=== PATIENT | female | born 1955 | race Caucasian/White ===

== ENCOUNTER 2021-12-14 15:34 | Inpatient (IN) | payer MEDICARE, MEDICAID, SELFPAY ==
[2021-12-14] VITALS (17 sets, daily range): BP systolic 90–126; BP diastolic 61–100; PULSE 115–146; RESP 16–29; TEMP 35.6–37.3; O2SAT 89–98; BMI 25.4; BMI 24.2
--- NOTE | 2021-12-14 16:05 | EDS_ITS ---
HPI History of Present Illness Chief Complaint: Chest Pain Informant: patient Onset/Context/Timing Onset: Today Activity at onset: gradual Timing: Continuous Quality: Positive for Heaviness and Pressure Location: Left Parasternal Current Severity: Severe Maximum Severity: Severe Narrative Narrative: Patient present secondary to chest pain and shortness of breath. She states symptoms started today. [facility] Patient states he was not get anything for pain prior to arrival. 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 She completed her radiation and had 1 chemo treatment. She denies any leg pain or swelling. She is not on blood thinners. [facility] Medical History Anxiety Chest pain Congestive heart failure (CHF) Diabetes Former smoker Hypertension Metastasis Primary cancer of left upper lobe of lung Allergy/AdvReac Type Severity Reaction Status Date / Time No Known Allergies Allergy Verified 12/14/21 15:36 Social History Smoking Status: Former smoker ROS ROS ED Constitutional Constitutional ED: Denies chills or fever(s) Eyes Eyes: Denies change in vision or discharge from eye(s) ENT ENT ED: Denies discharge from eye(s), rhinorrhea or sore throat Cardiovascular Cardiovascular: Reports chest pain; Denies palpitations Respiratory/Chest Respiratory/Chest: Reports dyspnea; Denies cough Gastrointestinal Gastrointestinal: Denies abdominal pain, nausea or vomiting Musculoskeletal Musculoskeletal: Denies back pain or extremity pain Neurologic Neurologic: Denies headache(s) or weakness Allergic/Immunologic Allergic/Immunologic ED: Denies lip swelling or urticaria EXAM Physical Exam Const Vital Signs: 12/14/21 15:36 12/14/21 15:59 12/14/21 16:09 Temperature 97 F L 96.0 F L Temperature Source Temporal Temporal Pulse Rate 140 H 146 H Respiratory Rate 16 21 H Blood Pressure 126/77 H 122/100 H Blood Pressure Mean 93 107 Pulse Ox 91 89 92 Oxygen Delivery Method Room Air Room Air Nasal Cannula Oxygen Flow Rate (L/min) 2 12/14/21 17:44 Temperature Temperature Source Pulse Rate 137 H Respiratory Rate 19 H Blood Pressure 119/90 H Blood Pressure Mean 99 Pulse Ox 93 Oxygen Delivery Method Room Air Oxygen Flow Rate (L/min) Positive well nourished and well developed General Appearance ED: well developed HEENT Reports normocephalic and head/scalp atraumatic Eyes PERRL and EOMs intact bilaterally Neck supple Chest Wall inspection of chest normal and palpation of chest normal Resp normal respiratory effort and clear to auscultation bilaterally Cardio regular rhythm Rate: tachycardic GI normal to inspection, nondistended, normoactive bowel sounds Palpation: soft Extremity normal to inspection Neuro oriented x3 and no sensory deficits noted Sensorium / Orientation: alert Psych Mood & Affect: anxious Skin no rashes or lesions noted Heart Score History: Moderately Suspicious ECG: Normal Age: >45 - <65 years Risk Factors: 1 or 2 Risk Factors Troponin: </= Normal Limit Score: 3 MDM MDM MDM Narrative Medical decision making narrative: Patient placed on ekg monitor tech. EKG, lab work, chest x-ray obtained. Patient given fentanyl for pain control. Due to high suspicion of PE CTA of the chest is ordered as soon as renal function returns. Lab Data Attestation: I reviewed the patient's lab results. Labs: Laboratory Results - last 24 hr 12/14/21 12/14/21 15:18 15:18 WBC 6.5 RBC 3.52 L Hgb 12.6 Hct 38.4 MCV 109.1 H MCH 35.8 H MCHC 32.8 RDW Std Deviation 77.3 H RDW Coeff of Bettina 19.2 H Plt Count 261 MPV 9.4 Immature Gran % (Auto) 0.600 Neut % (Auto) 86.2 H Lymph % (Auto) 9.8 L [place] % (Auto) 2.9 Eos % (Auto) 0.0 Baso % (Auto) 0.5 Absolute Neuts (auto) 5.6 Absolute Lymphs (auto) 0.64 L Nucleated RBC % 0.8 Sodium 138 Potassium 3.9 Chloride 103 Carbon Dioxide 25.0 Anion Gap 10 BUN 16 Creatinine 0.64 Estim Creat Clear Calc 67.01 Est GFR (MDRD) Af Amer 119 Est GFR (MDRD) Non-Af 98 BUN/Creatinine Ratio 24.8 H Glucose 248 H Calcium 9.0 Troponin I High Sens 11 Radiography Chest X-Ray - ED: 1 View, Read by ED Physician and Left Infiltrate Diagnostic Testing: Clinical Impression(s) from Imaging Studies Chest X-Ray 12/14/21 16:36 IMPRESSION: Left lower lobe consolidation. Pneumonia versus mass in this patient with history of lung cancer. Electronically Signed: Derek BiggsDO at 17:04 EDT Reading Location ID and State: [facility] / [place] Tel [phone], Service support , Chest CTA 12/14/21 16:54 IMPRESSION: 1. No evidence of pulmonary embolus. 2. No aortic dissection or aneurysm. 3. Spiculated mass in the left upper lobe. 4. More consolidation at the left lung base. 5. Faint groundglass density in the right periphery of the right upper lobe. 6. Degenerative changes of the thoracic spine. Electronically Signed: Derek BiggsDO at 17:37 EDT Reading Location ID and State: [facility] / [place] Tel [phone], Service support , Brain CT 12/14/21 17:02 IMPRESSION: Chronic involutional changes without evidence of acute intracranial or calvarial abnormality.. There is no visualized mass, bleed or infarction. If there is continued concern for brain metastases or infarction, MRI is recommended. Electronically Signed: Derek BiggsDO at 17:25 EDT Reading Location ID and State: [facility] / [place] Tel [phone], Service support , EKG Initial EKG: Attestation: I personally reviewed and interpreted this EKG as follows: Interpretation: Sinus Tachycardia (Sinus tach at 145.) Treatment and Re-Evaluation Narrative: Patient's heart rate is currently in the 120s. Lab work reveals normal white count at 6.5 but left shift is noted. Chemistry studies unremarkable. Troponin is normal at 11. EKG reveals sinus tachycardia. Chest x-ray per my interpretation reveals a large left lower lobe infiltrate. CTA of the chest reveals no evidence of pulmonary embolism. There is a spiculated mass in the left upper lobe. There is a consolidation with air bronchograms noted in the left lower lung. At this time patient be given Zosyn and vancomycin. Blood cultures will be obtained along with lactic acid. I will speak with hospitalist regarding admission. Discharge Plan Triage Chief Complaint: Chest Pain ED Provider: Jennifer Kong Dx/Rx/DC Orders Clinical Impression: Pneumonia, Chest pain, Tachycardia Primary Care Provider: Nixon Atkins Referrals: Nixon Atkins MD [Primary Care Provider] - Disposition Disposition: Acute Care Hospital [facility]
[2021-12-14] MEDS: fentaNYL 100 MCG/2 ML Ampul 50 MCG IV (16:16)
[2021-12-14] MEDS: Aspirin 81 MG TAB.CHEW 324 MG PO (16:16)
[2021-12-14] MEDS: 0.9% Normal Saline 1,000 ML 150 ML IV (16:17)
[2021-12-14 16:18] LABS: Absolute Lymphocyte Count 0.64 X10^3/uL (0.83-4.51); Absolute Neutrophil Count 5.6 X10^3/uL (2.0-7.7); Basophil# 0.03 X10^3/uL; Hematocrit 38.4 % (37-47); Hemoglobin 12.6 g/dL (12.0-15.0); Lymphocyte # 0.64 X10^3/ul (0.83-4.51); Mean Corp Hgb Conc 32.8 g/dL (32-36); Mean Corpuscular Hgb 35.8 pg (27.0-32.0); Mean Corpuscular Volume 109.1 fL (81-99); Mean Platelet Vol. 9.4 fl (6.2-12.0); Monocyte# 0.19 X10^3/uL; NRBC Flagged by Analyzer 0.8 % (0-5); Neutrophil # 5.63 X10^3/uL (2.7-7.7); POSITIVE MORPHOLOGY YES; Platelet Count 261 K/mm3 (150-450); RBC Distribution Width CV 19.2 % (11.6-14.6); RBC Distribution Width SD 77.3 fl (35.1-43.9); Red Blood Count 3.52 M/mm3 (4.2-5.4); White Blood Count 6.5 K/mm3 (4.4-11.0)
[2021-12-14 16:25] LABS: Differential Indicated SCAN CRITERIA MET
[2021-12-14 16:34] LABS: Anion Gap 10 (5-15); BUN 16 mg/dL (7-18); BUN/Creat Ratio 24.8 RATIO (10-20); Chloride 103 mmol/L (98-107); Creatinine, Serum 0.64 mg/dL (0.55-1.02); EST Glomerular Filtration Rate 98 mL/min (>60); Est Glom Filt Rate - Afr Amer 119 mL/min (>60); Estimated Creatinine Clearance 67.01 ml/min; Glucose 248 mg/dL (74-106); Potassium 3.9 mmol/L (3.5-5.1); Sodium Level 138 mmol/L (136-145); Troponin-I HS (w/2H Reflex) 11 pg/mL (3.0-54.0)
--- NOTE | 2021-12-14 16:36 | RAD_ITS ---
STUDY: X-RAY CHEST REASON FOR EXAM: Female, 66 years old. Chest pain. History of lung cancer. TECHNIQUE: Single AP portable view of the chest. COMPARISON: None. FINDINGS: There is a consolidation in the left lung base. Interval infiltrate is seen in the right lung base. The lungs are otherwise clear. There is no demonstrated pleural abnormality. Normal size heart. Normal mediastinum and kaiden. Normal visualized pulmonary arteries. Normal visualized aortic arch and descending thoracic aorta. There are diffuse degenerative changes of the visualized thoracic spine. Normal visualized ribs, clavicles, and shoulders. There is no demonstrated abnormality of the visualized soft tissue structures of the upper abdomen. RAD/Chest 1 View (Portable) IMPRESSION: Left lower lobe consolidation. Pneumonia versus mass in this patient with history of lung cancer. Electronically Signed: Derek Biggs DO at 17:04 EDT ,
--- NOTE | 2021-12-14 16:54 | CT_ITS ---
STUDY: CTA CHEST REASON FOR EXAM: Female, 66 years old. Rest pain. History of lung cancer with brain metastases. Former smoker. Hypertension, COPD, CHF and diabetes. RADIATION DOSAGE (If Supplied By Facility): CTDIvol = ( 10.69 ) mGy, DLP = ( 425.95 ) mGycm TECHNIQUE: The examination was performed with the intravenous administration of IV 75mL Isovue-370. Post-processing of the angiographic images was performed, with multiplanar reformation and 3D reconstruction. Individualized dose optimization techniques were used for this CT. COMPARISON: Chest, 12/14/2021 FINDINGS: Normal enhancement of the main pulmonary artery and right and left pulmonary arteries. Normal enhancement of the bilateral peripheral pulmonary arteries. There is no demonstrated pulmonary embolism. The atherosclerotic changes of the thoracic aorta without aneurysm. There is no demonstrated aortic dissection. Normal heart and pericardium. No coronary artery calcifications. Subcentimeter subcarinal lymph node. No other mediastinal adenopathy is seen. Normal hilar regions. Normal visualized trachea and bronchi. The lungs are well expanded. There is a spiculated density in the left upper lobe measuring 2.9 x 2.0 x 1.9 cm in size. Minimal thickening of the oblique fissure. There is marked consolidation of the left lower lobe with air bronchograms. This is a vague ground glass pleural-based density in the right upper lobe best seen on image 164 of series 2. Right lung is otherwise clear. Small right pleural effusion. Normal chest wall structures. There are degenerative changes of thoracic spine. Normal visualized upper abdomen. CT/CTA Chest W/WO Contrast IMPRESSION: 1. No evidence of pulmonary embolus. 2. No aortic dissection or aneurysm. 3. Spiculated mass in the left upper lobe. 4. More consolidation at the left lung base. 5. Faint groundglass density in the right periphery of the right upper lobe. 6. Degenerative changes of the thoracic spine. Electronically Signed: Derek Biggs DO at 17:37 EDT ,
--- NOTE | 2021-12-14 17:02 | CT_ITS ---
STUDY: CT BRAIN WITHOUT CONTRAST REASON FOR EXAM: Female, 66 years old. Headache. History of lung cancer with brain metastases. Former smoker. Hypertension, COPD, CHF and diabetes. RADIATION DOSAGE (If Supplied By Facility): CTDIvol = ( 44.99 ) mGy, DLP = ( 748.30 ) mGycm TECHNIQUE: Transaxial CT imaging of the brain was performed without administration of intravenous contrast material. Individualized dose optimization techniques were used for this CT. COMPARISON: No relevant priors. FINDINGS: Normal soft tissue structures. Normal calvarium. There is mild cerebral atrophy with widening of the extra-axial spaces and ventricular dilatation. There are areas of decreased attenuation within the white matter tracts of the supratentorial brain, consistent with microvascular disease changes. Normal basal ganglia and thalami. Normal brainstem. Normal cerebellum. There is no intracranial hemorrhage. There are no findings of an acute ischemic infarction. Normal visualized paranasal sinuses. CT/Brain/Head without Contrast IMPRESSION: Chronic involutional changes without evidence of acute intracranial or calvarial abnormality.. There is no visualized mass, bleed or infarction. If there is continued concern for brain metastases or infarction, MRI is recommended. Electronically Signed: Derek Biggs DO at 17:25 EDT ,
--- NOTE | 2021-12-14 17:53 | HP.PCM.HOS_ITS ---
HPI - General General Date of Admission: 12/14/21 Date of Service: 12/14/21 HPI Narrative KATIE KATZ, is a 66 F with a PMH as outlined who presents via the ED from her SNF on 12[facility]/2021 with a complaint of chest pain and associated shortness of breath. Symptoms started on the day of admission. She denied any cough, palpitations, dizziness, nausea, vomiting or diarrhea. SHe has a history of lung cancer with mets to the brain. She was on 2L of oxygen when she came in. She denied any fever, chills, nausea, vomiting or diarrhea. Review of systems is otherwise negative. SHe was recently admitted at [facility] for UTI and discharged on [facility], from where she arrives today. Vitals in the ED were BP of 119/90, WI of 137, RR of 19 and she was saturating at 93% on room air. CBC showed wbc of 6.5, Hb of 12.6 and platelets of 261. Mary carmelo was essentially unremarkable. CXR showed a left lower lobe consolidation. CTA of the chest was negative for PE, aortic dissection or aneurysm, and showed a spiculated mass in the left upper lobe with more consolidation in the left lung base. She was started on IV vancomycin and zosyn and is being admitted to be managed for health associated pneumonia in a patient with known lung cancer. [facility] Medical History (Updated 12/14/21 @ 18:34 by Carolann Martinez) Anxiety Chest pain Congestive heart failure (CHF) COPD (chronic obstructive pulmonary disease) Diabetes Former smoker Hypertension Metastasis Primary cancer of left upper lobe of lung Home Medications albuterol sulfate 90 mcg/actuation aerosol inhaler (Ventolin HFA) 2 inh inhalation Q4H SOB 12/14/21 [History Last Taken Unknown] bupropion HCl 150 mg 24 hr tablet, extended release 150 mg PO DAILY DEPRESSION 12/14/21 [History Last Taken 12/14/21] clonazepam 1 mg tablet 1 mg PO BID ANXIETY 12/14/21 [History Last Taken 12/14/21] dexamethasone 4 mg tablet 4 mg PO BID STEROID 12/14/21 [History Last Taken 12/14/21] fluoxetine 20 mg tablet 60 mg PO DAILY DEPRESSION 12/14/21 [History Last Taken 12/14/21] folic acid 400 mcg tablet 0.4 mg PO DAILY SUPPLEMENT 12/14/21 [History Last Taken 12/14/21] glimepiride 2 mg tablet 4 mg PO DAILY DM 12/14/21 [History Last Taken Unknown] insulin glargine-yfgn 100 unit/mL (3 mL) subcutaneous pen 20 unit subcut BID DM 12/14/21 [History Last Taken Unknown] ipratropium 20 mcg-albuterol 100 mcg/actuation mist for inhalation (Combivent Respimat) 1 puff inhalation BID COPD 12/14/21 [History Last Taken 12/14/21] levetiracetam 500 mg tablet 500 mg PO BID SEIZURES 12/14/21 [History Last Taken 12/14/21] oxybutynin chloride 5 mg tablet 5 mg PO DAILY OAB 12/14/21 [History Last Taken 12/14/21] pantoprazole 40 mg tablet,delayed release 40 mg PO DAILY GERD 12/14/21 [History Last Taken 12/14/21] trazodone 150 mg tablet 150 mg PO QHS SLEEP 12/14/21 [History Last Taken 12/13/21] Allergy/AdvReac Type Severity Reaction Status Date / Time No Known Allergies Allergy Verified 12/14/21 15:36 Social History Smoking Status: Former smoker ROS Constitutional Constitutional: Reports fatigue, malaise and weakness; Denies anorexia, chills or fever(s) Eyes Eyes: Denies change in vision ENT HEENT: Denies dysphagia, headache(s) or sore throat Cardiovascular Cardiovascular: Reports rapid heart rate; Denies chest pain, dyspnea on exertion, edema, lightheadedness, orthopnea, palpitations, paroxysmal nocturnal dyspnea or syncope Respiratory/Chest Respiratory/Chest: Reports dyspnea and shortness of breath at rest; Denies cough, excessive phlegm production, hemoptysis, productive cough, shortness of breath with exertion or wheezing Gastrointestinal Gastrointestinal: Denies abdominal pain, constipation, diarrhea, dyspepsia, hematemesis, hematochezia, loose stools, melena, nausea or vomiting Genitourinary Genitourinary: Denies burning urination, dysuria or urinary frequency Musculoskeletal Musculoskeletal: Denies arthralgias or back pain Neurologic Neurologic: Denies confusion, dizziness, focal weakness, headache(s), numbness, seizures or syncope Psychiatric Psychiatric: Denies anxiety or depression Hematologic/Lymphatic Hematologic/Lymphatic: Denies anemia Vital Signs Vital Signs Vital Signs: 12/14/21 15:36 12/14/21 15:59 12/14/21 16:09 Temperature 97 F L 96.0 F L Temperature Source Temporal Temporal Pulse Rate 140 H 146 H Respiratory Rate 16 21 H Blood Pressure 126/77 H 122/100 H Blood Pressure Mean 93 107 Pulse Ox 91 89 92 Oxygen Delivery Method Room Air Room Air Nasal Cannula Oxygen Flow Rate (L/min) 2 12/14/21 17:44 Temperature Temperature Source Pulse Rate 137 H Respiratory Rate 19 H Blood Pressure 119/90 H Blood Pressure Mean 99 Pulse Ox 93 Oxygen Delivery Method Room Air Oxygen Flow Rate (L/min) Weight Weight: 135 lb Body Mass Index (BMI) 25.4 Physical Exam Const alert, oriented x3 and no apparent distress General Appearance: cooperative HEENT normocephalic, head/scalp atraumatic and hearing grossly normal bilaterally HEENT Narrative: dry oral mucous membranes, has prado facies due to steroid use. Eyes PERRL, EOMs intact bilaterally and conjunctivae normal Neck no lymphadenopathy, supple and no JVD Resp Resp Narrative: diminished breath sounds bibasally, no wheezes or crackles. on room air Cardio regular rhythm, S1 normal heart sound and S2 normal heart sound Cardio Narrative: sinus tachycardia GI normal to inspection, nondistended, normoactive bowel sounds, soft to palpation, non-tender and non-distended Extremity normal to inspection, full ROM and no clubbing, cyanosis or edema Neuro oriented x3, CN's II-XII intact bilaterally, moves all extremities and no focal motor deficits Sensorium / Orientation: awake and alert Motor Exam: strength 5/5 throughout Psych affect normal Results Lab / Micro Data Result Diagrams: 12/14/21 15:18 12/14/21 15:18 Labs: Laboratory Results - last 24 hr 12/14/21 15:18: WBC 6.5, RBC 3.52 L, Hgb 12.6, Hct 38.4, MCV 109.1 H, MCH 35.8 H , MCHC 32.8, RDW Std Deviation 77.3 H, RDW Coeff of Bettina 19.2 H, Plt Count 261, MPV 9.4, Immature Gran % (Auto) 0.600, Neut % (Auto) 86.2 H, Lymph % (Auto) 9.8 L, [place] % (Auto) 2.9, Eos % (Auto) 0.0, Baso % (Auto) 0.5, Absolute Neuts (auto) 5.6, Absolute Lymphs (auto) 0.64 L, Nucleated RBC % 0.8 12/14/21 15:18: Sodium 138, Potassium 3.9, Chloride 103, Carbon Dioxide 25.0, Anion Gap 10, BUN 16, Creatinine 0.64, Estim Creat Clear Calc 67.01, Est GFR (MDRD) Af Amer 119, Est GFR (MDRD) Non-Af 98, BUN/Creatinine Ratio 24.8 H, Glucose 248 H, Calcium 9.0, Troponin I High Sens 11 Radiology Impression Chest X-Ray 12/14/21 16:36 IMPRESSION: Left lower lobe consolidation. Pneumonia versus mass in this patient with history of lung cancer. Electronically Signed: Derek Biggs DO at 17:04 EDT Reading Location ID and State: [facility] / [place] Tel [phone], Service support , Chest CTA 12/14/21 16:54 IMPRESSION: 1. No evidence of pulmonary embolus. 2. No aortic dissection or aneurysm. 3. Spiculated mass in the left upper lobe. 4. More consolidation at the left lung base. 5. Faint groundglass density in the right periphery of the right upper lobe. 6. Degenerative changes of the thoracic spine. Electronically Signed: Derek Biggs DO at 17:37 EDT Reading Location ID and State: [place] / [place] Tel [phone], Service support , Brain CT 12/14/21 17:02 IMPRESSION: Chronic involutional changes without evidence of acute intracranial or calvarial abnormality.. There is no visualized mass, bleed or infarction. If there is continued concern for brain metastases or infarction, MRI is recommended. Electronically Signed: Derek Biggs DO at 17:25 EDT Reading Location ID and State: [facility] Tel [phone], Service support , Assessment & Plan Assessment/Plan (1) Healthcare-associated pneumonia: (2) Tachycardia: PLAN: Plan #HEalth associated pneumonia * admit to PCU o/a of tachycardia * hydate with IVF NS @ 150cc/hr * CTA showed no evidence of PE, but showed consolidation in hte left lung base and a spiculated mass in the left upper lobe * was started on IV vancomycin and zosyn; will continue * get sputum and blood cultures, and check urine for strep and legionella * breathing treatment with bronchodilators * titrate oxygen as needed to maintain sats >90% * check lactic acid * #SInus tachycardia: likely due to health associated pneumonia. CTA negative for PE. Should improve with hydration #History of lung cancer with brain mets * CTA chest showed spiculated mass in the left upper lobe * s/p chemotherapy and radiation; has completed her sessions of radiation and has had one session of chemotherapy * follow up with oncology on outpatient basis * on keppra and dexamethasone * #? Type 2 diabetes mellitus * per patient and her sister, she is not a known diabetic, but was placed on lantus and glimepiride as a result of steroid induced hyperglycemia * on lantus 20 units bid. * ISS. Accuchecks ACHS * also on glimepiride * will check A1C * #Depression; on fluoxetine and bupropion DVT prophylaxis: lovenox * * COde status: full code * Patient counseled extensively about different types of CODE STATUS including full code, DNR CCA and DNR CCA. Patient elects to be full code. * Total [id number] time 16 minutes. Sepsis Attestation Sepsis Alert: Yes Sepsis Attestation: Agree w/Sepsis Date exam was performed: 12/14/21 Time exam was performed: 19:16 Possible Source of Sepsis: Pulmonary Sepsis Organ Dysfunction Criteria Present: Lactic Acid > 2 mmol/L Supportive Findings: Patient is tachycardic, tachypneic and also has elevated lactic acid. She is also on 2L of oxygen. Fluid bolus ordered per sepsis protocol as lactic acid is 5.5. On Iv vancomycin and zosyn as focus is the left lower lobe pneumonia. Fluid Resuscitation Fluid resuscitation indicated?: Yes Fluid Resuscitation ordered: 30 ml/kg fluid bolus ordered Charges/Coding Visit Charges Inpatient E&M: 60072 Init Hosp L3 Procedures Hospitalists Procedures: 07502 Advncd Care Plan 30 Min
--- NOTE | 2021-12-14 17:56 | NURSING ---
DR WU FOR DR GUPTA
[2021-12-14 18:01] LABS: Scan Smear per Review Criteria MANUAL DIFF
--- NOTE | 2021-12-14 18:03 | NURSING ---
PCU KORAM PNEUMONIA, TACHYCARDIA, CP
[2021-12-14 18:05] LABS: Lymphocyte 11 % (19-41); Metamyelocyte 13 % (0-1); Monocyte 1 % (0-10); Neutrophil-Band 27 % (0-5); Neutrophil-Segmented 48 % (47-70); Nucleated Red Bld Cells,Manual 2 % (0-5); Total Cells Counted 100 (MANUAL DIFF)
[2021-12-14 18:06] LABS: Platelet Estimate ADEQUATE (ADEQ)
[2021-12-14 18:07] LABS: Anisocytosis 2+; Polychromasia 1+
[2021-12-14 18:08] LABS: Macrocytosis 1+; Microcytosis 1+
[2021-12-14 18:13] LABS: Reflex Troponin-HS? (from REC) Y
[2021-12-14] MEDS: Vancomycin IV 1,000 MG/200 ML BAG 200 MG IV (18:53)
--- NOTE | 2021-12-14 19:06 | EKG12_ITS ---
Test Reason : tachycardia Blood Pressure : / mmHG Vent. Rate : 145 BPM Atrial Rate : 145 BPM P-R Int : 128 ms QRS Dur : 072 ms QT Int : 302 ms P-R-T Axes : 049 057 067 degrees QTc Int : 469 ms Sinus tachycardia Otherwise normal ECG Confirmed by LETI MCCRARY, ALDO ([id number]), subeditor ZOË MCGRATH ([id number]) on 12/16/2021 10:22:19 AM Referred By: Confirmed By:ALDO LANDEROS MD
[2021-12-14 19:22] LABS: Lactic Acid 5.5 mmol/L (0.4-1.9)
--- NOTE | 2021-12-14 19:24 | ED.RN ---
lab called with lactic acid 5.5, this nurse notified ALBERTO Blanca of same.
[2021-12-14] MEDS: oxyCODONE 5 MG Tablet PO (19:38)
[2021-12-14 19:41] LABS: Troponin-I HS 16 pg/mL (3.0-54.0)
[2021-12-14] MEDS: 0.9% Normal Saline 1,000 ML 999 ML IV ×2 (19:45→20:46)
--- NOTE | 2021-12-14 19:48 | NURSING ---
Report called to Maria Eugenia SWIM COACH. Nightshift charge Torri and Primary RN Vianey made aware that ICU is ready for pt.
--- NOTE | 2021-12-14 20:06 | PCM.RX.CS ---
Consult Pharmacy has been consulted to manage selected antiobiotic: Vancomycin Type of Consult: New start Suspected Infection: Sepsis, Pneumonia Labs: Sodium 138 mmol/L (136-145) 12/14/21 15:18 Potassium 3.9 mmol/L (3.5-5.1) 12/14/21 15:18 Chloride 103 mmol/L (98-107) 12/14/21 15:18 Carbon Dioxide 25.0 mmol/L (21.0-32.0) 12/14/21 15:18 Anion Gap 10 (5-15) 12/14/21 15:18 BUN 16 mg/dL (7-18) 12/14/21 15:18 Creatinine 0.64 mg/dL (0.55-1.02) 12/14/21 15:18 Est GFR (MDRD) Af Amer 119 mL/min (>60) 12/14/21 15:18 Est GFR (MDRD) Non-Af 98 mL/min (>60) 12/14/21 15:18 BUN/Creatinine Ratio 24.8 RATIO (10-20) H 12/14/21 15:18 Glucose 248 mg/dL (74-106) H 12/14/21 15:18 Goal Trough: 15-20 mcg/mL Pharmacy Plan for Drug Dosing: NEW START IV VANCOMYCIN Consulting Physician: Dr. Ron Zavala Indication: Pneumonia/Sepsis Goal Trough: 15-20 SrCr: 0.64 CrCl: 67 mls/min Comments: pt received a 1000mg x1 dose in the ER on 12/14/21 at 1853 Vancomycin Dose: based on pts weight and renal function, recommend an initial dose of 750mg q12h starting 12/15/21 at 0700. Trough before the 4th total dose Pending Level: 12/16/21 at 0630 Pharmacy Service will continue to monitor and adjust dosing as required. Follow-Up Labs: Trough Vancomycin - 12/16/21 at 0630
[2021-12-14] MEDS: Metoprolol Tartrate 5 MG/5 ML Vial IV (20:28)
[2021-12-14] MEDS: Morphine 4 MG/ML Syringe IV (21:07)
[2021-12-14] MEDS: traZODone 50 MG Tablet 150 MG PO (21:15)
[2021-12-14] MEDS: levETIRAcetam 500 MG Tablet PO (21:16)
[2021-12-14] MEDS: 0.9% Saline Lock 10 ML Syringe IV (21:16)
[2021-12-14 21:35] LABS: Bedside Glucose 180 mg/dL (74-106)
[2021-12-14] MEDS: dexAMETHasone 4 MG Tablet PO (21:44)
[2021-12-14] MEDS: clonazePAM 1 MG Tablet PO (21:44)
[2021-12-14 22:00] LABS: Reflex Lactate? Y
[2021-12-14] MEDS: Insulin Glargine-YFGN 100 UNIT/ML Pen 20 UNIT SC (22:46)
[2021-12-14] MEDS: Insulin Lispro 100 UNIT/ML INSULN.PEN SC (22:48)
[2021-12-14 23:35] LABS: Lactic Acid 3.4 mmol/L (0.4-1.9)
[2021-12-14 23:36] LABS: Procalcitonin 8.05 ng/mL (0.00-0.09)
[2021-12-15] VITALS (24 sets, daily range): BP systolic 86–129; BP diastolic 57–94; PULSE 113–135; RESP 15–25; TEMP 36.1–37.4; O2SAT 87–98
[2021-12-15] MEDS: oxyCODONE 5 MG Tablet PO ×3 (00:04→22:15)
[2021-12-15] MEDS: 0.9% Normal Saline 1,000 ML 150 ML IV ×3 (00:42→17:06)
[2021-12-15] MEDS: 0.9% Saline Lock 10 ML Syringe IV ×2 (00:53→17:06)
[2021-12-15 04:24] LABS: Absolute Lymphocyte Count 0.31 X10^3/uL (0.83-4.51); Absolute Neutrophil Count 1.8 X10^3/uL (2.0-7.7); Basophil# 0.01 X10^3/uL; Basophil% 0.4 % (0-1); Eosinophil# 0.01 X10^3/uL; Eosinophils% 0.4 % (0-5); Hematocrit 30.6 % (37-47); Hemoglobin 9.7 g/dL (12.0-15.0); Lymphocyte # 0.31 X10^3/ul (0.83-4.51); Lymphocyte % 13.8 % (19-41); Mean Corp Hgb Conc 31.7 g/dL (32-36); Mean Corpuscular Hgb 35.7 pg (27.0-32.0); Mean Corpuscular Volume 112.5 fL (81-99); Mean Platelet Vol. 8.9 fl (6.2-12.0); Monocyte# 0.07 X10^3/uL; Monocyte% 3.1 % (0-10); NRBC Flagged by Analyzer 0 % (0-5); Neutrophil % 80.5 % (47-70); POSITIVE DIFFERENTIAL YES; POSITIVE MORPHOLOGY YES; Platelet Count 151 K/mm3 (150-450); RBC Distribution Width CV 18.5 % (11.6-14.6); RBC Distribution Width SD 77.1 fl (35.1-43.9); Red Blood Count 2.72 M/mm3 (4.2-5.4); White Blood Count 2.2 K/mm3 (4.4-11.0)
[2021-12-15 04:54] LABS: Anion Gap 9 (5-15); BUN 14 mg/dL (7-18); BUN/Creat Ratio 37.7 RATIO (10-20); Calcium,Total 7.6 mg/dL (8.5-10.1); Chloride 110 mmol/L (98-107); Creatinine, Serum 0.37 mg/dL (0.55-1.02); EST Glomerular Filtration Rate 186 mL/min (>60); Est Glom Filt Rate - Afr Amer 225 mL/min (>60); Estimated Creatinine Clearance 115.91 ml/min; Glucose 38 mg/dL (74-106); Potassium 3.1 mmol/L (3.5-5.1); Sodium Level 141 mmol/L (136-145)
[2021-12-15] MEDS: Dextrose 50%-Water 25 GM/50 ML DISP.SYRIN IV (05:05)
[2021-12-15 05:21] LABS: Bedside Glucose 34 mg/dL (74-106)
[2021-12-15 05:24] LABS: Differential Indicated SCAN CRITERIA MET
[2021-12-15 05:28] LABS: Anisocytosis 2+; Macrocytosis 2+
[2021-12-15 05:29] LABS: Basophilic Stippling 1+; Polychromasia 1+
[2021-12-15 05:45] LABS: Bedside Glucose 199 mg/dL (74-106)
[2021-12-15] MEDS: Potassium Chloride Oral Soln 20 MEQ/15 ML UDC 40 MEQ PO (06:03)
--- NOTE | 2021-12-15 06:19 | CON.PCM.CC_ITS ---
Assessment & Plan Assessment/Plan (1) Sepsis: PLAN: Plan RECOMMENDATIONS: 1. Continue empiric antimicrobials. Obtain infectious diseases consultation. 2. Avoid sedating medications. 3. Dose adjust Lantus given hypoglycemia. 4. Continue Keppra and Decadron per home regimen. 5. Attempt to obtain outside oncology records. 6. Check liver function profile. IMPRESSIONS: 1. Sepsis The patient presented with sepsis due to gram-negative bacteremia with acute sepsis related organ dysfunction as evidenced by lactic acidemia and altered mentation. She was previously hospitalized earlier this month at an outside hospital with VRE sepsis but was apparently treated appropriately by infectious diseases. She now presents with radiographic evidence of pneumonia and gram- negative bacteremia. The patient did receive supplemental IV fluid hydration and has remained hemodynamically stable, without the need for vasopressor support. Plan to continue empiric antimicrobials and obtain infectious diseases consultation. 2. History of metastatic non-small cell lung cancer The patient apparently received radiation treatment and is currently receiving systemic chemotherapy. However, the records pertinent to her oncology history are not available and the patient does not recall where she receives her care. Plan to continue Decadron and Keppra per home regimen. 3. Recently diagnosed diabetes mellitus/depression/anxiety/GERD Complicates care, management, recovery and prognosis. Recommend holding sedating home medications and dose adjusting Lantus, given hypoglycemia noted this morning. Physical therapy to evaluate the patient. This note was generated with [employer] dictation software. It may contain incorrect words, spelling, and punctuation that were not noted in checking the note before signing. HPI Consult Data Date of Consult: 12/15/21 HPI Narrative Reason for Consultation: Sepsis HPI Narrative: The patient is a 66-year-old female, with a history as outlined below, who presented to the emergency department via EMS on December 14 with shortness of breath and chest pain. The patient has a medical history significant for stage IV non-small cell lung cancer with mets to the brain, along with COPD, anxiety/depression and hypertension. She has finished radiation treatment and is currently on chemotherapy. She recently was admitted to [facility] with altered mental status in the setting of sepsis secondary to VRE urinary tract source of infection. [facility] Unfortunately, due to the patient's confusion, no additional history pertinent to her medical history was able to be obtained. She does not recall the name of her oncologist or where she receives her oncological care. On presentation to the emergency department, the patient was noted to have a temperature of 96 ?F. She was notably tachycardic and tachypneic. Initial laboratory evaluation revealed 27% bandemia. Chemistry profile was notable for a lactate of 5.5. Procalcitonin was elevated at 8.05. Troponin was negative. CTA chest showed no evidence for pulmonary embolism. There was a left upper lobe spiculated nodule measuring 2.9 x 1.9 cm in size. Consolidation of the left lower lobe was noted as well. The patient received supplemental IV fluid hydration and was started on antimicrobials. She was subsequently admitted to the medical intensive care unit for further management. [facility] Medical History (Updated 12/15/21 @ 09:[address] Maicol Cho, ) Anxiety Chest pain Congestive heart failure (CHF) COPD (chronic obstructive pulmonary disease) Diabetes Former smoker Hypertension Metastasis Primary cancer of left upper lobe of lung Home Medications albuterol sulfate 90 mcg/actuation aerosol inhaler (Ventolin HFA) 2 inh inh alation Q4H SOB 12/14/21 [History Last Taken Unknown] bupropion HCl 150 mg 24 hr tablet, extended release 150 mg PO DAILY DEPRESSION 12/14/21 [History Last Taken 12/14/21] clonazepam 1 mg tablet 1 mg PO BID ANXIETY 12/14/21 [History Last Taken 12/14/21] dexamethasone 4 mg tablet 4 mg PO BID STEROID 12/14/21 [History Last Taken 12/14/21] fluoxetine 20 mg tablet 60 mg PO DAILY DEPRESSION 12/14/21 [History Last Taken 12/14/21] folic acid 400 mcg tablet 0.4 mg PO DAILY SUPPLEMENT 12/14/21 [History Last Taken 12/14/21] glimepiride 2 mg tablet 4 mg PO DAILY DM 12/14/21 [History Last Taken Unknown] insulin glargine-yfgn 100 unit/mL (3 mL) subcutaneous pen 20 unit subcut BID DM 12/14/21 [History Last Taken Unknown] ipratropium 20 mcg-albuterol 100 mcg/actuation mist for inhalation (Combivent Respimat) 1 puff inhalation BID COPD 12/14/21 [History Last Taken 12/14/21] levetiracetam 500 mg tablet 500 mg PO BID SEIZURES 12/14/21 [History Last Taken 12/14/21] oxybutynin chloride 5 mg tablet 5 mg PO DAILY OAB 12/14/21 [History Last Taken 12/14/21] pantoprazole 40 mg tablet,delayed release 40 mg PO DAILY GERD 12/14/21 [History Last Taken 12/14/21] trazodone 150 mg tablet 150 mg PO QHS SLEEP 12/14/21 [History Last Taken 12/13/21] Allergy/AdvReac Type Severity Reaction Status Date / Time No Known Allergies Allergy Verified 12/14/21 15:36 Social History Smoking Status: Former smoker ROS ROS Narrative 10 systems were reviewed with pertinent positives as noted in the HPI above. Physical Exam Const alert and no apparent distress General Appearance: cooperative Orientation / Consciousness: confused and disoriented HEENT normocephalic and head/scalp atraumatic Eyes PERRL, EOMs intact bilaterally and conjunctivae normal Neck supple General: trachea midline Chest inspection of chest normal Resp normal respiratory effort Auscultation: rales and diminished lung sounds Cardio S1 normal heart sound and S2 normal heart sound Rate: tachycardic GI soft to palpation and non-tender Inspection: abdominal distention Extremity no clubbing, cyanosis or edema Skin no rashes or lesions noted Neuro CN's II-XII intact bilaterally and moves all extremities Psych cooperative Lab / Micro Data Result Diagrams: 12/15/21 04:15 12/15/21 04:15 Labs: Laboratory Results - last 24 hr 12/14/21 15:18: WBC 6.5, RBC 3.52 L, Hgb 12.6, Hct 38.4, MCV 109.1 H, MCH 35.8 H , MCHC 32.8, RDW Std Deviation 77.3 H, RDW Coeff of Bettina 19.2 H, Plt Count 261, MPV 9.4, Immature Gran % (Auto) TECHNICAL SERVICES REPRESENTATIVE, Neut % (Auto) TECHNICAL SERVICES REPRESENTATIVE, Lymph % (Auto) TECHNICAL SERVICES REPRESENTATIVE, [place] % (Auto) TECHNICAL SERVICES REPRESENTATIVE, Eos % (Auto) TECHNICAL SERVICES REPRESENTATIVE, Baso % (Auto) TECHNICAL SERVICES REPRESENTATIVE, Absolute Neuts (auto) 5.6, Absolute Lymphs (auto) 0.64 L, Total Counted 100, Neutrophils % (Manual) 48, Band Neutrophils % 27 H, Lymphocytes % (Manual) 11 L, Monocytes % (Manual) 1, Metamyelocytes % 13 H, Nucleated RBC % 0.8, Nucleated RBCs/100 WBC 2, Diff Path Review May foll, Platelet Estimate ADEQUATE, Polychromasia 1+, Anisocytosis 2+, Microcytosis 1+, Macrocytosis 1+ 12/14/21 15:18: Sodium 138, Potassium 3.9, Chloride 103, Carbon Dioxide 25.0, Anion Gap 10, BUN 16, Creatinine 0.64, Estim Creat Clear Calc 67.01, Est GFR (MDRD) Af Amer 119, Est GFR (MDRD) Non-Af 98, BUN/Creatinine Ratio 24.8 H, Glucose 248 H, Calcium 9.0, Troponin I High Sens 11 12/14/21 17:54: Lactic Acid 5.5 H* 12/14/21 18:57: Troponin I High Sens 16 12/14/21 21:15: POC Glucose 180 H 12/14/21 22:55: Procalcitonin 8.05 H 12/14/21 22:55: Lactic Acid 3.4 H* 12/15/21 04:15: WBC 2.2 L, RBC 2.72 L, Hgb 9.7 L, Hct 30.6 L, MCV 112.5 H, MCH 35.7 H, MCHC 31.7 L, RDW Std Deviation 77.1 H, RDW Coeff of Bettina 18.5 H, Plt Count 151, MPV 8.9, Immature Gran % (Auto) 1.800 H, Neut % (Auto) 80.5 H, Lymph % (Auto) 13.8 L, [place] % (Auto) 3.1, Eos % (Auto) 0.4, Baso % (Auto) 0.4, Absolute Neuts (auto) 1.8 L, Absolute Lymphs (auto) 0.31 L, Nucleated RBC % 0, Diff Path Review May foll, Polychromasia 1+, Basophilic Stippling 1+, Anisocytosis 2+, Macrocytosis 2+ 12/15/21 04:15: Sodium 141, Potassium 3.1 L, Chloride 110 H, Carbon Dioxide 22.0, Anion Gap 9, BUN 14, Creatinine 0.37 L, Estim Creat Clear Calc 115.91, Est GFR (MDRD) Af Amer 225, Est GFR (MDRD) Non-Af 186, BUN/Creatinine Ratio 37.7 H, Glucose 38 L*, Calcium 7.6 L 12/15/21 04:57: POC Glucose 34 L* 12/15/21 05:23: POC Glucose 199 H Micro: Microbiology 12/14/21 18:05 Blood Culture (Wb) - Left Wrist Blood Culture - Preliminary 12/14/21 17:54 Blood Culture (Wb) - Anticubital Left Blood Culture - Preliminary 12/14/21 21:50 Urine, Clean Catch Legionella Antigen - Final 12/14/21 21:50 Urine, Clean Catch Streptococcus pneumoniae Antigen (M - Final Radiology Impression Chest X-Ray 12/14/21 16:36 IMPRESSION: Left lower lobe consolidation. Pneumonia versus mass in this patient with history of lung cancer. Electronically Signed: Derek Biggs DO at 17:04 EDT Reading Location ID and State: [employer] / [place] Tel [phone], Service support , Chest CTA 12/14/21 16:54 IMPRESSION: 1. No evidence of pulmonary embolus. 2. No aortic dissection or aneurysm. 3. Spiculated mass in the left upper lobe. 4. More consolidation at the left lung base. 5. Faint groundglass density in the right periphery of the right upper lobe. 6. Degenerative changes of the thoracic spine. Electronically Signed: Derek Biggs DO at 17:37 EDT Reading Location ID and State: [employer] / [place] Tel [phone], Service support , Brain CT 12/14/21 17:02 IMPRESSION: Chronic involutional changes without evidence of acute intracranial or calvarial abnormality.. There is no visualized mass, bleed or infarction. If there is continued concern for brain metastases or infarction, MRI is recommended. Electronically Signed: Derek Biggs DO at 17:25 EDT Reading Location ID and State: [employer] / [place] Tel [phone], Service support , Charges/Coding Visit Charges Inpatient E&M: 60603 Init Hosp L3
[2021-12-15] MEDS: Albuterol 2.5 MG/3 ML VIAL.NEB. INHALATION ×4 (06:38→19:01)
--- NOTE | 2021-12-15 07:17 | PCM.PN.HOSP ---
Subjective Subjective Patient is a 66-year-old lady with history of lung CA with mets to the brain resident at a [facility] brought to the emergency department with chest pain and shortness of breath. An assessment of sepsis secondary to pneumonia with MDR's made admitted to the intensive care unit where patient is being managed Objective Data Objective Data Vital Signs: Vital Signs Temp Pulse Resp BP Pulse Ox O2 Del Method O2 Flow Rate 96.9 F L 120 H 15 90/65 93 Nasal Cannula 2 12/15/21 04:00 12/15/21 07:00 12/15/21 07:00 12/15/21 07:00 12/15/21 07:00 12/15/21 07:00 12/15/21 07:00 Oxygen Flow Rate (L/min) 2 Oxygen Delivery Method Nasal Cannula Weight: 61.6 kg Body Mass Index (BMI) 24.2 Intake & Output: Intake and Output for Last 24 Hours 12/13/21 12/14/21 12/15/21 23:59 23:59 23:59 Intake Total 2645 / 3178.25 1630.50 / 1630.50 Output Total 70 / 70 25 / 25 Balance 2575 / 3108.25 1605.50 / 1605.50 Lab / Micro Data Result Diagrams: 12/15/21 04:15 12/15/21 04:15 Labs: Laboratory Results - last 24 hr 12/14/21 15:18: WBC 6.5, RBC 3.52 L, Hgb 12.6, Hct 38.4, MCV 109.1 H, MCH 35.8 H, MCHC 32.8, RDW Std Deviation 77.3 H, RDW Coeff of Bettina 19.2 H, Plt Count 261, MPV 9.4, Immature Gran % (Auto) INVENTORY MANAGER, Neut % (Auto) INVENTORY MANAGER, Lymph % (Auto) INVENTORY MANAGER, [place] % (Auto) INVENTORY MANAGER, Eos % (Auto) INVENTORY MANAGER, Baso % (Auto) INVENTORY MANAGER, Absolute Neuts (auto) 5.6, Absolute Lymphs (auto) 0.64 L, Total Counted 100, Neutrophils % (Manual) 48, Band Neutrophils % 27 H, Lymphocytes % (Manual) 11 L, Monocytes % (Manual) 1, Metamyelocytes % 13 H, Nucleated RBC % 0.8, Nucleated RBCs/100 WBC 2, Diff Path Review May foll, Platelet Estimate ADEQUATE, Polychromasia 1+, Anisocytosis 2+, Microcytosis 1+, Macrocytosis 1+ 12/14/21 15:18: Sodium 138, Potassium 3.9, Chloride 103, Carbon Dioxide 25.0, Anion Gap 10, BUN 16, Creatinine 0.64, Estim Creat Clear Calc 67.01, Est GFR (MDRD) Af Amer 119, Est GFR (MDRD) Non-Af 98, BUN/Creatinine Ratio 24.8 H, Glucose 248 H, Calcium 9.0, Troponin I High Sens 11 12/14/21 17:54: Lactic Acid 5.5 H* 12/14/21 18:57: Troponin I High Sens 16 12/14/21 21:15: POC Glucose 180 H 12/14/21 22:55: Procalcitonin 8.05 H 12/14/21 22:55: Lactic Acid 3.4 H* 12/15/21 04:15: WBC 2.2 L, RBC 2.72 L, Hgb 9.7 L, Hct 30.6 L, MCV 112.5 H, MCH 35.7 H, MCHC 31.7 L, RDW Std Deviation 77.1 H, RDW Coeff of Bettina 18.5 H, Plt Count 151, MPV 8.9, Immature Gran % (Auto) 1.800 H, Neut % (Auto) 80.5 H, Lymph % (Auto) 13.8 L, [place] % (Auto) 3.1, Eos % (Auto) 0.4, Baso % (Auto) 0.4, Absolute Neuts (auto) 1.8 L, Absolute Lymphs (auto) 0.31 L, Nucleated RBC % 0, Diff Path Review May foll, Polychromasia 1+, Basophilic Stippling 1+, Anisocytosis 2+, Macrocytosis 2+ 12/15/21 04:15: Sodium 141, Potassium 3.1 L, Chloride 110 H, Carbon Dioxide 22.0, Anion Gap 9, BUN 14, Creatinine 0.37 L, Estim Creat Clear Calc 115.91, Est GFR (MDRD) Af Amer 225, Est GFR (MDRD) Non-Af 186, BUN/Creatinine Ratio 37.7 H, Glucose 38 L*, Calcium 7.6 L 12/15/21 04:57: POC Glucose 34 L* 09/21/22 05:23: POC Glucose 199 H Micro: Microbiology 12/14/21 18:05 Blood Culture (Wb) - Left Wrist Blood Culture - Preliminary 12/14/21 17:54 Blood Culture (Wb) - Anticubital Left Blood Culture - Preliminary 12/14/21 21:50 Urine, Clean Catch Legionella Antigen - Final 12/14/21 21:50 Urine, Clean Catch Streptococcus pneumoniae Antigen (M - Final Radiography Diagnostic Testing: Radiology Impression Chest X-Ray 12/14/21 16:36 IMPRESSION: Left lower lobe consolidation. Pneumonia versus mass in this patient with history of lung cancer. Electronically Signed: Derek Biggs DO at 17:04 EDT Reading Location ID and State: [employer] Tel [phone], Service support , Chest CTA 12/14/21 16:54 IMPRESSION: 1. No evidence of pulmonary embolus. 2. No aortic dissection or aneurysm. 3. Spiculated mass in the left upper lobe. 4. More consolidation at the left lung base. 5. Faint groundglass density in the right periphery of the right upper lobe. 6. Degenerative changes of the thoracic spine. Electronically Signed: Derek Biggs DO at 17:37 EDT Reading Location ID and State: [employer] Tel [phone], Service support , Brain CT 12/14/21 17:02 IMPRESSION: Chronic involutional changes without evidence of acute intracranial or calvarial abnormality.. There is no visualized mass, bleed or infarction. If there is continued concern for brain metastases or infarction, MRI is recommended. Electronically Signed: Derek Biggs DO at 17:25 EDT Reading Location ID and State: [employer] / [employer] Tel [phone], Service support , Physical Exam Narrative GENERAL: cooperative HEENT: Atraumatic; normocephalic EYES; Anicteric, Normal Conjunctiva NECK; supple, normal thyroid, RESPIRATORY: Diminished to auscultation CARDIOVASCULAR: Regular S1 S2, GI: soft, normoactive bowel sounds, : No Renal angle tenderness; EXTREMITIES: No edema, no clubbing, MUSCULOSKELETAL: no muscle wasting NEURO: Awake; no lateralizing signs. SKIN: No Rash PSYCH; Flat affect Assessment & Plan Assessment/Plan (1) Healthcare-associated pneumonia: (2) Tachycardia: PLAN: Plan Patient is a 66-year-old lady with history of lung CA with mets to the brain resident at a [facility] brought to the emergency department with chest pain and shortness of breath. An assessment of sepsis secondary to pneumonia with MDR's made admitted to the intensive care unit where patient is being managed 1. Sepsis ? Secondary to pneumonia with multidrug-resistant organisms patient has been admitted to the intensive care unit managed per protocol with aggressive IV fluid resuscitation broad-spectrum antibiotic therapy cultures sent and patient progress monitored with serial lactic acid level 2. History of lung CA ? With mets to the brain. CT obtained demonstrated a spiculated mass in the left upper lobe. Has received chemo and radiation. Patient follows up with oncology plan is for patient to continue with care. Currently on Keppra and dexamethasone did continue 3. Diabetes mellitus type II -patient's oral hypoglycemics held. Placed on long acting insulin, Accu-Cheks a.c. and at bedtime and covered with sliding scale insulin 4. GERD ? On PPI 5. Depression with anxiety ? on fluoxetine and bupropion 6. Hypokalemia -Corrected per protocol, repeat labs ordered for a.m. for monitoring 7. Anemia - Secondary to chronic disorder monitoring H&H and transfuse if patient becomes symptomatic or hemoglobin falls below 7 8. DVT prophylaxis ? SC Lovenox Charges/Coding Visit Charges Inpatient E&M: 37403 Subs Hosp L3
[2021-12-15 07:43] LABS: Hemoglobin A1c 6.5 % (3.8-5.6)
[2021-12-15] MEDS: Potassium Chloride 10mEq/100mL 10 MEQ/100 ML IV.SOLN. 100 MEQ IV BOLUS ×4 (08:01→11:17)
[2021-12-15] MEDS: Glimepiride 4 MG Tablet PO (08:21)
[2021-12-15] MEDS: clonazePAM 1 MG Tablet PO ×2 (08:21→21:30)
[2021-12-15] MEDS: Folic Acid 1 MG Tablet 0.5 MG PO (08:22)
[2021-12-15] MEDS: dexAMETHasone 4 MG Tablet PO ×2 (08:22→17:06)
[2021-12-15] MEDS: buPROPion (XL) 150 MG TABLET.XL PO (08:23)
[2021-12-15] MEDS: Oxybutynin 5 MG Tablet PO (08:23)
[2021-12-15] MEDS: levETIRAcetam 500 MG Tablet PO ×2 (08:23→21:27)
[2021-12-15] MEDS: Enoxaparin 40 MG/0.4 ML Syringe SC (08:23)
[2021-12-15] MEDS: Pantoprazole Sodium 40 MG Tablet PO (08:23)
[2021-12-15] MEDS: FLUoxetine 20 MG Capsule 60 MG PO (08:23)
--- NOTE | 2021-12-15 09:39 | CASEMGMT ---
Social Work SW attended ICU rounds. Pt is confused, admitted from the [facility]. Phone call placed to pt sister Abigail Langley and introduced self and role of SW. Abigail states that prior to August pt lived alone and was independent in all care needs. Pt was diagnosed with Lung cancer with mets to brain in August and pt moved in with Abigail for assistance. Pts oncologist is Dr. Kraft at [place]. Per Abigail, pt has completed radiation to brain and had one chemo treatment for cancer of upper left lung. Pt became confused in October and pt sister was no longer able to care for her. Pt admitted to [facility] with a UTI and second chemo was put on hold until pt became stronger. Pt was admitted under skilled level of care to the [facility]. Abigail states she is pt's HCPOA and that pt does have a living will. CHANDANA requested documents be brought to [facility] and Abigail is agreeable. Abigail states the discharge plan is for pt to return to the [facility]. Abigail requests that staff not inform pt of this as family would like to be the ones to explain it in a way that pt will understand. Nursing updated on conversation with pt sister. Phone call to Janene at the [facility] and left. Clinicals sent via [facility]. Plan: [facility], precert will need obtained prior to return. CORY Hunt
[2021-12-15] MEDS: Insulin Glargine-YFGN 100 UNIT/ML Pen 10 UNIT SC (10:24)
[2021-12-15 10:37] LABS: AST(SGOT) 13 U/L (15-37); Alanine Aminotransfer ALT/SGPT 69 U/L (13-56); Albumin, Serum 1.8 g/dL (3.2-5.0); Alkaline Phosphatase 48 U/L (45-117); Bilirubin, Direct 0.21 mg/dL (0.00-0.30); Globulin 2.8 g/dL (2.2-4.2); Protein, Total 4.6 g/dL (6.4-8.2)
[2021-12-15 10:45] LABS: Bedside Glucose 146 mg/dL (74-106)
[2021-12-15 12:33] LABS: Pathologist Review Reviewed
[2021-12-15 12:37] LABS: Pathologist Review Reviewed
[2021-12-15] MEDS: Ensure Plus High Protein 120 ML LIQUID PO ×3 (13:20→21:26)
--- NOTE | 2021-12-15 15:07 | CON.PCM.ID_ITS ---
Assessment & Plan Assessment/Plan (1) Sepsis: PLAN: Suspect pneumonia as source. Reviewed [facility] records, recent stay with VRE uti. Cont vanc/zosyn here while cxs pending. UAg neg. Will check MRSA pcr swab. Will follow, thank you (2) Pneumonia: HPI Consult Data Date of Consult: 12/15/21 HPI Narrative Reason for Consultation: pneumonia HPI Narrative: KATIE KATZ, is a 66 F with metastatic lung cancer with brain mets, recent radiation therapy in 10/2021 and on oral steroids who presented from [facility] 12/14 with acute onset cough, SOB, severe L sided chest pain. No sputum. Some chills, no fever. Recent admit to [facility] 11/22-12/09, treated for VRE uti with macrobid at that time. No recent abx at [facility]. In ED, hypoxic, elevated lactate, admitted to icu on vanc/zosyn. Full ROS performed and neg except as noted above. Additional history obtained from sister at bedside. [facility] Medical History (Updated 12/15/21 @ 15:[address] Da Mills MD) Anxiety Chest pain Congestive heart failure (CHF) COPD (chronic obstructive pulmonary disease) Diabetes Former smoker Hypertension Metastasis Primary cancer of left upper lobe of lung Home Medications albuterol sulfate 90 mcg/actuation aerosol inhaler (Ventolin HFA) 2 inh inhalation Q4H SOB 12/14/21 [History Last Taken Unknown] bupropion HCl 150 mg 24 hr tablet, extended release 150 mg PO DAILY DEPRESSION 12/14/21 [History Last Taken 12/14/21] clonazepam 1 mg tablet 1 mg PO BID ANXIETY 12/14/21 [History Last Taken 12/14/21] dexamethasone 4 mg tablet 4 mg PO BID STEROID 12/14/21 [History Last Taken 12/14/21] fluoxetine 20 mg tablet 60 mg PO DAILY DEPRESSION 12/14/21 [History Last Taken 12/14/21] folic acid 400 mcg tablet 0.4 mg PO DAILY SUPPLEMENT 12/14/21 [History Last Taken 12/14/21] glimepiride 2 mg tablet 4 mg PO DAILY DM 12/14/21 [History Last Taken Unknown] insulin glargine-yfgn 100 unit/mL (3 mL) subcutaneous pen 20 unit subcut BID DM 12/14/21 [History Last Taken Unknown] ipratropium 20 mcg-albuterol 100 mcg/actuation mist for inhalation (Combivent Respimat) 1 puff inhalation BID COPD 12/14/21 [History Last Taken 12/14/21] levetiracetam 500 mg tablet 500 mg PO BID SEIZURES 12/14/21 [History Last Taken 12/14/21] oxybutynin chloride 5 mg tablet 5 mg PO DAILY OAB 12/14/21 [History Last Taken 12/14/21] pantoprazole 40 mg tablet,delayed release 40 mg PO DAILY GERD 12/14/21 [History Last Taken 12/14/21] trazodone 150 mg tablet 150 mg PO QHS SLEEP 12/14/21 [History Last Taken 12/13/21] Allergy/AdvReac Type Severity Reaction Status Date / Time No Known Allergies Allergy Verified 12/14/21 15:36 Social History Smoking Status: Former smoker Physical Exam Const alert and no apparent distress General Appearance: cooperative HEENT normocephalic and head/scalp atraumatic Eyes PERRL and EOMs intact bilaterally Neck supple and No nodes Resp Resp Narrative: L sided rhonchi Auscultation: diminished lung sounds Cardio regular rate and regular rhythm GI soft to palpation, non-tender and non-distended Extremity General Extremity: edema Skin no rashes or lesions noted Neuro CN's II-XII intact bilaterally Lab / Micro Data Attestation: I reviewed the patient's lab results. Result Diagrams: 12/15/21 04:15 12/15/21 04:15 Labs: Laboratory Results - last 24 hr 12/14/21 15:18: WBC 6.5, RBC 3.52 L, Hgb 12.6, Hct 38.4, MCV 109.1 H, MCH 35.8 H , MCHC 32.8, RDW Std Deviation 77.3 H, RDW Coeff of Bettina 19.2 H, Plt Count 261, MPV 9.4, Immature Gran % (Auto) LAST PULLER, Neut % (Auto) LAST PULLER, Lymph % (Auto) LAST PULLER, [place] % (Auto) LAST PULLER, Eos % (Auto) LAST PULLER, Baso % (Auto) LAST PULLER, Absolute Neuts (auto) 5.6, Absolute Lymphs (auto) 0.64 L, Total Counted 100, Neutrophils % (Manual) 48, Band Neutrophils % 27 H, Lymphocytes % (Manual) 11 L, Monocytes % (Manual) 1, Metamyelocytes % 13 H, Nucleated RBC % 0.8, Nucleated RBCs/100 WBC 2, Diff Path Review Reviewed, Platelet Estimate ADEQUATE, Polychromasia 1+, Anisocytosis 2+, Microcytosis 1+, Macrocytosis 1+ 12/14/21 15:18: Sodium 138, Potassium 3.9, Chloride 103, Carbon Dioxide 25.0, Anion Gap 10, BUN 16, Creatinine 0.64, Estim Creat Clear Calc 67.01, Est GFR (MDRD) Af Amer 119, Est GFR (MDRD) Non-Af 98, BUN/Creatinine Ratio 24.8 H, Glucose 248 H, Calcium 9.0, Troponin I High Sens 11 12/14/21 17:54: Lactic Acid 5.5 H* 12/14/21 18:57: Troponin I High Sens 16 12/14/21 21:15: POC Glucose 180 H 12/14/21 22:55: Procalcitonin 8.05 H 12/14/21 22:55: Lactic Acid 3.4 H* 12/15/21 04:15: WBC 2.2 L, RBC 2.72 L, Hgb 9.7 L, Hct 30.6 L, MCV 112.5 H, MCH 35.7 H, MCHC 31.7 L, RDW Std Deviation 77.1 H, RDW Coeff of Bettina 18.5 H, Plt Count 151, MPV 8.9, Immature Gran % (Auto) 1.800 H, Neut % (Auto) 80.5 H, Lymph % (Auto) 13.8 L, [place] % (Auto) 3.1, Eos % (Auto) 0.4, Baso % (Auto) 0.4, Absolute Neuts (auto) 1.8 L, Absolute Lymphs (auto) 0.31 L, Nucleated RBC % 0, Diff Path Review Reviewed, Polychromasia 1+, Basophilic Stippling 1+, Anisocytosis 2+, Macrocytosis 2+ 12/15/21 04:15: Sodium 141, Potassium 3.1 L, Chloride 110 H, Carbon Dioxide 22.0, Anion Gap 9, BUN 14, Creatinine 0.37 L, Estim Creat Clear Calc 115.91, Est GFR (MDRD) Af Amer 225, Est GFR (MDRD) Non-Af 186, BUN/Creatinine Ratio 37.7 H, Glucose 38 L*, Calcium 7.6 L 12/15/21 04:15: Hemoglobin A1c 6.5 H 12/15/21 04:15: Total Bilirubin 0.50, Direct Bilirubin 0.21, AST 13 L, ALT 69 H, Alkaline Phosphatase 48, Total Protein 4.6 L, Albumin 1.8 L, Globulin 2.8 12/15/21 04:57: POC Glucose 34 L* 12/15/21 05:23: POC Glucose 199 H 12/15/21 10:23: POC Glucose 146 H Micro: Microbiology 12/14/21 18:05 Blood Culture (Wb) - Left Wrist Blood Culture - Preliminary GNR lactose hot stamp operator 12/14/21 17:54 Blood Culture (Wb) - Anticubital Left Blood Culture - Preliminary GNR lactose hot stamp operator 12/14/21 21:50 Urine, Clean Catch Legionella Antigen - Final 12/14/21 21:50 Urine, Clean Catch Streptococcus pneumoniae Antigen (M - Final Radiology Impression Chest X-Ray 12/14/21 16:36 IMPRESSION: Left lower lobe consolidation. Pneumonia versus mass in this patient with history of lung cancer. Electronically Signed: Derek Biggs DO at 17:04 EDT Reading Location ID and State: [address] [place] [address] Tel [phone], Service support , Chest CTA 12/14/21 16:54 IMPRESSION: 1. No evidence of pulmonary embolus. 2. No aortic dissection or aneurysm. 3. Spiculated mass in the left upper lobe. 4. More consolidation at the left lung base. 5. Faint groundglass density in the right periphery of the right upper lobe. 6. Degenerative changes of the thoracic spine. Electronically Signed: Derek Biggs DO at 17:37 EDT Reading Location ID and State: [facility] / [place] Tel [phone], Service support , Brain CT 12/14/21 17:02 IMPRESSION: Chronic involutional changes without evidence of acute intracranial or calvarial abnormality.. There is no visualized mass, bleed or infarction. If there is continued concern for brain metastases or infarction, MRI is recommended. Electronically Signed: Derek Biggs DO at 17:25 EDT Reading Location ID and State: [address] [place] [address] Tel [phone], Service support ,
--- NOTE | 2021-12-15 15:24 | CHAPLAIN ---
Type of Pastoral Visit _x__ Initial Visit ___ Follow-up Visit ___ On-call Visit ___ General Patient Visit ___ Spiritual Assessment ___ Family Conference ___ Bereavement ___ Rapid Response ___ Code Blue ___ Other (describe below) Pastoral Care Referral From _x__ Patient _x__ Family ___ Nurse ___ Physician ___ Senior Recruitment Consultant ___ Information Management Officer ___ Other (describe below) Sacrament/Intervention _x__ Active listening ___ Anointing ___ Sabianism ___ Bereavement ___ Communion ___ Radha exploration ___ ___ Life review _x__ Prayer ___ Reconciliation ___ Sacrament of Sick _x__ Supportive presence ___ Wedding ___ Other (describe below) Pastoral Comments patient is sitting up in chair and sister is sitting directly in front of her; sister is giving reassurance on her care and every detail about what she is worried about; offer of support given; pt says I'm not doing good; pt speaks of pain, being wet, and being cold; staff is aware that she thinks that her depends is wet when it is not; offered patient a blanket to help her get warmer; followed the conversation that her sister was having with her about her care; assured pt that all of staff want to take good care of her and that this denture packer is for her support and spiritual care/prayers; pt said she would like a prayer; pt is of the Jewish radha; offered to see patient when she gets moved to [facility] [place]
[2021-12-15] MEDS: Insulin Lispro 100 UNIT/ML INSULN.PEN SC (15:31)
[2021-12-15 15:50] LABS: Bedside Glucose 152 mg/dL (74-106)
[2021-12-15] MEDS: Morphine 4 MG/ML Syringe IV (17:06)
[2021-12-15 17:35] LABS: Bedside Glucose 113 mg/dL (74-106)
[2021-12-15 18:10] LABS: M R Staph aureus DNA By PCR Negative (Negative); Probe Check PASS; Specimen Processing Control PASS
[2021-12-15] MEDS: traZODone 50 MG Tablet 150 MG PO (21:27)
[2021-12-15 22:01] LABS: Bedside Glucose 59 mg/dL (74-106)
[2021-12-15 22:30] LABS: Bedside Glucose 103 mg/dL (74-106)
[2021-12-16] VITALS (12 sets, daily range): BP systolic 110–150; BP diastolic 68–88; PULSE 98–126; RESP 18–22; TEMP 36.3–37.2; O2SAT 94–99
[2021-12-16] MEDS: 0.9% Normal Saline 1,000 ML 150 ML IV ×2 (00:44→07:33)
[2021-12-16 06:43] LABS: Basophil# 0.06 X10^3/uL; Basophil% 0.9 % (0-1); Eosinophil# 0.01 X10^3/uL; Eosinophils% 0.2 % (0-5); Hematocrit 24.2 % (37-47); Hemoglobin 7.8 g/dL (12.0-15.0); Lymphocyte % 4.5 % (19-41); Mean Corp Hgb Conc 32.2 g/dL (32-36); Mean Corpuscular Hgb 35.8 pg (27.0-32.0); Mean Platelet Vol. 9.3 fl (6.2-12.0); Monocyte# 0.19 X10^3/uL; Monocyte% 2.9 % (0-10); NRBC Flagged by Analyzer 0.3 % (0-5); Neutrophil # 6.04 X10^3/uL (2.7-7.7); Neutrophil % 90.9 % (47-70); POSITIVE DIFFERENTIAL YES; POSITIVE MORPHOLOGY YES; Platelet Count 122 K/mm3 (150-450); RBC Distribution Width CV 17.9 % (11.6-14.6); RBC Distribution Width SD 73.7 fl (35.1-43.9); Red Blood Count 2.18 M/mm3 (4.2-5.4); White Blood Count 6.6 K/mm3 (4.4-11.0)
[2021-12-16] MEDS: Albuterol 2.5 MG/3 ML VIAL.NEB. INHALATION ×3 (06:44→19:10)
[2021-12-16 06:45] LABS: Differential Indicated SCAN CRITERIA MET
[2021-12-16 06:54] LABS: Anisocytosis 2+; Macrocytosis 2+
[2021-12-16 06:56] LABS: Basophilic Stippling RARE; Polychromasia RARE
[2021-12-16] MEDS: Dextrose 50%-Water 25 GM/50 ML DISP.SYRIN IV (07:33)
[2021-12-16 07:43] LABS: Vancomycin, Trough Level 7.2 ug/mL (5.0-15.0)
[2021-12-16 07:50] LABS: Anion Gap 6 (5-15); BUN 13 mg/dL (7-18); BUN/Creat Ratio 35.2 RATIO (10-20); Calcium,Total 8.7 mg/dL (8.5-10.1); Chloride 114 mmol/L (98-107); Creatinine, Serum 0.37 mg/dL (0.55-1.02); EST Glomerular Filtration Rate 187 mL/min (>60); Est Glom Filt Rate - Afr Amer 227 mL/min (>60); Estimated Creatinine Clearance 115.91 ml/min; Glucose 40 mg/dL (74-106); Magnesium 1.7 mg/dL (1.6-2.6); Phosphorus 2.7 mg/dL (2.5-4.9); Potassium 3.6 mmol/L (3.5-5.1); Sodium Level 144 mmol/L (136-145)
[2021-12-16 08:00] LABS: Bedside Glucose 60 mg/dL (74-106)
[2021-12-16 08:00] LABS: Bedside Glucose 53 mg/dL (74-106)
[2021-12-16] MEDS: oxyCODONE 5 MG Tablet PO ×4 (08:30→22:53)
[2021-12-16] MEDS: clonazePAM 1 MG Tablet PO ×2 (08:32→21:31)
[2021-12-16] MEDS: Enoxaparin 40 MG/0.4 ML Syringe SC (08:32)
[2021-12-16] MEDS: levETIRAcetam 500 MG Tablet PO ×2 (08:33→21:31)
[2021-12-16] MEDS: FLUoxetine 20 MG Capsule 60 MG PO (08:33)
[2021-12-16] MEDS: Folic Acid 1 MG Tablet 0.5 MG PO (08:33)
[2021-12-16] MEDS: Pantoprazole Sodium 40 MG Tablet PO (08:33)
[2021-12-16] MEDS: dexAMETHasone 4 MG Tablet PO ×2 (08:33→17:19)
[2021-12-16] MEDS: Glimepiride 4 MG Tablet PO (08:34)
[2021-12-16] MEDS: buPROPion (XL) 150 MG TABLET.XL PO (08:34)
[2021-12-16] MEDS: Oxybutynin 5 MG Tablet PO (08:34)
[2021-12-16 08:35] LABS: Bedside Glucose 171 mg/dL (74-106)
[2021-12-16] MEDS: Ensure Plus High Protein 120 ML LIQUID PO ×4 (08:45→21:31)
[2021-12-16] MEDS: 0.9% Saline Lock 10 ML Syringe IV (08:46)
--- NOTE | 2021-12-16 08:48 | PN.CC_ITS ---
Assessment & Plan Assessment/Plan (1) Sepsis: PLAN: Plan RECOMMENDATIONS: 1. Continue antimicrobials per ID recommendations. 2. Avoid sedating medications. 3. Send type and screen. Continue to monitor blood counts daily. Transfuse for hemoglobin less than 7 g/dL. 4. Continue Keppra and Decadron per home regimen. 5. Encourage incentive spirometer use and mobilize patient as tolerated. IMPRESSIONS: 1. Sepsis secondary to gram-negative pneumonia/bacteremia The patient presented with sepsis due to gram-negative bacteremia with acute sepsis related organ dysfunction as evidenced by lactic acidemia and altered mentation. She was previously hospitalized earlier this month at an outside hospital with VRE sepsis but was apparently treated appropriately by infectious diseases. She now presents with radiographic evidence of pneumonia and gram- negative bacteremia. The patient did receive supplemental IV fluid hydration and has remained hemodynamically stable, without the need for vasopressor support. Plan to continue antimicrobials per ID recommendations. 2. History of metastatic non-small cell lung cancer The patient apparently received radiation treatment and is currently receiving s ystemic chemotherapy. However, the records pertinent to her oncology history are not available and the patient does not recall where she receives her care. Plan to continue Decadron and Keppra per home regimen. 3. Anemia The patient presented with a hemoglobin of 12 g/dL, which has dropped to 7.8 g/dL this morning. Accordingly, we will send type and screen. Continue to monitor H&H daily. Transfuse if hemoglobin drops below 7 g/dL. The patient is already on PPI therapy. 4. Recently diagnosed diabetes mellitus/depression/anxiety/GERD Complicates care, management, recovery and prognosis. Recommend holding sedating home medications. This note was generated with Airwoot dictation software. It may contain incorrect words, spelling, and punctuation that were not noted in checking the note before signing. Subjective Subjective The patient was seen and examined at the bedside this morning. Events from the last 24 hours have been reviewed. The patient is currently afebrile, hemodynamically stable and maintaining appropriate oxygen saturations on 3 L/min via nasal cannula. She is currently documented to be overall net +6.3 L for the hospitalization. Hemoglobin this morning is down to 7.8 g/dL. Platelet count is down to 122,000. Objective Data Objective Data The patient's most recent lab work, culture data and imaging studies have all been personally reviewed. Blood cultures are positive for E. coli. Urine culture is pending. Strep and urine Legionella antigens were negative. Vital Signs: Vital Signs Temp Pulse Resp BP Pulse Ox O2 Del Method O2 Flow Rate 98 F 115 H 22 H 110/68 96 Nasal Cannula 3 12/16/21 04:35 12/16/21 06:45 12/16/21 06:45 12/16/21 04:35 12/16/21 04:35 12/16/21 06:45 12/16/21 06:45 FiO2 94 12/16/21 06:45 Oxygen Flow Rate (L/min) 3 Oxygen Delivery Method Nasal Cannula Weight: 132 lb 15.02 oz Body Mass Index (BMI) 24.2 Intake & Output: Intake and Output for Last 24 Hours 12/14/21 12/15/21 12/16/21 23:59 23:59 23:59 Intake Total 2645 / 3178.25 5312.00 / 5312.00 1067.5 / 1067.5 Output Total 70 / 70 375 / 975 2200 / 2200 Balance 2575 / 3108.25 4937.00 / 4337.00 -1132.5 / -1132.5 Lab / Micro Data Attestation: I reviewed the patient's lab results. Result Diagrams: 12/16/21 06:30 12/16/21 06:30 Labs: Laboratory Results - last 24 hr 12/14/21 15:18: Diff Path Review Reviewed 12/15/21 04:15: Diff Path Review Reviewed 12/15/21 04:15: Total Bilirubin 0.50, Direct Bilirubin 0.21, AST 13 L, ALT 69 H, Alkaline Phosphatase 48, Total Protein 4.6 L, Albumin 1.8 L, Globulin 2.8 12/15/21 10:23: POC Glucose 146 H 12/15/21 15:30: POC Glucose 152 H 12/15/21 15:34: MRSA (PCR) Negative 12/15/21 17:11: POC Glucose 113 H 12/15/21 21:25: POC Glucose 59 L 12/15/21 22:12: POC Glucose 103 12/16/21 06:30: Vancomycin Trough 7.2 12/16/21 06:30: WBC 6.6, RBC 2.18 L, Hgb 7.8 L, Hct 24.2 L, MCV 111.0 H, MCH 35.8 H, MCHC 32.2, RDW Std Deviation 73.7 H, RDW Coeff of Bettina 17.9 H, Plt Count 122 L, MPV 9.3, Immature Gran % (Auto) 0.600, Neut % (Auto) 90.9 H, Lymph % (Auto) 4.5 L, [place] % (Auto) 2.9, Eos % (Auto) 0.2, Baso % (Auto) 0.9, Absolute Neuts (auto) 6.0, Absolute Lymphs (auto) 0.30 L, Nucleated RBC % 0.3, Polychromasia RARE, Basophilic Stippling RARE, Anisocytosis 2+, Macrocytosis 2+ 12/16/21 06:30: Sodium 144, Potassium 3.6, Chloride 114 H, Carbon Dioxide 24.0, Anion Gap 6, BUN 13, Creatinine 0.37 L, Estim Creat Clear Calc 115.91, Est GFR (MDRD) Af Amer 227, Est GFR (MDRD) Non-Af 187, BUN/Creatinine Ratio 35.2 H, Glucose 40 L*, Calcium 8.7, Phosphorus 2.7, Magnesium 1.7 12/16/21 06:35: POC Glucose 53 L 12/16/21 06:57: POC Glucose 60 L 12/16/21 08:05: POC Glucose 171 H Micro: Microbiology 12/14/21 18:05 Blood Culture (Wb) - Left Wrist Blood Culture - Final GNR lactose pulverizing and sifting operator 12/14/21 17:54 Blood Culture (Wb) - Anticubital Left Blood Culture - Final Escherichia coli 12/14/21 21:50 Urine, Clean Catch Legionella Antigen - Final 12/14/21 21:50 Urine, Clean Catch Streptococcus pneumoniae Antigen (M - Final Physical Exam Const alert and no apparent distress General Appearance: cooperative HEENT normocephalic and head/scalp atraumatic Eyes PERRL, EOMs intact bilaterally and conjunctivae normal Neck supple General: trachea midline Chest inspection of chest normal Resp normal respiratory effort Auscultation: diminished lung sounds; Negative for rales, rhonchi or wheezes Cardio S1 normal heart sound and S2 normal heart sound Rate: tachycardic GI soft to palpation and non-tender Inspection: abdominal distention Extremity no clubbing, cyanosis or edema Skin no rashes or lesions noted Neuro CN's II-XII intact bilaterally and moves all extremities Psych cooperative Charges/Coding Visit Charges Inpatient E&M: 38103 Subs Hosp L2
--- NOTE | 2021-12-16 09:03 | PCM.RX.CS ---
Consult Pharmacy has been consulted to manage selected antiobiotic: Vancomycin Type of Consult: Follow-up Suspected Infection: Sepsis, Pneumonia Prior Doses of Antibiotics Received/Current Regimen: Currently on 750mg iv q12h Labs: Sodium 144 mmol/L (136-145) 12/16/21 06:30 Potassium 3.6 mmol/L (3.5-5.1) 12/16/21 06:30 Chloride 114 mmol/L (98-107) H 12/16/21 06:30 Carbon Dioxide 24.0 mmol/L (21.0-32.0) 12/16/21 06:30 Anion Gap 6 (5-15) 12/16/21 06:30 BUN 13 mg/dL (7-18) 12/16/21 06:30 Creatinine 0.37 mg/dL (0.55-1.02) L 12/16/21 06:30 Est GFR (MDRD) Af Amer 227 mL/min (>60) 12/16/21 06:30 Est GFR (MDRD) Non-Af 187 mL/min (>60) 12/16/21 06:30 BUN/Creatinine Ratio 35.2 RATIO (10-20) H 12/16/21 06:30 Glucose 40 mg/dL (74-106) L* 12/16/21 06:30 Vancomycin Trough 7.2 ug/mL (5.0-15.0) 12/16/21 06:30 Microbiology: Microbiology 12/15/21 10:00 Urine, Catheterized Urine Culture - Preliminary GNR lactose assembly machine feeder 12/14/21 18:05 Blood Culture (Wb) - Left Wrist Blood Culture - Final GNR lactose assembly machine feeder 12/14/21 17:54 Blood Culture (Wb) - Anticubital Left Blood Culture - Final Escherichia coli 12/14/21 21:50 Urine, Clean Catch Legionella Antigen - Final 12/14/21 21:50 Urine, Clean Catch Streptococcus pneumoniae Antigen (M - Final Weight used for dosin.3 kg Estimated Creatinine Clearance: 116ml/min Goal Trough: 15-20 mcg/mL Pharmacy Plan for Drug Dosing: Trough level this AM was 7.2 and below desired therapeutic range. No change in renal function. Will change dose to 1500mg iv q12h and start ~6hrs post this AM's 750mg dose. Trough level ordered for 9.24.22 before 4th dose of new regimen. Pharmacy Service will continue to monitor and adjust dosing as required. Follow-Up Labs: Trough Vancomycin - 9.24.22 @0030 before 0100 dose
--- NOTE | 2021-12-16 09:32 | CASEMGMT ---
Social Work Received call from CHANDANA Cruz. Nancy informed precert could be started now. This CHANDANA called Sima at [place]. No answer, left message requesting Sima start precert for pt as pt has been moved from ICU to [facility] floor. CHANDANA also sent message to Sima requesting precert be started in [facility]. PLAN: [place], pending precert CORY Valle
--- NOTE | 2021-12-16 10:00 | PCM.PN.ID ---
Physical Exam Narrative Feeling better, no fever, no abd pain, no dyspnea. Const alert and no apparent distress Resp normal air movement and clear to auscultation bilaterally Cardio regular rate and regular rhythm GI soft to palpation, non-tender and non-distended Skin no rashes or lesions noted ID ID: Route of nutrition/ use of supplements: [] Nutritional Intake: [] IV Site: [] Garcia Catheter: [] Assessment & Plan Assessment/Plan (1) Sepsis: PLAN: Ecoli bacteremia. Suspect pneumonia as source. Reviewed [facility] records, recent stay with VRE uti. Will narrow abx to ceftriaxone. Overall much improved. Will follow, (2) Pneumonia: (3) Bacteremia due to Gram-negative bacteria:
[2021-12-16] MEDS: Insulin Glargine-YFGN 100 UNIT/ML Pen 10 UNIT SC ×2 (11:49→21:34)
--- NOTE | 2021-12-16 12:13 | CASEMGMT ---
Social Work SW faxed PT/OT evals to [facility] via [employer]. CORY Valle
[2021-12-16 12:19] LABS: Hematocrit 26.5 % (37-47); Hemoglobin 8.5 g/dL (12.0-15.0)
[2021-12-16 12:25] LABS: Bedside Glucose 149 mg/dL (74-106)
--- NOTE | 2021-12-16 13:06 | PCM.PN.HOSP ---
Subjective Subjective Patient reports she is still not feeling well however improved since presenting. It seems that her mentation may be improving however I am unclear what her baseline is. Had an episode of hypoglycemia this morning. Will discontinue Amaryl. Objective Data Objective Data Vital Signs: Vital Signs Temp Pulse Resp BP Pulse Ox O2 Del Method O2 Flow Rate 97.3 F L 125 H 18 116/75 99 Non-Rebreather @ 15L/min and High Flow 2 12/16/21 10:30 12/16/21 10:30 12/16/21 10:30 12/16/21 10:30 12/16/21 10:30 12/16/21 10:30 12/16/21 10:30 FiO2 94 12/16/21 06:45 Oxygen Flow Rate (L/min) 2 Oxygen Delivery Method Non-Rebreather @ 15L/min Weight: 60.3 kg Body Mass Index (BMI) 24.2 Intake & Output: Intake and Output for Last 24 Hours 12/14/21 12/15/21 12/16/21 23:59 23:59 23:59 Intake Total 2645 / 3178.25 5312.00 / 5312.00 1382.5 / 1382.5 Output Total 70 / 70 375 / 975 2200 / 2200 Balance 2575 / 3108.25 4937.00 / 4337.00 -817.5 / -817.5 Lab / Micro Data Result Diagrams: 12/16/21 12:07 12/16/21 06:30 Labs: Laboratory Results - last 24 hr 12/15/21 15:30: POC Glucose 152 H 12/15/21 15:34: MRSA (PCR) Negative 12/15/21 17:11: POC Glucose 113 H 12/15/21 21:25: POC Glucose 59 L 12/15/21 22:12: POC Glucose 103 12/16/21 06:30: Vancomycin Trough 7.2 12/16/21 06:30: WBC 6.6, RBC 2.18 L, Hgb 7.8 L, Hct 24.2 L, MCV 111.0 H, MCH 35.8 H, MCHC 32.2, RDW Std Deviation 73.7 H, RDW Coeff of Bettina 17.9 H, Plt Count 122 L, MPV 9.3, Immature Gran % (Auto) 0.600, Neut % (Auto) 90.9 H, Lymph % (Auto) 4.5 L, [place] % (Auto) 2.9, Eos % (Auto) 0.2, Baso % (Auto) 0.9, Absolute Neuts (auto) 6.0, Absolute Lymphs (auto) 0.30 L, Nucleated RBC % 0.3, Polychromasia RARE, Basophilic Stippling RARE, Anisocytosis 2+, Macrocytosis 2+ 12/16/21 06:30: Sodium 144, Potassium 3.6, Chloride 114 H, Carbon Dioxide 24.0, Anion Gap 6, BUN 13, Creatinine 0.37 L, Estim Creat Clear Calc 115.91, Est GFR (MDRD) Af Amer 227, Est GFR (MDRD) Non-Af 187, BUN/Creatinine Ratio 35.2 H, Glucose 40 L*, Calcium 8.7, Phosphorus 2.7, Magnesium 1.7 12/16/21 06:35: POC Glucose 53 L 12/16/21 06:57: POC Glucose 60 L 12/16/21 08:05: POC Glucose 171 H 12/16/21 09:13: Blood Type O POSITIVE, Antibody Screen NEGATIVE 12/16/21 11:47: POC Glucose 149 H 12/16/21 12:07: Hgb 8.5 L, Hct 26.5 L Micro: Microbiology 12/15/21 10:00 Urine, Catheterized Urine Culture - Preliminary GNR lactose ear mold laboratory technician 12/14/21 18:05 Blood Culture (Wb) - Left Wrist Blood Culture - Final GNR lactose ear mold laboratory technician 12/14/21 17:54 Blood Culture (Wb) - Anticubital Left Blood Culture - Final Escherichia coli 12/14/21 21:50 Urine, Clean Catch Legionella Antigen - Final 12/14/21 21:50 Urine, Clean Catch Streptococcus pneumoniae Antigen (M - Final Physical Exam Const alert and no apparent distress Constitutional Narrative: Upper middle-aged white female, appears much older than stated age, sitting up in bed with supplemental oxygen in place, watching television, oriented to self, birthdate, location, month and year but not POTUS HEENT head/scalp atraumatic and moist oral mucous membranes HEENT Narrative: Mallampati is 2-3, no thrush Resp normal respiratory effort, no retractions and no use of accessory muscles Resp Narrative: Diffusely diminished but no adventitious sounds Auscultation: Negative for crackles, rales, rhonchi or wheezes Cardio regular rhythm, S1 normal heart sound, S2 normal heart sound, no murmurs, no rub, no gallops and no clicks Cardio Narrative: Mild tachycardia GI normal to inspection, nondistended, normoactive bowel sounds, soft to palpation and non-tender Extremity no clubbing, cyanosis or edema Extremity Narrative: 2+ pedal pulses Neuro oriented x3, moves all extremities and no focal motor deficits Speech: speech normal Psych Psych Narrative: Patient is appropriately interactive and cooperative Assessment & Plan Assessment/Plan (1) Anemia: (2) Bacteremia due to Gram-negative bacteria: (3) Sepsis: (4) Pneumonia: (5) UTI (urinary tract infection): (6) Hypoglycemia: PLAN: Plan Sepsis secondary to E. coli bacteremia/UTI/pneumonia -Chest x-ray shows infiltrate -Urine and blood cultures are positive for gram-negative rina with preliminary identification being E. coli -Antibiotics changed to ceftriaxone per infectious disease -Will likely need a full 7 days treatment and probable discharge on oral antibiotics once stable day 2 of 7 -Await ID recommendations for discharge antibiotics -Hemodynamically stable and clinically improving Acute on chronic anemia -Upon presentation hemoglobin was 12 with a drop to 7.8 this morning -Patient did not receive aggressive hydration -Hemoglobin assessed and stable at 8.4 -We will repeat CBC in a.m. -Drop is likely reflective of hydration -Transfuse for hemoglobin less than 7 Hypoglycemia with DM-2 -We will discontinue sulfonylurea -Continue basal insulin with sliding scale -Accu-Cheks as ordered -Carb controlled diet Metastatic non-small cell lung CA -She has completed brain radiation -Currently receiving systemic chemotherapy -Patient is unable to tell us who her oncologist is -Continue Decadron and Keppra -She does have brain metastasis -Is to have a repeat scan for prognostic value soon GERD -Continue PPI Urinary incontinence -Continue oxybutynin Depression/anxiety -Continue home trazodone -Continue home routine neck sign-continue home clonazepam -Continue home Wellbutrin Tobacco abuse -History of smoking -Continue to encourage cessation DVT prophylaxis -Continue enoxaparin CODE STATUS -full code Charges/Coding Visit Charges Inpatient E&M: 57563 Subs Hosp L2
--- NOTE | 2021-12-16 15:20 | CHAPLAIN ---
Type of Pastoral Visit ___ Initial Visit _x__ Follow-up Visit ___ On-call Visit ___ General Patient Visit ___ Spiritual Assessment ___ Family Conference ___ Bereavement ___ Rapid Response ___ Code Blue ___ Other (describe below) Pastoral Care Referral From _x__ Patient ___ Family ___ Nurse ___ Physician ___ Grading Machine Operator ___ Map Plotter ___ Other (describe below) Sacrament/Intervention _x__ Active listening ___ Anointing ___ Pentecostalism ___ Bereavement ___ Communion _x__ Radha exploration ___ ___ Life review _x__ Prayer ___ Reconciliation ___ Sacrament of Sick _x__ Supportive presence ___ Wedding ___ Other (describe below) Pastoral Comments patient is welcoming and is smiling today; pt acknowledges that she is feeling better today; pt speaks of good support of family; pt welcomes presence and when a scripture was given the patient tried to quote it from memory; pt remembers portions of Psalm 23 and states I haven't thought about that for a long time; opened discussion on pt's radha and hope; pt says that she prays and would welcome a prayer from the souvenir and novelty maker
[2021-12-16] MEDS: Insulin Lispro 100 UNIT/ML INSULN.PEN SC ×2 (17:19→21:34)
[2021-12-16 19:41] LABS: Bedside Glucose 266 mg/dL (74-106)
[2021-12-16] MEDS: traZODone 50 MG Tablet 150 MG PO (21:31)
[2021-12-16 22:00] LABS: Bedside Glucose 288 mg/dL (74-106)
[2021-12-17] VITALS (9 sets, daily range): BP systolic 128–159; BP diastolic 79–102; PULSE 98–118; RESP 18–20; TEMP 36.4–36.9; O2SAT 94–99
[2021-12-17] MEDS: oxyCODONE 5 MG Tablet PO (05:04)
[2021-12-17 05:55] LABS: Absolute Neutrophil Count 7.8 X10^3/uL (2.0-7.7); Basophil# 0.05 X10^3/uL; Basophil% 0.6 % (0-1); Hematocrit 24.5 % (37-47); Lymphocyte % 4.6 % (19-41); Mean Corp Hgb Conc 32.7 g/dL (32-36); Mean Corpuscular Volume 110.4 fL (81-99); Mean Platelet Vol. 9.9 fl (6.2-12.0); Monocyte# 0.38 X10^3/uL; Monocyte% 4.4 % (0-10); NRBC Flagged by Analyzer 0.9 % (0-5); Neutrophil # 7.77 X10^3/uL (2.7-7.7); Neutrophil % 89.3 % (47-70); POSITIVE DIFFERENTIAL YES; POSITIVE MORPHOLOGY YES; Platelet Count 124 K/mm3 (150-450); RBC Distribution Width CV 17.7 % (11.6-14.6); RBC Distribution Width SD 70.8 fl (35.1-43.9); Red Blood Count 2.22 M/mm3 (4.2-5.4); White Blood Count 8.7 K/mm3 (4.4-11.0)
[2021-12-17 06:06] LABS: Differential Indicated SCAN CRITERIA MET
[2021-12-17] MEDS: Insulin Lispro 100 UNIT/ML INSULN.PEN SC ×3 (06:17→17:42)
[2021-12-17] MEDS: Menthol/Lanolin/Calamine/Znox 113 GM Tube 1 APPLIC TOPICAL ×2 (06:18→08:28)
[2021-12-17 06:31] LABS: Anisocytosis 2+; Differential Comment SCANNED; Macrocytosis 2+
[2021-12-17 06:34] LABS: Anion Gap 10 (5-15); BUN 16 mg/dL (7-18); BUN/Creat Ratio 28.4 RATIO (10-20); Calcium,Total 9.4 mg/dL (8.5-10.1); Chloride 112 mmol/L (98-107); Creatinine, Serum 0.56 mg/dL (0.55-1.02); EST Glomerular Filtration Rate 115 mL/min (>60); Est Glom Filt Rate - Afr Amer 139 mL/min (>60); Estimated Creatinine Clearance 76.58 ml/min; Glucose 262 mg/dL (74-106); Potassium 3.5 mmol/L (3.5-5.1); Sodium Level 142 mmol/L (136-145)
[2021-12-17 06:41] LABS: Bedside Glucose 249 mg/dL (74-106)
--- NOTE | 2021-12-17 06:58 | PN.CC_ITS ---
Assessment & Plan Assessment/Plan (1) Sepsis: PLAN: Plan RECOMMENDATIONS: 1. Continue antimicrobials per ID recommendations. 2. Avoid sedating medications. 3. Continue to monitor blood counts daily. Transfuse for hemoglobin less than 7 g/dL. 4. Continue Keppra and Decadron per home regimen. 5. Encourage incentive spirometer use and mobilize patient as tolerated. 6. Given the patient's lack of further ICU or pulmonary needs, will sign off. Please call with any additional questions. IMPRESSIONS: 1. Sepsis secondary to gram-negative pneumonia/bacteremia The patient presented with sepsis due to gram-negative bacteremia with acute sepsis related organ dysfunction as evidenced by lactic acidemia and altered mentation. She was previously hospitalized earlier this month at an outside hospital with [facility] sepsis but was apparently treated appropriately by infectious diseases. She now presents with radiographic evidence of pneumonia and gram- negative bacteremia. The patient did receive supplemental IV fluid hydration and has remained hemodynamically stable, without the need for vasopressor support. Plan to continue antimicrobials per ID recommendations. 2. History of metastatic non-small cell lung cancer The patient apparently received radiation treatment and is currently receiving s ystemic chemotherapy. Plan to continue Decadron and Keppra per home regimen. 3. Anemia Continue to monitor H&H daily. Transfuse if hemoglobin drops below 7 g/dL. The patient is already on PPI therapy. 4. Recently diagnosed diabetes mellitus/depression/anxiety/GERD Complicates care, management, recovery and prognosis. Recommend holding adi ting home medications. This note was generated with [employer] dictation software. It may contain incorrect words, spelling, and punctuation that were not noted in checking the note before signing. Subjective Subjective The patient was seen and examined at the bedside this morning. Events from the last 24 hours have been reviewed. The patient is currently afebrile, hemodynamically stable and maintaining appropriate oxygen saturations on 2 L/min via nasal cannula. The patient is currently documented to be overall net +5 L for the hospitalization. Hemoglobin is stable at 8.0 g/dL. Platelet count is low at 124,000. Objective Data Objective Data The patient's most recent lab work, culture data and imaging studies have all been personally reviewed. Blood cultures are positive for E. coli. Strep and urine Legionella antigens were negative. Vital Signs: Vital Signs Temp Pulse Resp BP Pulse Ox O2 Del Method O2 Flow Rate 98 F 118 H 18 128/79 H 96 Nasal Cannula 2 12/17/21 02:56 12/17/21 02:56 12/17/21 02:56 12/17/21 02:56 12/17/21 02:56 12/17/21 02:56 12/17/21 02:56 FiO2 94 12/16/21 06:45 Oxygen Flow Rate (L/min) 2 Oxygen Delivery Method Nasal Cannula Weight: 149 lb 14.629 oz Body Mass Index (BMI) 24.2 Intake & Output: Intake and Output for Last 24 Hours 12/15/21 12/16/21 12/17/21 23:59 23:59 23:59 Intake Total 5312.00 / 5312.00 1952.5 / 1952.5 Output Total 375 / 975 3600 / 4000 800 / 800 Balance 4937.00 / 4337.00 -1647.5 / -2047.5 -800 / -800 Lab / Micro Data Attestation: I reviewed the patient's lab results. Result Diagrams: 12/17/21 05:23 12/17/21 05:23 Labs: Laboratory Results - last 24 hr 12/16/21 06:30: Vancomycin Trough 7.2 12/16/21 06:30: Sodium 144, Potassium 3.6, Chloride 114 H, Carbon Dioxide 24.0, Anion Gap 6, BUN 13, Creatinine 0.37 L, Estim Creat Clear Calc 115.91, Est GFR (MDRD) Af Amer 227, Est GFR (MDRD) Non-Af 187, BUN/Creatinine Ratio 35.2 H, Glucose 40 L*, Calcium 8.7, Phosphorus 2.7, Magnesium 1.7 12/16/21 06:35: POC Glucose 53 L 12/16/21 06:57: POC Glucose 60 L 12/16/21 08:05: POC Glucose 171 H 12/16/21 09:13: Blood Type O POSITIVE, Antibody Screen NEGATIVE 12/16/21 11:47: POC Glucose 149 H 12/16/21 12:07: Hgb 8.5 L, Hct 26.5 L 12/16/21 17:12: POC Glucose 266 H 12/16/21 21:27: POC Glucose 288 H 12/17/21 05:23: WBC 8.7, RBC 2.22 L, Hgb 8.0 L, Hct 24.5 L, MCV 110.4 H, MCH 36.0 H, MCHC 32.7, RDW Std Deviation 70.8 H, RDW Coeff of Bettina 17.7 H, Plt Count 124 L, MPV 9.9, Immature Gran % (Auto) 1.100 H, Neut % (Auto) 89.3 H, Lymph % (Auto) 4.6 L, Ward % (Auto) 4.4, Eos % (Auto) 0.0, Baso % (Auto) 0.6, Absolute Neuts (auto) 7.8 H, Absolute Lymphs (auto) 0.40 L, Nucleated RBC % 0.9, Differential Comment SCANNED, Anisocytosis 2+, Macrocytosis 2+ 12/17/21 05:23: Sodium 142, Potassium 3.5, Chloride 112 H, Carbon Dioxide 20.0 L , Anion Gap 10, BUN 16, Creatinine 0.56, Estim Creat Clear Calc 76.58, Est GFR (MDRD) Af Amer 139, Est GFR (MDRD) Non-Af 115, BUN/Creatinine Ratio 28.4 H, Glucose 262 H, Calcium 9.4 12/17/21 06:16: POC Glucose 249 H Micro: Microbiology 12/15/21 10:00 Urine, Catheterized Urine Culture - Preliminary GNR lactose transit authority police officer 12/14/21 18:05 Blood Culture (Wb) - Left Wrist Blood Culture - Final GNR lactose transit authority police officer 12/14/21 17:54 Blood Culture (Wb) - Anticubital Left Blood Culture - Final Escherichia coli 12/14/21 21:50 Urine, Clean Catch Legionella Antigen - Final 12/14/21 21:50 Urine, Clean Catch Streptococcus pneumoniae Antigen (M - Final Physical Exam Const alert and no apparent distress General Appearance: cooperative HEENT normocephalic and head/scalp atraumatic Eyes PERRL, EOMs intact bilaterally and conjunctivae normal Neck supple General: trachea midline Chest inspection of chest normal Resp normal respiratory effort Auscultation: diminished lung sounds; Negative for rales, rhonchi or wheezes Cardio S1 normal heart sound and S2 normal heart sound Rate: tachycardic GI soft to palpation and non-tender Inspection: abdominal distention Extremity no clubbing, cyanosis or edema Skin no rashes or lesions noted Neuro CN's II-XII intact bilaterally and moves all extremities Psych cooperative Charges/Coding Visit Charges Inpatient E&M: 09337 Subs Hosp L2
[2021-12-17] MEDS: Albuterol 2.5 MG/3 ML VIAL.NEB. INHALATION ×2 (07:06→13:19)
[2021-12-17] MEDS: Folic Acid 1 MG Tablet 0.5 MG PO (08:27)
[2021-12-17] MEDS: dexAMETHasone 4 MG Tablet PO ×2 (08:27→17:48)
[2021-12-17] MEDS: Ensure Plus High Protein 120 ML LIQUID PO ×2 (08:28→13:58)
[2021-12-17] MEDS: Enoxaparin 40 MG/0.4 ML Syringe SC (08:28)
[2021-12-17] MEDS: Oxybutynin 5 MG Tablet PO (08:28)
[2021-12-17] MEDS: Pantoprazole Sodium 40 MG Tablet PO (08:28)
[2021-12-17] MEDS: levETIRAcetam 500 MG Tablet PO (08:29)
[2021-12-17] MEDS: FLUoxetine 20 MG Capsule 60 MG PO (08:29)
[2021-12-17] MEDS: buPROPion (XL) 150 MG TABLET.XL PO (08:29)
[2021-12-17] MEDS: Insulin Glargine-YFGN 100 UNIT/ML Pen 10 UNIT SC (08:30)
[2021-12-17] MEDS: clonazePAM 1 MG Tablet PO (08:36)
[2021-12-17] MEDS: 0.9% Saline Lock 10 ML Syringe IV (11:23)
[2021-12-17 12:00] LABS: Bedside Glucose 260 mg/dL (74-106)
--- NOTE | 2021-12-17 12:14 | PN.ID_ITS ---
Physical Exam Narrative Feeling better, no fever, no abd pain, no SOB or cough. No n/v/d. Const alert and no apparent distress Resp normal air movement and clear to auscultation bilaterally Cardio regular rate and regular rhythm GI soft to palpation, non-tender and non-distended Skin no rashes or lesions noted ID ID: Route of nutrition/ use of supplements: [] Nutritional Intake: [] IV Site: [] Garcia Catheter: [] Assessment & Plan Assessment/Plan (1) Sepsis: PLAN: Ecoli bacteremia. Suspect pneumonia as source. Reviewed [facility] records, recent stay with [facility] uti. Overall much improved. Ok for discharge on augmentin 875mg bid for 5 more days. Will follow as needed, d/w Dr. Peñaloza (2) Pneumonia: (3) Bacteremia due to Gram-negative bacteria:
--- NOTE | 2021-12-17 12:53 | CASEMGMT ---
Discharge Canvas Cutter Sima from the [facility] reached out. Pre-cert has been obtained. Patient can go to [facility] when medically ready. CHANDANA Cruz notified. Plan: [facility], When medically ready. Geovanna Conde Discharge Canvas Cutter
--- NOTE | 2021-12-17 12:54 | CASEMGMT ---
Addendum entered by Nancy Shields 12/17/21 15:13: Social Work Per physician, pt is ready for discharge. Phone call to pt sister Abigail and she agrees to discharge and states she and sister will transport. SW inquired if this is best mode of transportation as pt is weak and Abigail states she talked to therapist and feel they can transport. Abigail declines SW arranging alternate transportation. Plan: [facility] today CORY Hunt Original Note: Social Work Precert has been obtained and pt can go to [facility] today. Phone call to physician and pt is ready for discharge today. Phone call to pts sister Abigail and updated that pt can go to [facility] today. Abigail states she would like to meet with physician prior to discharge for medical update. Physician updated. Plan: Return to [facility], Skilled level of care CORY Hunt
--- NOTE | 2021-12-17 13:30 | PCM.TXEXTCAR ---
Diet Diet Order/Speech Therapy: 12/15/21 09:24 Diet: Regular - General Is pt able to select menu?: Yes Routine Orders/Code Status O2 Liters per Minute: 2 L with exertion RA at rest O2 Frequency: PRN Routine Lab Work: CBC (Weekly) and BMP (Weekly) Code Status: Full Code Therapies Physical Therapy: Eval and Treat Occupational Therapy: Eval and Treat Speech Therapy: Eval and Treat Problem/Diagnosis (1) Sepsis: Status: Acute Code(s): A41.9 - Sepsis, unspecified organism (2) Pneumonia: Status: Acute Code(s): J18.9 - Pneumonia, unspecified organism (3) Bacteremia due to Gram-negative bacteria: Status: Acute Code(s): R78.81 - Bacteremia Allergies/Procedures Done in Hospital Allergies No Known Allergies Allergy (Verified 12/14/21 15:36) Procedures: - (Chest x-ray/CTA chest/CT brain) Type of Care/Length of Stay Estimated LOS: More Than 30 Days Type of Care Needed: Intermediate Rehab Potential: Fair Prognosis: Fair Additional Orders/Day of Discharge Day of Discharge: 12/17/21 Dietary and Speech Recommendations Dietitian Recommendations/Changes: regular diet, ensure plus high protein 120mL 4x/day w/medpass given risk for malnutrition w/ metastatic disease Discharge Plan Admission Admit Date/Time: 12/14/21 18:16 Attending Provider: Brooklyn Peñaloza Primary Care Provider: Nixon Atkins Consulting Providers: Ashley Zavala ; Da Mills ; Emanuel Gould ; Maicol Cho ; Jh Emery ; Almas Barraza ; Nelia Abraham SENIOR APPLICATIONS ARCHITECT ; Eugene Guerra Discharge Orders/Prescriptions Prescriptions: No Action levetiracetam 500 mg tablet 500 mg PO BID Label Comments: TAKE 1 TABLET BY MOUTH TWICE DAILY clonazepam 1 mg Tablet 1 mg PO BID folic acid 400 mcg Tablet 0.4 mg PO DAILY glimepiride 2 mg tablet 4 mg PO DAILY pantoprazole 40 mg Tablet,Delayed Release (Dr/Ec) 40 mg PO DAILY trazodone 150 mg Tablet 150 mg PO QHS fluoxetine 20 mg Tablet 60 mg PO DAILY dexamethasone 4 mg tablet 4 mg PO BID albuterol sulfate [Ventolin HFA] 90 mcg/actuation HFA aerosol inhaler 2 inh INHALATION Q4H Label Comments: INHALE 2 PUFFS BY MOUTH EVERY 4 HOURS NEEDED oxybutynin chloride 5 mg tablet 5 mg PO DAILY bupropion HCl 150 mg Tablet Extended Release 24 Hr 150 mg PO DAILY Combivent Respimat 20-100 mcg/actuation mist 1 puff INHALATION BID Label Comments: INHALE 1 PUFF BY MOUTH TWICE DAILY DIRECTED insulin glargine-yfgn 100 unit/mL (3 mL) insulin pen 20 unit SUBCUT BID Referrals / Follow Up: Nixon Atkins MD [Primary Care Provider] -
--- NOTE | 2021-12-17 13:58 | PCM.DC.SUM ---
Providers Date of Admission: 12/14/21 Date of Discharge: 12/17/21 Primary Care Physician: Dr. Nixon Atkins MD Consultations 12/14/21 19:31 Consult: Public Area Supervisor / Pulmonary Medicine Routine Consulting Provider: Pulmonary Medicine misty Sammy Reason for Consult: septic shock due to pneumonia EMERGENT Consult: No Notified: Yes Date Notified: 12/14/21 Time Notified: 19:31 Method of Notification: Text 12/15/21 09:25 Consult: Infectious Disease Routine Consulting Provider: Da Mills Reason for Consult: Gram negative sepsis with recent VRE UTI EMERGENT Consult: No Notified: Yes Date Notified: 12/15/21 Time Notified: 09:26 Method of Notification: Text Reason For Visit: [facility] PNEUMONIA Diagnosis Discharge Diagnosis (1) Sepsis: Status: Acute Code(s): A41.9 - Sepsis, unspecified organism (2) Pneumonia: Status: Acute Code(s): J18.9 - Pneumonia, unspecified organism (3) Bacteremia due to Gram-negative bacteria: Status: Acute Code(s): R78.81 - Bacteremia Plan Sepsis secondary to E. coli bacteremia/UTI/pneumonia -Chest x-ray shows infiltrate -Urine and blood cultures are positive for gram-negative rina with preliminary identification being E. coli -Antibiotics changed to ceftriaxone per infectious disease -Will likely need a full 7 days treatment and probable discharge on oral antibiotics once stable day 2 of 7 -Await ID recommendations for discharge antibiotics -Hemodynamically stable and clinically improving Acute on chronic anemia -Upon presentation hemoglobin was 12 with a drop to 7.8 this morning -Patient did not receive aggressive hydration -Hemoglobin assessed and stable at 8.4 -We will repeat CBC in a.m. -Drop is likely reflective of hydration -Transfuse for hemoglobin less than 7 Hypoglycemia with DM-2 -We will discontinue sulfonylurea -Continue basal insulin with sliding scale -Accu-Cheks as ordered -Carb controlled diet Metastatic non-small cell lung CA -She has completed brain radiation -Currently receiving systemic chemotherapy -Patient is unable to tell us who her oncologist is -Continue Decadron and Keppra -She does have brain metastasis -Is to have a repeat scan for prognostic value soon GERD -Continue PPI Urinary incontinence -Continue oxybutynin Depression/anxiety -Continue home trazodone -Continue home routine neck sign-continue home clonazepam -Continue home Wellbutrin Tobacco abuse -History of smoking -Continue to encourage cessation DVT prophylaxis -Continue enoxaparin CODE STATUS -full code Medications at Discharge Home Medications albuterol sulfate 90 mcg/actuation aerosol inhaler (Ventolin HFA) 2 inh inhalation Q4H SOB 12/14/21 bupropion HCl 150 mg 24 hr tablet, extended release 150 mg PO DAILY DEPRESSION 12/14/21 clonazepam 1 mg tablet 1 mg PO BID ANXIETY 12/14/21 dexamethasone 4 mg tablet 4 mg PO BID STEROID 12/14/21 fluoxetine 20 mg tablet 60 mg PO DAILY DEPRESSION 12/14/21 folic acid 400 mcg tablet 0.4 mg PO DAILY SUPPLEMENT 12/14/21 glimepiride 2 mg tablet 4 mg PO DAILY DM 12/14/21 insulin glargine-yfgn 100 unit/mL (3 mL) subcutaneous pen 20 unit subcut BID DM 12/14/21 ipratropium 20 mcg-albuterol 100 mcg/actuation mist for inhalation (Combivent Respimat) 1 puff inhalation BID COPD 12/14/21 levetiracetam 500 mg tablet 500 mg PO BID SEIZURES 12/14/21 oxybutynin chloride 5 mg tablet 5 mg PO DAILY OAB 12/14/21 pantoprazole 40 mg tablet,delayed release 40 mg PO DAILY GERD 12/14/21 trazodone 150 mg tablet 150 mg PO QHS SLEEP 12/14/21 amoxicillin 875 mg-potassium clavulanate 125 mg tablet 1 tab PO BID #10 tabs 12/17/21 Hospital Course Operations None Procedures - (CT brain/CTA chest/chest x-ray) Summary of Care Provided Minutes Spent on Discharge: 37 Hospital Course: Ms. Pretty is a 66-year-old white female who presented to the emergency department [facility] on 12/14/2021 from the [facility] (SNF) with chest pain and shortness of breath. It was reported that her symptoms started on the day of admission. She denied cough, palpitations, dizziness, nausea, vomiting, or diarrhea on presentation. She has a known history of lung CA with metastatic disease to the brain and was on 2 L upon presentation. She evidently had a recent hospitalization at [place] for UTI at which time she was diagnosed with VRE and placed on antibiotics. She was discharged on December 09 to the long term facility and then represented here on the . Vitals in the ED were BP of 119/90, CT of 137, RR of 19 and she was saturating at 93% on room air. CBC showed wbc of 6.5, Hb of 12.6 and platelets of 261. Chemistry was essentially unremarkable. CXR showed a left lower lobe consolidation. CTA of the chest was negative for PE, aortic dissection or aneurysm, and showed a spiculated mass in the left upper lobe with more consolidation in the left lung base. She was started on IV vancomycin and zosyn and is being admitted to be managed for health associated pneumonia in a patient with known lung cancer. She was initially admitted to the PCU but a lactate resulted at 5.5 and a procalcitonin was noted to be 8.05 with ongoing tachycardia and shortness of breath and she was therefore transferred to the ICU. She was treated with sepsis protocol driven fluid resuscitation given her elevated lactate however had no hypotension during her hospital course. Infectious disease was consulted and upon admission pancultures were obtained. During her hospital course she maximally required 4 L nasal cannula but prior to discharge was able to be weaned to room air at rest and we recommended 2 L with exertion. Her lowest blood pressures during her hospital course were 86/61 but this resolved with fluid resuscitation and she never required pressors. Her initial blood culture showed E. coli. Unfortunately sputum culture was not able to be obtained secondary to lack of production. Urine culture was obtained however it was after antibiotics were initiated on 12/15/2021. Urine culture 2 showed E. coli with similar sensitivities however colony counts were low. This may be related to the fact that she had been on antibiotics prior to this being obtained. I do suspect that her likely source of infection is her urine +/- pneumonia that was present on her CTA causing an E. coli bacteremia. Her antibiotics were narrowed during her hospitalization to ceftriaxone and then she was converted per ID recommendations to Augmentin to complete a total 7-day course. Her hemoglobin initially trended down but stabilized and I suspect this is dilutional related to her fluids resuscitation. Hemoglobin at discharge was 8.2 and stable for 2 consecutive days. Her platelets were slightly lower than presentation as well at 124,000 with a beckie of 122,000 and. This is likely related to his sepsis and possibly antibiotic use. I would recommend a repeat CBC after her antibiotics have been completed. She was able to be discharged back to the long term facility on 12/17/2021 for ongoing physical and Occupational Therapy as well as speech therapy for cognition. She will continue her Augmentin as noted above with no other medication changes made at this time. Again I recommend a repeat CBC and BMP be obtained weekly and we have encouraged follow-up with her oncologist as soon as possible for reinitiation of chemotherapy once her functional status improves and her acute infection has resolved. I did discuss the cause of her hospitalization her treatment during her hospital course and plan for discharge with her sister who is the DPOA for healthcare prior to discharge and all questions were answered. Discharge diagnoses: Sepsis E. coli bacteremia E. coli UTI Thrombocytopenia Healthcare associated pneumonia Acute on chronic anemia Hypoglycemia-resolved DM-2 Metastatic non-small cell lung CA GERD Urinary incontinence Depression Anxiety History of tobacco abuse Physical Exam Const alert and no apparent distress Constitutional Narrative: Upper middle-aged white female, appears much older than stated age, sitting up in bed with supplemental oxygen in place, watching television, oriented to self, birthdate, location on second attempt without cueing, month on second attempt without cueing, year, and president on second attempt without cueing General Appearance: cooperative, comfortable, well kempt and well developed Orientation / Consciousness: awake Nutritional Appearance: overweight HEENT normocephalic, head/scalp atraumatic, hearing grossly normal bilaterally and moist oral mucous membranes HEENT Narrative: Dentures in place, Mallampati 2, no thrush noted Eyes PERRL and EOMs intact bilaterally Eyes Narrative: Conjunctiva are mildly pale bilaterally, no scleral icterus Neck no lymphadenopathy, supple and no JVD Neck Narrative: Trachea midline, no thyroid enlargement Resp normal respiratory effort, no retractions and no use of accessory muscles Resp Narrative: Diffusely diminished but no adventitious sounds Auscultation: Negative for crackles, rales, rhonchi or wheezes Cardio regular rhythm, S1 normal heart sound, S2 normal heart sound, no murmurs, no rub, no gallops and no clicks Cardio Narrative: Mild tachycardia GI normal to inspection, nondistended, normoactive bowel sounds, soft to palpation, non-tender and non-distended Extremity normal to inspection, full ROM and no clubbing, cyanosis or edema Extremity Narrative: 2+ pedal pulses, tenderness at the left costochondral junctions distally Skin no wounds, skin turgor normal and no jaundice Skin Narrative: Scattered ecchymosis, PICC right upper extremity, no open wounds or lesions Neuro CN's II-XII intact bilaterally, moves all extremities and no focal motor deficits Neuro Narrative: Marked generalized weakness Speech: speech normal Psych Psych Narrative: Patient is very pleasant Weight / BMI Weight Weight: 68 kg Body Mass Index (BMI) 24.2 ABG / Lab / Microbiology Data Result Diagrams: 12/17/21 05:23 12/17/21 05:23 Laboratory: Laboratory Results - last 24 hr 12/16/21 17:12: POC Glucose 266 H 12/16/21 21:27: POC Glucose 288 H 12/17/21 05:23: WBC 8.7, RBC 2.22 L, Hgb 8.0 L, Hct 24.5 L, MCV 110.4 H, MCH 36.0 H, MCHC 32.7, RDW Std Deviation 70.8 H, RDW Coeff of Bettina 17.7 H, Plt Count 124 L, MPV 9.9, Immature Gran % (Auto) 1.100 H, Neut % (Auto) 89.3 H, Lymph % (Auto) 4.6 L, [place] % (Auto) 4.4, Eos % (Auto) 0.0, Baso % (Auto) 0.6, Absolute Neuts (auto) 7.8 H, Absolute Lymphs (auto) 0.40 L, Nucleated RBC % 0.9, Differential Comment SCANNED, Anisocytosis 2+, Macrocytosis 2+ 12/17/21 05:23: Sodium 142, Potassium 3.5, Chloride 112 H, Carbon Dioxide 20.0 L, Anion Gap 10, BUN 16, Creatinine 0.56, Estim Creat Clear Calc 76.58, Est GFR (MDRD) Af Amer 139, Est GFR (MDRD) Non-Af 115, BUN/Creatinine Ratio 28.4 H, Glucose 262 H, Calcium 9.4 12/17/21 06:16: POC Glucose 249 H 12/17/21 11:14: POC Glucose 260 H Microbiology: Microbiology 12/15/21 10:00 Urine, Catheterized Urine Culture - Final Escherichia coli 12/14/21 18:05 Blood Culture (Wb) - Left Wrist Blood Culture - Final GNR lactose erp consultant 12/14/21 17:54 Blood Culture (Wb) - Anticubital Left Blood Culture - Final Escherichia coli 12/14/21 21:50 Urine, Clean Catch Legionella Antigen - Final 12/14/21 21:50 Urine, Clean Catch Streptococcus pneumoniae Antigen (M - Final Meaningful Use Info Meaningful Use Diagnoses (Choose all that apply): None applicable Discharge Plan Admission Admit Date/Time: 12/14/21 18:16 Primary Reason for Your Visit: Chest pain/Shortness of breath Attending Provider: Brooklyn Peñaloza Primary Care Provider: Nixon Atkins Consulting Providers: Ashley Zavala ; Da Mills ; Emanuel Gould ; Maicol Cho ; Jh Emery ; Almas Barraza ; Nelia Abraham NP ; Eugene Guerra Instructions Additional Instructions / Restrictions: 1. Follow-up with oncology at [facility] for reevaluation after infection has resolved Discharge Orders/Prescriptions Prescriptions: New amoxicillin-pot clavulanate 875-125 mg tablet 1 tab PO BID Qty: 10 0RF Continued levetiracetam 500 mg tablet 500 mg PO BID Label Comments: TAKE 1 TABLET BY MOUTH TWICE DAILY clonazepam 1 mg Tablet 1 mg PO BID folic acid 400 mcg Tablet 0.4 mg PO DAILY glimepiride 2 mg tablet 4 mg PO DAILY pantoprazole 40 mg Tablet,Delayed Release (Dr/Ec) 40 mg PO DAILY trazodone 150 mg Tablet 150 mg PO QHS fluoxetine 20 mg Tablet 60 mg PO DAILY dexamethasone 4 mg tablet 4 mg PO BID albuterol sulfate [Ventolin HFA] 90 mcg/actuation HFA aerosol inhaler 2 inh INHALATION Q4H Label Comments: INHALE 2 PUFFS BY MOUTH EVERY 4 HOURS NEEDED oxybutynin chloride 5 mg tablet 5 mg PO DAILY bupropion HCl 150 mg Tablet Extended Release 24 Hr 150 mg PO DAILY Combivent Respimat 20-100 mcg/actuation mist 1 puff INHALATION BID Label Comments: INHALE 1 PUFF BY MOUTH TWICE DAILY DIRECTED insulin glargine-yfgn 100 unit/mL (3 mL) insulin pen 20 unit SUBCUT BID Referrals / Follow Up: Nixon Atkins MD [Primary Care Provider] - Within 2 Weeks Disposition Disposition (needs filled in before D/C Order can be placed): Halfway Facility Charges/Coding Visit Charges Inpatient E&M: 63348 SNF Disch >30 Min
--- NOTE | 2021-12-17 14:12 | PHA.DC.MR ---
Pharmacy Service has performed discharge medication reconciliation for this patient upon transfer to [facility]. Home Medications albuterol sulfate 90 mcg/actuation aerosol inhaler (Ventolin HFA) 2 inh inhalation Q4H SOB 12/14/21 bupropion HCl 150 mg 24 hr tablet, extended release 150 mg PO DAILY DEPRESSION 12/14/21 clonazepam 1 mg tablet 1 mg PO BID ANXIETY 12/14/21 dexamethasone 4 mg tablet 4 mg PO BID STEROID 12/14/21 fluoxetine 20 mg tablet 60 mg PO DAILY DEPRESSION 12/14/21 folic acid 400 mcg tablet 0.4 mg PO DAILY SUPPLEMENT 12/14/21 glimepiride 2 mg tablet 4 mg PO DAILY DM 12/14/21 insulin glargine-yfgn 100 unit/mL (3 mL) subcutaneous pen 20 unit subcut BID DM 12/14/21 ipratropium 20 mcg-albuterol 100 mcg/actuation mist for inhalation (Combivent Respimat) 1 puff inhalation BID COPD 12/14/21 levetiracetam 500 mg tablet 500 mg PO BID SEIZURES 12/14/21 oxybutynin chloride 5 mg tablet 5 mg PO DAILY OAB 12/14/21 pantoprazole 40 mg tablet,delayed release 40 mg PO DAILY GERD 12/14/21 trazodone 150 mg tablet 150 mg PO QHS SLEEP 12/14/21 amoxicillin 875 mg-potassium clavulanate 125 mg tablet 1 tab PO BID #10 tabs 12/17/21 The patient's discharge medication list was reviewed for discrepancies and discrepancies were resolved.
[2021-12-19 02:26] LABS: Bedside Glucose 214 mg/dL (74-106)
== END 2021-12-17 18:20 | disposition skilled nursing facility (03) | DRG 871 ==
LOC: ED 17:51 → PCU 18:19 → ICU 12-15 01:22 → PCU 12-15 10:19 → ICU 12-15 14:21 → MS3 12-15 15:48
PROVIDERS: Family Medicine; Internal Medicine; Internal Medicine Critical Care Medicine; Internal Medicine Infectious Disease; Admitting Provider Student in an Organized Health Care Education/Training Program; Emergency Provider Emergency Medicine; PCP Family Medicine; Visit Provider Internal Medicine
DX: A41.51 Sepsis due to Escherichia coli [E. coli] (principal); J15.5 Pneumonia due to Escherichia coli; E87.2 Acidosis; J44.0 Chronic obstructive pulmonary disease with (acute) lower respiratory infection; C34.12 Malignant neoplasm of upper lobe, left bronchus or lung; C79.31 Secondary malignant neoplasm of brain; N39.0 Urinary tract infection, site not specified; E11.649 Type 2 diabetes mellitus with hypoglycemia without coma; D69.6 Thrombocytopenia, unspecified; Z79.4 Long term (current) use of insulin; I10 Essential (primary) hypertension; D64.9 Anemia, unspecified; E87.6 Hypokalemia; F41.9 Anxiety disorder, unspecified; K21.9 Gastro-esophageal reflux disease without esophagitis; Y95 Nosocomial condition; F32.A Depression, unspecified; R32 Unspecified urinary incontinence; Z92.3 Personal history of irradiation; Z79.01 Long term (current) use of anticoagulants; Z79.84 Long term (current) use of oral hypoglycemic drugs; Z87.891 Personal history of nicotine dependence
CPT/HCPCS: 36415; 36569; 70450; 71045; 71275; 80048; 80076; 80202; 82962; 83036; 83605; 83735; 84100; 84145; 84484; 85014; 85018; 85025; 86850; 86900; 86901; 87040; 87077; 87086; 87088; 87186; 87426; 87449; 87641; 93005; 94640; 97110; 97116; 97163; 97166; 97530; 97535; 99285; J7030; J7050; Q9967; A4216; J0696

== ENCOUNTER 2022-01-27 07:56 | Inpatient (IN) | payer MEDICARE, MEDICAID, SELFPAY ==
[2022-01-27] VITALS (24 sets, daily range): BP systolic 113–132; BP diastolic 72–90; PULSE 100–137; RESP 18–93; TEMP 36.3–37.2; O2SAT 91–97; BMI 27.0; BMI 24.9
--- NOTE | 2022-01-27 08:09 | ED.RN ---
BLOOD SUGAR 63
--- NOTE | 2022-01-27 08:17 | RAD_ITS ---
STUDY: X-RAY CHEST REASON FOR EXAM: Female, 66 years old. SOB . Covid Positive. Fever. TECHNIQUE: Single AP portable view of the chest. COMPARISON: Comparison is made with prior study dated 02/13/2022. FINDINGS: EKG electrodes are seen. There now is evidence of diffuse bilateral patchy airspace disease suggestive of bilateral pneumonias. There is no demonstrated pleural abnormality. Normal size heart. Normal mediastinum and kaiden. Normal visualized pulmonary arteries. Normal visualized aortic arch and descending thoracic aorta. Normal visualized thoracic spine. Normal visualized ribs, clavicles, and shoulders. There is no demonstrated abnormality of the visualized soft tissue structures of the upper abdomen. RAD/Chest 1 View (Portable) IMPRESSION: Bilateral pulmonary infiltrates in keeping with bilateral patchy pneumonias. Electronically Signed: Ken Peacock MD at 8:41 EDT ,
--- NOTE | 2022-01-27 08:17 | EKG12_ITS ---
Test Reason : CP Blood Pressure : / mmHG Vent. Rate : 134 BPM Atrial Rate : 134 BPM P-R Int : 122 ms QRS Dur : 074 ms QT Int : 310 ms P-R-T Axes : 036 034 059 degrees QTc Int : 462 ms Sinus tachycardia Otherwise normal ECG Confirmed by LEONID MCCRARY, WILLY ([id number]), food expeditor ZOË MCGRATH ([id number]) on 01/31/2022 1:04:32 PM Referred By: PEREZ Confirmed By:WILLY JAQUEZ MD
--- NOTE | 2022-01-27 08:19 | EX.ED.DYSGE1 ---
HPI History of Present Illness Chief Complaint: Fever Informant: patient and family Narrative Narrative: Patient's brought in for increased oxygen requirements. She does have longstanding COPD but is normally not on oxygen. About 3 or 4 days ago her sats were in the 60% so she was placed on 5 L nasal cannula. They move that up to a facemask today. They just got a positive COVID today. Patient also has metastatic lung cancer. She has mets to the brain. She had radiation therapy to the brain but no chest radiation. It is not surgical lesion. She got 1 chemotherapy but got very ill from it and they are not sure if they are going to be able to do more. She is a no intubation. She is at a alf that has multiple COVID cases. Patient had denied history of CHF but it is on her medical record. [facility] Medical History Anxiety Bacteremia due to Gram-negative bacteria Chest pain Congestive heart failure (CHF) COPD (chronic obstructive pulmonary disease) Diabetes Former smoker Hypertension Metastasis Primary cancer of left upper lobe of lung Home Medications albuterol sulfate 90 mcg/actuation aerosol inhaler (Ventolin HFA) 2 inh inhalation Q4H SOB 12/14/21 [History Last Taken Unknown] bupropion HCl 150 mg 24 hr tablet, extended release 150 mg PO DAILY DEPRESSION 12/14/21 [History Last Taken 12/14/21] clonazepam 1 mg tablet 1 mg PO DAILY ANXIETY 12/14/21 [History Last Taken 12/14/21] dexamethasone 4 mg tablet 2 mg PO BID STEROID 12/14/21 [History Last Taken 12/14/21] fluoxetine 20 mg tablet 60 mg PO DAILY DEPRESSION 12/14/21 [History Last Taken 12/14/21] folic acid 400 mcg tablet 0.4 mg PO DAILY SUPPLEMENT 12/14/21 [History Last Taken 12/14/21] glimepiride 2 mg tablet 4 mg PO DAILY DM 12/14/21 [History Last Taken Unknown] insulin glargine-yfgn 100 unit/mL (3 mL) subcutaneous pen 15 unit subcut BID DM 12/14/21 [History Last Taken Unknown] ipratropium 20 mcg-albuterol 100 mcg/actuation mist for inhalation (Combivent Respimat) 1 puff inhalation Q6H PRN PRN Wheezing 12/14/21 [History Last Taken 12/14/21] levetiracetam 500 mg tablet 500 mg PO BID SEIZURES 12/14/21 [History Last Taken 12/14/21] oxybutynin chloride 5 mg tablet 5 mg PO DAILY OAB 12/14/21 [History Last Taken 12/14/21] trazodone 150 mg tablet 150 mg PO QHS SLEEP 12/14/21 [History Last Taken 12/13/21] cholecalciferol (vitamin D3) 125 mcg (5,000 unit) tablet (Vitamin D3) 125 mcg PO DAILY SUPPLEMENT 01/27/22 [History Last Taken Unknown] clonazepam 0.5 mg tablet 0.5 mg PO DAILY ANXIETY 01/27/22 [History Last Taken Unknown] docusate sodium 100 mg tablet 100 mg PO DAILY CONSTIPATION 01/27/22 [History Last Taken Unknown] hydrocodone-acetaminophen 5-325mg 5mg-325mg 1 tab PO TID PAIN MANAGEMENT 01/27/22 [History Last Taken Unknown] insulin aspart U-100 100 unit/mL subcutaneous solution (Novolog U-100 Insulin aspart) See Protocol subcut TID DIABETES 01/27/22 [History Last Taken Unknown] omeprazole 20 mg capsule,delayed release 20 mg PO DAILY GERD 01/27/22 [History Last Taken Unknown] Allergy/AdvReac Type Severity Reaction Status Date / Time No Known Allergies Allergy Verified 12/14/21 15:36 Social History Smoking Status: Former smoker ROS ROS ED Constitutional Constitutional ED: Denies chills, fever(s) or subjective Eyes Eyes: Denies change in vision ENT ENT ED: Denies rhinorrhea or sore throat Cardiovascular Cardiovascular: Denies chest pain or palpitations Respiratory/Chest Respiratory/Chest: Reports dyspnea and other Details: Patient does complain of mild dyspnea. But she does not feel short of breath as her history and vitals and O2 sat would not imply. ; Denies cough Gastrointestinal Gastrointestinal: Denies nausea or vomiting Genitourinary Genitourinary ED: Denies hematuria Musculoskeletal Musculoskeletal: Reports other Details: Patient has been having left leg pain for a month or more. Plan was to get an outpatient ultrasound. ; Denies arthralgias Integumentary Denies rash Neurologic Neurologic: Denies headache(s) Endocrine Endocrinology: Denies polydipsia or polyuria Hematologic/Lymphatic Hematologic/Lymphatic: Denies easy bleeding or easy bruising Allergic/Immunologic Allergic/Immunologic ED: Denies urticaria EXAM Physical Exam Const Vital Signs: 01/27/22 07:59 01/27/22 08:05 01/27/22 08:52 Temperature 98.9 F 98.9 F Temperature Source Temporal Temporal Pulse Rate 135 H 135 H 137 H Respiratory Rate 93 H 24 H 22 H Respiratory Effort Respiratory Pattern Blood Pressure 120/82 H Blood Pressure Mean 94 Pulse Ox 94 Oxygen Delivery Method Simple Mask Simple Mask Oxygen Flow Rate (L/min) 12 12 01/27/22 08:52 01/27/22 09:02 01/27/22 09:21 Temperature Temperature Source Pulse Rate Respiratory Rate Respiratory Effort Short of Breath Respiratory Pattern Tachypnea Blood Pressure Blood Pressure Mean Pulse Ox 94 95 Oxygen Delivery Method Simple Mask High Flow Oxygen Flow Rate (L/min) 12 8 01/27/22 09:30 01/27/22 10:18 Temperature 97.4 F L Temperature Source Temporal Pulse Rate 124 H Respiratory Rate 22 H Respiratory Effort Respiratory Pattern Blood Pressure 132/88 H Blood Pressure Mean 102 Pulse Ox 94 92 Oxygen Delivery Method High Flow High Flow Oxygen Flow Rate (L/min) 12 8 Positive well nourished and well developed Constitutional Narrative: Patient does look chronically ill. She does look a bit bit as though she has been on steroids recently. She is not cyanotic or diaphoretic. Despite a sugar of 61 she is actually awake and alert and talking to me. General Appearance ED: well developed HEENT Reports moist mucous membranes Eyes General Eye ED: Negative for scleral icterus Neck no JVD Resp Resp Narrative: Respiratory effort is not actually increased much although her rate is. She has diffusely coarse breath sounds throughout the lungs. Cardio no murmurs Rate: tachycardic GI normal to inspection, nondistended, normoactive bowel sounds and non-tender Back/Spine no CVA tenderness Extremity normal to inspection General Extremety ED: Negative for tenderness Neuro Sensorium / Orientation: alert Psych mental status grossly normal Skin no rashes or lesions noted MDM MDM MDM Narrative Medical decision making narrative: We discussed case with hospitalist. With patient's significant need for oxygen she will be brought in the hospital. She does not want CPR or intubation. But they are not yet on hospice the best I can tell. White count was in the ' but read corrected twice and is now not being reported. Electrolytes showed no marked abnormalities. There was increased BUN to creatinine ratio. Troponin was elevated. Lactate was also elevated. BNP was normal. We discussed medication options with hospitalist. She will be given a dose of Lovenox pending discussion with further anticoagulation versus filter versus hospice. It is certainly possible the patient has pulmonary embolus. But she is also dyspneic. She may not tolerate a CTA at this time. For that reason we did not pursue this. Lab Data Attestation: I reviewed the patient's lab results. Labs: Laboratory Results - last 24 hr 01/27/22 01/27/22 01/27/22 08:07 08:45 08:45 WBC [employer] Corrected WBC 11.0 RBC 3.39 L Hgb 11.2 L Hct 34.1 L MCV 100.6 H MCH 33.0 H MCHC 32.8 RDW Std Deviation 56.7 H RDW Coeff of Bettina 15.3 H Plt Count 97 L MPV 10.9 Immature Gran % (Auto) [employer] Neut % (Auto) [employer] Lymph % (Auto) [employer] Stanly % (Auto) [employer] Eos % (Auto) [employer] Baso % (Auto) [employer] Absolute Neuts (auto) 9.1 H Absolute Lymphs (auto) 1.32 Total Counted 100 Neutrophils % (Manual) 81 H Band Neutrophils % 2 Lymphocytes % (Manual) 12 L Monocytes % (Manual) 1 Metamyelocytes % 1 Myelocytes % 3 H Nucleated RBC % 3.6 Nucleated RBCs/100 WBC 5 Diff Path Review May foll Platelet Estimate SLT DEC RBC Morphology NORM C+C Sodium 139 Potassium 3.7 Chloride 105 Carbon Dioxide 25.0 Anion Gap 9 BUN 20 H Creatinine 0.50 L Estim Creat Clear Calc 85.77 Est GFR (MDRD) Af Amer 160 Est GFR (MDRD) Non-Af 132 BUN/Creatinine Ratio 40.0 H Glucose 104 Lactic Acid Calcium 8.2 L Phosphorus Magnesium Total Bilirubin Direct Bilirubin AST ALT Alkaline Phosphatase Lactate Dehydrogenase Total Creatine Kinase Troponin I High Sens 140 H* C-React Prot Ext Range B-Natriuretic Peptide Total Protein Albumin Globulin POC Glucose 61 L 01/27/22 01/27/22 01/27/22 08:45 08:45 08:45 WBC Corrected WBC RBC Hgb Hct MCV MCH MCHC RDW Std Deviation RDW Coeff of Bettina Plt Count MPV Immature Gran % (Auto) Neut % (Auto) Lymph % (Auto) Stanly % (Auto) Eos % (Auto) Baso % (Auto) Absolute Neuts (auto) Absolute Lymphs (auto) Total Counted Neutrophils % (Manual) Band Neutrophils % Lymphocytes % (Manual) Monocytes % (Manual) Metamyelocytes % Myelocytes % Nucleated RBC % Nucleated RBCs/100 WBC Diff Path Review Platelet Estimate RBC Morphology Sodium Potassium Chloride Carbon Dioxide Anion Gap BUN Creatinine Estim Creat Clear Calc Est GFR (MDRD) Af Amer Est GFR (MDRD) Non-Af BUN/Creatinine Ratio Glucose Lactic Acid 3.2 H* Calcium Phosphorus 3.8 Magnesium 1.8 Total Bilirubin Direct Bilirubin AST ALT Alkaline Phosphatase Lactate Dehydrogenase Total Creatine Kinase Troponin I High Sens C-React Prot Ext Range B-Natriuretic Peptide 122.4 H Total Protein Albumin Globulin POC Glucose 01/27/22 01/27/22 08:45 09:36 WBC Corrected WBC RBC Hgb Hct MCV MCH MCHC RDW Std Deviation RDW Coeff of Bettina Plt Count MPV Immature Gran % (Auto) Neut % (Auto) Lymph % (Auto) Stanly % (Auto) Eos % (Auto) Baso % (Auto) Absolute Neuts (auto) Absolute Lymphs (auto) Total Counted Neutrophils % (Manual) Band Neutrophils % Lymphocytes % (Manual) Monocytes % (Manual) Metamyelocytes % Myelocytes % Nucleated RBC % Nucleated RBCs/100 WBC Diff Path Review Platelet Estimate RBC Morphology Sodium Potassium Chloride Carbon Dioxide Anion Gap BUN Creatinine Estim Creat Clear Calc Est GFR (MDRD) Af Amer Est GFR (MDRD) Non-Af BUN/Creatinine Ratio Glucose Lactic Acid Calcium Phosphorus Magnesium Total Bilirubin 0.30 Direct Bilirubin 0.13 AST 49 H ALT 48 Alkaline Phosphatase 143 H Lactate Dehydrogenase 933 H Total Creatine Kinase 30 Troponin I High Sens C-React Prot Ext Range 195.00 H B-Natriuretic Peptide Total Protein 5.9 L Albumin 1.9 L Globulin 4.0 POC Glucose 174 H Radiography Diagnostic Testing: Clinical Impression(s) from Imaging Studies Chest X-Ray 01/27/22 08:17 IMPRESSION: Bilateral pulmonary infiltrates in keeping with bilateral patchy pneumonias. Electronically Signed: Ken Peacock MD at 8:41 EDT , Venous Doppler Study 01/27/22 08:21 Interpretation Summary Acute deep venous thrombosis left common femoral, femoral, popliteal, tibioperoneal trunk, gastrocnemius, posterior tibial, and peroneal veins. Patent and compressible bilateral great saphenous veins Abbreviated COVID-19 protocol utilized Ordering Physician: Marcelino Boston Referring Physician: Nixon Atkins Performed By: Tracy Santo RVT Chest x-ray does show bilateral infiltrates. Ultrasound did show DVT. EKG Initial EKG: Comments: EKG done for dyspnea tachycardia read by me shows a sinus tachycardia with overall rate of 134. There is irregular baseline but no notable ventricular ectopy. No definitive ST elevation or depression. UT interval, QRS duration and QTc are within normal. The EKG is actually similar to 1 from 14 December of this year but the rate today is slower than that EKG. Discharge Plan Dx/Rx/DC Orders Clinical Impression: Hypoxia, Pneumonia, Lactic acidosis, Lung cancer metastatic to brain, COVID Disposition Disposition: Acute Care Hospital [facility] Discharge Date/Time: 01/27/22 11:11
--- NOTE | 2022-01-27 08:21 | VDLE_ITS ---
Reason For Study: Pain RIGHT LEFT GSV is normal. GSV is normal. CFV, FV, and PopV are compressible. Acute deep vein thrombosis is noted in the T/P Trunk is compressible. left CFV, FV, PopV, T/P Trunk, GastrocV, PTV is compressible. PTV, and PeroV. RT PerV is compressible. Procedure This is a venous duplex using B-mode, color flow and spectral Doppler. Exam performed portable in ED. The exam was abbreviated due to the COVID 19 protocol. A preliminary report was called and/or faxed to [facility]. VL/Venous Duplex US - Lee Extrem Interpretation Summary Acute deep venous thrombosis left common femoral, femoral, popliteal, tibiopero matthew trunk, gastrocnemius, posterior tibial, and peroneal veins. Patent and compressible bilateral great saphenous veins Abbreviated COVID-19 protocol utilized Ordering Physician: Marcelino Boston Referring Physician: Nixon Atkins Performed By: Tracy Santo RVT
[2022-01-27 08:25] LABS: Bedside Glucose 61 mg/dL (74-106)
[2022-01-27] MEDS: Ipratropium/Albuterol Sulfate 3 ML AMPUL.NEB INHALATION (08:49)
[2022-01-27] MEDS: dexAMETHasone 10 MG/ML Vial 6 MG IV (08:58)
[2022-01-27 09:00] LABS: Basophil# 0.06 X10^3/uL; Eosinophil# 0.01 X10^3/uL; Hematocrit 34.1 % (37-47); Hemoglobin 11.2 g/dL (12.0-15.0); Mean Corp Hgb Conc 32.8 g/dL (32-36); Mean Corpuscular Volume 100.6 fL (81-99); Mean Platelet Vol. 10.9 fl (6.2-12.0); Monocyte# 0.27 X10^3/uL; NRBC Flagged by Analyzer 3.6 % (0-5); POSITIVE COUNT YES; POSITIVE MORPHOLOGY YES; Platelet Count 97 K/mm3 (150-450); RBC Distribution Width CV 15.3 % (11.6-14.6); RBC Distribution Width SD 56.7 fl (35.1-43.9); Red Blood Count 3.39 M/mm3 (4.2-5.4)
[2022-01-27 09:01] LABS: Differential Indicated SCAN CRITERIA MET
[2022-01-27 09:25] LABS: Anion Gap 9 (5-15); BUN 20 mg/dL (7-18); Calcium,Total 8.2 mg/dL (8.5-10.1); Chloride 105 mmol/L (98-107); EST Glomerular Filtration Rate 132 mL/min (>60); Est Glom Filt Rate - Afr Amer 160 mL/min (>60); Estimated Creatinine Clearance 85.77 ml/min; Glucose 104 mg/dL (74-106); Potassium 3.7 mmol/L (3.5-5.1); Sodium Level 139 mmol/L (136-145); Troponin-I HS 140 pg/mL (3.0-54.0)
[2022-01-27 09:26] LABS: BNP,B-Type NATRIURETIC PEPTIDE 122.4 pg/mL (0-100)
[2022-01-27 09:27] LABS: Lactic Acid 3.2 mmol/L (0.4-1.9)
--- NOTE | 2022-01-27 09:29 | NURSING ---
Call from lab, Troponin 140 , lactic acid 3.2, dr. garay aware.
[2022-01-27 09:35] LABS: Lymphocyte 12 % (19-41); Metamyelocyte 1 % (0-1); Monocyte 1 % (0-10); Myelocyte 3 % (0-0); Neutrophil-Band 2 % (0-5); Neutrophil-Segmented 81 % (47-70); Nucleated Red Bld Cells,Manual 5 % (0-5); Platelet Estimate SLT DEC (ADEQ); Total Cells Counted 100 (MANUAL DIFF)
[2022-01-27 09:36] LABS: Red Cell Morphology NORM C+C NORMAL (NORM C&C)
[2022-01-27 09:37] LABS: Absolute Lymphocyte Count 1.32 X10^3/uL (0.83-4.51); Absolute Neutrophil Count 9.1 X10^3/uL (2.0-7.7); Lymphocyte # 1.32 X10^3/ul (0.83-4.51); Neutrophil # 9.13 X10^3/uL (2.7-7.7)
[2022-01-27 09:56] LABS: Bedside Glucose 174 mg/dL (74-106)
--- NOTE | 2022-01-27 10:29 | PCM.HP.STD ---
HPI - General General Date of Admission: 01/27/22 Date of Service: 01/27/22 Chief Complaint: Progressive worsening of shortness of breath for 5 days hypoxia, on 5 L of oxygen for 4 days. COVID-positive HPI Narrative KATIE KATZ, is a 66 F History of COPD, NSCLC with mets to brain was brought to ED by EMS for worsening shortness of breath for 5 days and hypoxia for about 4 days. In long-term they found fever 104.1 Fahrenheit, COVID test came positive, mild cyanosis with blue lips and signs of poor oxygenation. Pulse ox was 80%. Blood glucose 54. Oral glucose was given. In ED, patient was tachycardic, heart rate 135/min, patient was put on 12 L of oxygen pulse ox 94%. As per the sister who is main caregiver and power of privacy attorney for health, she is in [facility] for some time even before prior admission in November 2021. She has been short of breath for 5 days and had to put oxygen 4 days ago as her pulse ox was in 80s on room air. Normally she is not on oxygen. Twelve-lead EKG done in ED shows sinus tachycardia 134 bpm, QTC normal. Patient also has left lower extremity swelling, pain and induration. Venous duplex done in ED shows positive left lower extremity DVT. Chest x-ray individually reviewed shows bilateral diffuse patchy airspace disease and history of bilateral pneumonia. Patient admitted after IV dexamethasone, Lovenox 1 mg/kg body weight given in the ED. [facility] Medical History Anxiety Bacteremia due to Gram-negative bacteria Chest pain Congestive heart failure (CHF) COPD (chronic obstructive pulmonary disease) Diabetes Former smoker Hypertension Metastasis Primary cancer of left upper lobe of lung Home Medications albuterol sulfate 90 mcg/actuation aerosol inhaler (Ventolin HFA) 2 inh inhalation Q4H SOB 12/14/21 [History Last Taken Unknown] bupropion HCl 150 mg 24 hr tablet, extended release 150 mg PO DAILY DEPRESSION 12/14/21 [History Last Taken 12/14/21] clonazepam 1 mg tablet 1 mg PO DAILY ANXIETY 12/14/21 [History Last Taken 12/14/21] dexamethasone 4 mg tablet 2 mg PO BID STEROID 12/14/21 [History Last Taken 12/14/21] fluoxetine 20 mg tablet 60 mg PO DAILY DEPRESSION 12/14/21 [History Last Taken 12/14/21] folic acid 400 mcg tablet 0.4 mg PO DAILY SUPPLEMENT 12/14/21 [History Last Taken 12/14/21] glimepiride 2 mg tablet 4 mg PO DAILY DM 12/14/21 [History Last Taken Unknown] insulin glargine-yfgn 100 unit/mL (3 mL) subcutaneous pen 15 unit subcut BID DM 12/14/21 [History Last Taken Unknown] ipratropium 20 mcg-albuterol 100 mcg/actuation mist for inhalation (Combivent Respimat) 1 puff inhalation Q6H PRN PRN Wheezing 12/14/21 [History Last Taken 12/14/21] levetiracetam 500 mg tablet 500 mg PO BID SEIZURES 12/14/21 [History Last Taken 12/14/21] oxybutynin chloride 5 mg tablet 5 mg PO DAILY OAB 12/14/21 [History Last Taken 12/14/21] trazodone 150 mg tablet 150 mg PO QHS SLEEP 12/14/21 [History Last Taken 12/13/21] cholecalciferol (vitamin D3) 125 mcg (5,000 unit) tablet (Vitamin D3) 125 mcg PO DAILY SUPPLEMENT 01/27/22 [History Last Taken Unknown] clonazepam 0.5 mg tablet 0.5 mg PO DAILY ANXIETY 01/27/22 [History Last Taken Unknown] docusate sodium 100 mg tablet 100 mg PO DAILY CONSTIPATION 01/27/22 [History Last Taken Unknown] hydrocodone-acetaminophen 5-325mg 5mg-325mg 1 tab PO TID PAIN MANAGEMENT 01/27/22 [History Last Taken Unknown] insulin aspart U-100 100 unit/mL subcutaneous solution (Novolog U-100 Insulin aspart) See Protocol subcut TID DIABETES 01/27/22 [History Last Taken Unknown] omeprazole 20 mg capsule,delayed release 20 mg PO DAILY GERD 01/27/22 [History Last Taken Unknown] Allergy/AdvReac Type Severity Reaction Status Date / Time No Known Allergies Allergy Verified 12/14/21 15:36 Social History Smoking Status: Former smoker ROS ROS Narrative Constitutional: Reports fatigue and weakness. Fever with chills HEENT: No loss of taste or smell. No sore throat, sinus congestion or postnasal drip reports systems reviewed and no addt'l complaints, except as documented Respiratory/Chest: Denies chest pain tightness or pressure. Shortness of breath as described in HPI Gastrointestinal: Denies coffee ground emesis, hematemesis or vomiting Genitourinary: Denies burning urination or new urinary tract symptoms Musculoskeletal: Reports joint pain and limited range of motion. Patient not ambulatory after last discharge in November 2021 Neurologic: Denies seizure-like activity. No focal neurological symptoms skin: No ulcer. No rash Endocrinology: DM2 with hypoglycemia. Reports systems reviewed and no addt'l complaints, except as documented Hematologic/Lymphatic: Lung cancer. Reports systems reviewed and no addt'l complaints, except as documented Rest 14 ROS are negative except as mentioned in HPI Vital Signs Vital Signs Vital Signs: 01/27/22 07:59 01/27/22 08:05 01/27/22 08:52 Temperature 98.9 F 98.9 F Temperature Source Temporal Temporal Pulse Rate 135 H 135 H 137 H Respiratory Rate 93 H 24 H 22 H Respiratory Effort Respiratory Pattern Blood Pressure 120/82 H Blood Pressure Mean 94 Pulse Ox 94 Oxygen Delivery Method Simple Mask Simple Mask Oxygen Flow Rate (L/min) 12 12 01/27/22 08:52 01/27/22 09:02 01/27/22 09:21 Temperature Temperature Source Pulse Rate Respiratory Rate Respiratory Effort Short of Breath Respiratory Pattern Tachypnea Blood Pressure Blood Pressure Mean Pulse Ox 94 95 Oxygen Delivery Method Simple Mask High Flow Oxygen Flow Rate (L/min) 12 8 01/27/22 09:30 01/27/22 10:18 Temperature 97.4 F L Temperature Source Temporal Pulse Rate 124 H Respiratory Rate 22 H Respiratory Effort Respiratory Pattern Blood Pressure 132/88 H Blood Pressure Mean 102 Pulse Ox 94 92 Oxygen Delivery Method High Flow High Flow Oxygen Flow Rate (L/min) 12 8 Weight Weight: 143 lb 1.28 oz Body Mass Index (BMI) 27.0 Physical Exam Narrative Physical exam General: Alert, Oriented x3, Cooperative, fatigue. HEENT: Atraumatic, PERRLA, EOMI, Normocephalic Oral: No Gingival or Mucosal Lesions/ Ulcerations Neck: Supple, No JVD, Negative Carotid Bruits Lungs: Air entry diminished in bilateral lung bases. Bilateral coarse rhonchi. Hypoxia on 8 L of oxygen. Mild dyspnea at rest Cardiovascular: Sinus tachycardia, Normal S1, Normal S2, No murmurs Abdomen: Bowel Sounds Present, Soft, Non Tender, Non-Distended : No renal angle tenderness. No suprapubic tenderness. Extremities: LLE swollen generalized, tender, indurated. No pitting ankle edema, Capillary Refill Less than 3 Seconds Skin: Mild redness left lower extremity from DVT. Musculoskeletal: LLE tender. Generalized muscle atrophy of lower extremities. Could not stand up or walk on its own. Neurological: Cranial nerves II-XII grossly intact, DTR 2+/4, muscle strength 3/5 at multiple joints of lower extremity Psych/Mental Status: Flat affect.. Results Lab / Micro Data Result Diagrams: 01/27/22 08:45 01/27/22 08:45 Labs: Laboratory Results - last 24 hr 01/27/22 08:07: POC Glucose 61 L 01/27/22 08:45: WBC ACCOUNTS PAYABLE ACCOUNTANT, Corrected WBC 11.0, RBC 3.39 L, Hgb 11.2 L, Hct 34.1 L, MCV 100.6 H, MCH 33.0 H, MCHC 32.8, RDW Std Deviation 56.7 H, RDW Coeff of Bettina 15.3 H, Plt Count 97 L, MPV 10.9, Immature Gran % (Auto) 8.100 H, Neut % (Auto) 74.1 H, Lymph % (Auto) 14.8 L, [place] % (Auto) 2.4, Eos % (Auto) 0.1, Baso % (Auto) 0.5, Absolute Neuts (auto) 9.1 H, Absolute Lymphs (auto) 1.32, Total Counted 100, Neutrophils % (Manual) 81 H, Band Neutrophils % 2, Lymphocytes % (Manual) 12 L, Monocytes % (Manual) 1, Metamyelocytes % 1, Myelocytes % 3 H, Nucleated RBC % 3.6, Nucleated RBCs/100 WBC 5, Diff Path Review July, Platelet Estimate SLT DEC, RBC Morphology NORM C+C 01/27/22 08:45: Sodium 139, Potassium 3.7, Chloride 105, Carbon Dioxide 25.0, Anion Gap 9, BUN 20 H, Creatinine 0.50 L, Estim Creat Clear Calc 85.77, Est GFR (MDRD) Af Amer 160, Est GFR (MDRD) Non-Af 132, BUN/Creatinine Ratio 40.0 H, Glucose 104, Calcium 8.2 L, Troponin I High Sens 140 H* 01/27/22 08:45: Lactic Acid 3.2 H* 01/27/22 08:45: B-Natriuretic Peptide 122.4 H 01/27/22 09:36: POC Glucose 174 H Micro: Microbiology 01/27/22 08:30 Nasal Secretion SARS-CoV-2 & FLU Antigen (Rapid) - Final SARS-CoV-2 (COVID 19) Radiology Impression Chest X-Ray 01/27/22 08:17 IMPRESSION: Bilateral pulmonary infiltrates in keeping with bilateral patchy pneumonias. Electronically Signed: Ken Peacock MD at 8:41 EDT , Venous Doppler Study 01/27/22 08:21 Interpretation Summary Acute deep venous thrombosis left common femoral, femoral, popliteal, tibioperoneal trunk, gastrocnemius, posterior tibial, and peroneal veins. Patent and compressible bilateral great saphenous veins Abbreviated COVID-19 protocol utilized Ordering Physician: Marcelino Boston Referring Physician: Nixon Atkins Performed By: Tracy Santo RVT Assessment & Plan Assessment/Plan (1) Pneumonia due to COVID-19 virus: (2) Acute respiratory failure with hypoxia: (3) Acute DVT (deep venous thrombosis): PLAN: Plan This is 66-year-old female is being admitted for shortness of breath, dyspnea at rest, severe hypoxia clinical and radiological finding of bilateral pneumonia due to COVID 19. 1. Acute hypoxic respiratory failure due to bilateral COVID-19 pneumonia: When EMS brought him she was on 12 L of oxygen, titrated to 8 L of oxygen in ED. Patient short of breath, dyspnea at rest and labored breathing. Continue oxygen therapy, BiPAP/AVAPS as needed. Patient is DNR CC arrest with no intubation. 2. Bilateral COVID-19 pneumonia: Patient is started on dexamethasone 6 mg daily. Remdesivir if liver chemistry is in acceptable range. Patient has inflammatory markers elevated including troponin, lactic acid, BNP and D-dimer. D-dimer is high more than 20. Rapid COVID antigen positive in ED. Blood cultures x2 and respiratory panel sent in the ED. Urinary antigens ordered. 3. Left lower extremity DVT: Patient is started on Lovenox 1 mg/kg body weight. Patient has multiple thrombogenic conditions including lung cancer with mets to brain but also high risk of bleeding due to radiotherapy in the brain. This was explained to patient's sister who is power of privacy attorney for health and she is agreeable for starting anticoagulant Lovenox. At this time, CTPA will be futile as management will not change. 4. Diabetes mellitus type 2 with hyperglycemia: Hypoglycemia was noted by EMS. Hold scheduled long-acting and Premeal insulin. Continue Accu-Chek before meals and at bedtime and cover with Humalog sliding scale. Most recent glucose is 104. A1c tomorrow AM. 5. Metastatic NSCLC: Patient has history of lung cancer with mets to brain diagnosed August 2021. She had 1 chemotherapy infusion but had toxic effect therefore was discontinued further. She had recent radiotherapy to brain 6. Recent admission for sepsis secondary to E. coli bacteremia probably from UTI/pneumonia in November 2021. At that time urine and blood culture was positive of E. coli. She was treated adequately inpatient and discharged on antibiotic. 7. Anemia of chronic disease: Patient has chronic macrocytic anemia. 8. Multiple other comorbidities including no functional status, patient did not stand up or ambulate wrist since last discharge in November 2021, GERD, anxiety and depression, chronic urinary continence: This was discussed with the patient's daughter with poor prognosis. Home medication reconciliation done. Living will/advanced directive/end of life care: Patient does have living will or advanced directive. His sister is power of privacy attorney for health. After discussion of benefits/risks procedures involved with full code, DNR CC arrest and DNR CC, the patient and POA opted for DNRCC arrest with no intubation Patient and her POA do not want artificial life support including intubation, tube feed, ventilator and/chest compression, central venous catheter, vasopressor and DC shock if needed Total time spent in [id number] encounter in discussion of advanced directive 16 minutes. Microbiology Past 72 Hours 01/27/22 08:30 Nasal Secretion SARS-CoV-2 & FLU Antigen (Rapid) - Final SARS-CoV-2 (COVID 19) Laboratory Results 01/27/22 08:07: POC Glucose 61 L 01/27/22 08:45: WBC ACCOUNTS PAYABLE ACCOUNTANT, Corrected WBC 11.0, RBC 3.39 L, Hgb 11.2 L, Hct 34.1 L, MCV 100.6 H, MCH 33.0 H, MCHC 32.8, RDW Std Deviation 56.7 H, RDW Coeff of Bettina 15.3 H, Plt Count 97 L, MPV 10.9, Immature Gran % (Auto) ACCOUNTS PAYABLE ACCOUNTANT, Neut % (Auto) ACCOUNTS PAYABLE ACCOUNTANT, Lymph % (Auto) ACCOUNTS PAYABLE ACCOUNTANT, Greenbrier % (Auto) ACCOUNTS PAYABLE ACCOUNTANT, Eos % (Auto) ACCOUNTS PAYABLE ACCOUNTANT, Baso % (Auto) ACCOUNTS PAYABLE ACCOUNTANT, Absolute Neuts (auto) 9.1 H, Absolute Lymphs (auto) 1.32, Total Counted 100, Neutrophils % (Manual) 81 H, Band Neutrophils % 2, Lymphocytes % (Manual) 12 L, Monocytes % (Manual) 1, Metamyelocytes % 1, Myelocytes % 3 H, Nucleated RBC % 3.6, Nucleated RBCs/100 WBC 5, Diff Path Review July, Platelet Estimate SLT DEC, RBC Morphology NORM C+C 01/27/22 08:45: Sodium 139, Potassium 3.7, Chloride 105, Carbon Dioxide 25.0, Anion Gap 9, BUN 20 H, Creatinine 0.50 L, Estim Creat Clear Calc 85.77, Est GFR (MDRD) Af Amer 160, Est GFR (MDRD) Non-Af 132, BUN/Creatinine Ratio 40.0 H, Glucose 104, Calcium 8.2 L, Troponin I High Sens 140 H* 01/27/22 08:45: Lactic Acid 3.2 H* 01/27/22 08:45: B-Natriuretic Peptide 122.4 H 01/27/22 08:45: Phosphorus 3.8, Magnesium 1.8 01/27/22 08:45: Total Bilirubin Pending, Direct Bilirubin Pending, AST Pending, ALT Pending, Alkaline Phosphatase Pending, Lactate Dehydrogenase Pending, Total Creatine Kinase Pending, C-React Prot Ext Range Pending, Total Protein Pending, Albumin Pending 01/27/22 09:36: POC Glucose 174 H 01/27/22 12:25: PT 15.3 H, INR 1.2, Fibrinogen 436, D-Dimer Quant (PE/DVT) > 20.00 H* 01/27/22 12:25: Procalcitonin Pending Clinical Impression(s) from Imaging Studies Chest X-Ray 01/27/22 08:17 IMPRESSION: Bilateral pulmonary infiltrates in keeping with bilateral patchy pneumonias. Electronically Signed: Ken Peacock MD at 8:41 EDT , Venous Doppler Study 01/27/22 08:21 Interpretation Summary Acute deep venous thrombosis left common femoral, femoral, popliteal, tibioperoneal trunk, gastrocnemius, posterior tibial, and peroneal veins. Patent and compressible bilateral great saphenous veins Abbreviated COVID-19 protocol utilized _ Charges/Coding Visit Charges Inpatient E&M: 08845 Init Hosp L3 Procedures Hospitalists Procedures: 25674 Advncd Care Plan 30 Min
[2022-01-27] MEDS: Enoxaparin 60 MG/0.6 ML Syringe SC ×2 (11:06→21:20)
[2022-01-27 12:42] LABS: Scan Smear per Review Criteria MANUAL DIFF
[2022-01-27 12:44] LABS: International Normalized Ratio 1.2; Prothrombin Time (Protime)PT. 15.3 SECONDS (11.7-14.9)
[2022-01-27 12:45] LABS: Fibrinogen 436 mg/dl (203-444)
[2022-01-27 12:50] LABS: Reflex Lactate? Y
[2022-01-27 13:16] LABS: Magnesium 1.8 mg/dL (1.6-2.6); Phosphorus 3.8 mg/dL (2.5-4.9)
[2022-01-27 13:22] LABS: D-Dimer Quantitative (DVT/PE) > 20.00 FEU/ug/m (0.27-0.49)
[2022-01-27] MEDS: Acetaminophen 325 MG Tablet 650 MG PO (13:48)
[2022-01-27] MEDS: clonazePAM 0.5 MG Tablet PO (13:48)
[2022-01-27] MEDS: oxyCODONE 5 MG Tablet PO (13:48)
[2022-01-27] MEDS: Pantoprazole Sodium 40 MG Tablet PO (13:48)
[2022-01-27] MEDS: 0.9% Normal Saline 1,000 ML 75 ML IV (13:55)
[2022-01-27 13:58] LABS: Procalcitonin 0.22 ng/mL (0.00-0.09)
[2022-01-27 14:01] LABS: AST(SGOT) 49 U/L (15-37); Alanine Aminotransfer ALT/SGPT 48 U/L (13-56); Albumin, Serum 1.9 g/dL (3.2-5.0); Alkaline Phosphatase 143 U/L (45-117); Bilirubin, Direct 0.13 mg/dL (0.00-0.30); CPK Total, Creatine Kinase 30 U/L (26-192); LDH 933 U/L (84-246); Protein, Total 5.9 g/dL (6.4-8.2)
--- NOTE | 2022-01-27 14:07 | CASEMGMT ---
Patient does not have a Healthcare Power of Pewter Caster or a Healthcare Living Will on file at [facility]. When patient was at [facility] in November patient's sister said she is the Healthcare Power of Pewter Caster. At that time the SW asked patient's sister to bring in documents which she did not do. SW will ask patient's sister for documents. Darlene Fisher PARACHUTE CUSHION INSTALLER TED
[2022-01-27 14:50] LABS: Lactic Acid 2.6 mmol/L (0.4-1.9)
[2022-01-27] MEDS: Glucerna Shake 120 ML LIQUID PO ×2 (16:24→21:20)
[2022-01-27] MEDS: Insulin Lispro 100 UNIT/ML INSULN.PEN SC ×2 (16:25→21:19)
[2022-01-27 16:50] LABS: Bedside Glucose 269 mg/dL (74-106)
[2022-01-27] MEDS: traZODone 100 MG Tablet 150 MG PO (21:20)
[2022-01-27] MEDS: levETIRAcetam 500 MG Tablet PO (21:21)
[2022-01-27 23:20] LABS: Bedside Glucose 159 mg/dL (74-106)
[2022-01-28] VITALS (23 sets, daily range): BP systolic 108–166; BP diastolic 70–113; PULSE 110–144; RESP 12–34; TEMP 36.7–38.2; O2SAT 59–100
[2022-01-28 06:01] LABS: Absolute Lymphocyte Count 1.52 X10^3/uL (0.83-4.51); Absolute Neutrophil Count 7.4 X10^3/uL (2.0-7.7); Basophil# 0.03 X10^3/uL; Basophil% 0.3 % (0-1); Eosinophil# 0.01 X10^3/uL; Eosinophils% 0.1 % (0-5); Hematocrit 31.9 % (37-47); Hemoglobin 10.3 g/dL (12.0-15.0); Lymphocyte # 1.52 X10^3/ul (0.83-4.51); Lymphocyte % 15.8 % (19-41); Mean Corp Hgb Conc 32.3 g/dL (32-36); Mean Corpuscular Hgb 33.3 pg (27.0-32.0); Mean Corpuscular Volume 103.2 fL (81-99); Mean Platelet Vol. 10.9 fl (6.2-12.0); Monocyte# 0.22 X10^3/uL; Monocyte% 2.3 % (0-10); NRBC Flagged by Analyzer 1.9 % (0-5); Neutrophil # 7.43 X10^3/uL (2.7-7.7); Neutrophil % 77.2 % (47-70); POSITIVE COUNT YES; Platelet Count 93 K/mm3 (150-450); RBC Distribution Width CV 15.4 % (11.6-14.6); RBC Distribution Width SD 57.3 fl (35.1-43.9); Red Blood Count 3.09 M/mm3 (4.2-5.4); White Blood Count 9.6 K/mm3 (4.4-11.0)
[2022-01-28 06:32] LABS: BUN 19 mg/dL (7-18); Creatinine, Serum 0.31 mg/dL (0.55-1.02); Estimated Creatinine Clearance 138.35 ml/min; Glucose 80 mg/dL (74-106)
[2022-01-28 06:33] LABS: ALB/GLOB Ratio 0.5 RATIO (0.9-2.4); AST(SGOT) 48 U/L (15-37); Alanine Aminotransfer ALT/SGPT 41 U/L (13-56); Albumin, Serum 1.7 g/dL (3.2-5.0); Alkaline Phosphatase 142 U/L (45-117); Anion Gap 7 (5-15); BUN/Creat Ratio 61.7 RATIO (10-20); Calcium,Total 8.4 mg/dL (8.5-10.1); Chloride 108 mmol/L (98-107); EST Glomerular Filtration Rate 231 mL/min (>60); Est Glom Filt Rate - Afr Amer 279 mL/min (>60); Globulin 3.7 g/dL (2.2-4.2); Protein, Total 5.4 g/dL (6.4-8.2); Sodium Level 141 mmol/L (136-145)
[2022-01-28 07:15] LABS: Bedside Glucose 79 mg/dL (74-106)
--- NOTE | 2022-01-28 09:36 | CASEMGMT ---
Discharge Power Generation Engineer This technical publications writer sent updates to Sima at the [facility]. 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 No pre-cert needed to return when medically ready. Morris FAJARDO Building Rigger
[2022-01-28] MEDS: dexAMETHasone 4 MG Tablet 6 MG PO (10:08)
[2022-01-28] MEDS: Cholecalciferol (Vit D3) 125 MCG CAPSULE (5,000 UNITS) PO (10:08)
[2022-01-28] MEDS: oxyCODONE 5 MG Tablet PO (10:09)
[2022-01-28] MEDS: clonazePAM 0.5 MG Tablet PO (10:10)
[2022-01-28] MEDS: levETIRAcetam 500 MG Tablet PO ×2 (10:10→22:50)
[2022-01-28] MEDS: Polyethylene Glycol 3350 17 GM PACKET PO (10:10)
[2022-01-28] MEDS: Oxybutynin 5 MG Tablet PO (10:10)
[2022-01-28] MEDS: FLUoxetine 20 MG Capsule 40 MG PO (10:10)
[2022-01-28] MEDS: buPROPion (XL) 150 MG TABLET.XL PO (10:10)
[2022-01-28] MEDS: Folic Acid 1 MG Tablet 0.5 MG PO (10:10)
[2022-01-28] MEDS: Pantoprazole Sodium 40 MG Tablet PO (10:10)
[2022-01-28] MEDS: Menthol/Lanolin/Calamine/Znox 113 GM Tube 1 APPLIC TOPICAL ×2 (10:11→22:49)
--- NOTE | 2022-01-28 10:12 | CASEMGMT ---
Addendum entered by Darlene Fisher 01/28/22 11:05: After review with Business Agent Effie the documents that patient's sister presented are not valid due to family witnessing signature and notary signed document on a different day than patient. CHANDANA called patient's mother Mahad Langley as she would legally be the decision maker unless patient has adult children. CHANDANA introduced self and role at [facility]. CHANDANA asked Mahad if patient has any adult children. Mahad said patient does not have any children. CHANDANA then explained to Mahad that she would legally be patient's decision maker. CHANDANA asked Mahad if she feels she would be able to make medical decisions for patient. Mahad said, I don't think so as I am not in good health myself. Mahad said she would rather her other two children, Beltran and Abigail make those decisions. CHANDANA explained to Mahad that CHANDANA is going to hand the phone to Tracy a showcase trimmer CHANDANA works with. Mahad will need to tell Tracy what she told CHANDANA about decision making for patient. Tracy S spoke with Mahad and she told Tracy S the same thing that she would prefer Beltran and Moran make theses decisions. CHANDANA will notify Abigail that the Healthcare Power of Crime Prevention Police Officer she presented is not valid and share with her the reasons. CHANDANA will also let her know that SW spoke with Mahad as she would legally be the decision maker, but she has deferred to Moran and Beltran. CHANDANA called Sima at [facility] and let her know above information. CHANDANA called patient's brother Beltran to confirm he is okay with patient returning to [facility]. He did not answer so CHANDANA left a voice mail requesting a return call. CHANDANA did not leave any of patient's identifying information. Plan: Return to [facility] when medically ready. Darlene Fisher SAFETY DEPOSIT CLERK INHALATION THERAPY AIDES TEACHER Original Note: CHANDANA called patient's sister, Abigail. CHANDANA asked Abigail if the plan is for patient to return to [facility] at discharge. Abigail told CHANDANA, You can't send her without me knowing. CHANDANA told her that is fine, but CHANDANA would just like to know if that is the plan. Abigail said that is the plan. CHANDANA told Abigail that [facility] needs a copy of the Healthcare Power of Crime Prevention Police Officer. Abigail said she gave a copy to the medical secretary teacher this visit. CHANDANA told her SW will check and thank you for bringing in a copy. SW looked in patient's chart and there was a document in the chart that read, Durable Power of Crime Prevention Police Officer for Healthcare Decisions. However, document was not the [place] Healthcare Power of Crime Prevention Police Officer that is typically used. The document appeared to be created and typed by someone. Also of note their are 2 witnesses one of which is patient's mother. No family members are allowed to be a witness for Healthcare Power of Crime Prevention Police Officer. There was also a notary signature. However, patient allegedly signed the document 01-10-22 and the notary signed the document 01-11-22. SW will confer with Business Agent, Effie. Darlene JEAN
--- NOTE | 2022-01-28 11:36 | CASEMGMT ---
CHANDANA called Abigail and let her know that the Healthcare Power of Planetarium Technician she presented to [facility] is not valid. CHANDANA also explained why the document is not valid. CHANDANA then let Abigail know legally their mother Mahad would be the decision maker so CHANDANA contacted Mahad and she declined to make decisions and defers to Alejandra. While CHANDANA was explaining this Abigail was saying, No, no, don't ever call her. CHANDANA told Abigail ELLINGTON already called Mahad and we legally had to call her. Abigail ask that Mahad's name be taken off the contact list. Mahad's name is not on the contact list. CHANDANA placed Healthcare Power of Planetarium Technician documents in recycling bin. Darlene Fisher GAMING DEALER TED
[2022-01-28] MEDS: Enoxaparin 60 MG/0.6 ML Syringe SC ×2 (12:12→22:52)
[2022-01-28] MEDS: Acetaminophen 325 MG Tablet 650 MG PO (12:28)
--- NOTE | 2022-01-28 12:30 | PCM.CONS.GEN ---
Assessment & Plan Assessment/Plan (1) COVID: PLAN: severe covid with metastatic lung cancer - worsening O2. CRP high. On dex/remdesivir. Sister reports pt had been on dex 4mg bid for past 3-4 months, was decreased to 2mg bid a week ago; may benefit from higher dose of dex here. Given rapidly worsening O2 and high CRP, will start baricitinib. Will consult pulm. Will follow, thank you (2) Hypoxia: (3) Lung cancer metastatic to brain: HPI Consult Data Date of Consult: 01/28/22 HPI Narrative Reason for Consultation: covid HPI Narrative: KATIE KATZ, is a 66 F with lung cancer, COPD, brought by EMS for about 5 days of cough, dyspnea, hypoxia. Had fever to 104 at [facility], covid (+). Sats in low 80s. Pt denies any headache, congestion, sputum, abd pain, n/v/d. Taken here, admitted on dex and remdesivir. Sister reports pt had been on dex 4mg bid for past 3-4 months, was decreased to 2mg bid a week ago. Full ROS performed and neg except as noted above. [facility] Medical History Anxiety Bacteremia due to Gram-negative bacteria Chest pain Congestive heart failure (CHF) COPD (chronic obstructive pulmonary disease) Diabetes Former smoker Hypertension Metastasis Primary cancer of left upper lobe of lung Home Medications albuterol sulfate 90 mcg/actuation aerosol inhaler (Ventolin HFA) 2 inh inhalation Q4H SOB 12/14/21 [History Last Taken Unknown] bupropion HCl 150 mg 24 hr tablet, extended release 150 mg PO DAILY DEPRESSION 12/14/21 [History Last Taken 12/14/21] clonazepam 1 mg tablet 1 mg PO DAILY ANXIETY 12/14/21 [History Last Taken 12/14/21] dexamethasone 4 mg tablet 2 mg PO BID STEROID 12/14/21 [History Last Taken 12/14/21] fluoxetine 20 mg tablet 60 mg PO DAILY DEPRESSION 12/14/21 [History Last Taken 12/14/21] folic acid 400 mcg tablet 0.4 mg PO DAILY SUPPLEMENT 12/14/21 [History Last Taken 12/14/21] glimepiride 2 mg tablet 4 mg PO DAILY DM 12/14/21 [History Last Taken Unknown] insulin glargine-yfgn 100 unit/mL (3 mL) subcutaneous pen 15 unit subcut BID DM 12/14/21 [History Last Taken Unknown] ipratropium 20 mcg-albuterol 100 mcg/actuation mist for inhalation (Combivent Respimat) 1 puff inhalation Q6H PRN PRN Wheezing 12/14/21 [History Last Taken 12/14/21] levetiracetam 500 mg tablet 500 mg PO BID SEIZURES 12/14/21 [History Last Taken 12/14/21] oxybutynin chloride 5 mg tablet 5 mg PO DAILY OAB 12/14/21 [History Last Taken 12/14/21] trazodone 150 mg tablet 150 mg PO QHS SLEEP 12/14/21 [History Last Taken 12/13/21] cholecalciferol (vitamin D3) 125 mcg (5,000 unit) tablet (Vitamin D3) 125 mcg PO DAILY SUPPLEMENT 01/27/22 [History Last Taken Unknown] clonazepam 0.5 mg tablet 0.5 mg PO DAILY ANXIETY 01/27/22 [History Last Taken Unknown] docusate sodium 100 mg tablet 100 mg PO DAILY CONSTIPATION 01/27/22 [History Last Taken Unknown] hydrocodone-acetaminophen 5-325mg 5mg-325mg 1 tab PO TID PAIN MANAGEMENT 01/27/22 [History Last Taken Unknown] insulin aspart U-100 100 unit/mL subcutaneous solution (Novolog U-100 Insulin aspart) See Protocol subcut TID DIABETES 01/27/22 [History Last Taken Unknown] omeprazole 20 mg capsule,delayed release 20 mg PO DAILY GERD 01/27/22 [History Last Taken Unknown] Allergy/AdvReac Type Severity Reaction Status Date / Time No Known Allergies Allergy Verified 12/14/21 15:36 Social History Smoking Status: Former smoker Physical Exam Const alert and oriented x3 General Appearance: cooperative and lethargic HEENT normocephalic and head/scalp atraumatic Eyes PERRL and EOMs intact bilaterally Neck supple and No nodes Resp Auscultation: diminished lung sounds Cardio Rate: tachycardic GI soft to palpation, non-tender and non-distended Extremity General Extremity: edema Skin no rashes or lesions noted Neuro CN's II-XII intact bilaterally Lab / Micro Data Attestation: I reviewed the patient's lab results. Result Diagrams: 01/28/22 04:46 01/28/22 04:46 Labs: Laboratory Results - last 24 hr 01/27/22 08:45: Immature Gran % (Auto) ENGINE REPAIRER [employer]ODUCTION, Neut % (Auto) ENGINE REPAIRER [employer]ODUCTION, Lymph % (Auto) ENGINE REPAIRER PRODUCTION, [place] % (Auto) ENGINE REPAIRER [employer]ODUCTION, Eos % (Auto) ENGINE REPAIRER PRODUCTION, Baso % (Auto) ENGINE REPAIRER PRODUCTION 01/27/22 08:45: Phosphorus 3.8, Magnesium 1.8 01/27/22 08:45: Total Bilirubin 0.30, Direct Bilirubin 0.13, AST 49 H, ALT 48, Alkaline Phosphatase 143 H, Lactate Dehydrogenase 933 H, Total Creatine Kinase 30, C-React Prot Ext Range 195.00 H, Total Protein 5.9 L, Albumin 1.9 L, Globulin 4.0 01/27/22 12:25: PT 15.3 H, INR 1.2, Fibrinogen 436, D-Dimer Quant (PE/DVT) > 20.00 H* 01/27/22 12:25: Procalcitonin 0.22 H 01/27/22 13:50: Lactic Acid 2.6 H* 01/27/22 16:24: POC Glucose 269 H 01/27/22 21:17: POC Glucose 159 H 01/28/22 04:46: WBC 9.6, RBC 3.09 L, Hgb 10.3 L, Hct 31.9 L, MCV 103.2 H, MCH 33.3 H, MCHC 32.3, RDW Std Deviation 57.3 H, RDW Coeff of Bettina 15.4 H, Plt Count 93 L, MPV 10.9, Immature Gran % (Auto) 4.300 H, Neut % (Auto) 77.2 H, Lymph % (Auto) 15.8 L, [place] % (Auto) 2.3, Eos % (Auto) 0.1, Baso % (Auto) 0.3, Absolute Neuts (auto) 7.4, Absolute Lymphs (auto) 1.52, Nucleated RBC % 1.9 01/28/22 04:46: Sodium 141, Potassium 4.0, Chloride 108 H, Carbon Dioxide 26.0, Anion Gap 7, BUN 19 H, Creatinine 0.31 L, Estim Creat Clear Calc 138.35, Est GFR (MDRD) Af Amer 279, Est GFR (MDRD) Non-Af 231, BUN/Creatinine Ratio 61.7 H, Glucose 80, Calcium 8.4 L, Total Bilirubin 0.20, AST 48 H, ALT 41, Alkaline Phosphatase 142 H, Total Protein 5.4 L, Albumin 1.7 L, Globulin 3.7, Albumin/Globulin Ratio 0.5 L 01/28/22 06:45: POC Glucose 79 Micro: Microbiology 01/27/22 16:30 Interface Orders Legionella Antigen - Final 01/27/22 16:30 Interface Orders Streptococcus pneumoniae Antigen (M - Final 01/27/22 13:25 Mucosa - Nasopharyngeal Respiratory Panel (PCR) - Final 01/27/22 08:30 Nasal Secretion SARS-CoV-2 & FLU Antigen (Rapid) - Final SARS-CoV-2 (COVID 19)
[2022-01-28 12:35] LABS: Pathologist Review Reviewed
[2022-01-28 13:01] LABS: Bedside Glucose 87 mg/dL (74-106)
--- NOTE | 2022-01-28 13:31 | PCM.PN.HOSP ---
Subjective Subjective Follow-up for acute hypoxic respiratory failure secondary to COVID-19 pneumonia, COPD and metastatic NSCLC Objective Data Objective Data Vital Signs: Vital Signs Temp Pulse Resp BP Pulse Ox O2 Del Method O2 Flow Rate 100.8 F H 140 H 22 H 122/78 H 100 Airvo 60 01/28/22 12:09 01/28/22 12:09 01/28/22 12:09 01/28/22 12:09 01/28/22 12:09 01/28/22 12:09 01/28/22 12:09 FiO2 73 01/28/22 12:09 Oxygen Flow Rate (L/min) 60 Oxygen Delivery Method Airvo Weight: 137 lb 12.623 oz Body Mass Index (BMI) 24.9 Intake & Output: Intake and Output for Last 24 Hours 01/26/22 01/27/22 01/28/22 23:59 23:59 23:59 Intake Total 900 / 900 1590 / 1590 Output Total 300 / 300 450 / 450 Balance 600 / 600 1140 / 1140 Lab / Micro Data Result Diagrams: 01/28/22 04:46 01/28/22 04:46 Labs: Laboratory Results - last 24 hr 01/27/22 08:45: Diff Path Review Reviewed 01/27/22 08:45: Total Bilirubin 0.30, Direct Bilirubin 0.13, AST 49 H, ALT 48, Alkaline Phosphatase 143 H, Lactate Dehydrogenase 933 H, Total Creatine Kinase 30, C-React Prot Ext Range 195.00 H, Total Protein 5.9 L, Albumin 1.9 L, Globulin 4.0 01/27/22 12:25: Procalcitonin 0.22 H 01/27/22 13:50: Lactic Acid 2.6 H* 01/27/22 16:24: POC Glucose 269 H 01/27/22 21:17: POC Glucose 159 H 01/28/22 04:46: WBC 9.6, RBC 3.09 L, Hgb 10.3 L, Hct 31.9 L, MCV 103.2 H, MCH 33.3 H, MCHC 32.3, RDW Std Deviation 57.3 H, RDW Coeff of Bettina 15.4 H, Plt Count 93 L, MPV 10.9, Immature Gran % (Auto) 4.300 H, Neut % (Auto) 77.2 H, Lymph % (Auto) 15.8 L, [place] % (Auto) 2.3, Eos % (Auto) 0.1, Baso % (Auto) 0.3, Absolute Neuts (auto) 7.4, Absolute Lymphs (auto) 1.52, Nucleated RBC % 1.9 01/28/22 04:46: Sodium 141, Potassium 4.0, Chloride 108 H, Carbon Dioxide 26.0, Anion Gap 7, BUN 19 H, Creatinine 0.31 L, Estim Creat Clear Calc 138.35, Est GFR (MDRD) Af Amer 279, Est GFR (MDRD) Non-Af 231, BUN/Creatinine Ratio 61.7 H, Glucose 80, Calcium 8.4 L, Total Bilirubin 0.20, AST 48 H, ALT 41, Alkaline Phosphatase 142 H, Total Protein 5.4 L, Albumin 1.7 L, Globulin 3.7, Albumin/Globulin Ratio 0.5 L 01/28/22 06:45: POC Glucose 79 01/28/22 12:02: POC Glucose 87 Micro: Microbiology 01/27/22 16:30 Interface Orders Legionella Antigen - Final 01/27/22 16:30 Interface Orders Streptococcus pneumoniae Antigen (M - Final 01/27/22 13:25 Mucosa - Nasopharyngeal Respiratory Panel (PCR) - Final 01/27/22 08:30 Nasal Secretion SARS-CoV-2 & FLU Antigen (Rapid) - Final SARS-CoV-2 (COVID 19) Physical Exam Narrative Seen and examined. Physical exam General: Alert, Oriented x3, Cooperative, dyspnea at rest HEENT: Atraumatic, PERRLA, EOMI, Normocephalic Oral: No Gingival or Mucosal Lesions/ Ulcerations Neck: Supple, No JVD, Negative Carotid Bruits Lungs: Air entry diminished in bilateral lung bases. Bilateral coarse rhonchi. Hypoxia on 10 L of oxygen. Respiratory rate 22 Cardiovascular: Sinus tachycardia, Normal S1, Normal S2, No murmurs Abdomen: Bowel Sounds Present, Soft, Non Tender, Non-Distended : No renal angle tenderness. No suprapubic tenderness. Extremities: LLE swollen generalized, tender, indurated. No pitting ankle edema, Capillary Refill Less than 3 Seconds Skin: Mild redness left lower extremity from DVT. Musculoskeletal: LLE tender. Generalized muscle atrophy of lower extremities. Could not stand up or walk on its own. Neurological: Cranial nerves II-XII grossly intact, DTR 2+/4, muscle strength 3/5 at multiple joints of lower extremity Psych/Mental Status: Flat affect.. Assessment & Plan Assessment/Plan (1) Pneumonia due to COVID-19 virus: (2) Acute respiratory failure with hypoxia: (3) Acute DVT (deep venous thrombosis): PLAN: Plan This is 66-year-old female is being admitted for shortness of breath, dyspnea at rest, severe hypoxia clinical and radiological finding of bilateral pneumonia due to COVID 19. 1. Acute hypoxic respiratory failure due to bilateral COVID-19 pneumonia: When EMS brought him she was on 12 L of oxygen, titrated to 8 L of oxygen in ED. Patient short of breath, dyspnea at rest and labored breathing. Continue oxygen therapy, BiPAP/AVAPS as needed. Patient is DNR CC arrest with no intubation. 01/28: Patient is dyspneic, tachycardic heart rate 140 partnered, febrile temperature 100.8 ?F. BiPAP/AVAPS was ordered to alternate with AIRVO. Discussed with application engineer ON 01/27 on continuation of NIPPV. Discussed with the application engineer and requested consult. I think patient sinus tachycardia is respiratory failure treatment. 2. Bilateral COVID-19 pneumonia: Patient is started on dexamethasone 6 mg daily. Remdesivir if liver chemistry is in acceptable range. Patient has inflammatory markers elevated including troponin, lactic acid, BNP and D-dimer. D-dimer is high more than 20. Rapid COVID antigen positive in ED. Blood cultures x2 and respiratory panel sent in the ED. Urinary antigens ordered. 01/28: CRP is high. Inflammatory markers are elevated. High CRP, procalcitonin 0.22. Lactic acid 2.6. Urinary antigens are negative. Respiratory panel negative. Patient seen by ID. Baricitinib is started with high requirement of oxygen. 3. Left lower extremity DVT: Patient is started on Lovenox 1 mg/kg body weight. Patient has multiple thrombogenic conditions including lung cancer with mets to brain but also high risk of bleeding due to radiotherapy in the brain. This was explained to patient's sister who is power of banking attorney for health and she is agreeable for starting anticoagulant Lovenox. At this time, CTPA will be futile as management will not change. 01/28: Patient mentating hemoglobin 10.3, platelet count 93 on therapeutic dose of Lovenox 4. Diabetes mellitus type 2 with hyperglycemia: Hypoglycemia was noted by EMS. Hold scheduled long-acting and Premeal insulin. Continue Accu-Chek before meals and at bedtime and cover with Humalog sliding scale. Most recent glucose is 104. 01/28: Glucose is on lower side. Patient is started on D5 half NS for nutritional supplement. 5. Metastatic NSCLC: Patient has history of lung cancer with mets to brain diagnosed August 2021. She had 1 chemotherapy infusion but had toxic effect therefore was discontinued further. She had recent radiotherapy to brain 6. Recent admission for sepsis secondary to E. coli bacteremia probably from UTI/pneumonia in November 2021. At that time urine and blood culture was positive of E. coli. She was treated adequately inpatient and discharged on antibiotic. 7. Anemia of chronic disease: Patient has chronic macrocytic anemia. 8. Multiple other comorbidities including no functional status, patient did not stand up or ambulate wrist since last discharge in November 2021, GERD, anxiety and depression, chronic urinary continence: This was discussed with the patient's daughter with poor prognosis. Home medication reconciliation done. Total time of the visit including total time spent in counseling or coordination of care, (more than 50% of the total time, spent in obtaining medical information from nurses and other ancillary care providers,explaining to the patient about labs, imaging, diagnosis and management of active complex medical conditions), discussion with ID and application engineer, review of labs and imaging is 40 minutes. Living will/advanced directive/end of life care: Patient does have living will or advanced directive. His sister is power of banking attorney for health. After discussion of benefits/risks procedures involved with full code, DNR CC arrest and DNR CC, the patient and POA opted for DNRCC arrest with no intubation Patient and her POA do not want artificial life support including intubation, tube feed, ventilator and/chest compression, central venous catheter, vasopressor and DC shock if needed Microbiology Past 72 Hours 01/27/22 16:30 Interface Orders Legionella Antigen - Final 01/27/22 16:30 Interface Orders Streptococcus pneumoniae Antigen (M - Final 01/27/22 13:25 Mucosa - Nasopharyngeal Respiratory Panel (PCR) - Final 01/27/22 08:30 Nasal Secretion SARS-CoV-2 & FLU Antigen (Rapid) - Final SARS-CoV-2 (COVID 19) Laboratory Results 01/27/22 08:45: Diff Path Review Reviewed 01/27/22 08:45: Total Bilirubin 0.30, Direct Bilirubin 0.13, AST 49 H, ALT 48, Alkaline Phosphatase 143 H, Lactate Dehydrogenase 933 H, Total Creatine Kinase 30, C-React Prot Ext Range 195.00 H, Total Protein 5.9 L, Albumin 1.9 L, Globulin 4.0 01/27/22 12:25: Procalcitonin 0.22 H 01/27/22 13:50: Lactic Acid 2.6 H* 01/27/22 16:24: POC Glucose 269 H 01/27/22 21:17: POC Glucose 159 H 01/28/22 04:46: WBC 9.6, RBC 3.09 L, Hgb 10.3 L, Hct 31.9 L, MCV 103.2 H, MCH 33.3 H, MCHC 32.3, RDW Std Deviation 57.3 H, RDW Coeff of Bettina 15.4 H, Plt Count 93 L, MPV 10.9, Immature Gran % (Auto) 4.300 H, Neut % (Auto) 77.2 H, Lymph % (Auto) 15.8 L, [place] % (Auto) 2.3, Eos % (Auto) 0.1, Baso % (Auto) 0.3, Absolute Neuts (auto) 7.4, Absolute Lymphs (auto) 1.52, Nucleated RBC % 1.9 01/28/22 04:46: Sodium 141, Potassium 4.0, Chloride 108 H, Carbon Dioxide 26.0, Anion Gap 7, BUN 19 H, Creatinine 0.31 L, Estim Creat Clear Calc 138.35, Est GFR (MDRD) Af Amer 279, Est GFR (MDRD) Non-Af 231, BUN/Creatinine Ratio 61.7 H, Glucose 80, Calcium 8.4 L, Total Bilirubin 0.20, AST 48 H, ALT 41, Alkaline Phosphatase 142 H, Total Protein 5.4 L, Albumin 1.7 L, Globulin 3.7, Albumin/Globulin Ratio 0.5 L 01/28/22 06:45: POC Glucose 79 01/28/22 12:02: POC Glucose 87 Clinical Impression(s) from Imaging Studies Chest X-Ray 01/27/22 08:17 IMPRESSION: Bilateral pulmonary infiltrates in keeping with bilateral patchy pneumonias. Electronically Signed: Ken Peacock MD at 8:41 EDT , Venous Doppler Study 01/27/22 08:21 Interpretation Summary Acute deep venous thrombosis left common femoral, femoral, popliteal, tibioperoneal trunk, gastrocnemius, posterior tibial, and peroneal veins. Patent and compressible bilateral great saphenous veins Abbreviated COVID-19 protocol utilized _ Charges/Coding Visit Charges Inpatient E&M: 83148 Subs Hosp L3
--- NOTE | 2022-01-28 13:59 | CON.PCM.CC_ITS ---
Assessment & Plan Assessment/Plan (1) Acute respiratory failure with hypoxia: (2) COVID: PLAN: Plan RECOMMENDATIONS: 1. Continue heated high flow oxygen and wean FiO2 for saturations greater than 90%. 2. Continue therapeutic Lovenox as ordered. 3. Continue remdesivir, Decadron and baricitinib as ordered. 4. Initiate PAP therapy, if needed. 5. Obtain arterial blood gas to assess for CO2 retention. IMPRESSIONS: 1. Acute hypoxemic respiratory failure secondary to COVID-19 pneumonia The patient has a known history of metastatic non-small cell lung cancer and presented from a nursing facility after testing positive for COVID-19. Her hospital course has been complicated by progressive shortness of breath and hypoxemia, along with a newly diagnosed lower extremity DVT. Her CODE STATUS was confirmed to be DNR CCA without intubation. At the present time, recommend continuing current supportive care including BiPAP therapy, if needed, along with remdesivir, Decadron and baricitinib as ordered. In light of the patient's confusion, will obtain an arterial blood gas. 2.??History of metastatic non-small cell lung cancer The patient has apparently completed radiation and systemic chemotherapy treatment. Recommend continuing Keppra per home regimen. 3.??Anemia Continue to monitor H&H daily.? Transfuse if hemoglobin drops below 7 g/dL.? The patient is already on PPI therapy. 4.??Diabetes mellitus/depression/anxiety/GERD Complicates care, management, recovery and prognosis.? Recommend holding sedating home medications. This note was generated with [employer] dictation software. It may contain incorrect words, spelling, and punctuation that were not noted in checking the note before signing. HPI Consult Data Date of Consult: 01/29/22 HPI Narrative Reason for Consultation: Hypoxemic respiratory failure secondary to COVID-19 pneumonia HPI Narrative: The patient is a 66-year-old female, with a history as outlined below, who presented to the emergency department on January 27 with progressive dyspnea. The patient has a medical history significant for stage IV non-small cell lung cancer with mets to the brain, along with COPD, anxiety/depression and hype rtension.? She has finished radiation and chemotherapy. The patient was just hospitalized in November 2021 with sepsis secondary to E. coli bacteremia/UTI/pneumonia. On presentation to the emergency department, the patient was noted to be afebrile but was notably tachycardic and tachypneic. Initial laboratory evaluation revealed no evidence of a leukocytosis. Platelet count was low at 97,000. D-dimer was elevated to greater than 20. Chemistry profile was notable for a lactate of 3.2. Troponin was elevated at 140 with a CRP of 195. Rapid COVID testing was positive. Lower extremity Doppler study revealed a left sided DVT. The patient was initially admitted and placed on remdesivir and Decadron. Following evaluation by infectious diseases, the patient was started on baricitinib. She remains on therapeutic Lovenox twice daily. She has become progressively more confused with increasing oxygen requirement. I spoke to the patient and family at the bedside this afternoon and again confirmed a DNR CCA CODE STATUS without intubation. COUNT INCLUDES THE [facility] Medical History Anxiety Bacteremia due to Gram-negative bacteria Chest pain Congestive heart failure (CHF) COPD (chronic obstructive pulmonary disease) Diabetes Former smoker Hypertension Metastasis Primary cancer of left upper lobe of lung Home Medications albuterol sulfate 90 mcg/actuation aerosol inhaler (Ventolin HFA) 2 inh inhalation Q4H SOB 12/14/21 [History Last Taken Unknown] bupropion HCl 150 mg 24 hr tablet, extended release 150 mg PO DAILY DEPRESSION 12/14/21 [History Last Taken 12/14/21] clonazepam 1 mg tablet 1 mg PO QHS ANXIETY 12/14/21 [History Last Taken 12/14/21] dexamethasone 4 mg tablet 2 mg PO BID STEROID 12/14/21 [History Last Taken 12/14/21] fluoxetine 20 mg tablet 60 mg PO DAILY DEPRESSION 12/14/21 [History Last Taken 12/14/21] folic acid 400 mcg tablet 0.4 mg PO DAILY SUPPLEMENT 12/14/21 [History Last Taken 12/14/21] glimepiride 2 mg tablet 4 mg PO DAILY DM 12/14/21 [History Last Taken Unknown] insulin glargine-yfgn 100 unit/mL (3 mL) subcutaneous pen 15 unit subcut BID DM 12/14/21 [History Last Taken Unknown] ipratropium 20 mcg-albuterol 100 mcg/actuation mist for inhalation (Combivent Respimat) 1 puff inhalation Q6H PRN PRN Wheezing 12/14/21 [History Last Taken 12/14/21] levetiracetam 500 mg tablet 500 mg PO BID SEIZURES 12/14/21 [History Last Taken 12/14/21] oxybutynin chloride 5 mg tablet 5 mg PO DAILY OAB 12/14/21 [History Last Taken 12/14/21] trazodone 150 mg tablet 150 mg PO QHS SLEEP 12/14/21 [History Last Taken 12/13/21] cholecalciferol (vitamin D3) 125 mcg (5,000 unit) tablet (Vitamin D3) 125 mcg PO DAILY SUPPLEMENT 01/27/22 [History Last Taken Unknown] clonazepam 0.5 mg tablet 0.5 mg PO DAILY ANXIETY 01/27/22 [History Last Taken Unknown] docusate sodium 100 mg tablet 100 mg PO DAILY CONSTIPATION 01/27/22 [History Last Taken Unknown] hydrocodone-acetaminophen 5-325mg 5mg-325mg 1 tab PO TID PAIN MANAGEMENT [History Last Taken Unknown] insulin aspart U-100 100 unit/mL subcutaneous solution (Novolog U-100 Insulin aspart) See Protocol subcut TID DIABETES 01/27/22 [History Last Taken Unknown] omeprazole 20 mg capsule,delayed release 20 mg PO DAILY GERD 01/27/22 [History Last Taken Unknown] Allergy/AdvReac Type Severity Reaction Status Date / Time No Known Allergies Allergy Verified 12/14/21 15:36 Social History Smoking Status: Former smoker ROS ROS Narrative 10 systems were reviewed with pertinent positives as noted in the HPI above. Physical Exam Const alert Constitutional Narrative: Somewhat confused and disoriented. General Appearance: ill appearing HEENT normocephalic and head/scalp atraumatic Eyes PERRL and EOMs intact bilaterally Neck supple General: trachea midline Chest inspection of chest normal Resp Effort and Inspection: tachypneic and labored Auscultation: diminished lung sounds Cardio S1 normal heart sound and S2 normal heart sound Rate: tachycardic GI normal to inspection, nondistended, normoactive bowel sounds Extremity no clubbing, cyanosis or edema Skin no rashes or lesions noted Neuro moves all extremities and no focal motor deficits Psych cooperative Lab / Micro Data Result Diagrams: 01/28/22 04:46 01/28/22 04:46 Labs: Laboratory Results - last 24 hr 01/27/22 08:45: Diff Path Review Reviewed 01/27/22 08:45: Total Bilirubin 0.30, Direct Bilirubin 0.13, AST 49 H, ALT 48, Alkaline Phosphatase 143 H, Lactate Dehydrogenase 933 H, Total Creatine Kinase 30, C-React Prot Ext Range 195.00 H, Total Protein 5.9 L, Albumin 1.9 L, Globulin 4.0 01/27/22 13:50: Lactic Acid 2.6 H* 01/27/22 16:24: POC Glucose 269 H 01/27/22 21:17: POC Glucose 159 H 01/28/22 04:46: WBC 9.6, RBC 3.09 L, Hgb 10.3 L, Hct 31.9 L, MCV 103.2 H, MCH 33.3 H, MCHC 32.3, RDW Std Deviation 57.3 H, RDW Coeff of Bettina 15.4 H, Plt Count 93 L, MPV 10.9, Immature Gran % (Auto) 4.300 H, Neut % (Auto) 77.2 H, Lymph % (Auto) 15.8 L, [place] % (Auto) 2.3, Eos % (Auto) 0.1, Baso % (Auto) 0.3, Absolute Neuts (auto) 7.4, Absolute Lymphs (auto) 1.52, Nucleated RBC % 1.9 01/28/22 04:46: Sodium 141, Potassium 4.0, Chloride 108 H, Carbon Dioxide 26.0, Anion Gap 7, BUN 19 H, Creatinine 0.31 L, Estim Creat Clear Calc 138.35, Est GFR (MDRD) Af Amer 279, Est GFR (MDRD) Non-Af 231, BUN/Creatinine Ratio 61.7 H, Glucose 80, Calcium 8.4 L, Total Bilirubin 0.20, AST 48 H, ALT 41, Alkaline Phosphatase 142 H, Total Protein 5.4 L, Albumin 1.7 L, Globulin 3.7, Albumin/Globulin Ratio 0.5 L 01/28/22 06:45: POC Glucose 79 01/28/22 12:02: POC Glucose 87 Micro: Microbiology 01/27/22 16:30 Interface Orders Legionella Antigen - Final 01/27/22 16:30 Interface Orders Streptococcus pneumoniae Antigen (M - Final 01/27/22 13:25 Mucosa - Nasopharyngeal Respiratory Panel (PCR) - Final Charges/Coding Visit Charges Inpatient E&M: 90135 Init Hosp L3
[2022-01-28 14:21] LABS: Allen Test Positive; Base Excess -1 mmol/L (-2 to +2); Bicarbonate 23.1 mmol/L (22-26); Blood Gas Specimen Type ART; FI02 50; O2 Delivery Device BiPAP; PEEP 8; PO2 73 mmHG (75-100); RR 12; SITE R Radial; SO2 95 % (95-99); Total Carbon Dioxide 24 mmol/L; pCO2 33.5 mmHg (35-45); pH 7.45 (7.35-7.45)
[2022-01-28] MEDS: Dext 5%-0.45% NS 1,000 ML 50 ML IV (15:12)
[2022-01-28] MEDS: Insulin Lispro 100 UNIT/ML INSULN.PEN SC (16:37)
[2022-01-28 17:00] LABS: Bedside Glucose 282 mg/dL (74-106)
[2022-01-28] MEDS: traZODone 50 MG Tablet PO (22:50)
--- NOTE | 2022-01-28 23:30 | NURSING ---
Pt's sister requested to be updated about pt. This RN called sister Abigail to update her about pt overall condition and informed her that pt has been restless in room looking for her. Pt sister then asked if pt is receiving her psych meds, and she updated this RN w/ patient med list. Pharmacy and MD notified about the med list update.
[2022-01-28 23:31] LABS: Bedside Glucose 123 mg/dL (74-106)
[2022-01-28] MEDS: clonazePAM 1 MG Tablet PO (23:51)
[2022-01-29] VITALS (20 sets, daily range): BP systolic 99–141; BP diastolic 70–98; PULSE 102–131; RESP 19–28; TEMP 36.1–37.2; O2SAT 89–98
--- NOTE | 2022-01-29 00:13 | PCA ---
Patient keeps taking airvo off, due to patient leaving it off her O2 drops drastically, desolderer Tiffany, Project Systems Engineer Milagro and I keep reminding her that she needs to keep on the oxygen. Patient is non compliant and refuses to keep oxygen on.
[2022-01-29] MEDS: oxyCODONE 5 MG Tablet PO (03:26)
--- NOTE | 2022-01-29 06:12 | PN.CC_ITS ---
Assessment & Plan Assessment/Plan (1) Acute respiratory failure with hypoxia: (2) COVID: PLAN: Plan RECOMMENDATIONS: 1. Continue heated high flow oxygen and wean FiO2 for saturations greater than 90%. 2. Continue therapeutic Lovenox as ordered. 3. Continue remdesivir, Decadron and baricitinib as ordered. 4. Continue to encourage bronchopulmonary hygiene with PEP and incentive spirometer. IMPRESSIONS: 1. Acute hypoxemic respiratory failure secondary to COVID-19 pneumonia The patient has a known history of metastatic non-small cell lung cancer and presented from a nursing facility after testing positive for COVID-19. Her hospital course has been complicated by progressive shortness of breath and hypoxemia, along with a newly diagnosed lower extremity DVT. Her CODE STATUS was confirmed to be DNR CCA without intubation. At the present time, recommend continuing current supportive care including heated high flow oxygen, along with remdesivir, Decadron and baricitinib as ordered. 2.??History of metastatic non-small cell lung cancer The patient has apparently completed radiation and systemic chemotherapy treatment. Recommend continuing Keppra per home regimen. 3.??Anemia Continue to monitor H&H daily.? Transfuse if hemoglobin drops below 7 g/dL.? The patient is already on PPI therapy. 4.??Diabetes mellitus/depression/anxiety/GERD Complicates care, management, recovery and prognosis.? Recommend holding sedating home medications. This note was generated with [employer] dictation software. It may contain incorrect words, spelling, and punctuation that were not noted in checking the note before signing. Subjective Subjective The patient was seen and examined at the bedside this morning. Events from the last 24 hours have been reviewed. The patient is currently afebrile, hemodynamically stable and maintaining appropriate oxygen saturations on Airvo heated high flow with an FiO2 requirement of 51% and flow rate of 60 L/min. The patient remains on remdesivir, Decadron and baricitinib. The patient continues to have a cough but has been unable to expectorate any sputum. Overnight nursing staff reported that the patient has been intermittently taking off her Airvo cannula. Objective Data Objective Data The patient's most recent lab work, culture data and imaging studies have all been personally reviewed. Doppler study was notable for a DVT in the left lower extremity. Rapid COVID testing was positive on January 27. Vital Signs: Vital Signs Temp Pulse Resp BP Pulse Ox O2 Del Method O2 Flow Rate 98.3 F 129 H 22 H 141/72 H 92 Airvo 60 01/29/22 04:00 01/29/22 04:00 01/29/22 04:00 01/29/22 04:00 01/29/22 04:00 01/29/22 04:00 01/29/22 04:00 FiO2 51 01/29/22 04:00 Oxygen Flow Rate (L/min) 60 Oxygen Delivery Method Airvo Weight: 137 lb 12.623 oz Body Mass Index (BMI) 24.9 Intake & Output: Intake and Output for Last 24 Hours 01/27/22 01/28/22 01/29/22 23:59 23:59 23:59 Intake Total 900 / 900 1999 / 1999 60 / 60 Output Total 300 / 300 825 / 1875 1450 / 1450 Balance 600 / 600 1175 / 125 -1390 / -1390 Lab / Micro Data Attestation: I reviewed the patient's lab results. Result Diagrams: 01/28/22 04:46 01/28/22 04:46 Labs: Laboratory Results - last 24 hr 01/27/22 08:45: Diff Path Review Reviewed 01/28/22 04:46: Sodium 141, Potassium 4.0, Chloride 108 H, Carbon Dioxide 26.0, Anion Gap 7, BUN 19 H, Creatinine 0.31 L, Estim Creat Clear Calc 138.35, Est GFR (MDRD) Af Amer 279, Est GFR (MDRD) Non-Af 231, BUN/Creatinine Ratio 61.7 H, Glucose 80, Calcium 8.4 L, Total Bilirubin 0.20, AST 48 H, ALT 41, Alkaline Phosphatase 142 H, Total Protein 5.4 L, Albumin 1.7 L, Globulin 3.7, Albumin/G lobulin Ratio 0.5 L 01/28/22 06:45: POC Glucose 79 01/28/22 12:02: POC Glucose 87 01/28/22 16:31: POC Glucose 282 H 01/28/22 22:48: POC Glucose 123 H Micro: Microbiology 01/27/22 16:30 Interface Orders Legionella Antigen - Final 01/27/22 16:30 Interface Orders Streptococcus pneumoniae Antigen (M - Final 01/27/22 13:25 Mucosa - Nasopharyngeal Respiratory Panel (PCR) - Final 01/27/22 08:30 Nasal Secretion SARS-CoV-2 & FLU Antigen (Rapid) - Final SARS-CoV-2 (COVID 19) ABG Data ABG results: ABG 01/28/22 14:15 Specimen Type ART Sample Site R Radial pH 7.45 Bicarbonate Actual 23.1 Total CO2 24 Base Excess -1 O2 Saturation 95 O2 % 50 ABG pCO2 33.5 L ABG pO2 73 L Ryan Test Positive Respiration Rate 12 O2 Delivery Device BiPAP POC PEEP 8 Physical Exam Const alert Constitutional Narrative: Remains intermittently confused. General Appearance: ill appearing HEENT normocephalic and head/scalp atraumatic Eyes PERRL and EOMs intact bilaterally Neck supple General: trachea midline Chest inspection of chest normal Resp Resp Narrative: Frequent episodes of coughing. Effort and Inspection: tachypneic Auscultation: diminished lung sounds Cardio S1 normal heart sound and S2 normal heart sound Rate: tachycardic GI normal to inspection, nondistended, normoactive bowel sounds Extremity no clubbing, cyanosis or edema Skin no rashes or lesions noted Neuro moves all extremities and no focal motor deficits Psych Activity / Motor Behavior: restless Charges/Coding Visit Charges Inpatient E&M: 12308 Subs Hosp L3
[2022-01-29] MEDS: Acetaminophen 325 MG Tablet 650 MG PO (06:20)
[2022-01-29 07:11] LABS: Bedside Glucose 89 mg/dL (74-106)
[2022-01-29 07:11] LABS: Bedside Glucose 61 mg/dL (74-106)
[2022-01-29 08:17] LABS: Absolute Lymphocyte Count 2.59 X10^3/uL (0.83-4.51); Absolute Neutrophil Count 7.9 X10^3/uL (2.0-7.7); Basophil# 0.04 X10^3/uL; Basophil% 0.4 % (0-1); Eosinophil# 0.02 X10^3/uL; Eosinophils% 0.2 % (0-5); Hematocrit 31.4 % (37-47); Hemoglobin 9.9 g/dL (12.0-15.0); Lymphocyte # 2.59 X10^3/ul (0.83-4.51); Lymphocyte % 23.1 % (19-41); Mean Corp Hgb Conc 31.5 g/dL (32-36); Mean Corpuscular Hgb 31.8 pg (27.0-32.0); Mean Platelet Vol. 11.1 fl (6.2-12.0); Monocyte# 0.14 X10^3/uL; Monocyte% 1.2 % (0-10); NRBC Flagged by Analyzer 0.7 % (0-5); Neutrophil % 70.4 % (47-70); POSITIVE COUNT YES; Platelet Count 88 K/mm3 (150-450); RBC Distribution Width CV 15.6 % (11.6-14.6); RBC Distribution Width SD 57.8 fl (35.1-43.9); Red Blood Count 3.11 M/mm3 (4.2-5.4); White Blood Count 11.2 K/mm3 (4.4-11.0)
[2022-01-29] MEDS: clonazePAM 0.5 MG Tablet PO (08:24)
[2022-01-29] MEDS: Enoxaparin 60 MG/0.6 ML Syringe SC ×2 (08:25→22:35)
[2022-01-29] MEDS: FLUoxetine 20 MG Capsule 60 MG PO (08:25)
[2022-01-29] MEDS: Pantoprazole Sodium 40 MG Tablet PO (08:25)
[2022-01-29] MEDS: dexAMETHasone 4 MG Tablet 6 MG PO (08:25)
[2022-01-29] MEDS: levETIRAcetam 500 MG Tablet PO ×2 (08:26→22:35)
[2022-01-29] MEDS: Cholecalciferol (Vit D3) 125 MCG CAPSULE (5,000 UNITS) PO (08:26)
[2022-01-29] MEDS: buPROPion (XL) 150 MG TABLET.XL PO (08:26)
[2022-01-29] MEDS: Folic Acid 1 MG Tablet 0.5 MG PO (08:26)
[2022-01-29] MEDS: Oxybutynin 5 MG Tablet PO (08:27)
[2022-01-29] MEDS: Menthol/Lanolin/Calamine/Znox 113 GM Tube 1 APPLIC TOPICAL ×2 (08:28→22:38)
[2022-01-29 08:50] LABS: ALB/GLOB Ratio 0.5 RATIO (0.9-2.4); AST(SGOT) 66 U/L (15-37); Alanine Aminotransfer ALT/SGPT 47 U/L (13-56); Albumin, Serum 1.7 g/dL (3.2-5.0); Alkaline Phosphatase 180 U/L (45-117); Anion Gap 7 (5-15); BUN 14 mg/dL (7-18); BUN/Creat Ratio 37.4 RATIO (10-20); Calcium,Total 7.8 mg/dL (8.5-10.1); Chloride 100 mmol/L (98-107); Creatinine, Serum 0.37 mg/dL (0.55-1.02); EST Glomerular Filtration Rate 184 mL/min (>60); Est Glom Filt Rate - Afr Amer 223 mL/min (>60); Estimated Creatinine Clearance 115.91 ml/min; Globulin 3.6 g/dL (2.2-4.2); Glucose 82 mg/dL (74-106); Potassium 4.3 mmol/L (3.5-5.1); Protein, Total 5.3 g/dL (6.4-8.2); Sodium Level 132 mmol/L (136-145)
--- NOTE | 2022-01-29 10:43 | PCM.PN.HOSP ---
Subjective Subjective Follow-up for acute hypoxic respiratory failure secondary to COPD exacerbation due to COVID-19 pneumonia. Shortness of breath is better. Patient is still heart rate is 109/min, on Airvo 55% FiO2 60 L/min. Objective Data Objective Data Vital Signs: Vital Signs Temp Pulse Resp BP Pulse Ox O2 Del Method O2 Flow Rate 97 F L 120 H 20 H 99/71 96 Airvo 60 01/29/22 08:15 01/29/22 08:15 01/29/22 08:15 01/29/22 08:15 01/29/22 08:15 01/29/22 08:17 01/29/22 06:28 FiO2 55 01/29/22 08:17 Oxygen Flow Rate (L/min) 60 Oxygen Delivery Method Airvo Weight: 142 lb Body Mass Index (BMI) 24.9 Intake & Output: Intake and Output for Last 24 Hours 01/27/22 01/28/22 01/29/22 23:59 23:59 23:59 Intake Total 900 / 900 1999 / 1999 60 / 60 Output Total 300 / 300 825 / 1875 1450 / 1450 Balance 600 / 600 1175 / 125 -1390 / -1390 Lab / Micro Data Result Diagrams: 01/29/22 07:45 01/29/22 07:45 Labs: Laboratory Results - last 24 hr 01/27/22 08:45: Diff Path Review Reviewed 01/28/22 12:02: POC Glucose 87 01/28/22 16:31: POC Glucose 282 H 01/28/22 22:48: POC Glucose 123 H 01/29/22 06:12: POC Glucose 61 L 01/29/22 06:35: POC Glucose 89 01/29/22 07:45: WBC 11.2 H, RBC 3.11 L, Hgb 9.9 L, Hct 31.4 L, MCV 101.0 H, MCH 31.8, MCHC 31.5 L, RDW Std Deviation 57.8 H, RDW Coeff of Bettina 15.6 H, Plt Count 88 L, MPV 11.1, Immature Gran % (Auto) 4.700 H, Neut % (Auto) 70.4 H, Lymph % (Auto) 23.1, [place] % (Auto) 1.2, Eos % (Auto) 0.2, Baso % (Auto) 0.4, Absolute Neuts (auto) 7.9 H, Absolute Lymphs (auto) 2.59, Nucleated RBC % 0.7 01/29/22 07:45: Sodium 132 L, Potassium 4.3, Chloride 100, Carbon Dioxide 25.0, Anion Gap 7, BUN 14, Creatinine 0.37 L, Estim Creat Clear Calc 115.91, Est GFR (MDRD) Af Amer 223, Est GFR (MDRD) Non-Af 184, BUN/Creatinine Ratio 37.4 H, Glucose 82, Calcium 7.8 L, Total Bilirubin 0.40, AST 66 H, ALT 47, Alkaline Phosphatase 180 H, Total Protein 5.3 L, Albumin 1.7 L, Globulin 3.6, Albumin/Globulin Ratio 0.5 L Micro: Microbiology 01/27/22 16:30 Interface Orders Legionella Antigen - Final 01/27/22 16:30 Interface Orders Streptococcus pneumoniae Antigen (M - Final 01/27/22 13:25 Mucosa - Nasopharyngeal Respiratory Panel (PCR) - Final 01/27/22 08:30 Nasal Secretion SARS-CoV-2 & FLU Antigen (Rapid) - Final SARS-CoV-2 (COVID 19) ABG Data ABG results: ABG 01/28/22 14:15 Specimen Type ART Sample Site R Radial pH 7.45 Bicarbonate Actual 23.1 Total CO2 24 Base Excess -1 O2 Saturation 95 O2 % 50 ABG pCO2 33.5 L ABG pO2 73 L Ryan Test Positive Respiration Rate 12 O2 Delivery Device BiPAP POC PEEP 8 Physical Exam Narrative Seen and examined. Physical exam General: Awake, mild drowsy oriented x3, Cooperative, no dyspnea at rest HEENT: Atraumatic, PERRLA, EOMI, Normocephalic Oral: No Gingival or Mucosal Lesions/ Ulcerations Neck: Supple, No JVD, Negative Carotid Bruits Lungs: Air entry diminished in bilateral lung bases. Bilateral coarse rhonchi. No tachypnea. On Airvo Cardiovascular: Sinus tachycardia, Normal S1, Normal S2, No murmurs Abdomen: Bowel Sounds Present, Soft, Non Tender, Non-Distended : No renal angle tenderness. No suprapubic tenderness. Extremities: LLE swollen generalized, tender, indurated. No pitting ankle edema, Capillary Refill Less than 3 Seconds Skin: Mild redness left lower extremity from DVT. Musculoskeletal: LLE tender. Generalized muscle atrophy of lower extremities. Could not stand up or walk on its own. Neurological: Cranial nerves II-XII grossly intact, DTR 2+/4, muscle strength 3/5 at multiple joints of lower extremity Psych/Mental Status: Flat affect. Mild drowsy Assessment & Plan Assessment/Plan (1) Pneumonia due to COVID-19 virus: (2) Acute respiratory failure with hypoxia: (3) Acute DVT (deep venous thrombosis): PLAN: Plan This is 66-year-old female is being admitted for shortness of breath, dyspnea at rest, severe hypoxia clinical and radiological finding of bilateral pneumonia due to COVID 19. 1. Acute hypoxic respiratory failure due to bilateral COVID-19 pneumonia: When EMS brought him she was on 12 L of oxygen, titrated to 8 L of oxygen in ED. Patient short of breath, dyspnea at rest and labored breathing. Continue oxygen therapy, BiPAP/AVAPS as needed. Patient is DNR CC arrest with no intubation. 01/28: Patient is dyspneic, tachycardic heart rate 140 partnered, febrile temperature 100.8 ?F. BiPAP/AVAPS was ordered to alternate with AIRVO. Discussed with punch card operator ON 01/27 on continuation of NIPPV. Discussed with the punch card operator and requested consult. I think patient sinus tachycardia is respiratory failure treatment. 01/28: Patient is mildly drowsy lethargic. We will hold antipsychotic/antidepressant medications. Discussed with the charge nurse so that patient is not back on antipsychotic antidepressant resumed during hourly shift 2. Bilateral COVID-19 pneumonia: Patient is started on dexamethasone 6 mg daily. Remdesivir if liver chemistry is in acceptable range. Patient has inflammatory markers elevated including troponin, lactic acid, BNP and D-dimer. D-dimer is high more than 20. Rapid COVID antigen positive in ED. Blood cultures x2 and respiratory panel sent in the ED. Urinary antigens ordered. 01/28: CRP is high. Inflammatory markers are elevated. High CRP, procalcitonin 0.22. Lactic acid 2.6. Urinary antigens are negative. Respiratory panel negative. Patient seen by ID. Baricitinib is started with high requirement of oxygen. 01/29: On triple regimen, dexamethasone, remdesivir and baricitinib. 3. Left lower extremity DVT: Patient is started on Lovenox 1 mg/kg body weight. Patient has multiple thrombogenic conditions including lung cancer with mets to brain but also high risk of bleeding due to radiotherapy in the brain. This was explained to patient's sister who is power of assistant district attorney for health and she is agreeable for starting anticoagulant Lovenox. At this time, CTPA will be futile as management will not change. 01/28: Patient maintaining hemoglobin 10.3, platelet count 93 on therapeutic dose of Lovenox 01/29: H&H 9.9/31%. Platelet count 88%. Continue therapeutic dose of Lovenox. 4. Diabetes mellitus type 2 with hyperglycemia: Hypoglycemia was noted by EMS. Hold scheduled long-acting and Premeal insulin. Continue Accu-Chek before meals and at bedtime and cover with Humalog sliding scale. Most recent glucose is 104. 01/28: Glucose is on lower side. Patient is started on D5 half NS for nutritional supplement. 5. Metastatic NSCLC: Patient has history of lung cancer with mets to brain diagnosed August 2021. She had 1 chemotherapy infusion but had toxic effect therefore was discontinued further. She had recent radiotherapy to brain 6. Recent admission for sepsis secondary to E. coli bacteremia probably from UTI/pneumonia in November 2021. At that time urine and blood culture was positive of E. coli. She was treated adequately inpatient and discharged on antibiotic. 7. Anemia of chronic disease: Patient has chronic macrocytic anemia. 8. Multiple other comorbidities including no functional status, patient did not stand up or ambulate wrist since last discharge in November 2021, GERD, anxiety and depression, chronic urinary continence: This was discussed with the patient's daughter with poor prognosis. Home medication reconciliation done. Total time of the visit including total time spent in counseling or coordination of care, (more than 50% of the total time, spent in obtaining medical information from nurses and other ancillary care providers,explaining to the patient about labs, imaging, diagnosis and management of active complex medical conditions), discussion with ID and punch card operator, review of labs and imaging is 40 minutes. Living will/advanced directive/end of life care: Patient does have living will or advanced directive. His sister is power of assistant district attorney for health. After discussion of benefits/risks procedures involved with full code, DNR CC arrest and DNR CC, the patient and POA opted for DNRCC arrest with no intubation Patient and her POA do not want artificial life support including intubation, tube feed, ventilator and/chest compression, central venous catheter, vasopressor and DC shock if needed Microbiology Past 72 Hours 01/27/22 09:05 Blood Culture (Wb) #2 - Anticubital Right Blood Culture - Preliminary No growth in 48 hours. 01/27/22 08:45 Blood Culture (Wb) - Left Forearm Blood Culture - Preliminary No growth in 48 hours. 01/27/22 16:30 Interface Orders Legionella Antigen - Final 01/27/22 16:30 Interface Orders Streptococcus pneumoniae Antigen (M - Final 01/27/22 13:25 Mucosa - Nasopharyngeal Respiratory Panel (PCR) - Final 01/27/22 08:30 Nasal Secretion SARS-CoV-2 & FLU Antigen (Rapid) - Final SARS-CoV-2 (COVID 19) Laboratory Results 01/28/22 14:15: Specimen Type ART, Sample Site R Radial, pH 7.45, Bicarbonate Actual 23.1, Total CO2 24, Base Excess -1, O2 Saturation 95, O2 % 50, ABG pCO2 33.5 L, ABG pO2 73 L, Ryan Test Positive, Respiration Rate 12, O2 Delivery Device BiPAP, POC PEEP 8 01/28/22 16:31: POC Glucose 282 H 01/28/22 22:48: POC Glucose 123 H 01/29/22 06:12: POC Glucose 61 L 01/29/22 06:35: POC Glucose 89 01/29/22 07:45: WBC 11.2 H, RBC 3.11 L, Hgb 9.9 L, Hct 31.4 L, MCV 101.0 H, MCH 31.8, MCHC 31.5 L, RDW Std Deviation 57.8 H, RDW Coeff of Bettina 15.6 H, Plt Count 88 L, MPV 11.1, Immature Gran % (Auto) 4.700 H, Neut % (Auto) 70.4 H, Lymph % (Auto) 23.1, [place] % (Auto) 1.2, Eos % (Auto) 0.2, Baso % (Auto) 0.4, Absolute Neuts (auto) 7.9 H, Absolute Lymphs (auto) 2.59, Nucleated RBC % 0.7 01/29/22 07:45: Sodium 132 L, Potassium 4.3, Chloride 100, Carbon Dioxide 25.0, Anion Gap 7, BUN 14, Creatinine 0.37 L, Estim Creat Clear Calc 115.91, Est GFR (MDRD) Af Amer 223, Est GFR (MDRD) Non-Af 184, BUN/Creatinine Ratio 37.4 H, Glucose 82, Calcium 7.8 L, Total Bilirubin 0.40, AST 66 H, ALT 47, Alkaline Phosphatase 180 H, Total Protein 5.3 L, Albumin 1.7 L, Globulin 3.6, Albumin/Globulin Ratio 0.5 L 01/29/22 11:03: POC Glucose 102 Clinical Impression(s) from Imaging Studies Chest X-Ray 01/27/22 08:17 IMPRESSION: Bilateral pulmonary infiltrates in keeping with bilateral patchy pneumonias. Electronically Signed: Ken Peacock MD at 8:41 EDT , Venous Doppler Study 01/27/22 08:21 Interpretation Summary Acute deep venous thrombosis left common femoral, femoral, popliteal, tibioperoneal trunk, gastrocnemius, posterior tibial, and peroneal veins. Patent and compressible bilateral great saphenous veins Abbreviated COVID-19 protocol utilized _ Charges/Coding Visit Charges Inpatient E&M: 16503 Subs Hosp L3
[2022-01-29 11:26] LABS: Bedside Glucose 102 mg/dL (74-106)
[2022-01-29] MEDS: Dext 5%-0.45% NS 1,000 ML 50 ML IV (12:30)
[2022-01-29] MEDS: Insulin Lispro 100 UNIT/ML INSULN.PEN SC ×2 (17:23→22:36)
[2022-01-29 17:50] LABS: Bedside Glucose 190 mg/dL (74-106)
[2022-01-29] MEDS: 0.9% Saline Lock 10 ML Syringe IV (22:35)
[2022-01-29] MEDS: traZODone 50 MG Tablet PO (22:35)
[2022-01-29 23:10] LABS: Bedside Glucose 177 mg/dL (74-106)
[2022-01-30] VITALS (20 sets, daily range): BP systolic 103–146; BP diastolic 70–95; PULSE 88–134; RESP 12–35; TEMP 36.3–37.2; O2SAT 93–100
[2022-01-30] MEDS: Dext 5%-0.45% NS 1,000 ML 50 ML IV (06:09)
[2022-01-30 07:05] LABS: Bedside Glucose 80 mg/dL (74-106)
--- NOTE | 2022-01-30 07:23 | PCM.PN.INT ---
Assessment & Plan Assessment/Plan (1) Acute respiratory failure with hypoxia: (2) COVID: PLAN: Plan RECOMMENDATIONS: 1. Continue heated high flow oxygen and wean FiO2 for saturations greater than 90%. 2. Continue therapeutic Lovenox as ordered. 3. Continue remdesivir, Decadron and baricitinib as ordered. 4. Continue to encourage bronchopulmonary hygiene with PEP and incentive spirometer. IMPRESSIONS: 1. Acute hypoxemic respiratory failure secondary to COVID-19 pneumonia The patient has a known history of metastatic non-small cell lung cancer and presented from a nursing facility after testing positive for COVID-19. Her hospital course has been complicated by progressive shortness of breath and hypoxemia, along with a newly diagnosed lower extremity DVT. Her CODE STATUS was confirmed to be DNR CCA without intubation. At the present time, recommend continuing current supportive care including heated high flow oxygen, along with remdesivir, Decadron and baricitinib as ordered. 2.??History of metastatic non-small cell lung cancer The patient has apparently completed radiation and systemic chemotherapy treatment. Recommend continuing Keppra per home regimen. 3.??Anemia Continue to monitor H&H daily.? Transfuse if hemoglobin drops below 7 g/dL.? The patient is already on PPI therapy. 4.??Diabetes mellitus/depression/anxiety/GERD Complicates care, management, recovery and prognosis.? Recommend holding sedating home medications. This note was generated with [employer] dictation software. It may contain incorrect words, spelling, and punctuation that were not noted in checking the note before signing. Subjective Subjective The patient was seen and examined at the bedside this morning. Events from the last 24 hours have been reviewed. The patient is currently afebrile, hemodynamically stable and maintaining appropriate oxygen saturations on Airvo heated high flow with an FiO2 requirement of 45% and flow rate of 60 L/min. Objective Data Objective Data The patient's most recent lab work, culture data and imaging studies have all been personally reviewed. Doppler study was notable for a DVT in the left lower extremity. Rapid COVID testing was positive on January 27. Vital Signs: Vital Signs Temp Pulse Resp BP Pulse Ox O2 Del Method O2 Flow Rate 98.5 F 95 21 H 108/80 97 Airvo 60 01/30/22 03:00 01/30/22 03:17 01/30/22 03:17 01/30/22 03:00 01/30/22 03:17 01/30/22 03:00 01/30/22 03:00 FiO2 55 01/30/22 03:17 Oxygen Flow Rate (L/min) 60 Oxygen Delivery Method Airvo Weight: 142 lb 6.698 oz Body Mass Index (BMI) 24.9 Intake & Output: Intake and Output for Last 24 Hours 01/28/22 01/29/22 01/30/22 23:59 23:59 22:59 Intake Total 1999 1790 / 2365 932.5 / 932.5 Output Total 825 / 1875 3200 / 3600 800 / 800 Balance 1175 / 125 -1410 / -1235 132.5 / 132.5 Lab / Micro Data Attestation: I reviewed the patient's lab results. Result Diagrams: 01/30/22 07:10 01/30/22 07:10 Labs: Laboratory Results - last 24 hr 01/29/22 07:45: WBC 11.2 H, RBC 3.11 L, Hgb 9.9 L, Hct 31.4 L, MCV 101.0 H, MCH 31.8, MCHC 31.5 L, RDW Std Deviation 57.8 H, RDW Coeff of Bettina 15.6 H, Plt Count 88 L, MPV 11.1, Immature Gran % (Auto) 4.700 H, Neut % (Auto) 70.4 H, Lymph % (Auto) 23.1, [place] % (Auto) 1.2, Eos % (Auto) 0.2, Baso % (Auto) 0.4, Absolute Neuts (auto) 7.9 H, Absolute Lymphs (auto) 2.59, Nucleated RBC % 0.7 01/29/22 07:45: Sodium 132 L, Potassium 4.3, Chloride 100, Carbon Dioxide 25.0, Anion Gap 7, BUN 14, Creatinine 0.37 L, Estim Creat Clear Calc 115.91, Est GFR (MDRD) Af Amer 223, Est GFR (MDRD) Non-Af 184, BUN/Creatinine Ratio 37.4 H, Glucose 82, Calcium 7.8 L, Total Bilirubin 0.40, AST 66 H, ALT 47, Alkaline Phosphatase 180 H, Total Protein 5.3 L, Albumin 1.7 L, Globulin 3.6, Albumin/Globulin Ratio 0.5 L 01/29/22 11:03: POC Glucose 102 01/29/22 17:22: POC Glucose 190 H 01/29/22 22:32: POC Glucose 177 H 01/30/22 06:08: POC Glucose 80 Micro: Microbiology 01/27/22 09:05 Blood Culture (Wb) #2 - Anticubital Right Blood Culture - Preliminary No growth in 48 hours. 01/27/22 08:45 Blood Culture (Wb) - Left Forearm Blood Culture - Preliminary No growth in 48 hours. 01/27/22 16:30 Interface Orders Legionella Antigen - Final 01/27/22 16:30 Interface Orders Streptococcus pneumoniae Antigen (M - Final 01/27/22 13:25 Mucosa - Nasopharyngeal Respiratory Panel (PCR) - Final 01/27/22 08:30 Nasal Secretion SARS-CoV-2 & FLU Antigen (Rapid) - Final SARS-CoV-2 (COVID 19) ABG Data ABG results: ABG 01/28/22 14:15 Specimen Type ART Sample Site R Radial pH 7.45 Bicarbonate Actual 23.1 Total CO2 24 Base Excess -1 O2 Saturation 95 O2 % 50 ABG pCO2 33.5 L ABG pO2 73 L Ryan Test Positive Respiration Rate 12 O2 Delivery Device BiPAP POC PEEP 8 Physical Exam Const alert Constitutional Narrative: Intermittently confused. General Appearance: ill appearing HEENT normocephalic and head/scalp atraumatic Eyes PERRL and EOMs intact bilaterally Neck supple General: trachea midline Chest inspection of chest normal Resp Effort and Inspection: tachypneic Auscultation: diminished lung sounds Cardio regular rate, regular rhythm, S1 normal heart sound and S2 normal heart sound GI normal to inspection, nondistended, normoactive bowel sounds Extremity no clubbing, cyanosis or edema Skin no rashes or lesions noted Neuro moves all extremities and no focal motor deficits Psych Activity / Motor Behavior: restless Charges/Coding Visit Charges Inpatient E&M: 39892 Subs Hosp L3
[2022-01-30 07:40] LABS: Absolute Neutrophil Count 9.5 X10^3/uL (2.0-7.7); Basophil# 0.03 X10^3/uL; Basophil% 0.3 % (0-1); Eosinophil# 0.02 X10^3/uL; Eosinophils% 0.2 % (0-5); Hematocrit 32.5 % (37-47); Hemoglobin 10.4 g/dL (12.0-15.0); Lymphocyte % 13.8 % (19-41); Mean Corpuscular Hgb 32.7 pg (27.0-32.0); Mean Corpuscular Volume 102.2 fL (81-99); Mean Platelet Vol. 10.4 fl (6.2-12.0); Monocyte# 0.23 X10^3/uL; NRBC Flagged by Analyzer 0.3 % (0-5); Neutrophil # 9.47 X10^3/uL (2.7-7.7); Neutrophil % 81.3 % (47-70); Platelet Count 123 K/mm3 (150-450); RBC Distribution Width CV 15.4 % (11.6-14.6); RBC Distribution Width SD 57.4 fl (35.1-43.9); Red Blood Count 3.18 M/mm3 (4.2-5.4); White Blood Count 11.6 K/mm3 (4.4-11.0)
[2022-01-30 07:54] LABS: ALB/GLOB Ratio 0.5 RATIO (0.9-2.4); AST(SGOT) 43 U/L (15-37); Alanine Aminotransfer ALT/SGPT 43 U/L (13-56); Albumin, Serum 1.8 g/dL (3.2-5.0); Alkaline Phosphatase 174 U/L (45-117); Anion Gap 7 (5-15); BUN 13 mg/dL (7-18); BUN/Creat Ratio 43.6 RATIO (10-20); Calcium,Total 8.6 mg/dL (8.5-10.1); Chloride 104 mmol/L (98-107); EST Glomerular Filtration Rate 240 mL/min (>60); Est Glom Filt Rate - Afr Amer 290 mL/min (>60); Estimated Creatinine Clearance 142.96 ml/min; Globulin 3.7 g/dL (2.2-4.2); Glucose 95 mg/dL (74-106); Potassium 3.7 mmol/L (3.5-5.1); Protein, Total 5.5 g/dL (6.4-8.2); Sodium Level 142 mmol/L (136-145)
[2022-01-30] MEDS: Glucerna Shake 120 ML LIQUID PO (09:08)
[2022-01-30] MEDS: Polyethylene Glycol 3350 17 GM PACKET PO (09:09)
[2022-01-30] MEDS: levETIRAcetam 500 MG Tablet PO ×2 (09:10→22:10)
[2022-01-30] MEDS: Enoxaparin 60 MG/0.6 ML Syringe SC ×2 (09:10→22:10)
[2022-01-30] MEDS: dexAMETHasone 4 MG Tablet 6 MG PO (09:10)
[2022-01-30] MEDS: Folic Acid 1 MG Tablet 0.5 MG PO (09:10)
[2022-01-30] MEDS: Pantoprazole Sodium 40 MG Tablet PO (09:11)
[2022-01-30] MEDS: buPROPion (XL) 150 MG TABLET.XL PO (09:11)
[2022-01-30] MEDS: Cholecalciferol (Vit D3) 125 MCG CAPSULE (5,000 UNITS) PO (09:11)
[2022-01-30] MEDS: oxyCODONE 5 MG Tablet PO (09:29)
[2022-01-30] MEDS: Menthol/Lanolin/Calamine/Znox 113 GM Tube 1 APPLIC TOPICAL ×2 (09:32→22:10)
[2022-01-30] MEDS: Oxybutynin 5 MG Tablet PO (09:32)
[2022-01-30] MEDS: Insulin Lispro 100 UNIT/ML INSULN.PEN SC ×3 (11:03→22:12)
[2022-01-30 11:25] LABS: Bedside Glucose 162 mg/dL (74-106)
--- NOTE | 2022-01-30 12:20 | CT_ITS ---
STUDY: CT BRAIN WITHOUT CONTRAST REASON FOR EXAM: Female, 66 years old. AMS, on lovenox, R/O ICH/BLEED RADIATION DOSAGE (If Supplied By Facility): CTDIvol = ( 44.99 ) mGy, DLP = ( 745.49 ) mGycm TECHNIQUE: Transaxial CT imaging of the brain was performed without administration of intravenous contrast material. Individualized dose optimization techniques were used for this CT. COMPARISON: No relevant priors. FINDINGS: Normal soft tissue structures. Normal calvarium. There is mild cerebral atrophy with widening of the extra-axial spaces and ventricular dilatation. There are areas of decreased attenuation within the white matter tracts of the supratentorial brain, consistent with microvascular disease changes. Normal basal ganglia and thalami. Normal brainstem. There is mild cerebellar atrophy. There is no intracranial hemorrhage. There are no findings of an acute ischemic infarction. Normal visualized paranasal sinuses. CT/Brain/Head without Contrast IMPRESSION: Chronic involutional changes of the brain. Small vessel ischemia. Electronically Signed: Doris Shook MD at 16:02 EST ,
--- NOTE | 2022-01-30 12:49 | PCM.PN.HOSP ---
Subjective Subjective Follow-up for acute hypoxic respiratory failure, altered mental status, history of schizophrenia and bipolar disorder Objective Data Objective Data Vital Signs: Vital Signs Temp Pulse Resp BP Pulse Ox O2 Del Method O2 Flow Rate 98.1 F 123 H 24 H 119/92 H 98 Bi-pap 50 01/30/22 12:00 01/30/22 12:00 01/30/22 12:00 01/30/22 12:00 01/30/22 12:00 01/30/22 12:00 01/30/22 10:00 FiO2 55 01/30/22 10:00 Oxygen Flow Rate (L/min) 50 Oxygen Delivery Method Bi-pap Weight: 142 lb 6.698 oz Body Mass Index (BMI) 24.9 Intake & Output: Intake and Output for Last 24 Hours 01/28/22 01/29/22 01/30/22 23:59 23:59 22:59 Intake Total 1999 / 1999 1790 / 2365 1422.5 / 1422.5 Output Total 825 / 1875 3200 / 3600 1200 / 1200 Balance 1175 / 125 -1410 / -1235 222.5 / 222.5 Lab / Micro Data Result Diagrams: 01/30/22 07:10 01/30/22 07:10 Labs: Laboratory Results - last 24 hr 01/29/22 17:22: POC Glucose 190 H 01/29/22 22:32: POC Glucose 177 H 01/30/22 06:08: POC Glucose 80 01/30/22 07:10: WBC 11.6 H, RBC 3.18 L, Hgb 10.4 L, Hct 32.5 L, MCV 102.2 H, MCH 32.7 H, MCHC 32.0, RDW Std Deviation 57.4 H, RDW Coeff of Bettina 15.4 H, Plt Count 123 L, MPV 10.4, Immature Gran % (Auto) 2.400 H, Neut % (Auto) 81.3 H, Lymph % (Auto) 13.8 L, [place] % (Auto) 2.0, Eos % (Auto) 0.2, Baso % (Auto) 0.3, Absolute Neuts (auto) 9.5 H, Absolute Lymphs (auto) 1.60, Nucleated RBC % 0.3 01/30/22 07:10: Sodium 142, Potassium 3.7, Chloride 104, Carbon Dioxide 31.0, Anion Gap 7, BUN 13, Creatinine 0.30 L, Estim Creat Clear Calc 142.96, Est GFR (MDRD) Af Amer 290, Est GFR (MDRD) Non-Af 240, BUN/Creatinine Ratio 43.6 H, Glucose 95, Calcium 8.6, Total Bilirubin 0.50, AST 43 H, ALT 43, Alkaline Phosphatase 174 H, Total Protein 5.5 L, Albumin 1.8 L, Globulin 3.7, Albumin/Globulin Ratio 0.5 L 01/30/22 11:02: POC Glucose 162 H Micro: Microbiology 01/27/22 09:05 Blood Culture (Wb) #2 - Anticubital Right Blood Culture - Preliminary No growth in 48 hours. 01/27/22 08:45 Blood Culture (Wb) - Left Forearm Blood Culture - Preliminary No growth in 48 hours. 01/27/22 16:30 Interface Orders Legionella Antigen - Final 01/27/22 16:30 Interface Orders Streptococcus pneumoniae Antigen (M - Final 01/27/22 13:25 Mucosa - Nasopharyngeal Respiratory Panel (PCR) - Final 01/27/22 08:30 Nasal Secretion SARS-CoV-2 & FLU Antigen (Rapid) - Final SARS-CoV-2 (COVID 19) Physical Exam Narrative Seen and examined. Physical exam General: Awake but disoriented, agitated, states seeing double things in TV. Seems in withdrawal after antipsychotic medications were decreased/held HEENT: Atraumatic, PERRLA, EOMI, Normocephalic Oral: No Gingival or Mucosal Lesions/ Ulcerations Neck: Supple, No JVD, Negative Carotid Bruits Lungs: Air entry diminished in bilateral lung bases. Bilateral coarse rhonchi. On Airvo. Labored breathing and tachypnea Cardiovascular: Sinus tachycardia, Normal S1, Normal S2, No murmurs Abdomen: Bowel Sounds Present, Soft, Non Tender, Non-Distended : No renal angle tenderness. No suprapubic tenderness. Extremities: LLE swollen generalized, tender, indurated. No pitting ankle edema, Capillary Refill Less than 3 Seconds Skin: Mild redness left lower extremity from DVT. Musculoskeletal: LLE tender. Generalized muscle atrophy of lower extremities. Could not stand up or walk on its own. Neurological: Cranial nerves II-XII grossly intact, DTR 2+/4, muscle strength 3/5 at multiple joints of lower extremity. No focal acute neurological finding. Psych/Mental Status: Hyperactive, restless, sensory Assessment & Plan Assessment/Plan (1) Pneumonia due to COVID-19 virus: (2) Acute respiratory failure with hypoxia: (3) Acute DVT (deep venous thrombosis): PLAN: Plan This is 66-year-old female is being admitted for shortness of breath, dyspnea at rest, severe hypoxia clinical and radiological finding of bilateral pneumonia due to COVID 19. 1. Acute hypoxic respiratory failure due to bilateral COVID-19 pneumonia: When EMS brought him she was on 12 L of oxygen, titrated to 8 L of oxygen in ED. Patient short of breath, dyspnea at rest and labored breathing. Continue oxygen therapy, BiPAP/AVAPS as needed. Patient is DNR CC arrest with no intubation. 01/28: Patient is dyspneic, tachycardic heart rate 140 partnered, febrile temperature 100.8 ?F. BiPAP/AVAPS was ordered to alternate with AIRVO. Discussed with battery builder ON 01/27 on continuation of NIPPV. Discussed with the battery builder and requested consult. I think patient sinus tachycardia is respiratory failure treatment. 01/28: Patient is mildly drowsy lethargic. We will hold antipsychotic/antidepressant medications. Discussed with the charge nurse so that patient is not back on antipsychotic antidepressant resumed during assistant casino shift manager 01/29: Patient more labored breathing on air Vo therefore patient was put on BiPAP. Continue rest of medications for COVID 2. Bilateral COVID-19 pneumonia: Patient is started on dexamethasone 6 mg daily. Remdesivir if liver chemistry is in acceptable range. Patient has inflammatory markers elevated including troponin, lactic acid, BNP and D-dimer. D-dimer is high more than 20. Rapid COVID antigen positive in ED. Blood cultures x2 and respiratory panel sent in the ED. Urinary antigens ordered. 01/28: CRP is high. Inflammatory markers are elevated. High CRP, procalcitonin 0.22. Lactic acid 2.6. Urinary antigens are negative. Respiratory panel negative. Patient seen by ID. Baricitinib is started with high requirement of oxygen. 01/29: On triple regimen, dexamethasone, remdesivir and baricitinib. Acute withdrawal syndrome/psychosis after holding and decreasing antipsychotic/antidepressant medications: As patient was lethargic sleepy, antidepressant Prozac and clonazepam were held after discussion with battery builder. Patient as per nursing staff slept well. In the morning she is hyperactive restless, tachypneic seems maniac. I had detailed discussion with patient's power of mysql database administrator of health her sister near the patient room. Patient was put back on clonazepam 0.5 mg daily but will handle the night dose. Started onProzac 40 mg daily AM. Continue trazodone as ordered. I told the reason for decreasing the dose as patient was sleepy and lethargic and she might go on hypopnea/apnea/respiratory arrest on high doses of antipsychotic and had to decrease in medication especially when she has acute hypoxic respiratory failure due to COVID-19 pneumonia and she is agreeable and understood it. CT head without contrast ordered to rule out ICH. 3. Left lower extremity DVT: Patient is started on Lovenox 1 mg/kg body weight. Patient has multiple thrombogenic conditions including lung cancer with mets to brain but also high risk of bleeding due to radiotherapy in the brain. This was explained to patient's sister who is power of mysql database administrator for [facility] and she is agreeable for starting anticoagulant Lovenox. At this time, CTPA will be futile as management will not change. 01/28: Patient maintaining hemoglobin 10.3, platelet count 93 on therapeutic dose of Lovenox 01/29: H&H 9.9/31%. Platelet count 88%. Continue therapeutic dose of Lovenox. 01/30: H&H 10.4/32%. Platelet count 123,000. H&H and platelet count improved 4. Diabetes mellitus type 2 with hyperglycemia: Hypoglycemia was noted by EMS. Hold scheduled long-acting and Premeal insulin. Continue Accu-Chek before meals and at bedtime and cover with Humalog sliding scale. Most recent glucose is 104. 01/28: Glucose is on lower side. Patient is started on D5 half NS for nutritional supplement. 5. Metastatic NSCLC: Patient has history of lung cancer with mets to brain diagnosed August 2021. She had 1 chemotherapy infusion but had toxic effect therefore was discontinued further. She had recent radiotherapy to brain 6. Recent admission for sepsis secondary to E. coli bacteremia probably from UTI/pneumonia in November 2021. At that time urine and blood culture was positive of E. coli. She was treated adequately inpatient and discharged on antibiotic. 7. Anemia of chronic disease: Patient has chronic macrocytic anemia. 8. Multiple other comorbidities including no functional status, patient did not stand up or ambulate wrist since last discharge in November 2021, GERD, anxiety and depression, chronic urinary continence: This was discussed with the patient's daughter with poor prognosis. Home medication reconciliation done. Total time of the visit including total time spent in counseling or coordination of care, (more than 50% of the total time, spent in obtaining medical information from nurses and other ancillary care providers,explaining to the patient about labs, imaging, diagnosis and management of active complex medical conditions), discussion with ID and battery builder, clinical update given to patient's sister power of mysql database administrator for health review of labs and imaging is 45 minutes. Living will/advanced directive/end of life care: Patient does have living will or advanced directive. His sister is power of mysql database administrator for health. After discussion of benefits/risks procedures involved with full code, DNR CC arrest and DNR CC, the patient and POA opted for DNRCC arrest with no intubation Patient and her POA do not want artificial life support including intubation, tube feed, ventilator and/chest compression, central venous catheter, vasopressor and DC shock if needed Microbiology Past 72 Hours Microbiology Past 72 Hours 01/27/22 09:05 Blood Culture (Wb) #2 - Anticubital Right Blood Culture - Preliminary No growth in 48 hours. 01/27/22 08:45 Blood Culture (Wb) - Left Forearm Blood Culture - Preliminary No growth in 48 hours. 01/27/22 16:30 Interface Orders Legionella Antigen - Final 01/27/22 16:30 Interface Orders Streptococcus pneumoniae Antigen (M - Final 01/27/22 13:25 Mucosa - Nasopharyngeal Respiratory Panel (PCR) - Final Laboratory Results 01/29/22 17:22: POC Glucose 190 H 01/29/22 22:32: POC Glucose 177 H 01/30/22 06:08: POC Glucose 80 01/30/22 07:10: WBC 11.6 H, RBC 3.18 L, Hgb 10.4 L, Hct 32.5 L, MCV 102.2 H, MCH 32.7 H, MCHC 32.0, RDW Std Deviation 57.4 H, RDW Coeff of Bettina 15.4 H, Plt Count 123 L, MPV 10.4, Immature Gran % (Auto) 2.400 H, Neut % (Auto) 81.3 H, Lymph % (Auto) 13.8 L, [place]y % (Auto) 2.0, Eos % (Auto) 0.2, Baso % (Auto) 0.3, Absolute Neuts (auto) 9.5 H, Absolute Lymphs (auto) 1.60, Nucleated RBC % 0.3 01/30/22 07:10: Sodium 142, Potassium 3.7, Chloride 104, Carbon Dioxide 31.0, Anion Gap 7, BUN 13, Creatinine 0.30 L, Estim Creat Clear Calc 142.96, Est GFR (MDRD) Af Amer 290, Est GFR (MDRD) Non-Af 240, BUN/Creatinine Ratio 43.6 H, Glucose 95, Calcium 8.6, Total Bilirubin 0.50, AST 43 H, ALT 43, Alkaline Phosphatase 174 H, Total Protein 5.5 L, Albumin 1.8 L, Globulin 3.7, Albumin/Globulin Ratio 0.5 L 01/30/22 11:02: POC Glucose 162 H Clinical Impression(s) from Imaging Studies Chest X-Ray 01/27/22 08:17 IMPRESSION: Bilateral pulmonary infiltrates in keeping with bilateral patchy pneumonias. Electronically Signed: Ken Peacock MD at 8:41 EDT , Venous Doppler Study 01/27/22 08:21 Interpretation Summary Acute deep venous thrombosis left common femoral, femoral, popliteal, tibioperoneal trunk, gastrocnemius, posterior tibial, and peroneal veins. Patent and compressible bilateral great saphenous veins Abbreviated COVID-19 protocol utilized _ Charges/Coding Visit Charges Inpatient E&M: 79812 Subs Hosp L3
[2022-01-30] MEDS: FLUoxetine 20 MG Capsule 40 MG PO (13:18)
[2022-01-30] MEDS: clonazePAM 0.5 MG Tablet PO (13:18)
[2022-01-30 17:15] LABS: Bedside Glucose 311 mg/dL (74-106)
[2022-01-30] MEDS: traZODone 50 MG Tablet PO (22:10)
[2022-01-30 23:05] LABS: Bedside Glucose 222 mg/dL (74-106)
[2022-01-31] VITALS (19 sets, daily range): BP systolic 97–136; BP diastolic 71–91; PULSE 90–116; RESP 12–24; TEMP 36.3–37; O2SAT 90–99
[2022-01-31 06:40] LABS: Bedside Glucose 95 mg/dL (74-106)
[2022-01-31 08:00] LABS: Absolute Lymphocyte Count 1.52 X10^3/uL (0.83-4.51); Absolute Neutrophil Count 8.9 X10^3/uL (2.0-7.7); Basophil# 0.03 X10^3/uL; Basophil% 0.3 % (0-1); Eosinophil# 0.02 X10^3/uL; Eosinophils% 0.2 % (0-5); Hematocrit 31.1 % (37-47); Hemoglobin 9.8 g/dL (12.0-15.0); Lymphocyte # 1.52 X10^3/ul (0.83-4.51); Lymphocyte % 13.9 % (19-41); Mean Corp Hgb Conc 31.5 g/dL (32-36); Mean Corpuscular Hgb 31.7 pg (27.0-32.0); Mean Corpuscular Volume 100.6 fL (81-99); Mean Platelet Vol. 10.5 fl (6.2-12.0); Monocyte% 1.8 % (0-10); NRBC Flagged by Analyzer 0 % (0-5); Neutrophil # 8.94 X10^3/uL (2.7-7.7); Neutrophil % 81.6 % (47-70); Platelet Count 141 K/mm3 (150-450); RBC Distribution Width CV 15.2 % (11.6-14.6); RBC Distribution Width SD 56.5 fl (35.1-43.9); Red Blood Count 3.09 M/mm3 (4.2-5.4)
[2022-01-31 09:20] LABS: ALB/GLOB Ratio 0.5 RATIO (0.9-2.4); AST(SGOT) 40 U/L (15-37); Alanine Aminotransfer ALT/SGPT 43 U/L (13-56); Albumin, Serum 1.8 g/dL (3.2-5.0); Alkaline Phosphatase 184 U/L (45-117); Anion Gap 7 (5-15); BUN 12 mg/dL (7-18); BUN/Creat Ratio 63.5 RATIO (10-20); Calcium,Total 8.5 mg/dL (8.5-10.1); Chloride 105 mmol/L (98-107); Creatinine, Serum 0.19 mg/dL (0.55-1.02); EST Glomerular Filtration Rate 405 mL/min (>60); Est Glom Filt Rate - Afr Amer 490 mL/min (>60); Estimated Creatinine Clearance 225.72 ml/min; Globulin 3.9 g/dL (2.2-4.2); Glucose 94 mg/dL (74-106); Protein, Total 5.7 g/dL (6.4-8.2); Sodium Level 138 mmol/L (136-145)
[2022-01-31] MEDS: Menthol/Lanolin/Calamine/Znox 113 GM Tube 1 APPLIC TOPICAL ×2 (09:50→22:04)
[2022-01-31] MEDS: Acetaminophen 325 MG Tablet 650 MG PO (10:05)
[2022-01-31] MEDS: dexAMETHasone 4 MG Tablet 6 MG PO (10:07)
[2022-01-31] MEDS: Folic Acid 1 MG Tablet 0.5 MG PO (10:10)
[2022-01-31] MEDS: levETIRAcetam 500 MG Tablet PO ×2 (10:11→22:03)
[2022-01-31] MEDS: clonazePAM 0.5 MG Tablet PO (10:13)
[2022-01-31] MEDS: FLUoxetine 20 MG Capsule 40 MG PO (10:14)
[2022-01-31] MEDS: Cholecalciferol (Vit D3) 125 MCG CAPSULE (5,000 UNITS) PO (10:15)
[2022-01-31] MEDS: Enoxaparin 60 MG/0.6 ML Syringe SC ×2 (10:15→22:03)
[2022-01-31] MEDS: Pantoprazole Sodium 40 MG Tablet PO (10:15)
[2022-01-31] MEDS: buPROPion (XL) 150 MG TABLET.XL PO (10:15)
[2022-01-31] MEDS: Oxybutynin 5 MG Tablet PO (11:23)
--- NOTE | 2022-01-31 11:38 | PCM.PN.INT ---
Assessment & Plan Assessment/Plan (1) Acute respiratory failure with hypoxia: (2) COVID: PLAN: Plan RECOMMENDATIONS: 1. Continue heated high flow oxygen and wean FiO2 for saturations greater than 90%. 2. Continue therapeutic Lovenox as ordered. 3. Continue remdesivir (01/31/22), Decadron (02/07/2022) and baricitinib (02/10/2022) as ordered. 4. Continue to encourage bronchopulmonary hygiene with PEP and incentive spirometer. IMPRESSIONS: 1. Acute hypoxemic respiratory failure secondary to COVID-19 pneumonia The patient has a known history of metastatic non-small cell lung cancer and presented from a nursing facility after testing positive for COVID-19. Her hospital course has been complicated by progressive shortness of breath and hypoxemia, along with a newly diagnosed lower extremity DVT. Her CODE STATUS was confirmed to be DNR CCA without intubation. At the present time, recommend continuing current supportive care including heated high flow oxygen, along with remdesivir, Decadron and baricitinib as ordered. Continue to wean supplemental oxygen as tolerated. Would continue with BiPAP with sleep to help with recruitment given poor cough 2.??History of metastatic non-small cell lung cancer The patient has apparently completed radiation and systemic chemotherapy treatment. Recommend continuing Keppra per home regimen. 3.??Anemia Continue to monitor H&H daily.? Transfuse if hemoglobin drops below 7 g/dL.? The patient is already on PPI therapy. 4.??Diabetes mellitus/depression/anxiety/GERD Complicates care, management, recovery and prognosis.? Recommend holding sedating home medications. This note was generated with [employer] dictation software. It may contain incorrect words, spelling, and punctuation that were not noted in checking the note before signing. Subjective Subjective Patient overall feels subjectively worse compared to yesterday. Patient states her oxygen has improved, but she continues to feel significant aching in her legs. Patient states that she attempts to rub them to make them feel better. Patient does not have a history of previous similar pains per her report. Objective Data Objective Data Vital Signs: Vital Signs Temp Pulse Resp BP Pulse Ox O2 Del Method O2 Flow Rate 36.3 C L 115 H 23 H 107/84 H 90 Bi-pap 50 01/31/22 09:19 01/31/22 11:09 01/31/22 09:19 01/31/22 09:19 01/31/22 09:19 01/31/22 09:37 01/30/22 17:00 FiO2 40 01/31/22 07:58 Oxygen Flow Rate (L/min) 50 Oxygen Delivery Method Bi-pap Weight: 61.9 kg Body Mass Index (BMI) 24.9 Intake & Output: Intake and Output for Last 24 Hours 01/30/22 01/30/22 01/31/22 00:59 23:59 23:59 Intake Total Output Total 1000 / 1000 Balance -1000 / -1000 Lab / Micro Data Attestation: I reviewed the patient's lab results. Result Diagrams: 01/31/22 07:22 01/31/22 07:22 Labs: Laboratory Results - last 24 hr 01/30/22 16:16: POC Glucose 311 H 01/30/22 22:12: POC Glucose 222 H 01/31/22 06:17: POC Glucose 95 01/31/22 07:22: WBC 11.0, RBC 3.09 L, Hgb 9.8 L, Hct 31.1 L, MCV 100.6 H, MCH 31.7, MCHC 31.5 L, RDW Std Deviation 56.5 H, RDW Coeff of Bettina 15.2 H, Plt Count 141 L, MPV 10.5, Immature Gran % (Auto) 2.200 H, Neut % (Auto) 81.6 H, Lymph % (Auto) 13.9 L, [place] % (Auto) 1.8, Eos % (Auto) 0.2, Baso % (Auto) 0.3, Absolute Neuts (auto) 8.9 H, Absolute Lymphs (auto) 1.52, Nucleated RBC % 0 01/31/22 07:22: Sodium 138, Potassium 4.0, Chloride 105, Carbon Dioxide 26.0, Anion Gap 7, BUN 12, Creatinine 0.19 L, Estim Creat Clear Calc 225.72, Est GFR (MDRD) Af Amer 490, Est GFR (MDRD) Non-Af 405, BUN/Creatinine Ratio 63.5 H, Glucose 94, Calcium 8.5, Total Bilirubin 0.40, AST 40 H, ALT 43, Alkaline Phosphatase 184 H, Total Protein 5.7 L, Albumin 1.8 L, Globulin 3.9, Albumin/Globulin Ratio 0.5 L Micro: Microbiology 01/27/22 09:05 Blood Culture (Wb) #2 - Anticubital Right Blood Culture - Preliminary No growth in 48 hours. 01/27/22 08:45 Blood Culture (Wb) - Left Forearm Blood Culture - Preliminary No growth in 48 hours. 01/27/22 16:30 Interface Orders Legionella Antigen - Final 01/27/22 16:30 Interface Orders Streptococcus pneumoniae Antigen (M - Final 01/27/22 13:25 Mucosa - Nasopharyngeal Respiratory Panel (PCR) - Final 01/27/22 08:30 Nasal Secretion SARS-CoV-2 & FLU Antigen (Rapid) - Final SARS-CoV-2 (COVID 19) Radiography Diagnostic Testing: Radiology Impression Brain CT 01/30/22 12:20 IMPRESSION: Chronic involutional changes of the brain. Small vessel ischemia. Electronically Signed: Doris Shook MD at 16:02 EST , Physical Exam Const alert Constitutional Narrative: Intermittently confused. Poor cough. Patient on high flow nasal cannula at 10 L/min during my evaluation General Appearance: ill appearing HEENT normocephalic and head/scalp atraumatic Eyes PERRL and EOMs intact bilaterally Neck supple General: trachea midline Chest Chest: abnormal inspection of the chest increased A-P diameter Resp Resp Narrative: Frequent episodes of coughing with relatively poor effort. Effort and Inspection: labored, actively coughing non-productive and prolonged expiratory phase; Negative for uses accessory muscles Auscultation: wheezes and diminished lung sounds; Negative for rales or rhonchi Cardio regular rate, regular rhythm, S1 normal heart sound, S2 normal heart sound, no murmurs and no rub Rate: tachycardic GI normal to inspection, nondistended, normoactive bowel sounds Extremity no clubbing, cyanosis or edema Skin no rashes or lesions noted Neuro moves all extremities and no focal motor deficits Psych cooperative Activity / Motor Behavior: restless Charges/Coding Visit Charges Inpatient E&M: 64893 Subs Hosp L3
[2022-01-31] MEDS: 0.9% Saline Lock 10 ML Syringe IV (14:12)
--- NOTE | 2022-01-31 14:12 | PCM.PN.ID ---
Physical Exam Narrative No fever, no n/v/d. Breathing a little better. Const alert and no apparent distress Resp Auscultation: diminished lung sounds Cardio regular rate and regular rhythm GI soft to palpation, non-tender and non-distended Skin no rashes or lesions noted ID ID: Route of nutrition/ use of supplements: [] Nutritional Intake: [] IV Site: [] Garcia Catheter: [] Assessment & Plan Assessment/Plan (1) COVID: PLAN: severe covid with metastatic lung cancer - Completed remdesivir. On dex, baricitinib. Will follow (2) Hypoxia: (3) Lung cancer metastatic to brain:
[2022-01-31] MEDS: oxyCODONE 5 MG Tablet PO ×2 (14:25→22:03)
[2022-01-31] MEDS: Insulin Lispro 100 UNIT/ML INSULN.PEN SC ×2 (16:37→22:04)
[2022-01-31 17:00] LABS: Bedside Glucose 317 mg/dL (74-106)
[2022-01-31 17:00] LABS: Bedside Glucose 136 mg/dL (74-106)
--- NOTE | 2022-01-31 20:13 | PCM.PN.HOSP ---
Subjective Subjective Patient was seen and examined today, earlier today she was on nasal cannula oxygen and appeared comfortable. Patient does not complain of any fevers or chills, she has no complaints of any chest discomfort. Patient does not appear anxious or agitated at this time. Nursing states that the patient has been fidgety at times today. Objective Data Objective Data Vital Signs: Vital Signs Temp Pulse Resp BP Pulse Ox O2 Del Method O2 Flow Rate 97.4 F L 103 H 16 97/71 95 Bi-pap 10 01/31/22 16:29 01/31/22 19:13 01/31/22 16:29 01/31/22 16:29 01/31/22 16:29 01/31/22 16:29 01/31/22 13:31 FiO2 40 01/31/22 07:58 Oxygen Flow Rate (L/min) 10 Oxygen Delivery Method Bi-pap Weight: 61.9 kg Body Mass Index (BMI) 24.9 Intake & Output: Intake and Output for Last 24 Hours 01/30/22 01/30/22 01/31/22 00:59 23:59 23:59 Intake Total 730 / 730 Output Total 1200 / 1200 Balance -470 / -470 Lab / Micro Data Result Diagrams: 02/01/22 07:00 02/01/22 07:00 Labs: Laboratory Results - last 24 hr 01/30/22 22:12: POC Glucose 222 H 01/31/22 06:17: POC Glucose 95 01/31/22 07:22: WBC 11.0, RBC 3.09 L, Hgb 9.8 L, Hct 31.1 L, MCV 100.6 H, MCH 31.7, MCHC 31.5 L, RDW Std Deviation 56.5 H, RDW Coeff of Bettina 15.2 H, Plt Count 141 L, MPV 10.5, Immature Gran % (Auto) 2.200 H, Neut % (Auto) 81.6 H, Lymph % (Auto) 13.9 L, [place] % (Auto) 1.8, Eos % (Auto) 0.2, Baso % (Auto) 0.3, Absolute Neuts (auto) 8.9 H, Absolute Lymphs (auto) 1.52, Nucleated RBC % 0 01/31/22 07:22: Sodium 138, Potassium 4.0, Chloride 105, Carbon Dioxide 26.0, Anion Gap 7, BUN 12, Creatinine 0.19 L, Estim Creat Clear Calc 225.72, Est GFR (MDRD) Af Amer 490, Est GFR (MDRD) Non-Af 405, BUN/Creatinine Ratio 63.5 H, Glucose 94, Calcium 8.5, Total Bilirubin 0.40, AST 40 H, ALT 43, Alkaline Phosphatase 184 H, Total Protein 5.7 L, Albumin 1.8 L, Globulin 3.9, Albumin/Globulin Ratio 0.5 L 01/31/22 11:29: POC Glucose 136 H 01/31/22 16:37: POC Glucose 317 H Micro: Microbiology 01/27/22 09:05 Blood Culture (Wb) #2 - Anticubital Right Blood Culture - Preliminary No growth in 48 hours. 01/27/22 08:45 Blood Culture (Wb) - Left Forearm Blood Culture - Preliminary No growth in 48 hours. 01/27/22 16:30 Interface Orders Legionella Antigen - Final 01/27/22 16:30 Interface Orders Streptococcus pneumoniae Antigen (M - Final 01/27/22 13:25 Mucosa - Nasopharyngeal Respiratory Panel (PCR) - Final 01/27/22 08:30 Nasal Secretion SARS-CoV-2 & FLU Antigen (Rapid) - Final SARS-CoV-2 (COVID 19) Physical Exam Const no apparent distress Constitutional Narrative: Patient appears older than her stated age, she appears somewhat somnolent during the time my examination General Appearance: cooperative, well kempt and well developed Orientation / Consciousness: oriented to person and oriented to place HEENT normocephalic, head/scalp atraumatic and moist oral mucous membranes Eyes PERRL, EOMs intact bilaterally and conjunctivae normal Neck supple, no JVD, thyroid normal and no carotid bruits General: trachea midline Resp normal respiratory effort, no retractions, no use of accessory muscles and clear to auscultation bilaterally Auscultation: Negative for rales, rhonchi or wheezes Cardio regular rate, regular rhythm, S1 normal heart sound, S2 normal heart sound, no murmurs, no rub and no gallops GI normal to inspection, nondistended, normoactive bowel sounds, soft to palpation, non-tender and non-distended Extremity no clubbing, cyanosis or edema Skin no rashes or lesions noted General Skin Exam: no breakdown Neuro oriented x3, CN's II-XII intact bilaterally, moves all extremities, no focal motor deficits and no sensory deficits noted Neuro Narrative: Patient appears somnolent but awakens to verbal or tactile stimulation and gives appropriate answers to questions Speech: speech normal Psych Psych Narrative: Patient appears somnolent at the time my examination Assessment & Plan Assessment/Plan (1) COVID: PLAN: Plan 1. Acute hypoxic respiratory failure secondary to COVID-19 pneumonia-pulmonary medicine is participating in her care, patient will remain on her current medications-remdesivir, Decadron, and baricitinib. Oxygen will be weaned if possible #2 type 2 diabetes-blood sugars will be monitored, sliding scale insulin will be administered if necessary #3 chronic obstructive pulmonary disease-complicates care, management, recovery, and prognosis, pulmonary medicine is precipitating in her care #4 metastatic non-small cell lung cancer to the brain-complicates care, management, recovery, and prognosis #5 chronic anxiety--patient is on Klonopin #6 DVT left lower extremity-patient is fully anticoagulated at this time Charges/Coding Visit Charges Inpatient E&M: 41005 Subs Hosp L2
[2022-01-31] MEDS: traZODone 50 MG Tablet PO (22:03)
[2022-01-31 22:40] LABS: Bedside Glucose 179 mg/dL (74-106)
[2022-02-01] VITALS (18 sets, daily range): BP systolic 112–140; BP diastolic 70–84; PULSE 86–118; RESP 12–23; TEMP 35.8–36.7; O2SAT 60–99
[2022-02-01 07:00] LABS: Bedside Glucose 90 mg/dL (74-106)
[2022-02-01 07:27] LABS: Absolute Lymphocyte Count 1.47 X10^3/uL (0.83-4.51); Absolute Neutrophil Count 8.4 X10^3/uL (2.0-7.7); Basophil# 0.03 X10^3/uL; Basophil% 0.3 % (0-1); Hematocrit 31.6 % (37-47); Lymphocyte # 1.47 X10^3/ul (0.83-4.51); Lymphocyte % 14.1 % (19-41); Mean Corp Hgb Conc 31.6 g/dL (32-36); Mean Corpuscular Hgb 32.1 pg (27.0-32.0); Mean Corpuscular Volume 101.3 fL (81-99); Mean Platelet Vol. 10.3 fl (6.2-12.0); Monocyte# 0.27 X10^3/uL; Monocyte% 2.6 % (0-10); NRBC Flagged by Analyzer 0 % (0-5); Neutrophil # 8.35 X10^3/uL (2.7-7.7); Neutrophil % 80.4 % (47-70); Platelet Count 174 K/mm3 (150-450); RBC Distribution Width SD 56.2 fl (35.1-43.9); Red Blood Count 3.12 M/mm3 (4.2-5.4); White Blood Count 10.4 K/mm3 (4.4-11.0)
[2022-02-01 08:08] LABS: ALB/GLOB Ratio 0.5 RATIO (0.9-2.4); AST(SGOT) 26 U/L (15-37); Alanine Aminotransfer ALT/SGPT 36 U/L (13-56); Albumin, Serum 1.9 g/dL (3.2-5.0); Alkaline Phosphatase 180 U/L (45-117); Anion Gap 5 (5-15); BUN 14 mg/dL (7-18); BUN/Creat Ratio 44.2 RATIO (10-20); Calcium,Total 8.6 mg/dL (8.5-10.1); Chloride 103 mmol/L (98-107); Creatinine, Serum 0.32 mg/dL (0.55-1.02); EST Glomerular Filtration Rate 223 mL/min (>60); Est Glom Filt Rate - Afr Amer 270 mL/min (>60); Estimated Creatinine Clearance 134.02 ml/min; Globulin 3.9 g/dL (2.2-4.2); Glucose 78 mg/dL (74-106); Potassium 3.7 mmol/L (3.5-5.1); Protein, Total 5.8 g/dL (6.4-8.2); Sodium Level 139 mmol/L (136-145)
[2022-02-01] MEDS: oxyCODONE 5 MG Tablet PO ×2 (08:51→14:33)
[2022-02-01] MEDS: Menthol/Lanolin/Calamine/Znox 113 GM Tube 1 APPLIC TOPICAL ×2 (08:53→20:44)
[2022-02-01] MEDS: Enoxaparin 60 MG/0.6 ML Syringe SC ×2 (08:54→20:44)
[2022-02-01] MEDS: levETIRAcetam 500 MG Tablet PO ×2 (08:54→20:43)
[2022-02-01] MEDS: Cholecalciferol (Vit D3) 125 MCG CAPSULE (5,000 UNITS) PO (08:55)
[2022-02-01] MEDS: FLUoxetine 20 MG Capsule 40 MG PO (08:55)
[2022-02-01] MEDS: Oxybutynin 5 MG Tablet PO (08:58)
[2022-02-01] MEDS: dexAMETHasone 4 MG Tablet 6 MG PO (08:59)
[2022-02-01] MEDS: Folic Acid 1 MG Tablet 0.5 MG PO (09:00)
[2022-02-01] MEDS: Pantoprazole Sodium 40 MG Tablet PO (09:02)
[2022-02-01] MEDS: buPROPion (XL) 150 MG TABLET.XL PO (09:02)
[2022-02-01] MEDS: clonazePAM 0.5 MG Tablet PO ×3 (09:12→20:43)
--- NOTE | 2022-02-01 13:40 | PN.CC_ITS ---
Assessment & Plan Assessment/Plan (1) Acute respiratory failure with hypoxia: (2) COVID: PLAN: Plan RECOMMENDATIONS: 1. Continue low flow oxygen and wean FiO2 for saturations greater than 90%. 2. Continue therapeutic Lovenox as ordered. 3. Continue remdesivir (01/31/22), Decadron (02/07/2022) and baricitinib (02/10/2022) as ordered. 4. Continue to encourage bronchopulmonary hygiene with PEP and incentive spirometer. 5. Obtain walking oximetry. Possible discharge if able to tolerate 6 L or less with ambulation IMPRESSIONS: 1. Acute hypoxemic respiratory failure secondary to COVID-19 pneumonia The patient has a known history of metastatic non-small cell lung cancer and presented from a nursing facility after testing positive for COVID-19. Her hospital course has been complicated by progressive shortness of breath and hypoxemia, along with a newly diagnosed lower extremity DVT. Her CODE STATUS was confirmed to be DNR CCA without intubation. At the present time, recommend continuing current supportive care including low flow oxygen, along with remdesivir, Decadron and baricitinib as ordered. No indication for change in therapy from a laboratory standpoint. Continue to wean supplemental oxygen as tolerated. Would continue with BiPAP with sleep to help with recruitment given poor cough 2.??History of metastatic non-small cell lung cancer The patient has apparently completed radiation and systemic chemotherapy treatment. Recommend continuing Keppra per home regimen. 3.??Anemia Continue to monitor H&H daily.? Transfuse if hemoglobin drops below 7 g/dL.? The patient is already on PPI therapy. 4.??Diabetes mellitus/depression/anxiety/GERD Complicates care, management, recovery and prognosis.? Recommend holding sedating home medications. This note was generated with [employer] dictation software. It may contain incorrect words, spelling, and punctuation that were not noted in checking the note before signing. Subjective Subjective Patient did okay overnight. No acute issues were reported. Patient was on BiPAP on my evaluation and stated that she had low oxygen. Patient subsequently asked to be moved to nasal cannula and was tolerating 5 L/min saturating in the mid 90s. Patient does report some cough. Patient continues to report lower extremity pain. Patient was asking for something to drink. No abdominal pain or new symptoms were reported. Objective Data Objective Data Vital Signs: Vital Signs Temp Pulse Resp BP Pulse Ox O2 Del Method O2 Flow Rate 36.4 C L 103 H 19 H 112/83 H 96 High Flow 8 02/01/22 08:37 02/01/22 12:43 02/01/22 08:37 02/01/22 08:37 02/01/22 08:37 02/01/22 08:44 02/01/22 08:44 FiO2 40 02/01/22 03:00 Oxygen Flow Rate (L/min) 8 Oxygen Delivery Method High Flow Weight: 61.7 kg Body Mass Index (BMI) 24.9 Intake & Output: Intake and Output for Last 24 Hours 01/30/22 01/31/22 02/01/22 23:59 23:59 23:59 Intake Total 970 / 970 480 / 480 Output Total 1200 / 1200 Balance -230 / -230 480 / 480 Lab / Micro Data Attestation: I reviewed the patient's lab results. Result Diagrams: 02/01/22 07:00 02/01/22 07:00 Labs: Laboratory Results - last 24 hr 01/31/22 11:29: POC Glucose 136 H 01/31/22 16:37: POC Glucose 317 H 01/31/22 22:00: POC Glucose 179 H 02/01/22 06:38: POC Glucose 90 02/01/22 07:00: WBC 10.4, RBC 3.12 L, Hgb 10.0 L, Hct 31.6 L, MCV 101.3 H, MCH 32.1 H, MCHC 31.6 L, RDW Std Deviation 56.2 H, RDW Coeff of Bettina 15.0 H, Plt Count 174, MPV 10.3, Immature Gran % (Auto) 2.600 H, Neut % (Auto) 80.4 H, Lymph % (Auto) 14.1 L, [place] % (Auto) 2.6, Eos % (Auto) 0.0, Baso % (Auto) 0.3, Absolute Neuts (auto) 8.4 H, Absolute Lymphs (auto) 1.47, Nucleated RBC % 0 02/01/22 07:00: Sodium 139, Potassium 3.7, Chloride 103, Carbon Dioxide 31.0, Anion Gap 5, BUN 14, Creatinine 0.32 L, Estim Creat Clear Calc 134.02, Est GFR (MDRD) Af Amer 270, Est GFR (MDRD) Non-Af 223, BUN/Creatinine Ratio 44.2 H, Glucose 78, Calcium 8.6, Total Bilirubin 0.30, AST 26, ALT 36, Alkaline Phosphatase 180 H, Total Protein 5.8 L, Albumin 1.9 L, Globulin 3.9, Albumin/Globulin Ratio 0.5 L Micro: Microbiology 01/27/22 09:05 Blood Culture (Wb) #2 - Anticubital Right Blood Culture - Final No growth in 5 days. 01/27/22 08:45 Blood Culture (Wb) - Left Forearm Blood Culture - Final No growth in 5 days. 01/27/22 16:30 Interface Orders Legionella Antigen - Final 01/27/22 16:30 Interface Orders Streptococcus pneumoniae Antigen (M - Final 01/27/22 13:25 Mucosa - Nasopharyngeal Respiratory Panel (PCR) - Final 01/27/22 08:30 Nasal Secretion SARS-CoV-2 & FLU Antigen (Rapid) - Final SARS-CoV-2 (COVID 19) Physical Exam Const alert Constitutional Narrative: Intermittently confused. Poor cough. Patient on high flow nasal cannula at 5 L/min during my evaluation General Appearance: ill appearing HEENT normocephalic and head/scalp atraumatic Eyes PERRL and EOMs intact bilaterally Neck supple General: trachea midline Chest Chest: abnormal inspection of the chest increased A-P diameter Resp Resp Narrative: Frequent episodes of coughing with relatively poor effort. Effort and Inspection: labored, actively coughing non-productive and prolonged expiratory phase; Negative for uses accessory muscles Auscultation: wheezes and diminished lung sounds; Negative for rales or rhonchi Cardio regular rate, regular rhythm, S1 normal heart sound, S2 normal heart sound, no murmurs and no rub Rate: tachycardic GI normal to inspection, nondistended, normoactive bowel sounds Extremity no clubbing, cyanosis or edema Skin no rashes or lesions noted Neuro moves all extremities and no focal motor deficits Psych cooperative Activity / Motor Behavior: restless Charges/Coding Visit Charges Inpatient E&M: 86058 Subs Hosp L2
--- NOTE | 2022-02-01 14:21 | NURSING ---
Patient continues to take off oxygen and bipap and very frequently push the call light after multiple nurses have instructed her not to the entire morning and afternoon thus far. Patient is alert and oriented but refuses to reapply her own oxygen and will remove it shortly after the nurse leaves the room. This RN spoke with her first thing this am explaining that taking her oxygen off is dangerous given her health process and that it is unacceptable behavior to be taking it off so frequently. Patient states You just want me to , like everyone else.
--- NOTE | 2022-02-01 15:02 | NURSING ---
Patient keeps taking o2 off multiple times throughout the day. O2 sat was down to 77 nurse assisted stayed with patient put back on o2 she was at 100% sat on 3l nc. Nurse left room and went to see other patient . This patient took off her oxygen and desat again to the 80-70s within 2 minutes. nurse had to leave other patient and put o2 back on. Now 100% sat again on 3lnc. This nurse came to nurses station called patients sister since patient was asking about her sister. Patients sister did express that patient has poor short term memory since the cancer. Transferred phone call to patient so she can talk to sister.
[2022-02-01] MEDS: Insulin Lispro 100 UNIT/ML INSULN.PEN SC ×2 (16:22→20:45)
--- NOTE | 2022-02-01 16:48 | NURSING ---
Patient oxygen saturation 42% with good wave form on monitoring and evaluation advisor. This RN called into patient's room as she is on COVID isolation, and asked patient to place oxygen back on, patient stated I can't. I watched the patient take the oxygen off her head and lay it across her lap. Asked patient again to put the oxygen back on and she again stated I can't and then proceeded to state If you don't come in here and help me, I'll just . This RN then went into patient's room and explained that she needed to wear her oxygen and the patient stated to this RN I don't want to this RN told patient that she is currently the one in control of her own michael as she keeps taking her oxygen off. Patient then stated I guess I'll just then creative lead and Primary RN notified.
--- NOTE | 2022-02-01 17:24 | PN.HOSP_ITS ---
Subjective Subjective Patient was seen and examined today, she is continually pulling off her oxygen even though she is directed not to do this. I made the decision to increase her Klonopin today because she was complaining of anxiety. Patient is currently on 3 L of nasal cannula oxygen. Objective Data Objective Data Vital Signs: Vital Signs Temp Pulse Resp BP Pulse Ox O2 Del Method O2 Flow Rate 97.7 F L 110 H 17 113/70 90 High Flow 3 02/01/22 15:46 02/01/22 16:10 02/01/22 15:46 02/01/22 15:46 02/01/22 15:46 02/01/22 15:46 02/01/22 15:46 FiO2 40 02/01/22 03:00 Oxygen Flow Rate (L/min) [At 3 REST with Oxygen] Oxygen Flow Rate (L/min) 3 Oxygen Delivery Method High Flow Weight: 61.7 kg Body Mass Index (BMI) 24.9 Intake & Output: Intake and Output for Last 24 Hours 01/30/22 01/31/22 02/01/22 23:59 23:59 23:59 Intake Total 970 / 970 480 / 480 Output Total 1200 / 1200 Balance -230 / -230 480 / 480 Lab / Micro Data Result Diagrams: 02/01/22 07:00 02/01/22 07:00 Labs: Laboratory Results - last 24 hr 01/31/22 22:00: POC Glucose 179 H 02/01/22 06:38: POC Glucose 90 02/01/22 07:00: WBC 10.4, RBC 3.12 L, Hgb 10.0 L, Hct 31.6 L, MCV 101.3 H, MCH 32.1 H, MCHC 31.6 L, RDW Std Deviation 56.2 H, RDW Coeff of Bettina 15.0 H, Plt Count 174, MPV 10.3, Immature Gran % (Auto) 2.600 H, Neut % (Auto) 80.4 H, Lymph % (Auto) 14.1 L, [place] % (Auto) 2.6, Eos % (Auto) 0.0, Baso % (Auto) 0.3, Absolute Neuts (auto) 8.4 H, Absolute Lymphs (auto) 1.47, Nucleated RBC % 0 02/01/22 07:00: Sodium 139, Potassium 3.7, Chloride 103, Carbon Dioxide 31.0, Anion Gap 5, BUN 14, Creatinine 0.32 L, Estim Creat Clear Calc 134.02, Est GFR (MDRD) Af Amer 270, Est GFR (MDRD) Non-Af 223, BUN/Creatinine Ratio 44.2 H, Glucose 78, Calcium 8.6, Total Bilirubin 0.30, AST 26, ALT 36, Alkaline Phosphatase 180 H, Total Protein 5.8 L, Albumin 1.9 L, Globulin 3.9, Albumin/Globulin Ratio 0.5 L Micro: Microbiology 01/27/22 09:05 Blood Culture (Wb) #2 - Anticubital Right Blood Culture - Final No growth in 5 days. 01/27/22 08:45 Blood Culture (Wb) - Left Forearm Blood Culture - Final No growth in 5 days. 01/27/22 16:30 Interface Orders Legionella Antigen - Final 01/27/22 16:30 Interface Orders Streptococcus pneumoniae Antigen (M - Final 01/27/22 13:25 Mucosa - Nasopharyngeal Respiratory Panel (PCR) - Final 01/27/22 08:30 Nasal Secretion SARS-CoV-2 & FLU Antigen (Rapid) - Final SARS-CoV-2 (COVID 19) Physical Exam Const alert Constitutional Narrative: Patient appears anxious and fidgety, she appears mildly confused General Appearance: cooperative, well kempt and well developed Orientation / Consciousness: awake HEENT normocephalic, head/scalp atraumatic and moist oral mucous membranes Eyes PERRL, EOMs intact bilaterally and conjunctivae normal Neck supple, no JVD, thyroid normal and no carotid bruits General: trachea midline Resp normal respiratory effort, no retractions, no use of accessory muscles and clear to auscultation bilaterally Auscultation: Negative for rales, rhonchi or wheezes Cardio regular rate, regular rhythm, S1 normal heart sound, S2 normal heart sound, no murmurs, no rub and no gallops GI normal to inspection, nondistended, normoactive bowel sounds, soft to palpation, non-tender and non-distended Extremity no clubbing, cyanosis or edema Skin no rashes or lesions noted General Skin Exam: no breakdown Neuro CN's II-XII intact bilaterally, no focal motor deficits and no sensory deficits noted Sensorium / Orientation: awake and alert Psych Psych Narrative: Patient exhibits some mild confusion, she does answer simple questions appropriately however Assessment & Plan Assessment/Plan (1) Hypoxia: (2) COVID: PLAN: Plan 1. Acute hypoxic respiratory failure secondary to COVID-19 pneumonia-pulmonary medicine is participating in her care, patient will remain on her current medications-remdesivir, Decadron, and baricitinib. Oxygen will be weaned if p ossible, patient continually pulls off oxygen despite redirection from nursing, I have decided to place her on Seroquel and reduce her Klonopin. #2 type 2 diabetes-blood sugars will be monitored, sliding scale insulin will be administered if necessary #3 chronic obstructive pulmonary disease-complicates care, management, recovery, and prognosis, pulmonary medicine is precipitating in her care #4 metastatic non-small cell lung cancer to the brain-complicates care, management, recovery, and prognosis #5 chronic anxiety--patient is on Klonopin-I have reduced her Klonopin to twice daily due to my addition of Seroquel to patient's medications. #6 DVT left lower extremity-patient is fully anticoagulated at this time #7 metabolic encephalopathy-possibly secondary to brain metastases from lung cancer with an overlying of chronic anxiety disorder-complicates care, recovery, management, and prognosis. Charges/Coding Visit Charges Inpatient E&M: 98824 Subs Hosp L2
[2022-02-01] MEDS: QUEtiapine 25 MG Tablet PO (18:02)
[2022-02-01] MEDS: traZODone 50 MG Tablet PO (20:44)
[2022-02-01] MEDS: 0.9% Saline Lock 10 ML Syringe IV (20:44)
[2022-02-01 21:21] LABS: Bedside Glucose 246 mg/dL (74-106)
[2022-02-01 21:21] LABS: Bedside Glucose 380 mg/dL (74-106)
[2022-02-01 21:21] LABS: Bedside Glucose 125 mg/dL (74-106)
--- NOTE | 2022-02-01 23:58 | NURSING ---
Pt takes bipap off 02 sats drop . 84%. Pt remind to call before she takes it off. Then when leaving the room. Pt removed again. Pt informed not to remove
[2022-02-02] VITALS (20 sets, daily range): BP systolic 105–129; BP diastolic 66–87; PULSE 99–116; RESP 12–22; TEMP 36.4–37.1; O2SAT 66–98
--- NOTE | 2022-02-02 00:18 | NURSING ---
Pt took bipap off again. 02 appilied at 3lnc. tubing taped to face. Water given
--- NOTE | 2022-02-02 02:33 | NURSING ---
Pt continues to pull off her 02. 02 sats drops into 80S. Pt expressed she is tired of us and would like to go back to [facility]. Pt said she is tried of nursing staff yelling at her to keep 02 on. Expressed to pt that we can not be in here and she may take it out and she may end up in distress. Pt then ask for rootbeer. This nurse continued to tell her to keep the 02 on to prevent her getting into distress. Pt made aware her 02 demands have increased from 3lnc to 5lnc. Pt closed her eyes and ignored me.
--- NOTE | 2022-02-02 03:36 | NURSING ---
Pt keeps [id number] 02 off. Pt placed back on bipap. Pt keeps taking 02 off. Pt keeps telling nurse i dont want to . Inform pt to leave 02 on.
--- NOTE | 2022-02-02 03:52 | NURSING ---
resp paged because pt keeps taking bipap. resp turn pt to 30 fi02 and she is only po 85%. Resp notified
--- NOTE | 2022-02-02 04:08 | NURSING ---
Pt continues to take bipap or nasal cannula off. then yells i dont want to . dr coats notified ativan ordered.
[2022-02-02] MEDS: LORazepam 2 MG/ML Syringe 0.5 MG IV ×2 (04:19→23:28)
[2022-02-02] MEDS: 0.9% Saline Lock 10 ML Syringe IV ×2 (04:20→21:38)
--- NOTE | 2022-02-02 04:36 | NURSING ---
this nurse has to sit in room to keep her 02 on.
--- NOTE | 2022-02-02 05:02 | NURSING ---
this nurse continues to sit w pt to keep 02 on
--- NOTE | 2022-02-02 06:04 | NURSING ---
Coating Mixer Tender charting reviewed and agree
[2022-02-02 06:48] LABS: Hematocrit 32.6 % (37-47); Hemoglobin 10.3 g/dL (12.0-15.0); Mean Corp Hgb Conc 31.6 g/dL (32-36); Mean Corpuscular Hgb 31.5 pg (27.0-32.0); Mean Corpuscular Volume 99.7 fL (81-99); Mean Platelet Vol. 9.9 fl (6.2-12.0); POSITIVE COUNT YES; POSITIVE MORPHOLOGY YES; Platelet Count 212 K/mm3 (150-450); RBC Distribution Width SD 55.1 fl (35.1-43.9); Red Blood Count 3.27 M/mm3 (4.2-5.4); White Blood Count 11.7 K/mm3 (4.4-11.0)
[2022-02-02 06:51] LABS: Differential Indicated MANUAL DIFF
[2022-02-02 07:08] LABS: Lymphocyte 8 % (19-41); Metamyelocyte 1 % (0-1); Monocyte 4 % (0-10); Myelocyte 1 % (0-0); Neutrophil-Band 2 % (0-5); Neutrophil-Segmented 83 % (47-70); Platelet Estimate ADEQUATE (ADEQ); Promyelocyte 1 % (0-0); Total Cells Counted 100 (MANUAL DIFF)
[2022-02-02 07:09] LABS: Absolute Neutrophil Count 9.9 X10^3/uL (2.0-7.7); Neutrophil # 9.91 X10^3/uL (2.7-7.7); Red Cell Morphology NORM C+C NORMAL (NORM C&C)
[2022-02-02 07:10] LABS: Absolute Lymphocyte Count 0.93 X10^3/uL (0.83-4.51); Lymphocyte # 0.93 X10^3/ul (0.83-4.51)
[2022-02-02 07:13] LABS: ALB/GLOB Ratio 0.5 RATIO (0.9-2.4); AST(SGOT) 23 U/L (15-37); Alanine Aminotransfer ALT/SGPT 37 U/L (13-56); Alkaline Phosphatase 173 U/L (45-117); Anion Gap 5 (5-15); BUN 16 mg/dL (7-18); BUN/Creat Ratio 37.9 RATIO (10-20); Calcium,Total 8.8 mg/dL (8.5-10.1); Chloride 103 mmol/L (98-107); Creatinine, Serum 0.42 mg/dL (0.55-1.02); EST Glomerular Filtration Rate 160 mL/min (>60); Est Glom Filt Rate - Afr Amer 194 mL/min (>60); Estimated Creatinine Clearance 102.11 ml/min; Glucose 151 mg/dL (74-106); Potassium 3.9 mmol/L (3.5-5.1); Sodium Level 139 mmol/L (136-145)
[2022-02-02] MEDS: Insulin Lispro 100 UNIT/ML INSULN.PEN SC ×4 (08:47→21:40)
[2022-02-02] MEDS: Enoxaparin 60 MG/0.6 ML Syringe SC ×2 (08:48→21:39)
[2022-02-02] MEDS: dexAMETHasone 4 MG Tablet 6 MG PO (08:48)
[2022-02-02] MEDS: Polyethylene Glycol 3350 17 GM PACKET PO (08:48)
[2022-02-02] MEDS: clonazePAM 0.5 MG Tablet PO ×2 (08:49→21:39)
[2022-02-02] MEDS: Oxybutynin 5 MG Tablet PO (08:49)
[2022-02-02] MEDS: FLUoxetine 20 MG Capsule 40 MG PO (08:49)
[2022-02-02] MEDS: levETIRAcetam 500 MG Tablet PO ×2 (08:50→21:39)
[2022-02-02] MEDS: Cholecalciferol (Vit D3) 125 MCG CAPSULE (5,000 UNITS) PO (08:50)
[2022-02-02] MEDS: Folic Acid 1 MG Tablet 0.5 MG PO (08:50)
[2022-02-02] MEDS: buPROPion (XL) 150 MG TABLET.XL PO (08:50)
[2022-02-02] MEDS: Acetaminophen 325 MG Tablet 650 MG PO ×2 (08:50→15:33)
[2022-02-02] MEDS: Pantoprazole Sodium 40 MG Tablet PO (08:50)
[2022-02-02] MEDS: QUEtiapine 25 MG Tablet PO ×2 (09:15→21:39)
[2022-02-02] MEDS: Menthol/Lanolin/Calamine/Znox 113 GM Tube 1 APPLIC TOPICAL ×2 (09:19→21:45)
--- NOTE | 2022-02-02 10:07 | PCM.PN.INT ---
Assessment & Plan Assessment/Plan (1) Acute respiratory failure with hypoxia: (2) COVID: PLAN: Plan RECOMMENDATIONS: 1. Continue low flow oxygen and wean FiO2 for saturations greater than 90%. 2. Continue therapeutic Lovenox as ordered. 3. Completed remdesivir (01/31/22). Continue Decadron (02/07/2022) and baricitinib (02/10/2022) as ordered. 4. Continue to encourage bronchopulmonary hygiene with PEP and incentive spirometer. 5. Obtain walking oximetry. Possible transfer to [facility] if able to tolerate 6 L or less with ambulation IMPRESSIONS: 1. Acute hypoxemic respiratory failure secondary to COVID-19 pneumonia The patient has a known history of metastatic non-small cell lung cancer and presented from a nursing facility after testing positive for COVID-19. Her hospital course has been complicated by progressive shortness of breath and hypoxemia, along with a newly diagnosed lower extremity DVT. Her CODE STATUS was confirmed to be DNR CCA without intubation. At the present time, recommend continuing current supportive care including low flow oxygen, along with Decadron and baricitinib as ordered. Patient has completed course of Remdesivir. No indication for change in therapy from a laboratory standpoint. Continue to wean supplemental oxygen as tolerated. Would continue with BiPAP with sleep to help with recruitment given poor cough. 2.??History of metastatic non-small cell lung cancer The patient has apparently completed radiation and systemic chemotherapy treatment. Recommend continuing Keppra per home regimen. 3.??Anemia Continue to monitor H&H daily.? Transfuse if hemoglobin drops below 7 g/dL.? The patient is already on PPI therapy. 4.??Diabetes mellitus/depression/anxiety/GERD Complicates care, management, recovery and prognosis.? Recommend holding sedating home medications. Patient may have an element of confusion related to Decadron therapy. Could use medication such as Seroquel to help with compliance in the short-term. This note was generated with [employer] dictation software. It may contain incorrect words, spelling, and punctuation that were not noted in checking the note before signing. Subjective Subjective Patient did well overnight with dynamic standpoint. Patient has been removing oxygen frequently leading to desaturation, but recovers quickly when it is back in place. Patient is alert and oriented, but very impulsive. Patient has had minimal nasal cannula oxygen requirements at baseline. Objective Data Objective Data Vital Signs: Vital Signs Temp Pulse Resp BP Pulse Ox O2 Del Method O2 Flow Rate 36.5 C L 110 H 21 H 129/81 H 93 High Flow 5 02/02/22 08:38 02/02/22 08:38 02/02/22 08:38 02/02/22 08:38 02/02/22 09:21 02/02/22 09:21 02/02/22 09:21 FiO2 30 02/02/22 07:31 Oxygen Flow Rate (L/min) [At 3 REST with Oxygen] Oxygen Flow Rate (L/min) 5 Oxygen Delivery Method High Flow Weight: 60.3 kg Body Mass Index (BMI) 24.9 Intake & Output: Intake and Output for Last 24 Hours 01/31/22 02/01/22 02/02/22 23:59 23:59 23:59 Intake Total 970 / 970 480 / 480 240 / 240 Output Total 1200 / 1200 Balance -230 / -230 480 / 480 240 / 240 Lab / Micro Data Attestation: I reviewed the patient's lab results. Result Diagrams: 02/02/22 06:40 02/02/22 06:40 Labs: Laboratory Results - last 24 hr 02/01/22 12:08: POC Glucose 125 H 02/01/22 16:21: POC Glucose 246 H 02/01/22 20:36: POC Glucose 380 H 02/02/22 06:40: WBC 11.7 H, RBC 3.27 L, Hgb 10.3 L, Hct 32.6 L, MCV 99.7 H, MCH 31.5, MCHC 31.6 L, RDW Std Deviation 55.1 H, RDW Coeff of Bettina 15.0 H, Plt Count 212, MPV 9.9, Neut % (Auto) Not Reportable, Absolute Neuts (auto) 9.9 H, Absolute Lymphs (auto) 0.93, Total Counted 100, Neutrophils % (Manual) 83 H, Band Neutrophils % 2, Lymphocytes % (Manual) 8 L, Monocytes % (Manual) 4, Metamyelocytes % 1, Myelocytes % 1 H, Promyelocytes % 1 H, Diff Path Review July, Platelet Estimate ADEQUATE, RBC Morphology NORM C+C 02/02/22 06:40: Sodium 139, Potassium 3.9, Chloride 103, Carbon Dioxide 31.0, Anion Gap 5, BUN 16, Creatinine 0.42 L, Estim Creat Clear Calc 102.11, Est GFR (MDRD) Af Amer 194, Est GFR (MDRD) Non-Af 160, BUN/Creatinine Ratio 37.9 H, Glucose 151 H, Calcium 8.8, Total Bilirubin 0.30, AST 23, ALT 37, Alkaline Phosphatase 173 H, Total Protein 6.0 L, Albumin 2.0 L, Globulin 4.0, Albumin/Globulin Ratio 0.5 L Micro: Microbiology 01/27/22 09:05 Blood Culture (Wb) #2 - Anticubital Right Blood Culture - Final No growth in 5 days. 01/27/22 08:45 Blood Culture (Wb) - Left Forearm Blood Culture - Final No growth in 5 days. 01/27/22 16:30 Interface Orders Legionella Antigen - Final 01/27/22 16:30 Interface Orders Streptococcus pneumoniae Antigen (M - Final 01/27/22 13:25 Mucosa - Nasopharyngeal Respiratory Panel (PCR) - Final 01/27/22 08:30 Nasal Secretion SARS-CoV-2 & FLU Antigen (Rapid) - Final SARS-CoV-2 (COVID 19) Physical Exam Const alert Constitutional Narrative: Intermittently confused. Poor cough. Patient on high flow nasal cannula at 5 L/min during my evaluation HEENT normocephalic and head/scalp atraumatic Eyes PERRL and EOMs intact bilaterally Neck supple General: trachea midline Chest inspection of chest normal Chest: abnormal inspection of the chest increased A-P diameter Resp Resp Narrative: Frequent episodes of coughing with relatively poor effort. Effort and Inspection: tachypneic, labored, actively coughing non-productive and prolonged expiratory phase; Negative for uses accessory muscles Auscultation: wheezes and diminished lung sounds; Negative for rales or rhonchi Cardio regular rate, regular rhythm, S1 normal heart sound, S2 normal heart sound, no murmurs and no rub Rate: tachycardic GI normal to inspection, nondistended, normoactive bowel sounds Extremity no clubbing, cyanosis or edema Skin no rashes or lesions noted Neuro moves all extremities and no focal motor deficits Psych cooperative Activity / Motor Behavior: restless Charges/Coding Visit Charges Inpatient E&M: 11842 Subs Hosp L2
[2022-02-02 12:35] LABS: Bedside Glucose 227 mg/dL (74-106)
--- NOTE | 2022-02-02 12:42 | NURSING ---
return phone call to male name Beltran [phone]. He states he is pt brother and would like an upadate. update provided- including challenges of pt removing her oxygen tubing/tearing apart BIPAP, nutritional intake. [place] if you try calling and don't get an answer, just leave a voice mail and when I get studio receptionist I will call back. Beltran states she has had short term memory loss for a while. Narinder contact information given to
--- NOTE | 2022-02-02 14:51 | NURSING ---
spoke with Abigail pt sister. updated on status, pt condition. Abigail states she spoke with Dr. Archer this morning.
[2022-02-02] MEDS: oxyCODONE 5 MG Tablet PO (15:33)
[2022-02-02 18:16] LABS: Bedside Glucose 383 mg/dL (74-106)
--- NOTE | 2022-02-02 18:36 | PCM.PN.HOSP ---
Subjective Subjective Patient was seen and examined today, she has been on low-flow nasal cannula oxygen at times today, at other times she has been on 5 L of nasal cannula oxygen. Patient pulls oxygen off intermittently at [place], she seems confused, I talked to her sister by phone today and her sister reiterated that the patient is a DO NOT INTUBATE but was not aware that she is a DO NOT RESUSCITATE. There is documentation however that discussion was carried out with the patient's siblings and this is what the CODE STATUS is for the patient. Patient has a history of metastatic lung cancer, I requested paperwork from her oncologist office and it appears that she underwent brain radiation with some shrinkage of some of the tumors and elimination of other ones in the brain. Patient is due to have chemotherapy, it is felt (according to the sister) that the patient's confusion may be due to chronic dexamethasone usage. I did not feel safe in sending the patient back to her extended care facility at this time because the sister could not make up her mind whether a DNR status was going to be in place when her sister went back to the extended care facility. Her sister stated that she wanted to talk to her brother concerning the patient's CODE STATUS. I told the patient's sister that I would reevaluate the patient tomorrow to see if she could return to the extended care facility. Objective Data Objective Data Vital Signs: Vital Signs Temp Pulse Resp BP Pulse Ox O2 Del Method O2 Flow Rate 98.8 F 111 H 20 H 111/78 95 High Flow 5 02/02/22 15:30 02/02/22 17:46 02/02/22 17:46 02/02/22 17:46 02/02/22 17:56 02/02/22 17:56 02/02/22 17:56 FiO2 30 02/02/22 07:31 Oxygen Flow Rate (L/min) [At 3 REST with Oxygen] Oxygen Flow Rate (L/min) 5 Oxygen Delivery Method High Flow Weight: 60.3 kg Body Mass Index (BMI) 24.9 Intake & Output: Intake and Output for Last 24 Hours 01/31/22 02/01/22 02/02/22 23:59 23:59 23:59 Intake Total 970 / 970 480 / 480 720 / 720 Output Total 1200 / 1200 Balance -230 / -230 480 / 480 720 / 720 Lab / Micro Data Result Diagrams: 02/02/22 06:40 02/02/22 06:40 Labs: Laboratory Results - last 24 hr 02/01/22 12:08: POC Glucose 125 H 02/01/22 16:21: POC Glucose 246 H 02/01/22 20:36: POC Glucose 380 H 02/02/22 06:40: WBC 11.7 H, RBC 3.27 L, Hgb 10.3 L, Hct 32.6 L, MCV 99.7 H, MCH 31.5, MCHC 31.6 L, RDW Std Deviation 55.1 H, RDW Coeff of Bettina 15.0 H, Plt Count 212, MPV 9.9, Neut % (Auto) Not Reportable, Absolute Neuts (auto) 9.9 H, Absolute Lymphs (auto) 0.93, Total Counted 100, Neutrophils % (Manual) 83 H, Band Neutrophils % 2, Lymphocytes % (Manual) 8 L, Monocytes % (Manual) 4, Metamyelocytes % 1, Myelocytes % 1 H, Promyelocytes % 1 H, Diff Path Review July, Platelet Estimate ADEQUATE, RBC Morphology NORM C+C 02/02/22 06:40: Sodium 139, Potassium 3.9, Chloride 103, Carbon Dioxide 31.0, Anion Gap 5, BUN 16, Creatinine 0.42 L, Estim Creat Clear Calc 102.11, Est GFR (MDRD) Af Amer 194, Est GFR (MDRD) Non-Af 160, BUN/Creatinine Ratio 37.9 H, Glucose 151 H, Calcium 8.8, Total Bilirubin 0.30, AST 23, ALT 37, Alkaline Phosphatase 173 H, Total Protein 6.0 L, Albumin 2.0 L, Globulin 4.0, Albumin/Globulin Ratio 0.5 L 02/02/22 11:28: POC Glucose 227 H 02/02/22 17:41: POC Glucose 383 H Micro: Microbiology 01/27/22 09:05 Blood Culture (Wb) #2 - Anticubital Right Blood Culture - Final No growth in 5 days. 01/27/22 08:45 Blood Culture (Wb) - Left Forearm Blood Culture - Final No growth in 5 days. 01/27/22 16:30 Interface Orders Legionella Antigen - Final 01/27/22 16:30 Interface Orders Streptococcus pneumoniae Antigen (M - Final 01/27/22 13:25 Mucosa - Nasopharyngeal Respiratory Panel (PCR) - Final 01/27/22 08:30 Nasal Secretion SARS-CoV-2 & FLU Antigen (Rapid) - Final SARS-CoV-2 (COVID 19) Physical Exam Narrative Constitutional Narrative: Patient appears anxious and fidgety, she appears confused-she states just let me General Appearance: cooperative, well kempt and well developed Orientation / Consciousness: awake HEENT normocephalic, head/scalp atraumatic and moist oral mucous membranes Eyes PERRL, EOMs intact bilaterally and conjunctivae normal Neck supple, no JVD, thyroid normal and no carotid bruits General: trachea midline Resp normal respiratory effort, no retractions, no use of accessory muscles and clear to auscultation bilaterally Auscultation: Negative for rales, rhonchi or wheezes Cardio regular rate, regular rhythm, S1 normal heart sound, S2 normal heart sound, no murmurs, no rub and no gallops GI normal to inspection, nondistended, normoactive bowel sounds, soft to palpation, non-tender and non-distended Extremity no clubbing, cyanosis or edema Skin no rashes or lesions noted General Skin Exam: no breakdown Neuro CN's II-XII intact bilaterally, no focal motor deficits and no sensory deficits noted Sensorium / Orientation: awake and alert Psych Psych Narrative: Patient exhibits some confusion, she does answer simple questions appropriately however Assessment & Plan Assessment/Plan (1) Pneumonia due to COVID-19 virus: (2) Hypoxia: (3) COVID: PLAN: Plan 1. Acute hypoxic respiratory failure secondary to COVID-19 pneumonia-pulmonary medicine is participating in her care, patient will remain on her current medications-remdesivir, Decadron, and baricitinib. 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 I confirmed with the patient's sister today that she has no history of bipolar disorder or schizoaffective disorder. #6 DVT left lower extremity-patient is fully anticoagulated at this time #7 metabolic encephalopathy-possibly secondary to brain metastases from lung cancer with an overlying of chronic anxiety disorder-complicates care, recovery, management, and prognosis. Charges/Coding Visit Charges Inpatient E&M: 33025 Subs Hosp L2
[2022-02-02] MEDS: traZODone 50 MG Tablet PO (21:39)
[2022-02-02 23:16] LABS: Bedside Glucose 338 mg/dL (74-106)
[2022-02-03] VITALS (14 sets, daily range): BP systolic 100–122; BP diastolic 65–104; PULSE 101–142; RESP 12–26; TEMP 36.2–36.8; O2SAT 91–99
[2022-02-03 04:30] LABS: Hematocrit 31.6 % (37-47); Mean Corp Hgb Conc 31.6 g/dL (32-36); Mean Corpuscular Hgb 31.7 pg (27.0-32.0); Mean Corpuscular Volume 100.3 fL (81-99); POSITIVE COUNT YES; POSITIVE MORPHOLOGY YES; Platelet Count 244 K/mm3 (150-450); RBC Distribution Width CV 14.9 % (11.6-14.6); RBC Distribution Width SD 55.1 fl (35.1-43.9); Red Blood Count 3.15 M/mm3 (4.2-5.4); White Blood Count 10.9 K/mm3 (4.4-11.0)
[2022-02-03 04:37] LABS: Differential Indicated MANUAL DIFF
[2022-02-03 05:02] LABS: ALB/GLOB Ratio 0.5 RATIO (0.9-2.4); AST(SGOT) 21 U/L (15-37); Alanine Aminotransfer ALT/SGPT 34 U/L (13-56); Albumin, Serum 1.9 g/dL (3.2-5.0); Alkaline Phosphatase 169 U/L (45-117); Anion Gap 7 (5-15); BUN 11 mg/dL (7-18); Calcium,Total 8.3 mg/dL (8.5-10.1); Chloride 104 mmol/L (98-107); Creatinine, Serum 0.41 mg/dL (0.55-1.02); EST Glomerular Filtration Rate 167 mL/min (>60); Est Glom Filt Rate - Afr Amer 202 mL/min (>60); Globulin 3.8 g/dL (2.2-4.2); Glucose 113 mg/dL (74-106); Potassium 3.5 mmol/L (3.5-5.1); Protein, Total 5.7 g/dL (6.4-8.2); Sodium Level 140 mmol/L (136-145)
[2022-02-03 05:16] LABS: Lymphocyte 18 % (19-41); Metamyelocyte 3 % (0-1); Monocyte 6 % (0-10); Myelocyte 2 % (0-0); Neutrophil-Band 2 % (0-5); Neutrophil-Segmented 69 % (47-70); Total Cells Counted 100 (MANUAL DIFF)
[2022-02-03 05:17] LABS: Platelet Estimate ADEQUATE (ADEQ); Red Cell Morphology NORM C+C NORMAL (NORM C&C)
[2022-02-03 05:18] LABS: Absolute Lymphocyte Count 1.96 X10^3/uL (0.83-4.51); Absolute Neutrophil Count 7.7 X10^3/uL (2.0-7.7); Lymphocyte # 1.96 X10^3/ul (0.83-4.51); Neutrophil # 7.72 X10^3/uL (2.7-7.7)
[2022-02-03] MEDS: LORazepam 0.5 MG Tablet PO (06:21)
[2022-02-03 06:40] LABS: Bedside Glucose 84 mg/dL (74-106)
--- NOTE | 2022-02-03 06:54 | NURSING ---
Pt has removed her BiPAP multiples times overnight. Reoriented and re-explained to the pt each time that she must keep her oxygen on because her oxygen saturation keeps dropping into the 50s-60s when she takes it off. I also switched her to HF several times upon her request and she continued to remove the HF. Pt also ripped out her IV after several conversations that she needs the IV for her medications and to please not remove it. Pt continues to state the she has no teeth and that she doesn't mean to take her oxygen off and to leave her to each time I re-educated her on the importance of keeping her oxygen device on. Gave ativan PO this morning to help with anxiousness and restlessness. Pt placed on BiPAP again prior to leaving the room this morning.
--- NOTE | 2022-02-03 07:13 | NURSING ---
Documentation reviewed with Ben DOMINGUEZ
--- NOTE | 2022-02-03 09:22 | CASEMGMT ---
CHANDANA let Sima at [facility] know that patient may return today. Darlene Fisher ENVIRONMENTAL COMPLIANCE OFFICER TED
[2022-02-03 09:41] LABS: Pathologist Review Reviewed
--- NOTE | 2022-02-03 09:56 | PCM.PN.ID ---
Physical Exam Narrative Feeling about the same, no fever, some cough, no sputum. Some n/v. Const alert and no apparent distress Resp Resp Narrative: mild rhonchi diffusely Cardio regular rate and regular rhythm GI soft to palpation, non-tender and non-distended Skin no rashes or lesions noted ID ID: Route of nutrition/ use of supplements: [] Nutritional Intake: [] IV Site: [] Garcia Catheter: [] Assessment & Plan Assessment/Plan (1) COVID: PLAN: severe covid with metastatic lung cancer - Completed remdesivir. On dex, baricitinib. Sx started 01/24, plan on 20 days isolation. O2 overall improving. Will follow (2) Hypoxia: (3) Lung cancer metastatic to brain:
--- NOTE | 2022-02-03 09:57 | PCM.PN.INT ---
Assessment & Plan Assessment/Plan (1) Acute respiratory failure with hypoxia: (2) COVID: PLAN: Plan RECOMMENDATIONS: 1. Continue low flow oxygen and wean FiO2 for saturations greater than 90%. 2. Continue therapeutic Lovenox as ordered. 3. Completed remdesivir (01/31/22). Continue Decadron (02/07/2022) and baricitinib (02/10/2022) as ordered. 4. Continue to encourage bronchopulmonary hygiene with PEP and incentive spirometer. 5. Challenge with Lasix 6. Titrate up Seroquel as necessary for impulsivity IMPRESSIONS: 1. Acute hypoxemic respiratory failure secondary to COVID-19 pneumonia The patient has a known history of metastatic non-small cell lung cancer and presented from a nursing facility after testing positive for COVID-19. Her hospital course has been complicated by progressive shortness of breath and hypoxemia, along with a newly diagnosed lower extremity DVT. Her CODE STATUS was confirmed to be DNR CCA without intubation. At the present time, recommend continuing current supportive care including low flow oxygen, along with Decadron and baricitinib as ordered. Patient has completed course of Remdesivir. No indication for change in therapy from a laboratory standpoint. Continue to wean supplemental oxygen as tolerated. Would continue with BiPAP with sleep to help with recruitment given poor cough. We will challenge with diuretic therapy 2.??History of metastatic non-small cell lung cancer The patient has apparently completed radiation and systemic chemotherapy treatment. Recommend continuing Keppra per home regimen. 3.??Anemia Continue to monitor H&H daily.? Transfuse if hemoglobin drops below 7 g/dL.? The patient is already on PPI therapy. 4.??Diabetes mellitus/depression/anxiety/GERD Complicates care, management, recovery and prognosis.? Recommend holding sedating home medications. Patient may have an element of confusion related to Decadron therapy in the setting of previous brain radiation. Could use medication such as Seroquel to help with compliance in the short-term. This note was generated with [employer] dictation software. It may contain incorrect words, spelling, and punctuation that were not noted in checking the note before signing. Subjective Subjective Patient continues to be impulsive and removing oxygen frequently. Nursing reports she does desaturate into the 40s at times. Patient is not reporting any significant dyspnea and has no recollection of removing oxygen. Objective Data Objective Data Vital Signs: Vital Signs Temp Pulse Resp BP Pulse Ox O2 Del Method O2 Flow Rate 36.2 C L 112 H 20 H 114/78 92 Nasal Cannula 5 02/03/22 03:13 02/03/22 07:23 02/03/22 03:13 02/03/22 03:13 02/03/22 03:50 02/03/22 03:50 02/03/22 03:50 FiO2 40 02/03/22 00:32 Oxygen Flow Rate (L/min) [At 3 REST with Oxygen] Oxygen Flow Rate (L/min) 5 Oxygen Delivery Method Nasal Cannula Weight: 58.2 kg Body Mass Index (BMI) 24.9 Intake & Output: Intake and Output for Last 24 Hours 02/01/22 02/02/22 02/03/22 23:59 23:59 23:59 Intake Total 480 / 480 720 / 960 240 / 240 Output Total 1200 / 1200 Balance 480 / 480 720 / 760 -960 / -960 Lab / Micro Data Attestation: I reviewed the patient's lab results. Result Diagrams: 02/03/22 03:58 02/03/22 03:58 Labs: Laboratory Results - last 24 hr 02/02/22 06:40: Diff Path Review Reviewed 02/02/22 11:28: POC Glucose 227 H 02/02/22 17:41: POC Glucose 383 H 02/02/22 21:39: POC Glucose 338 H 02/03/22 03:58: WBC 10.9, RBC 3.15 L, Hgb 10.0 L, Hct 31.6 L, MCV 100.3 H, MCH 31.7, MCHC 31.6 L, RDW Std Deviation 55.1 H, RDW Coeff of Bettina 14.9 H, Plt Count 244, MPV 10.0, Neut % (Auto) Not Reportable, Absolute Neuts (auto) 7.7, Absolute Lymphs (auto) 1.96, Total Counted 100, Neutrophils % (Manual) 69, Band Neutrophils % 2, Lymphocytes % (Manual) 18 L, Monocytes % (Manual) 6, Metamyelocytes % 3 H, Myelocytes % 2 H, Diff Path Review May , Platelet Estimate ADEQUATE, RBC Morphology NORM C+C 02/03/22 03:58: Sodium 140, Potassium 3.5, Chloride 104, Carbon Dioxide 29.0, Anion Gap 7, BUN 11, Creatinine 0.41 L, Estim Creat Clear Calc 104.60, Est GFR (MDRD) Af Amer 202, Est GFR (MDRD) Non-Af 167, BUN/Creatinine Ratio 27.0 H, Glucose 113 H, Calcium 8.3 L, Total Bilirubin 0.30, AST 21, ALT 34, Alkaline Phosphatase 169 H, Total Protein 5.7 L, Albumin 1.9 L, Globulin 3.8, Albumin/Globulin Ratio 0.5 L 02/03/22 06:20: POC Glucose 84 Micro: Microbiology 01/27/22 09:05 Blood Culture (Wb) #2 - Anticubital Right Blood Culture - Final No growth in 5 days. 01/27/22 08:45 Blood Culture (Wb) - Left Forearm Blood Culture - Final No growth in 5 days. 01/27/22 16:30 Interface Orders Legionella Antigen - Final 01/27/22 16:30 Interface Orders Streptococcus pneumoniae Antigen (M - Final 01/27/22 13:25 Mucosa - Nasopharyngeal Respiratory Panel (PCR) - Final 01/27/22 08:30 Nasal Secretion SARS-CoV-2 & FLU Antigen (Rapid) - Final SARS-CoV-2 (COVID 19) Physical Exam Const alert Constitutional Narrative: Intermittently confused. Poor cough. Patient on high flow nasal cannula at 8 L/min, recovering from desaturation, during my evaluation General Appearance: Negative for cooperative, lethargic or ill appearing HEENT normocephalic and head/scalp atraumatic Eyes PERRL and EOMs intact bilaterally Neck supple General: trachea midline Chest inspection of chest normal Chest: abnormal inspection of the chest increased A-P diameter Resp Resp Narrative: Frequent episodes of coughing with relatively poor effort. Effort and Inspection: prolonged expiratory phase; Negative for actively coughing or uses accessory muscles Auscultation: wheezes and diminished lung sounds; Negative for rales or rhonchi Cardio regular rate, regular rhythm, S1 normal heart sound, S2 normal heart sound, no murmurs and no rub Rate: tachycardic GI normal to inspection, nondistended, normoactive bowel sounds Extremity no clubbing, cyanosis or edema Skin no rashes or lesions noted Neuro moves all extremities and no focal motor deficits Psych Activity / Motor Behavior: restless Mood & Affect: anxious Charges/Coding Visit Charges Inpatient E&M: 91915 Subs Hosp L3
--- NOTE | 2022-02-03 10:25 | NURSING ---
Addendum entered by Melissa Hernandez 02/03/22 10:36: pt states she is going to bc she is so cold. heat turned up. pt then states she wants to bc she doesnt want to be here anymore. Original Note: this rn in . pt repeatedly pushing call light. repeatedly says i'm dying, I dont want to . reassurance given to pt. pt continues to take o2 off. o2 reapplied. informed pt the o2 is helping her.
[2022-02-03] MEDS: Polyethylene Glycol 3350 17 GM PACKET PO (10:27)
[2022-02-03] MEDS: Haloperidol Lactate 5 MG/ML Vial IM (10:27)
[2022-02-03] MEDS: Pantoprazole Sodium 40 MG Tablet PO (10:29)
[2022-02-03] MEDS: QUEtiapine 25 MG Tablet 50 MG PO (10:30)
[2022-02-03] MEDS: FLUoxetine 20 MG Capsule 40 MG PO (10:30)
[2022-02-03] MEDS: Cholecalciferol (Vit D3) 125 MCG CAPSULE (5,000 UNITS) PO (10:30)
[2022-02-03] MEDS: buPROPion (XL) 150 MG TABLET.XL PO (10:30)
[2022-02-03] MEDS: dexAMETHasone 4 MG Tablet 6 MG PO (10:31)
[2022-02-03] MEDS: Oxybutynin 5 MG Tablet PO (10:32)
[2022-02-03] MEDS: Folic Acid 1 MG Tablet 0.5 MG PO (10:32)
[2022-02-03] MEDS: Enoxaparin 60 MG/0.6 ML Syringe SC ×2 (10:33→23:16)
[2022-02-03] MEDS: levETIRAcetam 500 MG Tablet PO ×2 (10:33→23:15)
[2022-02-03] MEDS: clonazePAM 0.5 MG Tablet PO ×2 (10:33→23:14)
[2022-02-03] MEDS: Menthol/Lanolin/Calamine/Znox 113 GM Tube 1 APPLIC TOPICAL ×2 (10:35→23:14)
[2022-02-03] MEDS: Furosemide 40 MG Tablet PO (11:18)
[2022-02-03 12:11] LABS: Bedside Glucose 118 mg/dL (74-106)
[2022-02-03 15:40] LABS: Pathologist Review Reviewed
[2022-02-03] MEDS: Insulin Lispro 100 UNIT/ML INSULN.PEN SC ×2 (16:29→23:12)
[2022-02-03] MEDS: Acetaminophen 325 MG Tablet 650 MG PO (16:30)
--- NOTE | 2022-02-03 17:08 | PCM.PN.HOSP ---
Subjective Subjective Seen and examined today, she is taking her oxygen off quite frequently, she was wheezy today so I placed her on aerosol treatments. Pulmonary medicine recommended the use of Seroquel to try to calm the patient down enough to where she would wear her oxygen. At times, patient states that she wants to and another time she states that she does not. Due to the patient's confusion, I do not think it is a good idea to send her back to the residential at this time, her sister had a conversation with me yesterday and intimated that she would want the patient to be a full code when she went back to the residential. Objective Data Objective Data Vital Signs: Vital Signs Temp Pulse Resp BP Pulse Ox O2 Del Method O2 Flow Rate 98.0 F 120 H 24 H 103/84 H 97 High Flow 10 02/03/22 16:03 02/03/22 16:03 02/03/22 16:03 02/03/22 16:03 02/03/22 16:03 02/03/22 16:03 02/03/22 16:03 FiO2 40 02/03/22 00:32 Oxygen Flow Rate (L/min) [At 3 REST with Oxygen] Oxygen Flow Rate (L/min) 10 Oxygen Delivery Method High Flow Weight: 58.2 kg Body Mass Index (BMI) 24.9 Intake & Output: Intake and Output for Last 24 Hours 02/01/22 02/02/22 02/03/22 23:59 23:59 23:59 Intake Total 480 / 480 720 / 960 460 / 460 Output Total 1999 / 1999 Balance 480 / 480 720 / 760 -1540 / -1540 Lab / Micro Data Result Diagrams: 02/03/22 03:58 02/03/22 03:58 Labs: Laboratory Results - last 24 hr 02/02/22 06:40: Diff Path Review Reviewed 02/02/22 17:41: POC Glucose 383 H 02/02/22 21:39: POC Glucose 338 H 02/03/22 03:58: WBC 10.9, RBC 3.15 L, Hgb 10.0 L, Hct 31.6 L, MCV 100.3 H, MCH 31.7, MCHC 31.6 L, RDW Std Deviation 55.1 H, RDW Coeff of Bettina 14.9 H, Plt Count 244, MPV 10.0, Neut % (Auto) Not Reportable, Absolute Neuts (auto) 7.7, Absolute Lymphs (auto) 1.96, Total Counted 100, Neutrophils % (Manual) 69, Band Neutrophils % 2, Lymphocytes % (Manual) 18 L, Monocytes % (Manual) 6, Metamyelocytes % 3 H, Myelocytes % 2 H, Diff Path Review Reviewed, Platelet Estimate ADEQUATE, RBC Morphology NORM C+C 02/03/22 03:58: Sodium 140, Potassium 3.5, Chloride 104, Carbon Dioxide 29.0, Anion Gap 7, BUN 11, Creatinine 0.41 L, Estim Creat Clear Calc 104.60, Est GFR (MDRD) Af Amer 202, Est GFR (MDRD) Non-Af 167, BUN/Creatinine Ratio 27.0 H, Glucose 113 H, Calcium 8.3 L, Total Bilirubin 0.30, AST 21, ALT 34, Alkaline Phosphatase 169 H, Total Protein 5.7 L, Albumin 1.9 L, Globulin 3.8, Albumin/Globulin Ratio 0.5 L 02/03/22 06:20: POC Glucose 84 02/03/22 11:12: POC Glucose 118 H Micro: Microbiology 01/27/22 09:05 Blood Culture (Wb) #2 - Anticubital Right Blood Culture - Final No growth in 5 days. 01/27/22 08:45 Blood Culture (Wb) - Left Forearm Blood Culture - Final No growth in 5 days. 01/27/22 16:30 Interface Orders Legionella Antigen - Final 01/27/22 16:30 Interface Orders Streptococcus pneumoniae Antigen (M - Final 01/27/22 13:25 Mucosa - Nasopharyngeal Respiratory Panel (PCR) - Final 01/27/22 08:30 Nasal Secretion SARS-CoV-2 & FLU Antigen (Rapid) - Final SARS-CoV-2 (COVID 19) Physical Exam Narrative Patient appears anxious and fidgety, she appears confused-she states just let me General Appearance: cooperative, well kempt and well developed Orientation / Consciousness: awake HEENT normocephalic, head/scalp atraumatic and moist oral mucous membranes Eyes PERRL, EOMs intact bilaterally and conjunctivae normal Neck supple, no JVD, thyroid normal and no carotid bruits General: trachea midline Resp normal respiratory effort, no retractions, no use of accessory muscles and clear to auscultation bilaterally Auscultation: Negative for rales, rhonchi or wheezes Cardio regular rate, regular rhythm, S1 normal heart sound, S2 normal heart sound, no murmurs, no rub and no gallops GI normal to inspection, nondistended, normoactive bowel sounds, soft to palpation, non-tender and non-distended Extremity no clubbing, cyanosis or edema Skin no rashes or lesions noted General Skin Exam: no breakdown Neuro CN's II-XII intact bilaterally, no focal motor deficits and no sensory deficits noted Sensorium / Orientation: awake and alert Psych Psych Narrative: Patient exhibits some confusion, she does answer simple questions appropriately Assessment & Plan Assessment/Plan (1) Hypoxia: (2) Pneumonia due to COVID-19 virus: (3) COVID: PLAN: Plan 1. Acute hypoxic respiratory failure secondary to COVID-19 pneumonia-pulmonary medicine is participating in her care, patient will remain on her current medications- Decadron, and baricitinib. 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 I confirmed with the patient's sister today that she has no history of bipolar disorder or schizoaffective disorder. #6 DVT left lower extremity-patient is fully anticoagulated at this time #7 metabolic encephalopathy-possibly secondary to brain metastases from lung cancer with an overlying of chronic anxiety disorder and corticosteroid usage-complicates care, recovery, management, and prognosis. Charges/Coding Visit Charges Inpatient E&M: 35979 Subs Hosp L2
[2022-02-03 18:31] LABS: Bedside Glucose 386 mg/dL (74-106)
[2022-02-03] MEDS: Ipratropium/Albuterol Sulfate 3 ML AMPUL.NEB INHALATION (19:51)
[2022-02-03] MEDS: QUEtiapine 25 MG Tablet PO (23:15)
[2022-02-03] MEDS: traZODone 50 MG Tablet PO (23:15)
[2022-02-03 23:40] LABS: Bedside Glucose 284 mg/dL (74-106)
[2022-02-04] VITALS (20 sets, daily range): BP systolic 92–125; BP diastolic 55–87; PULSE 91–123; RESP 12–23; TEMP 36.2–36.8; O2SAT 91–100
[2022-02-04 06:44] LABS: Absolute Lymphocyte Count 1.38 X10^3/uL (0.83-4.51); Absolute Neutrophil Count 10.3 X10^3/uL (2.0-7.7); Basophil# 0.07 X10^3/uL; Basophil% 0.6 % (0-1); Eosinophil# 0.01 X10^3/uL; Eosinophils% 0.1 % (0-5); Hematocrit 32.7 % (37-47); Hemoglobin 10.2 g/dL (12.0-15.0); Lymphocyte # 1.38 X10^3/ul (0.83-4.51); Lymphocyte % 10.9 % (19-41); Mean Corp Hgb Conc 31.2 g/dL (32-36); Mean Corpuscular Hgb 31.2 pg (27.0-32.0); Mean Platelet Vol. 9.9 fl (6.2-12.0); Monocyte% 2.4 % (0-10); NRBC Flagged by Analyzer 0.3 % (0-5); Neutrophil # 10.34 X10^3/uL (2.7-7.7); Neutrophil % 81.7 % (47-70); Platelet Count 246 K/mm3 (150-450); RBC Distribution Width SD 54.4 fl (35.1-43.9); Red Blood Count 3.27 M/mm3 (4.2-5.4); White Blood Count 12.7 K/mm3 (4.4-11.0)
[2022-02-04 07:11] LABS: Bedside Glucose 93 mg/dL (74-106)
[2022-02-04 07:15] LABS: ALB/GLOB Ratio 0.5 RATIO (0.9-2.4); AST(SGOT) 19 U/L (15-37); Alanine Aminotransfer ALT/SGPT 31 U/L (13-56); Alkaline Phosphatase 143 U/L (45-117); Anion Gap 6 (5-15); BUN 14 mg/dL (7-18); BUN/Creat Ratio 33.5 RATIO (10-20); Calcium,Total 8.9 mg/dL (8.5-10.1); Chloride 101 mmol/L (98-107); Creatinine, Serum 0.42 mg/dL (0.55-1.02); EST Glomerular Filtration Rate 162 mL/min (>60); Est Glom Filt Rate - Afr Amer 196 mL/min (>60); Estimated Creatinine Clearance 102.11 ml/min; Globulin 3.9 g/dL (2.2-4.2); Glucose 90 mg/dL (74-106); Potassium 3.8 mmol/L (3.5-5.1); Protein, Total 5.9 g/dL (6.4-8.2); Sodium Level 140 mmol/L (136-145)
[2022-02-04] MEDS: Ipratropium/Albuterol Sulfate 3 ML AMPUL.NEB INHALATION ×3 (07:17→19:42)
--- NOTE | 2022-02-04 07:33 | RAD_ITS ---
STUDY: X-RAY CHEST REASON FOR EXAM: Female, 66 years old. Pneumonia TECHNIQUE: Single AP portable view of the chest. COMPARISON: Comparison is made with prior study dated 01/27/2022. FINDINGS: EKG electrodes are seen. Since prior study, there has been improved aeration of both lungs although residual bilateral pulmonary infiltrates persist. There is no demonstrated pleural abnormality. Normal size heart. Normal mediastinum and kaiden. Normal visualized pulmonary arteries. There is atherosclerotic calcification of the aortic arch with tortuosity. There are diffuse degenerative changes of the visualized thoracic spine. Dextroscoliosis. Normal visualized ribs, clavicles, and shoulders. There is no demonstrated abnormality of the visualized soft tissue structures of the upper abdomen. RAD/Chest 1 View (Portable) IMPRESSION: Since prior study, there has been improved aeration of both lungs although residual bilateral infiltrates persist worse in the right hemithorax. Electronically Signed: Ken Peacock MD at 8:42 EST ,
[2022-02-04] MEDS: Furosemide 20 MG Tablet 60 MG PO (08:53)
[2022-02-04] MEDS: Menthol/Lanolin/Calamine/Znox 113 GM Tube 1 APPLIC TOPICAL ×2 (08:55→20:24)
[2022-02-04] MEDS: Oxybutynin 5 MG Tablet PO (08:56)
[2022-02-04] MEDS: Folic Acid 1 MG Tablet 0.5 MG PO (08:56)
[2022-02-04] MEDS: dexAMETHasone 4 MG Tablet 6 MG PO (08:56)
[2022-02-04] MEDS: Enoxaparin 60 MG/0.6 ML Syringe SC ×2 (08:57→20:26)
[2022-02-04] MEDS: levETIRAcetam 500 MG Tablet PO ×2 (08:57→20:25)
[2022-02-04] MEDS: Pantoprazole Sodium 40 MG Tablet PO (08:58)
[2022-02-04] MEDS: FLUoxetine 20 MG Capsule 40 MG PO (08:58)
[2022-02-04] MEDS: Polyethylene Glycol 3350 17 GM PACKET PO (08:58)
[2022-02-04] MEDS: Cholecalciferol (Vit D3) 125 MCG CAPSULE (5,000 UNITS) PO (08:59)
[2022-02-04] MEDS: buPROPion (XL) 150 MG TABLET.XL PO (08:59)
[2022-02-04] MEDS: Metoprolol Tartrate 25 MG Tablet PO ×2 (09:08→20:25)
[2022-02-04] MEDS: clonazePAM 0.5 MG Tablet PO ×3 (09:08→20:25)
[2022-02-04] MEDS: QUEtiapine 25 MG Tablet 50 MG PO ×3 (09:09→20:24)
--- NOTE | 2022-02-04 09:24 | PN.CC_ITS ---
Assessment & Plan Assessment/Plan (1) Acute respiratory failure with hypoxia: (2) COVID: PLAN: Plan RECOMMENDATIONS: 1. Continue low flow oxygen and wean FiO2 for saturations greater than 90%. 2. Continue therapeutic Lovenox as ordered. 3. Completed remdesivir (01/31/22). Continue Decadron (02/07/2022) and baricitinib (02/10/2022) as ordered. 4. Continue to encourage bronchopulmonary hygiene with PEP and incentive spirometer. 5. Challenge with Lasix again 6. Titrate up Seroquel as necessary for impulsivity IMPRESSIONS: 1. Acute hypoxemic respiratory failure secondary to COVID-19 pneumonia The patient has a known history of metastatic non-small cell lung cancer and presented from a nursing facility after testing positive for COVID-19. Her hospital course has been complicated by progressive shortness of breath and hypoxemia, along with a newly diagnosed lower extremity DVT. Her CODE STATUS was confirmed to be DNR CCA without intubation. At the present time, recommend continuing current supportive care including low flow oxygen, along with Decadron and baricitinib as ordered. Patient has completed course of Remdesivir. No indication for change in therapy from a laboratory standpoint. Continue to wean supplemental oxygen as tolerated. Would continue with BiPAP with sleep to help with recruitment given poor cough. We will challenge with diuretic therapy again today. Attempted to explain to the patient that removal of oxygen would help to acute decompensation and intubation 2.??History of metastatic non-small cell lung cancer The patient has apparently completed radiation and systemic chemotherapy treatment. Recommend continuing Keppra per home regimen. Seroquel use being used for impulsivity 3.??Anemia Continue to monitor H&H daily.? Transfuse if hemoglobin drops below 7 g/dL.? The patient is already on PPI therapy. 4.??Diabetes mellitus/depression/anxiety/GERD Complicates care, management, recovery and prognosis.? Recommend holding sedating home medications. Patient may have an element of confusion related to Decadron therapy in the setting of previous brain radiation. Titrate up Seroquel as necessary This note was generated with [employer] software. It may contain incorrect words, spelling, and punctuation that were not noted in checking the note before signing. Subjective Subjective Patient remains impulsive, but nursing did report some improvement on increased dose of Seroquel. Patient with no new complaints at this time, but appears to be less anxious Objective Data Objective Data Vital Signs: Vital Signs Temp Pulse Resp BP Pulse Ox O2 Del Method O2 Flow Rate 36.7 C 123 H 16 115/87 H 94 Nasal Cannula 8 02/04/22 09:02 02/04/22 09:08 02/04/22 09:02 02/04/22 09:02 02/04/22 09:02 02/04/22 09:02 02/04/22 09:02 FiO2 40 02/04/22 03:48 Oxygen Flow Rate (L/min) [At 3 REST with Oxygen] Oxygen Flow Rate (L/min) 8 Oxygen Delivery Method Nasal Cannula Weight: 59.6 kg Body Mass Index (BMI) 24.9 Intake & Output: Intake and Output for Last 24 Hours 02/02/22 02/03/22 02/04/22 23:59 23:59 23:59 Intake Total 720 / 960 938 / 938 Output Total 2900 / 2900 200 / 200 Balance 720 / 760 -1962 / -1962 -200 / -200 Lab / Micro Data Attestation: I reviewed the patient's lab results. Result Diagrams: 02/04/22 06:35 02/04/22 06:35 Labs: Laboratory Results - last 24 hr 02/02/22 06:40: Diff Path Review Reviewed 02/03/22 03:58: Diff Path Review Reviewed 02/03/22 11:12: POC Glucose 118 H 02/03/22 16:26: POC Glucose 386 H 02/03/22 23:11: POC Glucose 284 H 02/04/22 06:35: WBC 12.7 H, RBC 3.27 L, Hgb 10.2 L, Hct 32.7 L, MCV 100.0 H, MCH 31.2, MCHC 31.2 L, RDW Std Deviation 54.4 H, RDW Coeff of Bettina 15.0 H, Plt Count 246, MPV 9.9, Immature Gran % (Auto) 4.300 H, Neut % (Auto) 81.7 H, Lymph % (Auto) 10.9 L, [place] % (Auto) 2.4, Eos % (Auto) 0.1, Baso % (Auto) 0.6, Absolute Neuts (auto) 10.3 H, Absolute Lymphs (auto) 1.38, Nucleated RBC % 0.3 02/04/22 06:35: Sodium 140, Potassium 3.8, Chloride 101, Carbon Dioxide 33.0 H, Anion Gap 6, BUN 14, Creatinine 0.42 L, Estim Creat Clear Calc 102.11, Est GFR (MDRD) Af Amer 196, Est GFR (MDRD) Non-Af 162, BUN/Creatinine Ratio 33.5 H, Glucose 90, Calcium 8.9, Total Bilirubin 0.30, AST 19, ALT 31, Alkaline Phosphatase 143 H, Total Protein 5.9 L, Albumin 2.0 L, Globulin 3.9, Albumin/Globulin Ratio 0.5 L 02/04/22 06:46: POC Glucose 93 Micro: Microbiology 01/27/22 09:05 Blood Culture (Wb) #2 - Anticubital Right Blood Culture - Final No growth in 5 days. 01/27/22 08:45 Blood Culture (Wb) - Left Forearm Blood Culture - Final No growth in 5 days. 01/27/22 16:30 Interface Orders Legionella Antigen - Final 01/27/22 16:30 Interface Orders Streptococcus pneumoniae Antigen (M - Final 01/27/22 13:25 Mucosa - Nasopharyngeal Respiratory Panel (PCR) - Final 01/27/22 08:30 Nasal Secretion SARS-CoV-2 & FLU Antigen (Rapid) - Final SARS-CoV-2 (COVID 19) Radiography Diagnostic Testing: Radiology Impression Chest X-Ray 02/04/22 07:33 IMPRESSION: Since prior study, there has been improved aeration of both lungs although residual bilateral infiltrates persist worse in the right hemithorax. Electronically Signed: Ken Peaocck MD at 8:42 EST , Physical Exam Const alert Constitutional Narrative: Intermittently confused. Poor cough. Patient on high flow nasal cannula at 8 L/min during my evaluation General Appearance: Negative for cooperative, lethargic or ill appearing HEENT normocephalic and head/scalp atraumatic Eyes PERRL and EOMs intact bilaterally Neck supple General: trachea midline Chest inspection of chest normal Chest: abnormal inspection of the chest increased A-P diameter Resp Resp Narrative: Frequent episodes of coughing with relatively poor effort. Effort and Inspection: tachypneic, labored and prolonged expiratory phase; Negative for actively coughing or uses accessory muscles Auscultation: wheezes and diminished lung sounds; Negative for rales or rhonchi Cardio regular rate, regular rhythm, S1 normal heart sound, S2 normal heart sound, no murmurs and no rub Rate: tachycardic GI normal to inspection, nondistended, normoactive bowel sounds Extremity no clubbing, cyanosis or edema Skin no rashes or lesions noted Neuro moves all extremities and no focal motor deficits Psych cooperative Activity / Motor Behavior: restless Mood & Affect: anxious Charges/Coding Visit Charges Inpatient E&M: 68811 Subs Hosp L3
[2022-02-04] MEDS: LORazepam 0.5 MG Tablet PO (10:01)
--- NOTE | 2022-02-04 10:20 | CASEMGMT ---
CHANDANA spoke with Sima at [facility]. CHANDANA explained patient had a sitter because she would not keep her O2 on. Sima said patient has to be sitter free for 24 hours. CHANDANA notified physician and propellant charge loader. Patient's O2 also needs to be at 8 or below due to [facility]'s concentrator only going up to 10L. They would need a little leeway with the O2. Plan: d/c back to [facility] under intermediate level of care when medically ready and free of sitter for 24 hours which would be 02-04 at 9p. Darlene Fisher TRAFFIC CHIEF TED
[2022-02-04] MEDS: Insulin Lispro 100 UNIT/ML INSULN.PEN SC ×3 (10:38→20:25)
[2022-02-04 11:01] LABS: Bedside Glucose 228 mg/dL (74-106)
--- NOTE | 2022-02-04 14:07 | PCM.PN.HOSP ---
Subjective Subjective Patient was seen and examined today, she still becomes agitated at times and takes her oxygen off. I have elected to increase her Klonopin, she is already on Seroquel twice a day in addition. Patient is custodial will not accept her back until she has not had a sitter in the room for 24 hours. This would be 9:00 tonight and I do not think it is appropriate to send the patient to a custodial in the evening that late. Patient is currently on 4 L of oxygen and seems to be satting adequately on this setting as long as she leaves the oxygen on Objective Data Objective Data Vital Signs: Vital Signs Temp Pulse Resp BP Pulse Ox O2 Del Method O2 Flow Rate 98.3 F 112 H 19 H 102/74 96 Nasal Cannula 4 02/04/22 13:55 02/04/22 13:55 02/04/22 13:55 02/04/22 13:55 02/04/22 13:55 02/04/22 13:55 02/04/22 13:55 FiO2 40 02/04/22 03:48 Oxygen Flow Rate (L/min) [At 3 REST with Oxygen] Oxygen Flow Rate (L/min) 4 Oxygen Delivery Method Nasal Cannula Weight: 59.6 kg Body Mass Index (BMI) 24.9 Intake & Output: Intake and Output for Last 24 Hours 02/02/22 02/03/22 02/04/22 23:59 23:59 23:59 Intake Total 720 / 960 938 / 938 Output Total 2900 / 2900 800 / 800 Balance 720 / 760 -1962 / -1962 -800 / -800 Lab / Micro Data Result Diagrams: 02/04/22 06:35 02/04/22 06:35 Labs: Laboratory Results - last 24 hr 02/03/22 03:58: Diff Path Review Reviewed 02/03/22 16:26: POC Glucose 386 H 02/03/22 23:11: POC Glucose 284 H 02/04/22 06:35: WBC 12.7 H, RBC 3.27 L, Hgb 10.2 L, Hct 32.7 L, MCV 100.0 H, MCH 31.2, MCHC 31.2 L, RDW Std Deviation 54.4 H, RDW Coeff of Bettina 15.0 H, Plt Count 246, MPV 9.9, Immature Gran % (Auto) 4.300 H, Neut % (Auto) 81.7 H, Lymph % (Auto) 10.9 L, [place] % (Auto) 2.4, Eos % (Auto) 0.1, Baso % (Auto) 0.6, Absolute Neuts (auto) 10.3 H, Absolute Lymphs (auto) 1.38, Nucleated RBC % 0.3 02/04/22 06:35: Sodium 140, Potassium 3.8, Chloride 101, Carbon Dioxide 33.0 H, Anion Gap 6, BUN 14, Creatinine 0.42 L, Estim Creat Clear Calc 102.11, Est GFR (MDRD) Af Amer 196, Est GFR (MDRD) Non-Af 162, BUN/Creatinine Ratio 33.5 H, Glucose 90, Calcium 8.9, Total Bilirubin 0.30, AST 19, ALT 31, Alkaline Phosphatase 143 H, Total Protein 5.9 L, Albumin 2.0 L, Globulin 3.9, Albumin/Globulin Ratio 0.5 L 02/04/22 06:46: POC Glucose 93 02/04/22 10:38: POC Glucose 228 H Micro: Microbiology 01/27/22 09:05 Blood Culture (Wb) #2 - Anticubital Right Blood Culture - Final No growth in 5 days. 01/27/22 08:45 Blood Culture (Wb) - Left Forearm Blood Culture - Final No growth in 5 days. 01/27/22 16:30 Interface Orders Legionella Antigen - Final 01/27/22 16:30 Interface Orders Streptococcus pneumoniae Antigen (M - Final 01/27/22 13:25 Mucosa - Nasopharyngeal Respiratory Panel (PCR) - Final 01/27/22 08:30 Nasal Secretion SARS-CoV-2 & FLU Antigen (Rapid) - Final SARS-CoV-2 (COVID 19) Radiography Diagnostic Testing: Radiology Impression Chest X-Ray 02/04/22 07:33 IMPRESSION: Since prior study, there has been improved aeration of both lungs although residual bilateral infiltrates persist worse in the right hemithorax. Electronically Signed: Ken Peacock MD at 8:42 EST , Physical Exam Const alert Constitutional Narrative: Patient shows moderate confusion, she will follow some instructions Orientation / Consciousness: confused and disoriented HEENT head/scalp atraumatic, moist oral mucous membranes and oropharynx normal Eyes EOMs intact bilaterally and conjunctivae normal Neck supple and no JVD Resp normal respiratory effort, no retractions, no use of accessory muscles and clear to auscultation bilaterally Cardio regular rate, regular rhythm, S1 normal heart sound, S2 normal heart sound, no murmurs and no rub GI normal to inspection, nondistended, normoactive bowel sounds, soft to palpation, non-tender and non-distended Extremity normal to inspection and no clubbing, cyanosis or edema Neuro CN's II-XII intact bilaterally, moves all extremities and no focal motor deficits Sensorium / Orientation: awake Psych Psych Narrative: Patient is alert but confused Assessment & Plan Assessment/Plan (1) Lung cancer metastatic to brain: (2) Hypoxia: (3) Pneumonia due to COVID-19 virus: (4) COVID: PLAN: Plan 1. Acute hypoxic respiratory failure secondary to COVID-19 pneumonia-pulmonary medicine is participating in her care, patient will remain on her current medications- Decadron, and baricitinib. Oxygen will be weaned if possible, patient continually pulls off oxygen despite redirection from nursing, patient is currently on Seroquel and Klonopin, I increased the patient's Klonopin slightly to 3 times a day. #2 type 2 diabetes-blood sugars will be monitored, sliding scale insulin will be administered if necessary #3 chronic obstructive pulmonary disease-complicates care, management, recovery, and prognosis, pulmonary medicine is precipitating in her care #4 metastatic non-small cell lung cancer to the brain-complicates care, management, recovery, and prognosis #5 chronic anxiety--patient is on Klonopin 3 times daily #6 DVT left lower extremity-patient is fully anticoagulated at this time #7 metabolic encephalopathy-possibly secondary to brain metastases from lung cancer with an overlying of chronic anxiety disorder and corticosteroid usage-complicates care, recovery, management, and prognosis. Charges/Coding Visit Charges Inpatient E&M: 58979 Subs Hosp L2
[2022-02-04 16:51] LABS: Bedside Glucose 336 mg/dL (74-106)
[2022-02-04] MEDS: traZODone 50 MG Tablet PO (20:24)
[2022-02-04 21:41] LABS: Bedside Glucose 365 mg/dL (74-106)
[2022-02-05] VITALS (7 sets, daily range): BP systolic 100–107; BP diastolic 73–84; PULSE 80–105; RESP 18–22; TEMP 35.8–36.4; O2SAT 91–99
[2022-02-05] MEDS: clonazePAM 0.5 MG Tablet PO (06:29)
[2022-02-05 06:50] LABS: Bedside Glucose 108 mg/dL (74-106)
[2022-02-05] MEDS: Ipratropium/Albuterol Sulfate 3 ML AMPUL.NEB INHALATION (07:03)
--- NOTE | 2022-02-05 08:32 | PCM.TXEXTCAR ---
Diet Diet Order/Speech Therapy: 01/27/22 11:29 Diet: 2000 avtar ADA Food consistency:: Regular Liquid Consistency:: Regular/Thin Diet Comments: extra 1-2 oz meat/protein Q meal Routine Orders/Code Status O2 Liters per Minute: 3 O2 Frequency: Continuous Keep PO Greater than or Equal to (%): 90 Routine Lab Work: - (Fingerstick blood sugars AC nightly, sliding scale insulin Humalog subcu per blood sugar: 200-250: 5 units, 251-300: 8 units, 301-350: 12 units) Code Status: Full Code Wound(s) Buttock: Wound Type: Pressure Injury Therapies Weight Bearing: Weight bearing as tolerated Physical Therapy: Eval and Treat Occupational Therapy: Eval and Treat Problem/Diagnosis (1) Lung cancer metastatic to brain: Status: Chronic Code(s): C34.90 - Malignant neoplasm of unspecified part of unspecified bronchus or lung; C79.31 - Secondary malignant neoplasm of brain (2) Hypoxia: Status: Acute Code(s): R09.02 - Hypoxemia (3) Pneumonia due to COVID-19 virus: Status: Acute Code(s): U07.1 - COVID-19; J12.82 - Pneumonia due to coronavirus disease 2019 (4) COVID: Status: Acute Code(s): U07.1 - COVID-19 Comment: isolate for 5 more days (02/10/22) Plan 1. Acute hypoxic respiratory failure secondary to COVID-19 pneumonia-pulmonary medicine is participating in her care, patient will remain on her current medications- Decadron, and baricitinib. Oxygen will be weaned if possible, patient continually pulls off oxygen despite redirection from nursing, patient is currently on Seroquel and Klonopin, I increased the patient's Klonopin slightly to 3 times a day. #2 type 2 diabetes-blood sugars will be monitored, sliding scale insulin will be administered if necessary #3 chronic obstructive pulmonary disease-complicates care, management, recovery, and prognosis, pulmonary medicine is precipitating in her care #4 metastatic non-small cell lung cancer to the brain-complicates care, management, recovery, and prognosis #5 chronic anxiety--patient is on Klonopin 3 times daily #6 DVT left lower extremity-patient is fully anticoagulated at this time, patient will be switched to Eliquis [facility] #7 metabolic encephalopathy-possibly secondary to brain metastases from lung cancer with an overlying of chronic anxiety disorder and corticosteroid usage-complicates care, recovery, management, and prognosis. Allergies/Procedures Done in Hospital Allergies No Known Allergies Allergy (Verified 12/14/21 15:36) Procedures: None Type of Care/Length of Stay Estimated LOS: Convalescent Care Less Than 30 days Type of Care Needed: Skilled Rehab Potential: Good Prognosis: Good Additional Orders/Day of Discharge H&P will serve as current which was dated: 01/27/22 Day of Discharge: 02/05/22 Dietary and Speech Recommendations Dietitian Recommendations/Changes: Will d/c 120mL glucerna shake 4x/day with medpass due to pt refusal. Will add 1-2 oz extra protein/lean meat Q meal for increased protein. Discharge Plan Admission Admit Date/Time: 01/27/22 10:26 Primary Reason for Your Visit: Respiratory failure, COVID-19 pneumonia Attending Provider: Krunal Archer Primary Care Provider: Nixon Atkins Consulting Providers: Da Mills ; Kelli Payton ; Emanuel Gould ; Maicol Cho ; Jh Emery ; Almas Barraza ; Nelia Abraham NP ; Yunier Barrientos Instructions Additional Instructions / Restrictions: Schedule follow-up appointment with patient's oncologist in 2 weeks Discharge Orders/Prescriptions Prescriptions: New quetiapine 25 mg Tablet 50 mg PO BID Qty: 0 0RF ipratropium-albuterol 0.5 mg-3 mg(2.5 mg base)/3 mL Solution For Nebulization 3 ml inhalation Q6HWA.RT Qty: 90 0RF polyethylene glycol 3350 17 gram Powder In Packet 17 g PO DAILY Qty: 0 0RF clonazepam 0.5 mg Tablet 0.5 mg PO TID Qty: 15 0RF metoprolol tartrate 25 mg Tablet 25 mg PO BID Qty: 0 0RF menthol-zinc oxide [Calmoseptine] 0.44-20.6 % Ointment 1 applic topical BID Qty: 0 0RF Protocol: *Topical Application Instructions APPLICATION INSTRUCTIONS: coccyx Eliquis 5 mg tablet 5 mg PO BID Qty: 1 0RF Rx Instructions: 10 mg twice a day for a total of 7 days, then 5 mg twice a day thereafter-start 02/05/22 glimepiride [Amaryl] 2 mg tablet 2 mg PO DAILY Qty: 1 0RF Continued levetiracetam 500 mg tablet 500 mg PO BID Label Comments: TAKE 1 TABLET BY MOUTH TWICE DAILY folic acid 400 mcg Tablet 0.4 mg PO DAILY trazodone 150 mg Tablet 150 mg PO QHS fluoxetine 20 mg Tablet 60 mg PO DAILY dexamethasone 4 mg tablet 2 mg PO BID oxybutynin chloride 5 mg tablet 5 mg PO DAILY bupropion HCl 150 mg Tablet Extended Release 24 Hr 150 mg PO DAILY omeprazole 20 mg Capsule,Delayed Release(Dr/Ec) 20 mg PO DAILY docusate sodium 100 mg Tablet 100 mg PO DAILY cholecalciferol (vitamin D3) [Vitamin D3] 125 mcg (5,000 unit) Tablet 125 mcg PO DAILY Discontinued clonazepam 1 mg Tablet 1 mg PO QHS glimepiride 2 mg tablet 4 mg PO DAILY albuterol sulfate [Ventolin HFA] 90 mcg/actuation HFA aerosol inhaler 2 inh INHALATION Q4H Label Comments: INHALE 2 PUFFS BY MOUTH EVERY 4 HOURS NEEDED Combivent Respimat 20-100 mcg/actuation mist 1 puff INHALATION Q6H PRN PRN (Reason: Wheezing) insulin glargine-yfgn 100 unit/mL (3 mL) insulin pen 15 unit SUBCUT BID clonazepam 0.5 mg Tablet 0.5 mg PO DAILY hydrocodone-acetaminophen 5-325 mg tablet 1 tab PO TID Label Comments: TAKE 1 TABLET BY MOUTH THREE TIMES DAILY FOR 3 DAYS insulin aspart U-100 [Novolog U-100 Insulin aspart] 100 unit/mL Solution See Protocol SUBCUT TID Protocol: 6. Sliding Scale Insulin Custom Condition: 150-200 mg/dl range Dose/Route: 1 UNIT Condition: 201-250 mg/dl range Dose/Route: 2 units Condition: 251-300 mg/dl range Dose/Route: 4 units Condition: 301-449 mg/dl range Dose/Route: 5 units Protocol Text: Custom Sliding Scale Referrals / Follow Up: Nixon Atkins MD [Primary Care Provider] - Disposition Disposition (needs filled in before D/C Order can be placed): [facility]
[2022-02-05] MEDS: Enoxaparin 60 MG/0.6 ML Syringe SC (08:44)
[2022-02-05] MEDS: oxyCODONE 5 MG Tablet PO (08:45)
[2022-02-05] MEDS: Menthol/Lanolin/Calamine/Znox 113 GM Tube 1 APPLIC TOPICAL (08:45)
[2022-02-05] MEDS: dexAMETHasone 4 MG Tablet 6 MG PO (08:47)
[2022-02-05] MEDS: Oxybutynin 5 MG Tablet PO (08:49)
[2022-02-05] MEDS: Folic Acid 1 MG Tablet 0.5 MG PO (08:49)
[2022-02-05] MEDS: levETIRAcetam 500 MG Tablet PO (08:50)
[2022-02-05] MEDS: FLUoxetine 20 MG Capsule 40 MG PO (08:52)
[2022-02-05] MEDS: Pantoprazole Sodium 40 MG Tablet PO (08:52)
[2022-02-05] MEDS: QUEtiapine 25 MG Tablet 50 MG PO (08:53)
[2022-02-05] MEDS: buPROPion (XL) 150 MG TABLET.XL PO (08:54)
[2022-02-05] MEDS: Cholecalciferol (Vit D3) 125 MCG CAPSULE (5,000 UNITS) PO (08:54)
--- NOTE | 2022-02-05 09:05 | NURSING ---
Called patient's sister Abigail about returning [facility] today.
--- NOTE | 2022-02-05 09:24 | DS.PCM_ITS ---
Providers Date of Admission: 01/27/22 Date of Discharge: 02/05/22 Primary Care Physician: Dr. Nixon Atkins MD Consultations 01/27/22 11:49 Consult: Infectious Disease Routine Consulting Provider: Da Mills Reason for Consult: covid 19, dvt, Ca lung with mets brain EMERGENT Consult: No MD Notified: Yes Date Notified: 01/27/22 Time Notified: 11:49 Method of Notification: Text 01/28/22 13:40 Consult: Asset Protection Detective / Pulmonary Medicine Routine Consulting Provider: Pulmonary Medicine misty Los Ebanos Reason for Consult: Acute hypoxic resp failure, covid, lung ca EMERGENT Consult: No MD Notified: Yes Date Notified: 01/28/22 Time Notified: 13:40 Method of Notification: Verbal Reason For Visit: SOB, COVID 19 Diagnosis Discharge Diagnosis (1) Lung cancer metastatic to brain: Status: Chronic Code(s): C34.90 - Malignant neoplasm of unspecified part of unspecified bronchus or lung; C79.31 - Secondary malignant neoplasm of brain (2) Hypoxia: Status: Acute Code(s): R09.02 - Hypoxemia (3) Pneumonia due to COVID-19 virus: Status: Acute Code(s): U07.1 - COVID-19; J12.82 - Pneumonia due to coronavirus disease 2019 (4) COVID: Status: Acute Code(s): U07.1 - COVID-19 Plan 1. Acute hypoxic respiratory failure secondary to COVID-19 pneumonia-pulmonary medicine is participating in her care, patient will remain on her current medications- Decadron, and baricitinib. Oxygen will be weaned if possible, patient continually pulls off oxygen despite redirection from nursing, patient is currently on Seroquel and Klonopin, I increased the patient's Klonopin slightly to 3 times a day. 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 Medications at Discharge Home Medications bupropion HCl 150 mg 24 hr tablet, extended release 150 mg PO DAILY DEPRESSION 12/14/21 dexamethasone 4 mg tablet 2 mg PO BID STEROID 12/14/21 fluoxetine 20 mg tablet 60 mg PO DAILY DEPRESSION 12/14/21 folic acid 400 mcg tablet 0.4 mg PO DAILY SUPPLEMENT 12/14/21 levetiracetam 500 mg tablet 500 mg PO BID SEIZURES 12/14/21 oxybutynin chloride 5 mg tablet 5 mg PO DAILY OAB 12/14/21 trazodone 150 mg tablet 150 mg PO QHS SLEEP 12/14/21 cholecalciferol (vitamin D3) 125 mcg (5,000 unit) tablet (Vitamin D3) 125 mcg PO DAILY SUPPLEMENT 01/27/22 docusate sodium 100 mg tablet 100 mg PO DAILY CONSTIPATION 01/27/22 omeprazole 20 mg capsule,delayed release 20 mg PO DAILY GERD 01/27/22 apixaban 5 mg tablet (Eliquis) 5 mg PO BID #1 TAB 02/05/22 clonazepam 0.5 mg tablet 0.5 mg PO TID #15 tabs 02/05/22 glimepiride 2 mg tablet (Amaryl) 2 mg PO DAILY #1 TAB 02/05/22 ipratropium 0.5 mg-albuterol 3 mg (2.5 mg base)/3 mL nebulization soln 3 ml inhalation Q6HWA.RT #90 mL 02/05/22 menthol 0.44 %-zinc oxide 20.6 % topical ointment (Calmoseptine) 1 applic topical BID #0 grams 02/05/22 metoprolol tartrate 25 mg tablet 25 mg PO BID #0 tabs 02/05/22 polyethylene glycol 3350 17 gram oral powder packet 17 g PO DAILY #0 ea 02/05/22 quetiapine 25 mg tablet 50 mg PO BID #0 tabs 02/05/22 Hospital Course Operations None Procedures None Summary of Care Provided Minutes Spent on Discharge: 31 Hospital Course: This 66-year-old white female was seen in the emergency room at [facility] after being brought in from an extended care facility where she resided for rehab services. She was brought in due to increased oxygen requirements, patient had a longstanding history of COPD but normally was not on oxygen, several days previous at the halfway she was placed on 5 L via nasal cannula due to increased oxygen demand. The facility tested the patient for COVID on 01/27/22 and was positive. Patient has a history of metastatic non-small cell lung cancer to the brain and has been undergoing treatment for this. Chest x-ray showed bilateral pulmonary infiltrates in keeping with bilateral pneumonia, patient had a venous Doppler study of the left leg which showed a DVT in the left leg. Patient was admitted to PCU, she was agitated at times and pulled off her oxygen frequently, I had discussions with her sister who was one of her POA's and she could not make up her mind whether to make the patient comfort care. Patient received baricitinib and Decadron, remdesivir was also given to the patient. Patient was given Lovenox for anticoagulation. Patient was seen by pulmonary medicine. Patient's oxygen requirement lessened d uring the time she was in the hospital, unfortunately she would not keep her oxygen on and had to be reminded to wear it multiple times. On 02/05/2022, patient was seen and examined: On examination she appeared older than her stated age, she was confused, she does not appear to be in any distress. Vital signs as documented. Skin warm and dry and without overt rashes. Neck without JVD, thyroid appears normal, trachea is midline, neck is supple. Lungs clear, normal air movement was noted. Heart exam notable for regular rhythm, normal sounds and absence of murmurs, rubs or gallops. Abdomen unrem arkable and without evidence of organomegaly, masses, or abdominal aortic enlargement, bowel sounds are present in all 4 quadrants, no abdominal tenderness was noted. Extremities nonedematous, no cyanosis was noted, no clubbing was noted. Neuro: Cranial nerves II through XII are grossly intact, no focal motor deficits were noted, sensation to light touch and pinprick is intact, motor exam 5/5 throughout. Psych: Patient is alert and confused. On 02/05/2022, patient appears stable for discharge to the extended care facility for further care. Weight / BMI Weight Weight: 59.6 kg Body Mass Index (BMI) 24.9 ABG / Lab / Microbiology Data Result Diagrams: 02/04/22 06:35 02/04/22 06:35 Laboratory: Laboratory Results - last 24 hr 02/04/22 10:38: POC Glucose 228 H 02/04/22 15:50: POC Glucose 336 H 02/04/22 20:22: POC Glucose 365 H 02/05/22 06:24: POC Glucose 108 H Microbiology: Microbiology 01/27/22 09:05 Blood Culture (Wb) #2 - Anticubital Right Blood Culture - Final No growth in 5 days. 01/27/22 08:45 Blood Culture (Wb) - Left Forearm Blood Culture - Final No growth in 5 days. 01/27/22 16:30 Interface Orders Legionella Antigen - Final 01/27/22 16:30 Interface Orders Streptococcus pneumoniae Antigen (M - Final 01/27/22 13:25 Mucosa - Nasopharyngeal Respiratory Panel (PCR) - Final 01/27/22 08:30 Nasal Secretion SARS-CoV-2 & FLU Antigen (Rapid) - Final SARS-CoV-2 (COVID 19) Meaningful Use Info Meaningful Use Diagnoses (Choose all that apply): None applicable Discharge Plan Admission Admit Date/Time: 01/27/22 10:26 Primary Reason for Your Visit: Respiratory failure, COVID-19 pneumonia Attending Provider: Krunal Archer Primary Care Provider: Nixon Atkins Consulting Providers: Da Mills ; Kelli Payton ; Emanuel Gould ; Maicol Cho ; Jh Emery ; Almas Barraza ; Nelia Abraham DIRECTOR OF VOCATIONAL TRAINING ; Yunier Huynh Instructions Additional Instructions / Restrictions: Schedule follow-up appointment with patient's oncologist in 2 weeks Discharge Orders/Prescriptions Prescriptions: New quetiapine 25 mg Tablet 50 mg PO BID Qty: 0 0RF ipratropium-albuterol 0.5 mg-3 mg(2.5 mg base)/3 mL Solution For Nebulization 3 ml inhalation Q6HWA.RT Qty: 90 0RF polyethylene glycol 3350 17 gram Powder In Packet 17 g PO DAILY Qty: 0 0RF clonazepam 0.5 mg Tablet 0.5 mg PO TID Qty: 15 0RF metoprolol tartrate 25 mg Tablet 25 mg PO BID Qty: 0 0RF menthol-zinc oxide [Calmoseptine] 0.44-20.6 % Ointment 1 applic topical BID Qty: 0 0RF Protocol: *Topical Application Instructions APPLICATION INSTRUCTIONS: coccyx Eliquis 5 mg tablet 5 mg PO BID Qty: 1 0RF Rx Instructions: 10 mg twice a day for a total of 7 days, then 5 mg twice a day thereafter-s tart 02/05/22 glimepiride [Amaryl] 2 mg tablet 2 mg PO DAILY Qty: 1 0RF Continued levetiracetam 500 mg tablet 500 mg PO BID Label Comments: TAKE 1 TABLET BY MOUTH TWICE DAILY folic acid 400 mcg Tablet 0.4 mg PO DAILY trazodone 150 mg Tablet 150 mg PO QHS fluoxetine 20 mg Tablet 60 mg PO DAILY dexamethasone 4 mg tablet 2 mg PO BID oxybutynin chloride 5 mg tablet 5 mg PO DAILY bupropion HCl 150 mg Tablet Extended Release 24 Hr 150 mg PO DAILY omeprazole 20 mg Capsule,Delayed Release(Dr/Ec) 20 mg PO DAILY docusate sodium 100 mg Tablet 100 mg PO DAILY cholecalciferol (vitamin D3) [Vitamin D3] 125 mcg (5,000 unit) Tablet 125 mcg PO DAILY Discontinued clonazepam 1 mg Tablet 1 mg PO QHS glimepiride 2 mg tablet 4 mg PO DAILY albuterol sulfate [Ventolin HFA] 90 mcg/actuation HFA aerosol inhaler 2 inh INHALATION Q4H Label Comments: INHALE 2 PUFFS BY MOUTH EVERY 4 HOURS NEEDED Combivent Respimat 20-100 mcg/actuation mist 1 puff INHALATION Q6H PRN PRN (Reason: Wheezing) insulin glargine-yfgn 100 unit/mL (3 mL) insulin pen 15 unit SUBCUT BID clonazepam 0.5 mg Tablet 0.5 mg PO DAILY hydrocodone-acetaminophen 5-325 mg tablet 1 tab PO TID Label Comments: TAKE 1 TABLET BY MOUTH THREE TIMES DAILY FOR 3 DAYS insulin aspart U-100 [Novolog U-100 Insulin aspart] 100 unit/mL Solution See Protocol SUBCUT TID Protocol: 6. Sliding Scale Insulin Custom Condition: 150-200 mg/dl range Dose/Route: 1 UNIT Condition: 201-250 mg/dl range Dose/Route: 2 units Condition: 251-300 mg/dl range Dose/Route: 4 units Condition: 301-449 mg/dl range Dose/Route: 5 units Protocol Text: Custom Sliding Scale Referrals / Follow Up: Nixon Atkins MD [Primary Care Provider] - Disposition Disposition (needs filled in before D/C Order can be placed): Jail Facility Charges/Coding Visit Charges Inpatient E&M: [id number] Disch Hosp
[2022-02-05] MEDS: Metoprolol Tartrate 25 MG Tablet PO (09:47)
--- NOTE | 2022-02-05 10:52 | NURSING ---
Gave report to physicians EMS team.
--- NOTE | 2022-02-05 10:56 | NURSING ---
Called report to Stef DOMINGUEZ at the [place].
== END 2022-02-05 11:04 | disposition skilled nursing facility (03) | DRG 177 ==
LOC: ED 10:37 → PCU 11:01
PROVIDERS: Internal Medicine Critical Care Medicine; Admitting Provider Internal Medicine; Emergency Provider Emergency Medicine; PCP Family Medicine; Visit Provider Internal Medicine
DX: U07.1 COVID-19 (principal); J96.01 Acute respiratory failure with hypoxia; J12.82 Pneumonia due to coronavirus disease 2019; G93.41 Metabolic encephalopathy; I82.402 Acute embolism and thrombosis of unspecified deep veins of left lower extremity; E87.20 Acidosis, unspecified; C79.31 Secondary malignant neoplasm of brain; C34.90 Malignant neoplasm of unspecified part of unspecified bronchus or lung; J44.0 Chronic obstructive pulmonary disease with (acute) lower respiratory infection; J44.1 Chronic obstructive pulmonary disease with (acute) exacerbation; E11.649 Type 2 diabetes mellitus with hypoglycemia without coma; D63.8 Anemia in other chronic diseases classified elsewhere; F29 Unspecified psychosis not due to a substance or known physiological condition; E11.65 Type 2 diabetes mellitus with hyperglycemia; I11.0 Hypertensive heart disease with heart failure; I50.9 Heart failure, unspecified; D53.9 Nutritional anemia, unspecified; F41.9 Anxiety disorder, unspecified; Z66 Do not resuscitate; Z51.5 Encounter for palliative care; Z79.84 Long term (current) use of oral hypoglycemic drugs; Z87.891 Personal history of nicotine dependence; Z92.3 Personal history of irradiation
CPT/HCPCS: 36415; 36600; 70450; 71045; 80048; 80053; 80076; 82550; 82803; 82962; 83605; 83615; 83735; 83880; 84100; 84145; 84484; 85025; 85379; 85384; 85610; 86140; 87040; 87428; 87449; 87633; 93005; 93970; 94002; 94003; 94640; 94660; 94762; 97110; 97162; 97166; 97530; 97535; 97802; 97803; 99285; 99406; J7030; J7050; A4216; J0248; J1940; J7799

== ENCOUNTER 2022-02-07 09:14 | Inpatient (IN) | payer MEDICARE, MEDICAID, SELFPAY ==
[2022-02-07] VITALS (26 sets, daily range): BP systolic 80–136; BP diastolic 59–92; PULSE 86–109; RESP 12–26; TEMP 36.2–36.6; O2SAT 91–98; BMI 24.8; BMI 23.8
--- NOTE | 2022-02-07 09:56 | EKG12_ITS ---
Test Reason : SOB Blood Pressure : / mmHG Vent. Rate : 106 BPM Atrial Rate : 106 BPM P-R Int : 128 ms QRS Dur : 088 ms QT Int : 378 ms P-R-T Axes : 032 028 048 degrees QTc Int : 502 ms Sinus tachycardia Otherwise normal ECG Confirmed by LETI MCCRARY, ALDO ([id number]), photographic editor ZOË MCGRATH ([id number]) on 02/08/2022 11:38:54 AM Referred By: Confirmed By:ALDO LANDEROS MD
--- NOTE | 2022-02-07 09:59 | ED.VIS.DYS ---
HPI History of Present Illness Chief Complaint: Shortness of Breath Informant: patient Narrative Narrative: Patient was sent from a detention for dyspnea hypotension hypoxia she admits to chest pain but cannot tell me anything about it. She was apparently discharged from here 2 days ago for COVID pneumonitis. She is DNR CCA, she is at her baseline of alert and oriented x1 according to detention report. Her medication list does not include it but she was discharged on Eliquis due to having a DVT recently. At the detention she was 71% on 5 L, they moved her up to 15 on a nonrebreather and she was 96%, we currently have her on a 4 L nasal cannula at 96%. Blood pressure was 91/65, here in the ER it is similar. [facility] Medical History Anxiety Bacteremia due to Gram-negative bacteria Chest pain Congestive heart failure (CHF) COPD (chronic obstructive pulmonary disease) Diabetes Former smoker Hypertension Metastasis Primary cancer of left upper lobe of lung Home Medications bupropion HCl 150 mg 24 hr tablet, extended release 150 mg PO DAILY DEPRESSION 12/14/21 [History Last Taken 12/14/21] dexamethasone 4 mg tablet 2 mg PO BID STEROID 12/14/21 [History Last Taken 12/14/21] fluoxetine 20 mg tablet 60 mg PO DAILY DEPRESSION 12/14/21 [History Last Taken 12/14/21] folic acid 400 mcg tablet 0.4 mg PO DAILY SUPPLEMENT 12/14/21 [History Last Taken 12/14/21] levetiracetam 500 mg tablet 500 mg PO BID SEIZURES 12/14/21 [History Last Taken 12/14/21] oxybutynin chloride 5 mg tablet 5 mg PO DAILY OAB 12/14/21 [History Last Taken 12/14/21] trazodone 150 mg tablet 150 mg PO QHS SLEEP 12/14/21 [History Last Taken 12/13/21] cholecalciferol (vitamin D3) 125 mcg (5,000 unit) tablet (Vitamin D3) 125 mcg PO DAILY SUPPLEMENT 01/27/22 [History Last Taken Unknown] docusate sodium 100 mg tablet 100 mg PO DAILY CONSTIPATION 01/27/22 [History Last Taken Unknown] omeprazole 20 mg capsule,delayed release 20 mg PO DAILY GERD 01/27/22 [History Last Taken Unknown] apixaban 5 mg tablet (Eliquis) 5 mg PO BID #1 TAB 02/05/22 [Rx Last Taken Unknown] clonazepam 0.5 mg tablet 0.5 mg PO TID #15 tabs 02/05/22 [Rx Last Taken Unknown] glimepiride 2 mg tablet (Amaryl) 2 mg PO DAILY #1 TAB 02/05/22 [Rx Last Taken Unknown] ipratropium 0.5 mg-albuterol 3 mg (2.5 mg base)/3 mL nebulization soln 3 ml inhalation Q6HWA.RT #90 mL 02/05/22 [Rx Last Taken Unknown] menthol 0.44 %-zinc oxide 20.6 % topical ointment (Calmoseptine) 1 applic topical BID #0 grams 02/05/22 [Rx Last Taken Unknown] metoprolol tartrate 25 mg tablet 25 mg PO BID #0 tabs 02/05/22 [Rx Last Taken Unknown] polyethylene glycol 3350 17 gram oral powder packet 17 g PO DAILY #0 ea 02/05/22 [Rx Last Taken Unknown] quetiapine 25 mg tablet 50 mg PO BID #0 tabs 02/05/22 [Rx Last Taken Unknown] Allergy/AdvReac Type Severity Reaction Status Date / Time No Known Allergies Allergy Verified 12/14/21 15:36 Social History Smoking Status: Former smoker ROS ROS ED Review of Systems ROS Unobtainable: due to mental status Cardiovascular Cardiovascular: Denies chest pain Respiratory/Chest Respiratory/Chest: Denies dyspnea EXAM Physical Exam Const Vital Signs: 02/07/22 09:18 02/07/22 09:21 02/07/22 09:29 Temperature 97.2 F L 97.2 F L Temperature Source Temporal Temporal Pulse Rate 109 H 109 H Respiratory Rate 25 H 25 H Respiratory Effort Short of Breath Respiratory Depth Deep Respiratory Pattern Tachypnea Blood Pressure 90/61 90/61 Blood Pressure Mean 70 70 Pulse Ox 96 96 Oxygen Delivery Method Nasal Cannula Nasal Cannula Nasal Cannula Oxygen Flow Rate (L/min) 4 4 Fraction of Inspired Oxygen (FIO2) 02/07/22 10:24 02/07/22 10:20 02/07/22 11:10 Temperature Temperature Source Pulse Rate 103 H 99 Respiratory Rate 22 H 21 H Respiratory Effort Respiratory Depth Respiratory Pattern Tachypnea Blood Pressure Blood Pressure Mean Pulse Ox 96 94 Oxygen Delivery Method Bi-pap Oxygen Flow Rate (L/min) Fraction of Inspired Oxygen (FIO2) 40 30 02/07/22 11:33 02/07/22 11:36 02/07/22 12:00 Temperature Temperature Source Pulse Rate 97 96 Respiratory Rate 24 H 20 H Respiratory Effort Respiratory Depth Respiratory Pattern Blood Pressure 80/60 L 83/59 L 112/78 Blood Pressure Mean 66 67 89 Pulse Ox 97 Oxygen Delivery Method Bi-pap Bi-pap Oxygen Flow Rate (L/min) Fraction of Inspired Oxygen (FIO2) Positive well nourished, well developed and obese General Appearance ED: well developed Nutritional Appearance: obese HEENT Reports moist mucous membranes normocephalic and atraumatic Eyes PERRL and EOMs intact bilaterally Neck full ROM, supple and no meningeal signs Resp Resp Narrative: Coarse breath sounds bilaterally and equally, tachypneic mild distress. Very lethargic. Trachea midline Cardio regular rate, regular rhythm and no murmurs Rate: tachycardic GI non-tender and non-distended Auscultation: normoactive bowel sounds Palpation: soft Back/Spine no CVA tenderness General Back: other FROM Extremity normal to inspection General Extremety ED: Negative for edema, pulses abnormal or tenderness General Extremity: Negative for edema or pulses abnormal Neuro CN's II-XII intact bilaterally and no sensory deficits noted Neuro Narrative: Moves all 4 extremities equally. Very lethargic. Does alert to voice. Can follow some commands. Jeb Coma Scale: document GCS findings To Voice Obeys Commands Inappropriate 12 Sensorium / Orientation: awake, alert and oriented to person Motor Exam: general weakness Psych Psych Narrative: Limited evaluation Skin no rashes or lesions noted and no wounds Sepsis Attestation Sepsis Attestation: Agree w/Sepsis Date exam was performed: 02/07/22 Time exam was performed: 11:30 Possible Source of Sepsis: Pulmonary Sepsis Organ Dysfunction Criteria Present: SBP < 90 mmHg or MAP < 65 mmHg, Acute Respiratory Failure (New need for BiPAP/CPAP or MV) and New/Unexplained change in mental status Fluid Resuscitation Fluid resuscitation indicated?: Yes Fluid Resuscitation ordered: 30 ml/kg fluid bolus ordered Sepsis Note Date exam was performed: 02/07/22 Time exam was performed: 12:30 Sepsis Attestation: Sepsis re-evaluation was performed Response to fluids: Fluid responsive hypotension MDM MDM MDM Narrative Medical decision making narrative: Although patient is maintaining oxygen saturations on a nasal cannula right now, she appears to be in mild respiratory distress, hypotensive and very lethargic. I am having respiratory put her on BiPAP and we will also obtain a blood gas. ABG obtained prior to placing her on BiPAP shows neutral pH without hypercapnia, it was a venous sample respiratory was unable to obtain an arterial sample, which I was okay with. She still is lethargic despite BiPAP, we are keeping her saturations up, but her blood pressure is still low in the 80s now after the first liter of IV fluids, another as ordered, her white blood count is higher than it was, her chest x-ray showing some mild persistent bilateral infiltrates similar to before, plan is admission. During the second fluid her blood pressure responded and is over 100 systolic, 112/78. Discussed with intensive care as well we will admit her there. Apparently the patient has a history of lung cancer with metastatic lesions to the brain and is DNR Comfort Care arrest. At this time she does not need an emergent central line in the emergency department. Lab Data Attestation: I reviewed the patient's lab results. Labs: Laboratory Results - last 24 hr 02/07/22 02/07/22 02/07/22 10:00 10:00 10:00 WBC 15.9 H RBC 3.34 L Hgb 10.7 L Hct 33.3 L MCV 99.7 H MCH 32.0 MCHC 32.1 RDW Std Deviation 56.9 H RDW Coeff of Bettina 15.4 H Plt Count 287 MPV 9.9 Immature Gran % (Auto) 4.400 H Neut % (Auto) 87.9 H Lymph % (Auto) 4.9 L Solano % (Auto) 2.1 Eos % (Auto) 0.3 Baso % (Auto) 0.4 Absolute Neuts (auto) 13.9 H Absolute Lymphs (auto) 0.78 L Nucleated RBC % 0.2 PT 27.8 H INR 2.6 APTT 37.5 H Sodium 138 Potassium 3.3 L Chloride 99 Carbon Dioxide 32.0 Anion Gap 7 BUN 18 Creatinine 0.56 Estim Creat Clear Calc 76.58 Est GFR (MDRD) Af Amer 139 Est GFR (MDRD) Non-Af 115 BUN/Creatinine Ratio 31.9 H Glucose 126 H Lactic Acid Calcium 9.1 Total Bilirubin 0.40 AST 22 ALT 33 Alkaline Phosphatase 123 H Troponin I High Sens 28 Total Protein 6.7 Albumin 2.0 L Globulin 4.7 H Albumin/Globulin Ratio 0.4 L 02/07/22 10:08 WBC RBC Hgb Hct MCV MCH MCHC RDW Std Deviation RDW Coeff of Bettina Plt Count MPV Immature Gran % (Auto) Neut % (Auto) Lymph % (Auto) Solano % (Auto) Eos % (Auto) Baso % (Auto) Absolute Neuts (auto) Absolute Lymphs (auto) Nucleated RBC % PT INR APTT Sodium Potassium Chloride Carbon Dioxide Anion Gap BUN Creatinine Estim Creat Clear Calc Est GFR (MDRD) Af Amer Est GFR (MDRD) Non-Af BUN/Creatinine Ratio Glucose Lactic Acid 1.6 Calcium Total Bilirubin AST ALT Alkaline Phosphatase Troponin I High Sens Total Protein Albumin Globulin Albumin/Globulin Ratio ABG Data ABG results: ABG 02/07/22 10:26 Specimen Type MERCEDES VBG pH 7.42 VBG pO2 30 VBG HCO3 32 H VBG Total CO2 34 H VBG O2 Sat (Calc) 57 VBG Base Excess 8 H POC Mix VBG pCO2 Pt Tmp 50.0 O2 Delivery Device Cannula Liter Flow 4.0 Radiography Diagnostic Testing: Clinical Impression(s) from Imaging Studies Chest X-Ray 02/07/22 10:20 IMPRESSION: Persistent bilateral pulmonary infiltrates. Further follow-up recommended. Electronically Signed: Ken Peacock MD at 10:55 EST Reading Location ID and State: [facility] / [place] , Service support , Rhythm Strip Rhythm Strip: Sinus Tach Rate: 105 Ectopy: None EKG Initial EKG: Attestation: I personally reviewed and interpreted this EKG as follows: Interpretation: No Acute Injury Pattern and Sinus Tachycardia Critical Care Time Critical Care Time: Yes Critical care time (excluding procedures): 30-74 minutes (32 min), Including time spent:, Discussing w/Patient &/or Family/Microfiche Duplicator, Discussing w/Consultants, Arranging Admission or Transfer and Performing Direct Patient Care at Bedside Discharge Plan Dx/Rx/DC Orders Clinical Impression: Acute respiratory failure with hypoxia, Pneumonia due to COVID-19 virus, Sepsis, Lung cancer metastatic to brain Disposition Disposition: Acute Care Hospital [facility]
[2022-02-07] MEDS: 0.9% Normal Saline 1,000 ML 999 ML IV ×2 (10:20→13:23)
--- NOTE | 2022-02-07 10:20 | RAD_ITS ---
STUDY: X-RAY CHEST REASON FOR EXAM: Female, 66 years old. Dyspnea, chest pain, hypoxic TECHNIQUE: Single AP portable view of the chest. COMPARISON: Comparison is made with prior study dated 02/04/2022. FINDINGS: EKG electrodes are seen. Persistent bilateral ulnar infiltrates. There is no demonstrated pleural abnormality. Normal size heart. Normal mediastinum and kaiden. Normal visualized pulmonary arteries. There is atherosclerotic calcification of the aortic arch with tortuosity. There are diffuse degenerative changes of the visualized thoracic spine. Normal visualized ribs, clavicles, and shoulders. There is no demonstrated abnormality of the visualized soft tissue structures of the upper abdomen. RAD/Chest 1 View (Portable) IMPRESSION: Persistent bilateral pulmonary infiltrates. Further follow-up recommended. Electronically Signed: Ken Peacock MD at 10:55 EST ,
[2022-02-07 10:28] LABS: Absolute Lymphocyte Count 0.78 X10^3/uL (0.83-4.51); Absolute Neutrophil Count 13.9 X10^3/uL (2.0-7.7); Basophil# 0.06 X10^3/uL; Basophil% 0.4 % (0-1); Eosinophil# 0.05 X10^3/uL; Eosinophils% 0.3 % (0-5); Hematocrit 33.3 % (37-47); Hemoglobin 10.7 g/dL (12.0-15.0); Lymphocyte # 0.78 X10^3/ul (0.83-4.51); Lymphocyte % 4.9 % (19-41); Mean Corp Hgb Conc 32.1 g/dL (32-36); Mean Corpuscular Volume 99.7 fL (81-99); Mean Platelet Vol. 9.9 fl (6.2-12.0); Monocyte# 0.33 X10^3/uL; Monocyte% 2.1 % (0-10); NRBC Flagged by Analyzer 0.2 % (0-5); Neutrophil # 13.93 X10^3/uL (2.7-7.7); Neutrophil % 87.9 % (47-70); Platelet Count 287 K/mm3 (150-450); RBC Distribution Width CV 15.4 % (11.6-14.6); RBC Distribution Width SD 56.9 fl (35.1-43.9); Red Blood Count 3.34 M/mm3 (4.2-5.4); White Blood Count 15.9 K/mm3 (4.4-11.0)
[2022-02-07 10:30] LABS: Blood Gas Specimen Type VEN; O2 Delivery Device Cannula; VBG BASE EXCESS 8 mmol/L (-1.0-3.5); VBG Bicarbonate 32 mmol/L (22-26); VBG PO2 30 mmHg (25-40); VBG SO2 57 % (50-70); VBG TCO2 34 mmol/L (23-33); VBG pH 7.42 (7.32-7.42)
[2022-02-07 10:46] LABS: ALB/GLOB Ratio 0.4 RATIO (0.9-2.4); AST(SGOT) 22 U/L (15-37); Alanine Aminotransfer ALT/SGPT 33 U/L (13-56); Alkaline Phosphatase 123 U/L (45-117); Anion Gap 7 (5-15); BUN 18 mg/dL (7-18); BUN/Creat Ratio 31.9 RATIO (10-20); Calcium,Total 9.1 mg/dL (8.5-10.1); Chloride 99 mmol/L (98-107); Creatinine, Serum 0.56 mg/dL (0.55-1.02); EST Glomerular Filtration Rate 115 mL/min (>60); Est Glom Filt Rate - Afr Amer 139 mL/min (>60); Estimated Creatinine Clearance 76.58 ml/min; Globulin 4.7 g/dL (2.2-4.2); Glucose 126 mg/dL (74-106); Potassium 3.3 mmol/L (3.5-5.1); Protein, Total 6.7 g/dL (6.4-8.2); Sodium Level 138 mmol/L (136-145); Troponin-I HS 28 pg/mL (3.0-54.0)
[2022-02-07 10:49] LABS: International Normalized Ratio 2.6; Prothrombin Time (Protime)PT. 27.8 SECONDS (11.7-14.9)
[2022-02-07 10:50] LABS: Lactic Acid 1.6 mmol/L (0.4-1.9)
[2022-02-07 10:50] LABS: Partial Thromboplast Time 37.5 Seconds (24.1-36.2)
--- NOTE | 2022-02-07 11:59 | NURSING ---
spoke with pts sister. she states pts sister in law will be in to talk with dr. yang pt is a full code
--- NOTE | 2022-02-07 12:08 | HP.PCM.HOS_ITS ---
HPI - General General Date of Admission: 02/07/22 Date of Service: 02/07/22 HPI Narrative KATIE KATZ, is a 66 F with multiple comorbidities including lung CA with mets to the brain recently discharged to ECF after being on admission for COVID pneumonitis. Patient was found to be hypoxic at the ECF. She was apparently saturating 71% on 5 L placed on nonrebreather and sent to the ED. She was also reported to be hypotensive prior to patient being transferred. History was limited in view of patient being on BiPAP at the time of my assessment history was therefore taken from the ED staff as well as documentation from the ECF. Imaging studies obtained in the ED demonstrated persistent bilateral pulmonary infiltrate. She was also found to have leukocytosis. An assessment of sepsis secondary to pneumonia with suspected MDR's made admitted to the intensive care unit for further management [facility] Medical History Anxiety Bacteremia due to Gram-negative bacteria Chest pain Congestive heart failure (CHF) COPD (chronic obstructive pulmonary disease) Diabetes Former smoker Hypertension Metastasis Primary cancer of left upper lobe of lung Home Medications bupropion HCl 150 mg 24 hr tablet, extended release 150 mg PO DAILY DEPRESSION 12/14/21 [History Last Taken 12/14/21] dexamethasone 4 mg tablet 2 mg PO BID STEROID 12/14/21 [History Last Taken 12/14/21] fluoxetine 20 mg tablet 60 mg PO DAILY DEPRESSION 12/14/21 [History Last Taken 12/14/21] folic acid 400 mcg tablet 0.4 mg PO DAILY SUPPLEMENT 12/14/21 [History Last Taken 12/14/21] levetiracetam 500 mg tablet 500 mg PO BID SEIZURES 12/14/21 [History Last Taken 12/14/21] oxybutynin chloride 5 mg tablet 5 mg PO DAILY OAB 12/14/21 [History Last Taken 12/14/21] trazodone 150 mg tablet 150 mg PO QHS SLEEP 12/14/21 [History Last Taken 12/13] cholecalciferol (vitamin D3) 125 mcg (5,000 unit) tablet (Vitamin D3) 125 mcg PO DAILY SUPPLEMENT 01/27/22 [History Last Taken Unknown] docusate sodium 100 mg tablet 100 mg PO DAILY CONSTIPATION 01/27/22 [History Last Taken Unknown] omeprazole 20 mg capsule,delayed release 20 mg PO DAILY GERD 01/27/22 [History Last Taken Unknown] apixaban 5 mg tablet (Eliquis) 5 mg PO BID #1 TAB 02/05/22 [Rx Last Taken Unknown] clonazepam 0.5 mg tablet 0.5 mg PO TID #15 tabs 02/05/22 [Rx Last Taken Unknown] glimepiride 2 mg tablet (Amaryl) 2 mg PO DAILY #1 TAB 02/05/22 [Rx Last Taken Unknown] ipratropium 0.5 mg-albuterol 3 mg (2.5 mg base)/3 mL nebulization soln 3 ml inhalation Q6HWA.RT #90 mL 02/05/22 [Rx Last Taken Unknown] menthol 0.44 %-zinc oxide 20.6 % topical ointment (Calmoseptine) 1 applic to pical BID #0 grams 02/05/22 [Rx Last Taken Unknown] metoprolol tartrate 25 mg tablet 25 mg PO BID #0 tabs 02/05/22 [Rx Last Taken Unknown] polyethylene glycol 3350 17 gram oral powder packet 17 g PO DAILY #0 ea 02/05/22 [Rx Last Taken Unknown] quetiapine 25 mg tablet 50 mg PO BID #0 tabs 02/05/22 [Rx Last Taken Unknown] Allergy/AdvReac Type Severity Reaction Status Date / Time No Known Allergies Allergy Verified 12/14/21 15:36 Social History Smoking Status: Former smoker ROS Review of Systems ROS Unobtainable: due to mental status and other Details: And patient being on BiPAP Vital Signs Vital Signs Vital Signs: 02/07/22 09:18 02/07/22 09:21 02/07/22 09:29 Temperature 97.2 F L 97.2 F L Temperature Source Temporal Temporal Pulse Rate 109 H 109 H Respiratory Rate 25 H 25 H Respiratory Effort Short of Breath Respiratory Depth Deep Respiratory Pattern Tachypnea Blood Pressure 90/61 90/61 Blood Pressure Mean 70 70 Pulse Ox 96 96 Oxygen Delivery Method Nasal Cannula Nasal Cannula Nasal Cannula Oxygen Flow Rate (L/min) 4 4 Fraction of Inspired Oxygen (FIO2) 02/07/22 10:24 02/07/22 10:20 02/07/22 11:10 Temperature Temperature Source Pulse Rate 103 H 99 Respiratory Rate 22 H 21 H Respiratory Effort Respiratory Depth Respiratory Pattern Tachypnea Blood Pressure Blood Pressure Mean Pulse Ox 96 94 Oxygen Delivery Method Bi-pap Oxygen Flow Rate (L/min) Fraction of Inspired Oxygen (FIO2) 40 30 02/07/22 11:33 02/07/22 11:36 02/07/22 12:00 Temperature Temperature Source Pulse Rate 97 96 Respiratory Rate 24 H 20 H Respiratory Effort Respiratory Depth Respiratory Pattern Blood Pressure 80/60 L 83/59 L 112/78 Blood Pressure Mean 66 67 89 Pulse Ox 97 Oxygen Delivery Method Bi-pap Bi-pap Oxygen Flow Rate (L/min) Fraction of Inspired Oxygen (FIO2) Weight Weight: 59.7 kg Body Mass Index (BMI) 24.8 Physical Exam Narrative GENERAL: Dyspneic at rest, using accessory muscles in breathing HEENT: Atraumatic; normocephalic EYES; Anicteric, Normal Conjunctiva NECK; supple, normal thyroid, RESPIRATORY: Diminished to auscultation CARDIOVASCULAR: Regular S1 S2, GI: soft, normoactive bowel sounds, : No Renal angle tenderness; EXTREMITIES: No edema, no clubbing, MUSCULOSKELETAL: no muscle wasting NEURO: Awake; no lateralizing signs. SKIN: No Rash PSYCH; Flat affect Results Lab / Micro Data Result Diagrams: 02/07/22 10:00 02/07/22 10:00 Labs: Laboratory Results - last 24 hr 02/07/22 10:00: WBC 15.9 H, RBC 3.34 L, Hgb 10.7 L, Hct 33.3 L, MCV 99.7 H, MCH 32.0, MCHC 32.1, RDW Std Deviation 56.9 H, RDW Coeff of Bettina 15.4 H, Plt Count 287, MPV 9.9, Immature Gran % (Auto) 4.400 H, Neut % (Auto) 87.9 H, Lymph % (Auto) 4.9 L, [place] % (Auto) 2.1, Eos % (Auto) 0.3, Baso % (Auto) 0.4, Absolute Neuts (auto) 13.9 H, Absolute Lymphs (auto) 0.78 L, Nucleated RBC % 0.2 02/07/22 10:00: PT 27.8 H, INR 2.6, APTT 37.5 H 02/07/22 10:00: Sodium 138, Potassium 3.3 L, Chloride 99, Carbon Dioxide 32.0, Anion Gap 7, BUN 18, Creatinine 0.56, Estim Creat Clear Calc 76.58, Est GFR (MDRD) Af Amer 139, Est GFR (MDRD) Non-Af 115, BUN/Creatinine Ratio 31.9 H, Glucose 126 H, Calcium 9.1, Total Bilirubin 0.40, AST 22, ALT 33, Alkaline Phosphatase 123 H, Troponin I High Sens 28, Total Protein 6.7, Albumin 2.0 L, Globulin 4.7 H, Albumin/Globulin Ratio 0.4 L 02/07/22 10:08: Lactic Acid 1.6 Micro: Microbiology 02/07/22 10:18 Interface Orders Influenza Types A,B Direct FA (ROSELIA) - Final ABG Data ABG results: ABG 02/07/22 10:26 Specimen Type MERCEDES VBG pH 7.42 VBG pO2 30 VBG HCO3 32 H VBG Total CO2 34 H VBG O2 Sat (Calc) 57 VBG Base Excess 8 H POC Mix VBG pCO2 Pt Tmp 50.0 O2 Delivery Device Cannula Liter Flow 4.0 Rhythm Strip Rhythm Strip: Sinus Tach Rate: 105 Ectopy: None Radiology Impression Chest X-Ray 02/07/22 10:20 IMPRESSION: Persistent bilateral pulmonary infiltrates. Further follow-up recommended. Electronically Signed: Ken Peacock MD at 10:55 EST , Assessment & Plan Assessment/Plan (1) Sepsis: (2) Hypoxia: (3) Pneumonia: PLAN: Plan Patient is a 66-year-old lady with history of lung CA with mets to the brain resident at a care home facility brought to the emergency department with hypoxia and hypotension 1. Sepsis secondary to suspected pneumonia with MDR's ? Evidence of sepsis WBC count greater than 12,000, respiratory rate greater than 20, heart rate greater than 90 and evidence of end organ failure?hypoxia requiring BiPAP. Patient has been admitted to the intensive care unit management protocol with IV fluid resuscitation, broad-spectrum antibiotic therapy. Consult placed to pulmonary/critical care Case discussed with Dr. Cho 2. Acute hypoxic respiratory failure ? As evidenced by patient being tachypneic at rest and significantly hypoxic saturating 71% on room air prior to being placed on BiPAP. Patient acute hypoxic respite failure secondary to suspected pneumonia with MDR 3..? History of lung CA ? With mets to the brain.? Has received chemo and radiation.? Patient follows up with oncology plan is for patient to continue with care.? Currently on Keppra and dexamethasone did continue 4.? Diabetes mellitus type II -patient's oral hypoglycemics held. Placed on long acting insulin, Accu-Cheks a.c. and at bedtime and covered with sliding scale insulin 5.? GERD ? On PPI 6.? Hypokalemia -Corrected per protocol, repeat labs ordered for a.m. for monitoring 7.? Anemia - Secondary to chronic disorder monitoring H&H and transfuse if patient becomes symptomatic or hemoglobin falls below? 7 8.? Depression with anxiety ? on fluoxetine and bupropion. Held in view of patient's significant encephalopathy 9. Recent admission for COVID pneumonitis ? Patient presented with hypoxia has persistent infiltrate. Currently being treated as a case of suspected pneumonia with MDR 10. Recent DVT involving the left lower extremity ? Patient is on Eliquis Charges/Coding Visit Charges Inpatient E&M: 98445 Init Hosp L3
--- NOTE | 2022-02-07 12:36 | EX.PCM.CONCC ---
Assessment & Plan Assessment/Plan (1) Sepsis: PLAN: Plan RECOMMENDATIONS: 1. Supplemental IV fluid resuscitation as ordered. 2. Continue empiric antimicrobials for now. 3. Okay to wean from BiPAP therapy to nasal cannula oxygen. 4. Goal to maintain oxygen saturations at or above 90%. 5. Recommend holding sedating medications. IMPRESSIONS: 1. Sepsis The patient presented with sepsis due to suspected bacterial pneumonia with acute sepsis related organ dysfunction as evidenced by acute respiratory failure requiring noninvasive positive pressure ventilatory support. The patient was just admitted to the hospital with COVID-19 pneumonia. Her chest imaging demonstrates persistent bilateral pulmonary infiltrates, which could be the sequelae of her prior COVID infection versus a superimposed bacterial pneumonia. Accordingly, I agree with empiric antimicrobials, while awaiting infectious work-up. The patient's mentation has improved on BiPAP therapy. She can be weaned to nasal cannula supplemental oxygen with a goal to maintain saturations at or above 90%. 2. Hypotension Likely a combination of intravascular volume depletion coupled with the hemodynamic effects of her multiple sedating medications. 3. Encephalopathy Likely secondary to polypharmacy with clonazepam, Seroquel and trazodone likely contributing. Recommend holding all sedating medications for now. 4. Recent COVID-19 pneumonitis/lower extremity DVT Continue supportive measures as noted above. Continue Eliquis per outpatient regimen. 5. History of metastatic non-small cell lung cancer The patient has apparently completed radiation and systemic chemotherapy treatment. Recommend continuing Keppra per home regimen along with outpatient oncology follow-up. 6. Diabetes mellitus/depression/anxiety/GERD Complicates care, management, recovery and prognosis.? Recommend holding sedating home medications. This note was generated with [employer] dictation software. It may contain incorrect words, spelling, and punctuation that were not noted in checking the note before signing. HPI Consult Data Date of Consult: 02/08/22 HPI Narrative Reason for Consultation: Acute respiratory failure HPI Narrative: The patient is a 66-year-old female, with a history as outlined below, who presented to the emergency department on February 07 via EMS from her assisted facility with hypotension and hypoxia. The patient was just admitted to the hospital January 27 with COVID-19 pneumonia. The patient's medical history is significant for stage IV non-small cell lung cancer with mets to the brain, along with COPD, anxiety/depression and hypertension.? She has finished radiation and chemotherapy.? On presentation to the emergency department, the patient was noted to be afebrile with a presenting blood pressure of 90/61 mmHg. Initial laboratory evaluation revealed a white blood cell count of 16,000. Chemistry profile was notable for a potassium of 3.3 and normal creatinine. Lactate was normal at 1.6. Rapid influenza screen was negative. Blood cultures were obtained. The patient's chest x-ray demonstrated persistent bilateral pulmonary infiltrates. The patient according to documentation was only alert and oriented x1 at presentation. The patient did receive supplemental IV fluid hydration and antimicrobials. She was initiated on BiPAP therapy. At the time of my evaluation of the patient in the emergency department, she was alert and able to answer simple questions. Her blood pressure is responding appropriately to IV fluid resuscitation. [facility] Medical History Anxiety Bacteremia due to Gram-negative bacteria Chest pain Congestive heart failure (CHF) COPD (chronic obstructive pulmonary disease) Diabetes Former smoker Hypertension Metastasis Primary cancer of left upper lobe of lung Home Medications bupropion HCl 150 mg 24 hr tablet, extended release 150 mg PO DAILY DEPRESSION 12/14/21 [History Last Taken 12/14/21] dexamethasone 4 mg tablet 2 mg PO BID STEROID 12/14/21 [History Last Taken 12/14/21] fluoxetine 20 mg tablet 60 mg PO DAILY DEPRESSION 12/14/21 [History Last Taken 12/14/21] folic acid 400 mcg tablet 0.4 mg PO DAILY SUPPLEMENT 12/14/21 [History Last Taken 12/14/21] levetiracetam 500 mg tablet 500 mg PO BID SEIZURES 12/14/21 [History Last Taken 12/14/21] oxybutynin chloride 5 mg tablet 5 mg PO DAILY OAB 12/14/21 [History Last Taken 12/14/21] trazodone 150 mg tablet 150 mg PO QHS SLEEP 12/14/21 [History Last Taken 12/13/21] cholecalciferol (vitamin D3) 125 mcg (5,000 unit) tablet (Vitamin D3) 125 mcg PO DAILY SUPPLEMENT 01/27/22 [History Last Taken Unknown] docusate sodium 100 mg tablet 100 mg PO DAILY CONSTIPATION 01/27/22 [History Last Taken Unknown] omeprazole 20 mg capsule,delayed release 20 mg PO DAILY GERD 01/27/22 [History Last Taken Unknown] apixaban 5 mg tablet (Eliquis) 5 mg PO BID #1 TAB 02/05/22 [Rx Last Taken Unknown] clonazepam 0.5 mg tablet 0.5 mg PO TID #15 tabs 02/05/22 [Rx Last Taken Unknown] glimepiride 2 mg tablet (Amaryl) 2 mg PO DAILY #1 TAB 02/05/22 [Rx Last Taken Unknown] ipratropium 0.5 mg-albuterol 3 mg (2.5 mg base)/3 mL nebulization soln 3 ml inhalation Q6HWA.RT #90 mL 02/05/22 [Rx Last Taken Unknown] menthol 0.44 %-zinc oxide 20.6 % topical ointment (Calmoseptine) 1 applic topical BID #0 grams 02/05/22 [Rx Last Taken Unknown] metoprolol tartrate 25 mg tablet 25 mg PO BID #0 tabs 02/05/22 [Rx Last Taken Unknown] polyethylene glycol 3350 17 gram oral powder packet 17 g PO DAILY #0 ea 02/05/22 [Rx Last Taken Unknown] quetiapine 25 mg tablet 50 mg PO BID #0 tabs 02/05/22 [Rx Last Taken Unknown] Allergy/AdvReac Type Severity Reaction Status Date / Time No Known Allergies Allergy Verified 12/14/21 15:36 Social History Smoking Status: Former smoker ROS ROS Narrative 10 systems were reviewed with pertinent positives as noted in the HPI above. Physical Exam Const alert and no apparent distress Orientation / Consciousness: confused and disoriented HEENT normocephalic and head/scalp atraumatic Eyes PERRL, EOMs intact bilaterally and conjunctivae normal Neck supple General: trachea midline Chest Chest Narrative: Increased AP diameter. Resp Auscultation: rhonchi and diminished lung sounds Cardio regular rate and regular rhythm GI normal to inspection, nondistended, normoactive bowel sounds Extremity no clubbing, cyanosis or edema Skin no rashes or lesions noted Neuro moves all extremities and no focal motor deficits Psych Mood & Affect: flat affect Lab / Micro Data Result Diagrams: 02/08/22 03:53 02/08/22 03:53 Labs: Laboratory Results - last 24 hr 02/07/22 10:00: WBC 15.9 H, RBC 3.34 L, Hgb 10.7 L, Hct 33.3 L, MCV 99.7 H, MCH 32.0, MCHC 32.1, RDW Std Deviation 56.9 H, RDW Coeff of Bettina 15.4 H, Plt Count 287, MPV 9.9, Immature Gran % (Auto) 4.400 H, Neut % (Auto) 87.9 H, Lymph % (Auto) 4.9 L, [place] % (Auto) 2.1, Eos % (Auto) 0.3, Baso % (Auto) 0.4, Absolute Neuts (auto) 13.9 H, Absolute Lymphs (auto) 0.78 L, Nucleated RBC % 0.2 02/07/22 10:00: PT 27.8 H, INR 2.6, APTT 37.5 H 02/07/22 10:00: Sodium 138, Potassium 3.3 L, Chloride 99, Carbon Dioxide 32.0, Anion Gap 7, BUN 18, Creatinine 0.56, Estim Creat Clear Calc 76.58, Est GFR (MDRD) Af Amer 139, Est GFR (MDRD) Non-Af 115, BUN/Creatinine Ratio 31.9 H, Glucose 126 H, Calcium 9.1, Total Bilirubin 0.40, AST 22, ALT 33, Alkaline Phosphatase 123 H, Troponin I High Sens 28, Total Protein 6.7, Albumin 2.0 L, Globulin 4.7 H, Albumin/Globulin Ratio 0.4 L 02/07/22 10:08: Lactic Acid 1.6 Micro: Microbiology 02/07/22 10:18 Interface Orders Influenza Types A,B Direct FA (ROSELIA) - Final ABG Data ABG results: ABG 02/07/22 10:26 Specimen Type MERCEDES VBG pH 7.42 VBG pO2 30 VBG HCO3 32 H VBG Total CO2 34 H VBG O2 Sat (Calc) 57 VBG Base Excess 8 H POC Mix VBG pCO2 Pt Tmp 50.0 O2 Delivery Device Cannula Liter Flow 4.0 Rhythm Strip Rhythm Strip: Sinus Tach Rate: 105 Ectopy: None Radiology Impression Chest X-Ray 02/07/22 10:20 IMPRESSION: Persistent bilateral pulmonary infiltrates. Further follow-up recommended. Electronically Signed: Ken Peacock MD at 10:55 EST , Charges/Coding Visit Charges Inpatient E&M: 36811 Init Hosp L3
[2022-02-07 13:31] LABS: Mucous, Urine 0 SEEN /hpf (<or=2+); Squamous Epithelial Cells - UA 0 SEEN /hpf (5-10)
[2022-02-07 13:49] LABS: Color, Urine Yellow (Yellow); Glucose, Dipstick Normal (Normal); Ketone-Dipstick 5 mg/dl (Negative); Leukocyte Esterase-Dipstick 25 /ul (Negative); Nitrite-Dipstick Negative (Negative); Occult Blood-Urine 25 /ul (Negative); Protein-Dipstick 30 mg/dl (Negative); Urine Bilirubin Dipstick Negative (Negative); Urine Clarity Sl. Cloudy (Clear); Urine Urobilinogen 1 mg/dl (Normal)
[2022-02-07 13:58] LABS: Bacteria 3+ /hpf (None Seen); Red Blood Cells-Urine 0-5 SEEN /hpf (0-5); White Blood Cells 0-5 SEEN /hpf (0-5)
[2022-02-07] MEDS: 0.9% Normal Saline 1,000 ML 100 ML IV (15:23)
[2022-02-07] MEDS: Vancomycin IV 1,000 MG/200 ML BAG 200 MG IV (15:43)
--- NOTE | 2022-02-07 16:08 | PCM.RX.CS ---
Consult Pharmacy has been consulted to manage selected antiobiotic: Vancomycin Type of Consult: New start Suspected Infection: Sepsis, Pneumonia Prior Doses of Antibiotics Received/Current Regimen: Received loading dose of 1gm iv x 1 on 02.07.22. Labs: Sodium 138 mmol/L (136-145) 02/07/22 10:00 Potassium 3.3 mmol/L (3.5-5.1) L 02/07/22 10:00 Chloride 99 mmol/L (98-107) 02/07/22 10:00 Carbon Dioxide 32.0 mmol/L (21.0-32.0) 02/07/22 10:00 Anion Gap 7 (5-15) 02/07/22 10:00 BUN 18 mg/dL (7-18) 02/07/22 10:00 Creatinine 0.56 mg/dL (0.55-1.02) 02/07/22 10:00 Est GFR (MDRD) Af Amer 139 mL/min (>60) 02/07/22 10:00 Est GFR (MDRD) Non-Af 115 mL/min (>60) 02/07/22 10:00 BUN/Creatinine Ratio 31.9 RATIO (10-20) H 02/07/22 10:00 Glucose 126 mg/dL (74-106) H 02/07/22 10:00 Microbiology: Microbiology 02/07/22 13:20 Urine Catheter - Garcia Legionella Antigen - Final 02/07/22 13:20 Urine Catheter - Garcia Streptococcus pneumoniae Antigen (M - Final 02/07/22 10:18 Interface Orders Influenza Types A,B Direct FA (ROSELIA) - Final Weight used for dosin.3 kg Estimated Creatinine Clearance: 57 ml/min Goal Trough: 15-20 mcg/mL Pharmacy Plan for Drug Dosing: Starting dose of 750mg iv q12h per protocol. Trough level ordered for before 4th total dose. Pharmacy Service will continue to monitor and adjust dosing as required. Follow-Up Labs: Trough Vancomycin - 02.09.22 @0330 before 0400 dose
[2022-02-07 16:34] LABS: M R Staph aureus DNA By PCR Negative (Negative); Probe Check PASS; Specimen Processing Control PASS
[2022-02-07] MEDS: Insulin Lispro 100 UNIT/ML INSULN.PEN SC (17:10)
[2022-02-07 17:25] LABS: Bedside Glucose 169 mg/dL (74-106)
[2022-02-07] MEDS: Ipratropium/Albuterol Sulfate 3 ML AMPUL.NEB INHALATION (19:07)
[2022-02-07] MEDS: 0.9% Saline Lock 10 ML Syringe IV (21:29)
[2022-02-07] MEDS: APIXABAN 5 MG TABLET PO (21:32)
[2022-02-07] MEDS: dexAMETHasone 4 MG Tablet 2 MG PO (21:33)
[2022-02-07] MEDS: levETIRAcetam 500 MG Tablet PO (21:33)
[2022-02-07] MEDS: Dextrose 50%-Water 25 GM/50 ML DISP.SYRIN IV (21:37)
[2022-02-07 21:44] LABS: Glucose 39 mg/dL (74-106)
[2022-02-07 21:50] LABS: Bedside Glucose 30 mg/dL (74-106)
[2022-02-07 22:21] LABS: Bedside Glucose 163 mg/dL (74-106)
[2022-02-08] VITALS (33 sets, daily range): BP systolic 63–139; BP diastolic 52–105; PULSE 89–136; RESP 12–39; TEMP 36.3–39.7; O2SAT 91–100
[2022-02-08] MEDS: 0.9% Normal Saline 1,000 ML 100 ML IV (01:53)
[2022-02-08 04:00] LABS: Absolute Lymphocyte Count 0.51 X10^3/uL (0.83-4.51); Absolute Neutrophil Count 11.2 X10^3/uL (2.0-7.7); Basophil# 0.03 X10^3/uL; Basophil% 0.2 % (0-1); Eosinophil# 0.01 X10^3/uL; Eosinophils% 0.1 % (0-5); Hematocrit 26.6 % (37-47); Lymphocyte # 0.51 X10^3/ul (0.83-4.51); Lymphocyte % 4.1 % (19-41); Mean Corp Hgb Conc 30.1 g/dL (32-36); Mean Corpuscular Hgb 31.4 pg (27.0-32.0); Mean Corpuscular Volume 104.3 fL (81-99); Mean Platelet Vol. 9.6 fl (6.2-12.0); Monocyte# 0.33 X10^3/uL; Monocyte% 2.6 % (0-10); NRBC Flagged by Analyzer 0.2 % (0-5); Neutrophil # 11.15 X10^3/uL (2.7-7.7); Neutrophil % 88.6 % (47-70); POSITIVE DIFFERENTIAL YES; Platelet Count 226 K/mm3 (150-450); RBC Distribution Width CV 15.5 % (11.6-14.6); RBC Distribution Width SD 58.8 fl (35.1-43.9); Red Blood Count 2.55 M/mm3 (4.2-5.4); White Blood Count 12.6 K/mm3 (4.4-11.0)
[2022-02-08 04:01] LABS: Differential Indicated SCAN CRITERIA MET
[2022-02-08 04:24] LABS: Anisocytosis 1+; Macrocytosis 1+
[2022-02-08 04:29] LABS: AST(SGOT) 19 U/L (15-37); Alanine Aminotransfer ALT/SGPT 23 U/L (13-56); Albumin, Serum 1.5 g/dL (3.2-5.0); Alkaline Phosphatase 83 U/L (45-117); Anion Gap 5 (5-15); BUN 12 mg/dL (7-18); BUN/Creat Ratio 46.5 RATIO (10-20); Bilirubin, Direct 0.08 mg/dL (0.00-0.30); Calcium,Total 7.5 mg/dL (8.5-10.1); Chloride 110 mmol/L (98-107); Creatinine, Serum 0.26 mg/dL (0.55-1.02); EST Glomerular Filtration Rate 283 mL/min (>60); Est Glom Filt Rate - Afr Amer 342 mL/min (>60); Estimated Creatinine Clearance 164.95 ml/min; Globulin 3.6 g/dL (2.2-4.2); Glucose 43 mg/dL (74-106); Magnesium 2.1 mg/dL (1.6-2.6); Phosphorus 2.6 mg/dL (2.5-4.9); Potassium 2.9 mmol/L (3.5-5.1); Protein, Total 5.1 g/dL (6.4-8.2); Sodium Level 143 mmol/L (136-145)
[2022-02-08 05:36] LABS: Bedside Glucose 88 mg/dL (74-106)
[2022-02-08 06:45] LABS: Bedside Glucose 70 mg/dL (74-106)
[2022-02-08] MEDS: Dextrose 50%-Water 25 GM/50 ML DISP.SYRIN IV ×3 (06:52→19:33)
[2022-02-08] MEDS: Ipratropium/Albuterol Sulfate 3 ML AMPUL.NEB INHALATION ×3 (06:56→18:39)
--- NOTE | 2022-02-08 07:23 | PN.CC_ITS ---
Assessment & Plan Assessment/Plan (1) Sepsis: PLAN: Plan RECOMMENDATIONS: 1. Discontinue IV fluids and advance diet accordingly. 2. Continue empiric antimicrobials. 3. Supplemental oxygen to maintain saturations at or above 90%. 4. Potassium repletion as ordered. 5. Continue Eliquis. 6. Minimize sedating medications. 7. Encourage incentive spirometer use and mobilize patient as tolerated. 8. The patient is medically stable for transfer out of the intensive care unit. IMPRESSIONS: 1. Sepsis The patient presented with sepsis due to suspected bacterial pneumonia with acute sepsis related organ dysfunction as evidenced by acute respiratory failure requiring noninvasive positive pressure ventilatory support. The patient was just admitted to the hospital with COVID-19 pneumonia. Her chest imaging demonstrates persistent bilateral pulmonary infiltrates, which could be the sequelae of her prior COVID infection versus a superimposed bacterial pneumonia. Accordingly, I agree with empiric antimicrobials, while awaiting infectious work-up. The patient's mentation and respiratory status have both improved. She has been weaned from BiPAP therapy and is maintaining appropriate saturations on nasal cannula O2. 2. Hypotension Resolved. Likely a combination of intravascular volume depletion coupled with the hemodynamic effects of her multiple sedating medications. 3. Encephalopathy Resolved. Likely secondary to polypharmacy with clonazepam, Seroquel and trazodone likely contributing. Recommend minimizing sedating medications if feasible. 4. Recent COVID-19 pneumonitis/lower extremity DVT Continue supportive measures as noted above. Continue Eliquis per outpatient regimen. 5. History of metastatic non-small cell lung cancer The patient has apparently completed radiation and systemic chemotherapy treatment. Recommend continuing Keppra per home regimen along with outpatient oncology follow-up. 6. Diabetes mellitus/depression/anxiety/GERD Complicates care, management, recovery and prognosis.? Recommend holding sedating home medications. This note was generated with [employer] dictation software. It may contain incorrect words, spelling, and punctuation that were not noted in checking the note before signing. Subjective Subjective The patient was seen and examined at the bedside this morning. Events from the last 24 hours have been reviewed. The patient is currently afebrile, he modynamically stable and maintaining appropriate oxygen saturations on 3 L/min via nasal cannula. The patient is currently documented to be overall net +3.6 L for the hospitalization. Potassium this morning was low at 2.9. The patient was also hypoglycemic with a glucose of 43. Objective Data Objective Data The patient's most recent lab work, culture data and imaging studies have all been personally reviewed. Vital Signs: Vital Signs Temp Pulse Resp BP Pulse Ox O2 Del Method O2 Flow Rate 97.3 F L 99 28 H 112/76 96 Nasal Cannula 3 02/08/22 05:00 02/08/22 07:00 02/08/22 07:00 02/08/22 07:00 02/08/22 07:00 02/08/22 07:00 02/08/22 07:00 FiO2 30 02/08/22 05:00 Oxygen Flow Rate (L/min) 3 Oxygen Delivery Method Nasal Cannula Weight: 132 lb 0.91 oz Body Mass Index (BMI) 23.8 Intake & Output: Intake and Output for Last 24 Hours 02/06/22 02/07/22 02/08/22 23:59 23:59 23:59 Intake Total 3206.67 / 3206.67 1146.67 / 1146.67 Output Total 500 / 500 250 / 250 Balance 2706.67 / 2706.67 896.67 / 896.67 Lab / Micro Data Attestation: I reviewed the patient's lab results. Result Diagrams: 02/08/22 03:53 02/08/22 03:53 Labs: Laboratory Results - last 24 hr 02/07/22 10:00: WBC 15.9 H, RBC 3.34 L, Hgb 10.7 L, Hct 33.3 L, MCV 99.7 H, MCH 32.0, MCHC 32.1, RDW Std Deviation 56.9 H, RDW Coeff of Bett[place] 15.4 H, Plt Count 287, MPV 9.9, Immature Gran % (Auto) 4.400 H, Neut % (Auto) 87.9 H, Lymph % (Auto) 4.9 L, [place] % (Auto) 2.1, Eos % (Auto) 0.3, Baso % (Auto) 0.4, Absolute Neuts (auto) 13.9 H, Absolute Lymphs (auto) 0.78 L, Nucleated RBC % 0.2 02/07/22 10:00: PT 27.8 H, INR 2.6, APTT 37.5 H 02/07/22 10:00: Sodium 138, Potassium 3.3 L, Chloride 99, Carbon Dioxide 32.0, Anion Gap 7, BUN 18, Creatinine 0.56, Estim Creat Clear Calc 76.58, Est GFR (MDRD) Af Amer 139, Est GFR (MDRD) Non-Af 115, BUN/Creatinine Ratio 31.9 H, Glucose 126 H, Calcium 9.1, Total Bilirubin 0.40, AST 22, ALT 33, Alkaline Phosphatase 123 H, Troponin I High Sens 28, Total Protein 6.7, Albumin 2.0 L, Globulin 4.7 H, Albumin/Globulin Ratio 0.4 L 02/07/22 10:08: Lactic Acid 1.6 02/07/22 13:20: Urine Color Yellow, Urine Clarity Sl. Cloudy, Urine pH 6.0, Ur Specific [place] 1.020, Urine Protein 30 H, Urine Glucose (UA) Normal, Urine Ketones 5 H, Urine Occult Blood 25 H, Urine Nitrite Negative, Urine Bilirubin Negative, Urine Urobilinogen 1 H, Ur Leukocyte Esterase 25 H, Urine RBC 0-5 SEEN, Urine WBC 0-5 SEEN, Ur Squamous Epith Cells 0 SEEN, Urine Bacteria 3+, Urine Mucus 0 SEEN 02/07/22 15:05: MRSA (PCR) Negative 02/07/22 17:05: POC Glucose 169 H 02/07/22 21:00: POC Glucose 30 L* 02/07/22 21:20: Glucose 39 L* 02/07/22 22:01: POC Glucose 163 H 02/08/22 03:53: WBC 12.6 H, RBC 2.55 L, Hgb 8.0 L, Hct 26.6 L, MCV 104.3 H, MCH 31.4, MCHC 30.1 L D, RDW Std Deviation 58.8 H, RDW Coeff of Bett[place] 15.5 H, Plt Count 226, MPV 9.6, Immature Gran % (Auto) 4.400 H, Neut % (Auto) 88.6 H, Lymph % (Auto) 4.1 L, [place] % (Auto) 2.6, Eos % (Auto) 0.1, Baso % (Auto) 0.2, Absolute Neuts (auto) 11.2 H, Absolute Lymphs (auto) 0.51 L, Nucleated RBC % 0.2, Anisocytosis 1+, Macrocytosis 1+ 02/08/22 03:53: Sodium 143, Potassium 2.9 L, Chloride 110 H, Carbon Dioxide 28.0, Anion Gap 5, BUN 12, Creatinine 0.26 L, Estim Creat Clear Calc 164.95, Est GFR (MDRD) Af Amer 342, Est GFR (MDRD) Non-Af 283, BUN/Creatinine Ratio 46.5 H, Glucose 43 L*, Calcium 7.5 L, Phosphorus 2.6, Magnesium 2.1, Total Bilirubin 0.30, Direct Bilirubin 0.08, AST 19, ALT 23, Alkaline Phosphatase 83, Total Protein 5.1 L, Albumin 1.5 L, Globulin 3.6 02/08/22 05:15: POC Glucose 88 02/08/22 06:26: POC Glucose 70 L Micro: Microbiology 02/07/22 15:03 Mucosa - Nasopharyngeal Respiratory Panel (PCR) - Final 02/07/22 13:20 Urine Catheter - Garcia Legionella Antigen - Final 02/07/22 13:20 Urine Catheter - Garcia Streptococcus pneumoniae Antigen (M - Final 02/07/22 10:18 Interface Orders Influenza Types A,B Direct FA (ROSELIA) - Final ABG Data ABG results: ABG 02/07/22 10:26 Specimen Type MERCEDES VBG pH 7.42 VBG pO2 30 VBG HCO3 32 H VBG Total CO2 34 H VBG O2 Sat (Calc) 57 VBG Base Excess 8 H POC Mix VBG pCO2 Pt Tmp 50.0 O2 Delivery Device Cannula Liter Flow 4.0 Radiography Diagnostic Testing: Radiology Impression Chest X-Ray 02/07/22 10:20 IMPRESSION: Persistent bilateral pulmonary infiltrates. Further follow-up recommended. Electronically Signed: Ken Peacock MD at 10:55 EST , Rhythm Strip Rhythm Strip: Sinus Tach Rate: 105 Ectopy: None Physical Exam Const alert and no apparent distress General Appearance: cooperative HEENT normocephalic and head/scalp atraumatic Eyes PERRL, EOMs intact bilaterally and conjunctivae normal Neck supple General: trachea midline Chest Chest Narrative: Increased AP diameter. Resp Auscultation: diminished lung sounds; Negative for rales, rhonchi or wheezes Cardio regular rate and regular rhythm GI normal to inspection, nondistended, normoactive bowel sounds Extremity no clubbing, cyanosis or edema Skin no rashes or lesions noted Neuro moves all extremities and no focal motor deficits Psych Mood & Affect: anxious Charges/Coding Visit Charges Inpatient E&M: 85546 Subs Hosp L3
--- NOTE | 2022-02-08 07:25 | PCM.PN.HOSP ---
Subjective Subjective Patient is a 66-year-old lady with history of lung CA with mets to the brain resident at a retirement facility brought to the emergency department with hypoxia and hypotension. An assessment of sepsis as well as acute respiratory failure made admitted to the intensive care unit 02/08/2022 patient seen patient clinical condition relatively stable. Plans for patient to be moved out of the ICU Objective Data Objective Data Vital Signs: Vital Signs Temp Pulse Resp BP Pulse Ox O2 Del Method O2 Flow Rate 97.3 F L 99 28 H 112/76 96 Nasal Cannula 3 02/08/22 05:00 02/08/22 07:00 02/08/22 07:00 02/08/22 07:00 02/08/22 07:00 02/08/22 07:00 02/08/22 07:00 FiO2 30 02/08/22 05:00 Oxygen Flow Rate (L/min) 3 Oxygen Delivery Method Nasal Cannula Weight: 59.9 kg Body Mass Index (BMI) 23.8 Intake & Output: Intake and Output for Last 24 Hours 02/06/22 02/07/22 02/08/22 23:59 23:59 23:59 Intake Total 3206.67 / 3206.67 1146.67 / 1146.67 Output Total 500 / 500 250 / 250 Balance 2706.67 / 2706.67 896.67 / 896.67 Lab / Micro Data Result Diagrams: 02/08/22 03:53 02/08/22 03:53 Labs: Laboratory Results - last 24 hr 02/07/22 10:00: WBC 15.9 H, RBC 3.34 L, Hgb 10.7 L, Hct 33.3 L, MCV 99.7 H, MCH 32.0, MCHC 32.1, RDW Std Deviation 56.9 H, RDW Coeff of Bettina 15.4 H, Plt Count 287, MPV 9.9, Immature Gran % (Auto) 4.400 H, Neut % (Auto) 87.9 H, Lymph % (Auto) 4.9 L, [place] % (Auto) 2.1, Eos % (Auto) 0.3, Baso % (Auto) 0.4, Absolute Neuts (auto) 13.9 H, Absolute Lymphs (auto) 0.78 L, Nucleated RBC % 0.2 02/07/22 10:00: PT 27.8 H, INR 2.6, APTT 37.5 H 02/07/22 10:00: Sodium 138, Potassium 3.3 L, Chloride 99, Carbon Dioxide 32.0, Anion Gap 7, BUN 18, Creatinine 0.56, Estim Creat Clear Calc 76.58, Est GFR (MDRD) Af Amer 139, Est GFR (MDRD) Non-Af 115, BUN/Creatinine Ratio 31.9 H, Glucose 126 H, Calcium 9.1, Total Bilirubin 0.40, AST 22, ALT 33, Alkaline Phosphatase 123 H, Troponin I High Sens 28, Total Protein 6.7, Albumin 2.0 L, Globulin 4.7 H, Albumin/Globulin Ratio 0.4 L 02/07/22 10:08: Lactic Acid 1.6 02/07/22 13:20: Urine Color Yellow, Urine Clarity Sl. Cloudy, Urine pH 6.0, Ur Specific [place] 1.020, Urine Protein 30 H, Urine Glucose (UA) Normal, Urine Ketones 5 H, Urine Occult Blood 25 H, Urine Nitrite Negative, Urine Bilirubin Negative, Urine Urobilinogen 1 H, Ur Leukocyte Esterase 25 H, Urine RBC 0-5 SEEN, Urine WBC 0-5 SEEN, Ur Squamous Epith Cells 0 SEEN, Urine Bacteria 3+, Urine Mucus 0 SEEN 02/07/22 15:05: MRSA (PCR) Negative 02/07/22 17:05: POC Glucose 169 H 02/07/22 21:00: POC Glucose 30 L* 02/07/22 21:20: Glucose 39 L* 02/07/22 22:01: POC Glucose 163 H 02/08/22 03:53: WBC 12.6 H, RBC 2.55 L, Hgb 8.0 L, Hct 26.6 L, MCV 104.3 H, MCH 31.4, MCHC 30.1 L D, RDW Std Deviation 58.8 H, RDW Coeff of Bett[place] 15.5 H, Plt Count 226, MPV 9.6, Immature Gran % (Auto) 4.400 H, Neut % (Auto) 88.6 H, Lymph % (Auto) 4.1 L, [place] % (Auto) 2.6, Eos % (Auto) 0.1, Baso % (Auto) 0.2, Absolute Neuts (auto) 11.2 H, Absolute Lymphs (auto) 0.51 L, Nucleated RBC % 0.2, Anisocytosis 1+, Macrocytosis 1+ 02/08/22 03:53: Sodium 143, Potassium 2.9 L, Chloride 110 H, Carbon Dioxide 28.0, Anion Gap 5, BUN 12, Creatinine 0.26 L, Estim Creat Clear Calc 164.95, Est GFR (MDRD) Af Amer 342, Est GFR (MDRD) Non-Af 283, BUN/Creatinine Ratio 46.5 H, Glucose 43 L*, Calcium 7.5 L, Phosphorus 2.6, Magnesium 2.1, Total Bilirubin 0.30, Direct Bilirubin 0.08, AST 19, ALT 23, Alkaline Phosphatase 83, Total Protein 5.1 L, Albumin 1.5 L, Globulin 3.6 02/08/22 05:15: POC Glucose 88 02/08/22 06:26: POC Glucose 70 L Micro: Microbiology 02/07/22 15:03 Mucosa - Nasopharyngeal Respiratory Panel (PCR) - Final 02/07/22 13:20 Urine Catheter - Garcia Legionella Antigen - Final 02/07/22 13:20 Urine Catheter - Garcia Streptococcus pneumoniae Antigen (M - Final 02/07/22 10:18 Interface Orders Influenza Types A,B Direct FA (ROSELIA) - Final ABG Data ABG results: ABG 02/07/22 10:26 Specimen Type MERCEDES VBG pH 7.42 VBG pO2 30 VBG HCO3 32 H VBG Total CO2 34 H VBG O2 Sat (Calc) 57 VBG Base Excess 8 H POC Mix VBG pCO2 Pt Tmp 50.0 O2 Delivery Device Cannula Liter Flow 4.0 Radiography Diagnostic Testing: Radiology Impression Chest X-Ray 02/07/22 10:20 IMPRESSION: Persistent bilateral pulmonary infiltrates. Further follow-up recommended. Electronically Signed: Ken Peacock MD at 10:55 EST , Rhythm Strip Rhythm Strip: Sinus Tach Rate: 105 Ectopy: None Physical Exam Narrative GENERAL: No apparent distress HEENT: Atraumatic; normocephalic EYES; Anicteric, Normal Conjunctiva NECK; supple, normal thyroid, RESPIRATORY: Diminished to auscultation CARDIOVASCULAR: Regular S1 S2, GI: soft, normoactive bowel sounds, : No Renal angle tenderness; EXTREMITIES: No edema, no clubbing, MUSCULOSKELETAL: no muscle wasting NEURO: Awake; no lateralizing signs. 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 Sepsis secondary to suspected pneumonia with MDR's ? Evidence of sepsis WBC count greater than 12,000, respiratory rate greater than 20, heart rate greater than 90 and evidence of end organ failure?hypoxia requiring BiPAP. Patient has been admitted to the intensive care unit management protocol with IV fluid resuscitation, broad-spectrum antibiotic therapy. Consult placed to pulmonary/critical care Case discussed with Dr. Cho 02/08/2022; patient WBC count remains elevated cultures still pending. Patient's urine for Legionella antigen and strep pneumonia antigen both negative 2. Acute hypoxic respiratory failure ? As evidenced by patient being tachypneic at rest and significantly hypoxic saturating 71% on room air prior to being placed on BiPAP. Patient acute hypoxic respite failure secondary to suspected pneumonia with MDR ? 02/08/2022 patient was weaned off BiPAP currently on supplemental oxygen 3 L 3. Diabetes mellitus type II -patient's oral hypoglycemics held. Placed on long acting insulin, Accu-Cheks a.c. and at bedtime and covered with sliding scale insulin ? 02/08/2022 patient evening complicated by hypoglycemia. Patient long-acting insulin discontinued patient started on D5W with Accu-Cheks every 4 ordered 4. Severe hypokalemia ? 02/08/2022 additional potassium given repeat labs ordered for later on in the day 5.? Anemia - Secondary to chronic disorder monitoring H&H and transfuse if patient becomes symptomatic or hemoglobin falls below? 7 ? 02/08/2022; further drop in patient hemoglobin level we will continue with daily H&H 6. History of lung CA ? With mets to the brain.? Has received chemo and radiation.? Patient follows up with oncology plan is for patient to continue with care.? Currently on Keppra and dexamethasone did continue 7. GERD ? On PPI 8. ? Depression with anxiety ? on fluoxetine and bupropion. Held in view of patient's significant encephalopathy 9. Recent admission for COVID pneumonitis ? Patient presented with hypoxia has persistent infiltrate. Currently being treated as a case of suspected pneumonia with MDR 10. Recent DVT involving the left lower extremity ? Patient is on Eliquis Advance planning; did discuss with the patient and family regarding advanced directives as well as CODE STATUS. Did explain the various scenarios involved ( FULL CODE, DNR CCA, DNR CCA with no intubation, and DNR CC and what each meant) patient previous CODE STATUS was DNR CCA no intubation however she rescinded her previous decision and elected for full code. Order was placed. Time spent on discussion 18 minutes. Charges/Coding Visit Charges Inpatient E&M: 81174 Subs Hosp L3 Procedures Hospitalists Procedures: 70354 Advncd Care Plan 30 Min
[2022-02-08] MEDS: Potassium Chloride Oral Tablet 20 MEQ PO (08:02)
[2022-02-08] MEDS: Folic Acid 1 MG Tablet 0.5 MG PO (08:02)
[2022-02-08] MEDS: Cholecalciferol (Vit D3) 125 MCG CAPSULE (5,000 UNITS) PO (08:02)
[2022-02-08] MEDS: dexAMETHasone 4 MG Tablet 2 MG PO (08:02)
[2022-02-08] MEDS: levETIRAcetam 500 MG Tablet PO (08:02)
[2022-02-08] MEDS: APIXABAN 5 MG TABLET PO (08:03)
[2022-02-08] MEDS: Oxybutynin 5 MG Tablet PO (08:03)
[2022-02-08] MEDS: Potassium Chloride 10mEq/100mL 10 MEQ/100 ML IV.SOLN. 100 MEQ IV BOLUS ×4 (08:03→11:22)
[2022-02-08] MEDS: Pantoprazole Sodium 20 MG Tablet PO (08:05)
[2022-02-08 11:45] LABS: Bedside Glucose 59 mg/dL (74-106)
[2022-02-08 12:16] LABS: Bedside Glucose 68 mg/dL (74-106)
[2022-02-08 13:01] LABS: Bedside Glucose 61 mg/dL (74-106)
[2022-02-08] MEDS: buPROPion (XL) 150 MG TABLET.XL PO (14:39)
[2022-02-08] MEDS: clonazePAM 0.5 MG Tablet PO (14:39)
--- NOTE | 2022-02-08 15:15 | NURSING ---
Pt w/ extreme agitation through day. Frequently yelling out I'm dying...don't let me ...none of you give a shit and then moments later... I wanna ! Get someone in here let me ! Pt mostly inconsolable through afternoon. This RN took over care approx 1400. About 1500 entered room to given anxiety/depression meds. Recheck VS at this time. Pt sats were low to mid 90s on 5L. Incont of BM, so pt rolled to change sheets, etc and pt became hypoxic into 70s. Bipap placed on pt, 100% at this time to recover as pt continues to panic. MD made aware. Pt changed back to ICU status.
[2022-02-08] MEDS: Acetaminophen 325 MG Tablet 650 MG PO (15:40)
--- NOTE | 2022-02-08 15:41 | CASEMGMT ---
ALBERTO SCOTT chart review: Patient was admitted 01/27-02/05/22 for SOB and Covid. See SW notes. Patient has history of lung cancer with mets to brain. Patient had removed oxygen and/or bipap several times during admission. Patient was discharged to [facility]. Patient returned 02/07/22 for dyspnea, hypotension, and hypoxia. At SNF, patient was 71% on 5lpm and placed on non-rebreather on 15lpm. In the ED patient was 96% on 4lpm. Patient admitted to ICU. Patient to discharge to SNF. Will monitor for possible palliative/hospice.
[2022-02-08 16:20] LABS: Bedside Glucose 83 mg/dL (74-106)
--- NOTE | 2022-02-08 17:30 | CT_ITS ---
INDICATION: Confusion. Change in mental status, patient with history of lung cancer, brain metastases, takes blood thinners. EXAMINATION: CT Head or Brain W/O Contrast Injection TECHNIQUE: Multiple axial images were obtained of the head without intravenous contrast. A radiation dose optimization technique was used for this scan. IV Contrast dosage and agent: None. COMPARISON: Head CT from 01/30/2022 FINDINGS: BRAIN PARENCHYMA: No intra- or extra-axial hemorrhage. No evidence of acute major territorial infarct. Stable appearance of a few punctate intra-axial calcifications. No intracranial midline shift or significant mass effect. Chronic bilateral deep cerebral white matter lucencies again noted. Mild chronic cerebral involutional changes also present. CSF SPACES: Prominent cerebral sulci and extra-axial spaces secondary to involutional changes. No hydrocephalus. Basal cisterns are patent. Intracranial atherosclerotic calcifications. CALVARIUM, SKULL BASE, PARANASAL SINUSES AND MASTOID AIR CELLS: Calvarium is intact. No acute findings within imaged paranasal sinuses. Mastoid air cells are well-pneumatized. ORBITS: No acute findings. CT/Brain/Head without Contrast IMPRESSION: Stable exam with scattered punctate cerebral calcifications with chronic small vessel white matter disease and cerebral atrophy. Otherwise, no evidence of acute intracranial abnormality. Electronically Signed: Krunal Bright MD at 22:58 EST ,
[2022-02-08 18:11] LABS: Allen Test Positive; Base Excess -2 mmol/L (-2 to +2); Bicarbonate 22.2 mmol/L (22-26); Blood Gas Specimen Type ART; Comment 14/7; FI02 50; O2 Delivery Device BiPAP; PO2 70 mmHG (75-100); SITE L Radial; SO2 95 % (95-99); Total Carbon Dioxide 23 mmol/L; pH 7.46 (7.35-7.45)
--- NOTE | 2022-02-08 21:00 | RAD_ITS ---
INDICATION: Shortness of breath EXAMINATION/TECHNIQUE: X-RAY -portable AP view chest COMPARISON: AP chest x-ray from 02/07/2022 FINDINGS: LINES/DEVICES: None. LUNGS: Persistent hazy bilateral mixed interstitial and alveolar pulmonary opacities. Persistent small ovoid opacity left upper lobe. No sizable pleural effusion. No pneumothorax detected. MEDIASTINUM AND CARDIOVASCULAR STRUCTURES: Heart size within normal limits for imaging technique. Central airways and mediastinal contour are unremarkable. BONES AND SOFT TISSUES: No acute findings. RAD/Chest 1 View (Portable) IMPRESSION: Persistent bilateral pulmonary opacity changes with indeterminate small left upper lobe pulmonary opacity. Electronically Signed: Krunal Bright MD at 23:28 EST ,
[2022-02-08 21:35] LABS: Bedside Glucose 45 mg/dL (74-106)
[2022-02-08 21:35] LABS: Bedside Glucose 104 mg/dL (74-106)
[2022-02-08 21:35] LABS: Bedside Glucose 154 mg/dL (74-106)
[2022-02-08] MEDS: Menthol/Lanolin/Calamine/Znox 113 GM Tube 1 APPLIC TOPICAL (22:51)
[2022-02-08 23:11] LABS: Bedside Glucose 92 mg/dL (74-106)
[2022-02-08] MEDS: 0.9% Normal Saline 1,000 ML 500 ML IV (23:12)
[2022-02-08] MEDS: 0.9% Saline Lock 10 ML Syringe IV (23:14)
[2022-02-09] VITALS (48 sets, daily range): BP systolic 74–135; BP diastolic 60–98; PULSE 68–135; RESP 11–38; TEMP 37.5–38.7; O2SAT 90–99
[2022-02-09 00:35] LABS: Bedside Glucose 80 mg/dL (74-106)
[2022-02-09 02:31] LABS: Bedside Glucose 93 mg/dL (74-106)
[2022-02-09 03:20] LABS: Differential Indicated MANUAL DIFF; Hematocrit 27.7 % (37-47); Hemoglobin 8.5 g/dL (12.0-15.0); Mean Corp Hgb Conc 30.7 g/dL (32-36); Mean Corpuscular Volume 101.1 fL (81-99); Mean Platelet Vol. 9.7 fl (6.2-12.0); POSITIVE COUNT YES; POSITIVE MORPHOLOGY YES; Platelet Count 166 K/mm3 (150-450); RBC Distribution Width CV 15.3 % (11.6-14.6); RBC Distribution Width SD 56.6 fl (35.1-43.9); Red Blood Count 2.74 M/mm3 (4.2-5.4)
[2022-02-09 03:42] LABS: Anion Gap 6 (5-15); BUN 8 mg/dL (7-18); BUN/Creat Ratio 16.9 RATIO (10-20); Calcium,Total 7.6 mg/dL (8.5-10.1); Chloride 107 mmol/L (98-107); Creatinine, Serum 0.47 mg/dL (0.55-1.02); EST Glomerular Filtration Rate 141 mL/min (>60); Est Glom Filt Rate - Afr Amer 170 mL/min (>60); Estimated Creatinine Clearance 91.25 ml/min; Glucose 118 mg/dL (74-106); Potassium 3.9 mmol/L (3.5-5.1); Sodium Level 137 mmol/L (136-145)
[2022-02-09 03:51] LABS: Anisocytosis 1+; Macrocytosis RARE; Platelet Estimate ADEQUATE (ADEQ)
[2022-02-09 03:55] LABS: Absolute Lymphocyte Count 0.72 X10^3/uL (0.83-4.51); Absolute Neutrophil Count 10.6 X10^3/uL (2.0-7.7); Blast 1 % (0-0); Lymphocyte 6 % (19-41); Monocyte 1 % (0-10); Myelocyte 3 % (0-0); Neutrophil-Segmented 88 % (47-70); Promyelocyte 1 % (0-0); Total Cells Counted 100 (MANUAL DIFF)
[2022-02-09 06:20] LABS: Bedside Glucose 104 mg/dL (74-106)
[2022-02-09] MEDS: Ipratropium/Albuterol Sulfate 3 ML AMPUL.NEB INHALATION ×3 (07:11→19:41)
--- NOTE | 2022-02-09 07:11 | PCM.PN.INT ---
Assessment & Plan Assessment/Plan (1) Sepsis: PLAN: Plan RECOMMENDATIONS: 1. Given n.p.o. status, discontinue Eliquis and start weight-based heparin infusion. 2. Continue assist-control mode mechanical ventilation and wean FiO2/PEEP for saturations greater than 90%. 3. Obtain arterial blood gas in 1 hour. 4. Obtain and send sputum for culture. 5. Start Precedex and fentanyl for sedation. 6. Obtain repeat blood and urine cultures. 7. Broaden antimicrobials as ordered. 8. Continue appropriate GI prophylaxis. IMPRESSIONS: 1. Acute hypoxemic respiratory failure The patient decompensated from a respiratory perspective on February 09 following an aspiration event the day prior. Accordingly, the patient was intubated. Her chest imaging did demonstrated progressive interstitial infiltrates. Therefore, the patient's antimicrobials have been broadened. She will be continued on assist control mode of mechanical ventilation. FiO2 and PEEP will be weaned as tolerated to maintain saturations at or above 90%. Sputum will be collected and sent for culture. Tube feeds can be initiated today for nutritional support. 2. Sepsis The patient presented with sepsis due to suspected bacterial pneumonia and E. coli cystitis with acute sepsis related organ dysfunction as evidenced by acute respiratory failure requiring noninvasive positive pressure ventilatory support. The patient was just admitted to the hospital with COVID-19 pneumonia. Her chest imaging demonstrates persistent bilateral pulmonary infiltrates, which could be the sequelae of her prior COVID infection versus a superimposed bacterial pneumonia. Urine culture was positive for E. coli. Plan to continue antimicrobials as ordered. Repeat blood and urine cultures will be sent today. 3. Recent COVID-19 pneumonitis/lower extremity DVT Continue supportive measures as noted above. Continue weight-based heparin infusion for now. Eliquis can be resumed at discharge. 4. History of metastatic non-small cell lung cancer The patient has apparently completed radiation and systemic chemotherapy treatment. Recommend continuing Keppra per home regimen along with outpatient oncology follow-up. 5. Diabetes mellitus/depression/anxiety/GERD Complicates care, management, recovery and prognosis.? Continue sliding scale insulin coverage and PPI therapy as ordered. TIME: 46 minutes of critical care time, inclusive of procedures, was spent addressing the patient's acute hypoxemic respiratory failure, sepsis, review of all data and collaboration with the care team. Subjective Subjective The patient was seen and examined at the bedside this morning. Events from the last 24 hours have been reviewed. The patient is currently febrile with a temperature of 101.6 ?F. She has been otherwise hemodynamically stable and maintaining appropriate oxygen saturations on BiPAP with an FiO2 requirement of 45%. The patient did decompensate last evening after a reported aspiration event. The patient did receive a one-time dose of Xanax yesterday afternoon. Upon my evaluation of the patient this morning, she was noted to be in respiratory distress, having difficulty tolerating BiPAP therapy. According to respiratory therapy, the patient had removed her BiPAP mask and immediately desaturated into the 50s. In light of this, the decision was made to proceed with intubation. Intubation Indication: Worsening respiratory failure Consent was obtained from: Patient The patient was placed in the appropriate sniffing position. Preoxygenated sedation via BiPAP was provided for a minimum of 3 minutes. The patient had continuous cardiac as well as pulse oximetry monitoring during the procedure. Procedure sedation was provided by the administration of 2 mg of Versed and 20 mg of etomidate. Direct laryngoscopy was then performed using a number 3 MAC blade, which revealed a grade 1 view. A 7.0 mm endotracheal tube was visualized advancing between the cords to the level of 22 cm at the lip. The stylette was then removed and discarded. Tube placement was confirmed by fogging in the tube along with equal and bilateral breath sounds. Colorimetric change was visualized on the CO2 meter. The cuff was then inflated and the tube secured using a commercially available device. A good pulse oximetry waveform was seen on the monitor throughout the procedure. A portable chest x-ray has been ordered to confirm appropriate placement. The patient tolerated the procedure well. Objective Data Objective Data The patient's most recent lab work, culture data and imaging studies have all been personally reviewed. Preliminary urine culture dated February 07 was positive for gram-negative rina, lactose ordnance keeper. Strep and urine Legionella antigens were negative. Respiratory viral panel was negative. Vital Signs: Vital Signs Temp Pulse Resp BP Pulse Ox O2 Del Method O2 Flow Rate 101.6 F H 107 H 38 H 111/87 H 91 Bi-pap 5 02/09/22 07:00 02/09/22 07:00 02/09/22 07:00 02/09/22 07:00 02/09/22 07:00 02/09/22 07:00 02/08/22 14:45 FiO2 45 02/09/22 07:00 Oxygen Flow Rate (L/min) 5 Oxygen Delivery Method Bi-pap Weight: 132 lb 15.02 oz Body Mass Index (BMI) 23.8 Intake & Output: Intake and Output for Last 24 Hours 02/07/22 02/08/22 02/09/22 23:59 23:59 23:59 Intake Total 3206.67 / 3206.67 3282.17 / 3285.17 1356.14 / 1356.14 Output Total 500 / 500 2350 / 2350 1900 / 1900 Balance 2706.67 / 2706.67 932.17 / 935.17 -543.86 / -543.86 Lab / Micro Data Attestation: I reviewed the patient's lab results. Result Diagrams: 02/09/22 03:12 02/09/22 03:12 Labs: Laboratory Results - last 24 hr 02/08/22 11:25: POC Glucose 59 L 02/08/22 11:54: POC Glucose 68 L 02/08/22 12:39: POC Glucose 61 L 02/08/22 15:57: POC Glucose 83 02/08/22 19:30: POC Glucose 45 L 02/08/22 19:59: POC Glucose 154 H 02/08/22 21:16: POC Glucose 104 02/08/22 22:39: POC Glucose 92 02/09/22 00:18: POC Glucose 80 02/09/22 02:12: POC Glucose 93 02/09/22 03:12: WBC 12.0 H, RBC 2.74 L, Hgb 8.5 L, Hct 27.7 L, MCV 101.1 H, MCH 31.0, MCHC 30.7 L, RDW Std Deviation 56.6 H, RDW Coeff of Bettina 15.3 H, Plt Count 166, MPV 9.7, Neut % (Auto) Not Reportable, Absolute Neuts (auto) 10.6 H, Absolute Lymphs (auto) 0.72 L, Total Counted 100, Neutrophils % (Manual) 88 H, Lymphocytes % (Manual) 6 L, Monocytes % (Manual) 1, Myelocytes % 3 H, Promyelocytes % 1 H, Blast Cells % 1 H*, Diff Path Review July, Platelet Estimate ADEQUATE, Anisocytosis 1+, Macrocytosis RARE 02/09/22 03:12: Sodium 137, Potassium 3.9, Chloride 107, Carbon Dioxide 24.0, Anion Gap 6, BUN 8, Creatinine 0.47 L, Estim Creat Clear Calc 91.25, Est GFR (MDRD) Af Amer 170, Est GFR (MDRD) Non-Af 141, BUN/Creatinine Ratio 16.9, Glucose 118 H, Calcium 7.6 L 02/09/22 05:59: POC Glucose 104 Micro: Microbiology 02/07/22 13:20 Urine, Catheterized Urine Culture - Preliminary GNR lactose ordnance keeper 02/07/22 15:03 Mucosa - Nasopharyngeal Respiratory Panel (PCR) - Final 02/07/22 13:20 Urine Catheter - Garcia Legionella Antigen - Final 02/07/22 13:20 Urine Catheter - Garcia Streptococcus pneumoniae Antigen (M - Final 02/07/22 10:18 Interface Orders Influenza Types A,B Direct FA (ROSELIA) - Final ABG Data ABG results: ABG 02/08/22 18:03 Specimen Type ART Sample Site L Radial pH 7.46 H Bicarbonate Actual 22.2 Total CO2 23 Base Excess -2 O2 Saturation 95 O2 % 50 ABG pCO2 31.0 L ABG pO2 70 L Ryan Test Positive O2 Delivery Device BiPAP Clinical Comments 07/10 Radiography Diagnostic Testing: Radiology Impression Brain CT 02/08/22 17:30 IMPRESSION: Stable exam with scattered punctate cerebral calcifications with chronic small vessel white matter disease and cerebral atrophy. Otherwise, no evidence of acute intracranial abnormality. Electronically Signed: Krunal Bright MD at 22:58 EST , Chest X-Ray 02/08/22 21:00 IMPRESSION: Persistent bilateral pulmonary opacity changes with indeterminate small left upper lobe pulmonary opacity. Electronically Signed: Krunal Bright MD at 23:28 EST , Rhythm Strip Rhythm Strip: Sinus Tach Rate: 105 Ectopy: None Physical Exam Const Constitutional Narrative: Currently intubated and mechanically ventilated. HEENT normocephalic and head/scalp atraumatic Mouth: endotracheal tube in place and OG tube in place Eyes PERRL, EOMs intact bilaterally and conjunctivae normal Neck supple General: trachea midline Chest inspection of chest normal Resp Resp Narrative: Post intubation, the patient is no longer labored. Bilateral scattered rhonchi noted. Cardio S1 normal heart sound and S2 normal heart sound Rate: tachycardic GI normal to inspection, nondistended, normoactive bowel sounds Extremity no clubbing, cyanosis or edema Skin no rashes or lesions noted Neuro Sensorium / Orientation: sedated on vent Charges/Coding Procedures Hospitalists Procedures: 85100 Critial Care 1st Hr
--- NOTE | 2022-02-09 07:14 | PCM.PN.HOSP ---
Subjective Subjective Patient became delirious during the evening of 02/08/2022. Was started on her clonazepam to prevent her from going into withdrawal started on Precedex. Her clinical condition apparently continues to worsen with patient becoming hypotensive did receive IV fluids. Patient oxygen saturation were sent on the morning of 02/09/2022 resulting in patient being intubated Objective Data Objective Data Vital Signs: Vital Signs Temp Pulse Resp BP Pulse Ox O2 Del Method O2 Flow Rate 101.6 F H 107 H 38 H 111/87 H 91 Bi-pap 5 02/09/22 07:00 02/09/22 07:00 02/09/22 07:00 02/09/22 07:00 02/09/22 07:00 02/09/22 07:00 02/08/22 14:45 FiO2 45 02/09/22 07:00 Oxygen Flow Rate (L/min) 5 Oxygen Delivery Method Bi-pap Weight: 60.3 kg Body Mass Index (BMI) 23.8 Intake & Output: Intake and Output for Last 24 Hours 02/07/22 02/08/22 02/09/22 23:59 23:59 23:59 Intake Total 3206.67 / 3206.67 3282.17 / 3285.17 1356.14 / 1356.14 Output Total 500 / 500 2350 / 2350 1900 / 1900 Balance 2706.67 / 2706.67 932.17 / 935.17 -543.86 / -543.86 Lab / Micro Data Result Diagrams: 02/09/22 03:12 02/09/22 03:12 Labs: Laboratory Results - last 24 hr 02/08/22 11:25: POC Glucose 59 L 02/08/22 11:54: POC Glucose 68 L 02/08/22 12:39: POC Glucose 61 L 02/08/22 15:57: POC Glucose 83 02/08/22 19:30: POC Glucose 45 L 02/08/22 19:59: POC Glucose 154 H 02/08/22 21:16: POC Glucose 104 02/08/22 22:39: POC Glucose 92 02/09/22 00:18: POC Glucose 80 02/09/22 02:12: POC Glucose 93 02/09/22 03:12: WBC 12.0 H, RBC 2.74 L, Hgb 8.5 L, Hct 27.7 L, MCV 101.1 H, MCH 31.0, MCHC 30.7 L, RDW Std Deviation 56.6 H, RDW Coeff of Bettina 15.3 H, Plt Count 166, MPV 9.7, Neut % (Auto) Not Reportable, Absolute Neuts (auto) 10.6 H, Absolute Lymphs (auto) 0.72 L, Total Counted 100, Neutrophils % (Manual) 88 H, Lymphocytes % (Manual) 6 L, Monocytes % (Manual) 1, Myelocytes % 3 H, Promyelocytes % 1 H, Blast Cells % 1 H*, Diff Path Review July, Platelet Estimate ADEQUATE, Anisocytosis 1+, Macrocytosis RARE 02/09/22 03:12: Sodium 137, Potassium 3.9, Chloride 107, Carbon Dioxide 24.0, Anion Gap 6, BUN 8, Creatinine 0.47 L, Estim Creat Clear Calc 91.25, Est GFR (MDRD) Af Amer 170, Est GFR (MDRD) Non-Af 141, BUN/Creatinine Ratio 16.9, Glucose 118 H, Calcium 7.6 L 02/09/22 05:59: POC Glucose 104 Micro: Microbiology 02/07/22 13:20 Urine, Catheterized Urine Culture - Preliminary GNR lactose safety advisor 02/07/22 15:03 Mucosa - Nasopharyngeal Respiratory Panel (PCR) - Final 02/07/22 13:20 Urine Catheter - Garcia Legionella Antigen - Final 02/07/22 13:20 Urine Catheter - Garcia Streptococcus pneumoniae Antigen (M - Final 02/07/22 10:18 Interface Orders Influenza Types A,B Direct FA (ROSELIA) - Final ABG Data ABG results: ABG 02/08/22 18:03 Specimen Type ART Sample Site L Radial pH 7.46 H Bicarbonate Actual 22.2 Total CO2 23 Base Excess -2 O2 Saturation 95 O2 % 50 ABG pCO2 31.0 L ABG pO2 70 L Ryan Test Positive O2 Delivery Device BiPAP Clinical Comments 07/10 Radiography Diagnostic Testing: Radiology Impression Brain CT 02/08/22 17:30 IMPRESSION: Stable exam with scattered punctate cerebral calcifications with chronic small vessel white matter disease and cerebral atrophy. Otherwise, no evidence of acute intracranial abnormality. Electronically Signed: Krunal Bright MD at 22:58 EST , Chest X-Ray 02/08/22 21:00 IMPRESSION: Persistent bilateral pulmonary opacity changes with indeterminate small left upper lobe pulmonary opacity. Electronically Signed: Krunal Bright MD at 23:28 EST , Rhythm Strip Rhythm Strip: Sinus Tach Rate: 105 Ectopy: None Physical Exam Narrative GENERAL: Sedated on the vent HEENT: Atraumatic; normocephalic EYES; Anicteric, Normal Conjunctiva NECK; supple, normal thyroid, RESPIRATORY: Diminished to auscultation CARDIOVASCULAR: Regular S1 S2, GI: soft, normoactive bowel sounds, : No Renal angle tenderness; EXTREMITIES: No edema, no clubbing, MUSCULOSKELETAL: no muscle wasting NEURO: Patient on the vent SKIN: No Rash Assessment & Plan Assessment/Plan (1) Sepsis: (2) Hypoxia: (3) Pneumonia: PLAN: Plan Patient is a 66-year-old lady with 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 Sepsis secondary to suspected pneumonia with MDR's ? Evidence of sepsis WBC count greater than 12,000, respiratory rate greater than 20, heart rate greater than 90 and evidence of end organ failure?hypoxia requiring BiPAP. Patient has been admitted to the intensive care unit management protocol with IV fluid resuscitation, broad-spectrum antibiotic therapy. Consult placed to pulmonary/critical care Case discussed with Dr. Cho 02/08/2022; patient WBC count remains elevated cultures still pending. Patient's urine for Legionella antigen and strep pneumonia antigen both negative 2. Acute hypoxic respiratory failure ? As evidenced by patient being tachypneic at rest and significantly hypoxic saturating 71% on room air prior to being placed on BiPAP. Patient acute hypoxic respite failure secondary to suspected pneumonia with MDR ? 02/08/2022 patient was weaned off BiPAP currently on supplemental oxygen 3 L - Patient became delirious during the evening of 02/08/2022. Was started on her clonazepam to prevent her from going into withdrawal started on Precedex. Her clinical condition apparently continues to worsen with patient becoming hypotensive did receive IV fluids. Patient oxygen saturation were sent on the morning of 02/09/2022 resulting in patient being intubated 3. Acute cystitis ? Urine culture came back positive for Klebsiella patient on appropriate antibiotic therapy 4. Diabetes mellitus type II -patient's oral hypoglycemics held. Placed on long acting insulin, Accu-Cheks a.c. and at bedtime and covered with sliding scale insulin ? 02/08/2022 patient evening complicated by hypoglycemia. Patient long-acting insulin discontinued patient started on D5W with Accu-Cheks every 4 ordered 5. Severe hypokalemia ? 02/08/2022 additional potassium given repeat labs ordered for later on in the day 6.? Anemia - Secondary to chronic disorder monitoring H&H and transfuse if patient becomes symptomatic or hemoglobin falls below? 7 ? 02/08/2022; further drop in patient hemoglobin level we will continue with daily H&H 7. History of lung CA ? With mets to the brain.? Has received chemo and radiation.? Patient follows up with oncology plan is for patient to continue with care.? Currently on Keppra and dexamethasone did continue 8. GERD ? On PPI 9. ? Depression with anxiety ? on fluoxetine and bupropion. Held on admission in view of patient's significant encephalopathy 10. Recent admission for COVID pneumonitis ? Patient presented with hypoxia has persistent infiltrate. Currently being treated as a case of suspected pneumonia with MDR 11. Recent DVT involving the left lower extremity ? Patient is on EliquPredikt Charges/Coding Visit Charges Inpatient E&M: 97098 Subs Hosp L3
[2022-02-09] MEDS: Etomidate 20 MG/10 ML Vial IV (07:26)
--- NOTE | 2022-02-09 07:30 | NURSING ---
Patient agitated, removing Bipap mask and yelling. Patient is disoriented and does not follow commands. O2 Saturations dropping to 60's while oxygen is off but patient is becoming increasingly agitated and aggressive when attempting to place back on bipap or nasal cannula. Dr Cho notified and came to bedside. decision to intubate patient made and patient was intubated by Dr Cho. Patient tolerated without complications and placement of ETT and OG confirmed by X-Ray
--- NOTE | 2022-02-09 07:40 | RAD_ITS ---
STUDY: X-RAY CHEST REASON FOR EXAM: Female, 66 years old. Line placement -- post intubation TECHNIQUE: Single AP portable view of the chest. COMPARISON: Comparison is made with prior study dated 02/08/2022. FINDINGS: An endotracheal tube is in situ. The tip is at the origin of the right mainstem bronchus. This should be pulled back approximately 2 cm. An orogastric tube is seen with the tip in the distal stomach. Progressive bilateral airspace disease worse in the right hemithorax. There is no demonstrated pleural abnormality. Normal size heart. Normal mediastinum and kaiden. Normal visualized pulmonary arteries. There is atherosclerotic calcification of the aortic arch with tortuosity. Normal visualized thoracic spine. Normal visualized ribs, clavicles, and shoulders. There is no demonstrated abnormality of the visualized soft tissue structures of the upper abdomen. RAD/Chest 1 View (Portable) IMPRESSION: The tip of the endotracheal tube is at the origin of the right mainstem bronchus. This should be pulled back approximately 2 cm. The tip of the orogastric tube is in the distal portion of the stomach. Progressive bilateral airspace disease worse in the right hemithorax. Electronically Signed: Ken Peacock MD at 8:30 EST ,
--- NOTE | 2022-02-09 07:49 | RAD_ITS ---
STUDY: X-RAY CHEST REASON FOR EXAM: Female, 66 years old. IMAGE 2 TECHNIQUE: Single AP portable view of the chest. COMPARISON: Comparison is made with prior study done earlier in the day. FINDINGS: The tip of the endotracheal tube is now at 2.7 cm proximal to the aniceto. The orogastric tube is in situ with the tip in the distal stomach. RAD/Chest 1 View IMPRESSION: The tip of the endotracheal tube is at 2.7 cm proximal to the aniceto. Electronically Signed: Ken Peacock MD at 8:31 EST ,
[2022-02-09 08:55] LABS: Allen Test Positive; Base Excess -4 mmol/L (-2 to +2); Bicarbonate 21.2 mmol/L (22-26); Blood Gas Specimen Type ART; FI02 65; Mode AC; O2 Delivery Device Adult Vent; PEEP 5; PO2 88 mmHG (75-100); RR 12; SITE L Radial; SO2 97 % (95-99); Total Carbon Dioxide 22 mmol/L; Vt 450; pCO2 34.7 mmHg (35-45)
[2022-02-09] MEDS: Midazolam 2 MG/2 ML Syringe IV (10:34)
[2022-02-09] MEDS: Menthol/Lanolin/Calamine/Znox 113 GM Tube 1 APPLIC TOPICAL ×3 (10:37→21:48)
[2022-02-09] MEDS: levETIRAcetam 500 MG Tablet PO (10:42)
[2022-02-09] MEDS: Oxybutynin 5 MG Tablet GT (10:43)
[2022-02-09] MEDS: dexAMETHasone 4 MG Tablet 2 MG GT ×2 (10:43→21:48)
[2022-02-09] MEDS: Polyethylene Glycol 3350 17 GM PACKET GT (10:43)
[2022-02-09] MEDS: Cholecalciferol (VIT D3) 25 MCG TABLET (1,000 UNITS) 125 MCG GT (10:44)
[2022-02-09] MEDS: HEPARIN/D5w 25,000 UNITS 25,000 UNITS/250 ML IV.SOLN. 8 UNITS CONT INF (11:08)
--- NOTE | 2022-02-09 11:13 | PCM.RX.CS ---
Consult Pharmacy has been consulted to manage selected antiobiotic: Vancomycin Type of Consult: New start Suspected Infection: Pneumonia Labs: Sodium 137 mmol/L (136-145) 02/09/22 03:12 Potassium 3.9 mmol/L (3.5-5.1) 02/09/22 03:12 Chloride 107 mmol/L (98-107) 02/09/22 03:12 Carbon Dioxide 24.0 mmol/L (21.0-32.0) 02/09/22 03:12 Anion Gap 6 (5-15) 02/09/22 03:12 BUN 8 mg/dL (7-18) 02/09/22 03:12 Creatinine 0.47 mg/dL (0.55-1.02) L 02/09/22 03:12 Est GFR (MDRD) Af Amer 170 mL/min (>60) 02/09/22 03:12 Est GFR (MDRD) Non-Af 141 mL/min (>60) 02/09/22 03:12 BUN/Creatinine Ratio 16.9 RATIO (10-20) 02/09/22 03:12 Glucose 118 mg/dL (74-106) H 02/09/22 03:12 Microbiology: Microbiology 02/09/22 07:52 Sputum, Induced/Lukens Gram Stain - Final 02/07/22 13:20 Urine, Catheterized Urine Culture - Final Klebsiella pneumoniae sp pneum 02/07/22 15:03 Mucosa - Nasopharyngeal Respiratory Panel (PCR) - Final 02/07/22 13:20 Urine Catheter - Garcia Legionella Antigen - Final 02/07/22 13:20 Urine Catheter - Garcia Streptococcus pneumoniae Antigen (M - Final 02/07/22 10:18 Interface Orders Influenza Types A,B Direct FA (ROSELIA) - Final Pharmacy Plan for Drug Dosing: NEW START IV VANCOMYCIN Consulting Physician: ERIC Indication: PNEUMONIA Goal Trough: 15-20 MG/DL SrCr: 0.47 MG/DL, ROUNDED TO 0.6 FOR PATIENT AGE CrCl: 71 ML/MIN (USING ROUNDED SCR FOR PATIENT AGE) Comments: Patient was previously on vancomycin this admission. Last dose of 750mg given 02/08 @ 0348. Loading dose of 1500mg given 02/09 @ 0800. Vancomycin Dose: Will start 1000mg Q12 @ 2000 based on patient weight and CrCl per policy. Trough ordered prior to 4th total dose of regimen. Pending Level: 11/17/22 @ 1935 Pharmacy Service will continue to monitor and adjust dosing as required.
[2022-02-09 11:19] LABS: Pathologist Review Reviewed
[2022-02-09] MEDS: Vital AF 1.2 Cal Liquid 1,000 ML 45 ML GT (11:20)
[2022-02-09 11:25] LABS: International Normalized Ratio 1.4
[2022-02-09 12:25] LABS: Bedside Glucose 122 mg/dL (74-106)
--- NOTE | 2022-02-09 15:15 | CASEMGMT ---
CHANDANA sent updates to [facility] via [employer]. Darlene Fisher GUIDE DOG TRAINER DRYING EQUIPMENT OPERATOR
[2022-02-09] MEDS: Insulin Lispro 100 UNIT/ML INSULN.PEN SC ×2 (16:18→21:24)
[2022-02-09] MEDS: Potassium Chloride Oral Tablet 20 MEQ GT (16:19)
[2022-02-09 16:30] LABS: Bedside Glucose 212 mg/dL (74-106)
[2022-02-09] MEDS: Nystatin/Triamcin Cream Tube 1 APPLIC TOPICAL ×2 (18:25→21:49)
[2022-02-09 18:50] LABS: Partial Thromboplast Time 104.3 Seconds (24.1-36.2)
[2022-02-09 21:21] LABS: Bedside Glucose 254 mg/dL (74-106)
[2022-02-09] MEDS: Vancomycin IV 1,000 MG/200 ML BAG 200 MG IV (21:31)
[2022-02-09] MEDS: TITRATION PARAMETER CHANGE 1 EACH IV (22:50)
[2022-02-10] VITALS (52 sets, daily range): BP systolic 74–137; BP diastolic 58–84; PULSE 84–128; RESP 12–25; TEMP 36.7–37.7; O2SAT 86–96
[2022-02-10 03:28] LABS: Hematocrit 26.5 % (37-47); Hemoglobin 8.2 g/dL (12.0-15.0); Mean Corp Hgb Conc 30.9 g/dL (32-36); Mean Corpuscular Hgb 30.8 pg (27.0-32.0); Mean Corpuscular Volume 99.6 fL (81-99); Mean Platelet Vol. 9.9 fl (6.2-12.0); POSITIVE COUNT YES; POSITIVE DIFFERENTIAL YES; POSITIVE MORPHOLOGY YES; Platelet Count 151 K/mm3 (150-450); RBC Distribution Width CV 15.2 % (11.6-14.6); RBC Distribution Width SD 55.8 fl (35.1-43.9); Red Blood Count 2.66 M/mm3 (4.2-5.4)
[2022-02-10 03:45] LABS: Differential Indicated MANUAL DIFF
[2022-02-10 03:46] LABS: Anion Gap 7 (5-15); BUN 8 mg/dL (7-18); BUN/Creat Ratio 18.3 RATIO (10-20); Calcium,Total 7.9 mg/dL (8.5-10.1); Chloride 105 mmol/L (98-107); Creatinine, Serum 0.44 mg/dL (0.55-1.02); EST Glomerular Filtration Rate 154 mL/min (>60); Est Glom Filt Rate - Afr Amer 186 mL/min (>60); Estimated Creatinine Clearance 97.47 ml/min; Glucose 312 mg/dL (74-106); Potassium 3.1 mmol/L (3.5-5.1); Sodium Level 138 mmol/L (136-145)
[2022-02-10 03:50] LABS: Partial Thromboplast Time 56.7 Seconds (24.1-36.2)
[2022-02-10 03:53] LABS: Anisocytosis 1+; Macrocytosis RARE; Platelet Estimate ADEQUATE (ADEQ)
[2022-02-10 03:57] LABS: Absolute Neutrophil Count 13.6 X10^3/uL (2.0-7.7)
[2022-02-10 03:58] LABS: Lymphocyte 4 % (19-41); Monocyte 1 % (0-10); Myelocyte 4 % (0-0); Neutrophil-Band 5 % (0-5); Neutrophil-Segmented 86 % (47-70); Total Cells Counted 100 (MANUAL DIFF)
[2022-02-10] MEDS: Potassium Chloride 10mEq/100mL 10 MEQ/100 ML IV.SOLN. 100 MEQ IV BOLUS ×4 (05:33→09:18)
[2022-02-10] MEDS: Nystatin/Triamcin Cream Tube 1 APPLIC TOPICAL ×3 (06:08→22:00)
[2022-02-10] MEDS: Insulin Lispro 100 UNIT/ML INSULN.PEN SC ×4 (06:08→23:07)
--- NOTE | 2022-02-10 06:15 | PN.CC_ITS ---
Assessment & Plan Assessment/Plan (1) Sepsis: PLAN: Plan RECOMMENDATIONS: 1. Continue assist-control mode mechanical ventilation and wean FiO2/PEEP for saturations greater than 90%. 2. Continue broad-spectrum antimicrobials. 3. Continue heparin infusion. Resume Eliquis at discharge. 4. Continue Levophed to maintain a mean arterial pressure at or above 65 mmHg. 5. Continue Precedex and fentanyl for sedation. 6. Continue tube feeds as tolerated. 7. Potassium repletion as ordered. 8. Continue appropriate GI prophylaxis. IMPRESSIONS: 1. Acute hypoxemic respiratory failure The patient decompensated from a respiratory perspective on February 09 following an aspiration event the day prior. Accordingly, the patient was intubated. Her chest imaging did demonstrated progressive interstitial infiltrates. Therefore, the patient's antimicrobials have been broadened. She will be continued on assist control mode of mechanical ventilation. FiO2 and PEEP will be weaned as tolerated to maintain saturations at or above 90%. Tube feeds can be continued for nutritional support. 2. Septic shock The patient presented with sepsis due to suspected bacterial pneumonia and E. coli cystitis with acute sepsis related organ dysfunction as evidenced by acute respiratory failure requiring invasive mechanical ventilatory support. The patient was just admitted to the hospital with COVID-19 pneumonia. Her chest imaging demonstrates persistent bilateral pulmonary infiltrates, which could be the sequelae of her prior COVID infection versus a superimposed bacterial pneumonia. Urine culture was positive for E. coli. Plan to continue antimicrobials as ordered. Levophed can be weaned to maintain a mean arterial pressure at or above 65 mmHg. 3. Recent COVID-19 pneumonitis/lower extremity DVT Continue supportive measures as noted above. Continue weight-based heparin infusion for now. Eliquis can be resumed at discharge. 4. History of metastatic non-small cell lung cancer The patient has apparently completed radiation and systemic chemotherapy treatment. Recommend continuing Keppra per home regimen along with outpatient oncology follow-up. 5. Diabetes mellitus/depression/anxiety/GERD Complicates care, management, recovery and prognosis.? Continue sliding scale insulin coverage and PPI therapy as ordered. TIME: 34 minutes of critical care time, inclusive of procedures, was spent addressing the patient's acute hypoxemic respiratory failure, sepsis, review of all data and collaboration with the care team. Subjective Subjective The patient was seen and examined at the bedside this morning. Events from the last 24 hours have been reviewed. The patient is currently afebrile and maintaining hemodynamic stability on Levophed at 3 mcg/min. The patient remains on assist control mode mechanical ventilation with an FiO2 requirement of 60%. She is currently documented to be overall net +3.5 L for the hospitalization. White count is elevated at 15,000. Potassium is low this morning at 3.1 with a normal creatinine. Objective Data Objective Data The patient's most recent lab work, culture data and imaging studies have all been personally reviewed. 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 Strep and urine Legionella antigens were negative. Respiratory viral panel was negative. Vital Signs: Vital Signs Temp Pulse Resp BP Pulse Ox O2 Del Method O2 Flow Rate 98.7 F 98 14 119/75 91 Mechanical Ventilator 5 02/10/22 05:00 02/10/22 05:00 02/10/22 05:00 02/10/22 05:00 02/10/22 05:00 02/10/22 05:00 02/08/22 14:45 FiO2 60 02/10/22 05:00 Oxygen Flow Rate (L/min) 5 Oxygen Delivery Method Mechanical Ventilator Weight: 136 lb 0.403 oz Body Mass Index (BMI) 23.8 Intake & Output: Intake and Output for Last 24 Hours 02/08/22 02/09/22 02/10/22 23:59 23:59 23:59 Intake Total 3282.17 / 3285.17 3948.82 / 3972.95 1157.42 / 1157.42 Output Total 2350 / 2350 4275 / 4275 1000 / 1000 Balance 932.17 / 935.17 -326.18 / -302.05 157.42 / 157.42 Lab / Micro Data Attestation: I reviewed the patient's lab results. Result Diagrams: 02/10/22 03:20 02/10/22 03:20 Labs: Laboratory Results - last 24 hr 02/09/22 03:12: Diff Path Review Reviewed 02/09/22 05:59: POC Glucose 104 02/09/22 11:02: PT 17.0 H, INR 1.4, APTT 27.0 02/09/22 11:16: POC Glucose 122 H 02/09/22 16:11: POC Glucose 212 H 02/09/22 18:15: APTT 104.3 H* 02/09/22 20:59: POC Glucose 254 H 02/10/22 03:20: WBC 15.0 H, RBC 2.66 L, Hgb 8.2 L, Hct 26.5 L, MCV 99.6 H, MCH 30.8, MCHC 30.9 L, RDW Std Deviation 55.8 H, RDW Coeff of Bettina 15.2 H, Plt Count 151, MPV 9.9, Neut % (Auto) Not Reportable, Absolute Neuts (auto) 13.6 H, Total Counted 100, Neutrophils % (Manual) 86 H, Band Neutrophils % 5, Lymphocytes % (Manual) 4 L, Monocytes % (Manual) 1, Myelocytes % 4 H, Diff Path Review July, Platelet Estimate ADEQUATE, Anisocytosis 1+, Macrocytosis RARE 02/10/22 03:20: Sodium 138, Potassium 3.1 L, Chloride 105, Carbon Dioxide 26.0, Anion Gap 7, BUN 8, Creatinine 0.44 L, Estim Creat Clear Calc 97.47, Est GFR (MDRD) Af Amer 186, Est GFR (MDRD) Non-Af 154, BUN/Creatinine Ratio 18.3, Glucose 312 H, Calcium 7.9 L 02/10/22 03:20: APTT 56.7 H Micro: Microbiology 02/09/22 07:52 Sputum, Induced/Lukens Gram Stain - Final 02/07/22 13:20 Urine, Catheterized Urine Culture - Final Klebsiella pneumoniae sp pneum 02/07/22 15:03 Mucosa - Nasopharyngeal Respiratory Panel (PCR) - Final 02/07/22 13:20 Urine Catheter - Garcia Legionella Antigen - Final 02/07/22 13:20 Urine Catheter - Garcia Streptococcus pneumoniae Antigen (M - Final 02/07/22 10:18 Interface Orders Influenza Types A,B Direct FA (ROSELIA) - Final ABG Data ABG results: ABG 02/09/22 08:47 Specimen Type ART Sample Site L Radial pH 7.40 Bicarbonate Actual 21.2 L Total CO2 22 Base Excess -4 L O2 Saturation 97 O2 % 65 ABG pCO2 34.7 L ABG pO2 88 Ryan Test Positive Respiration Rate 12 O2 Delivery Device Adult Vent Vent Mode AC Tidal Volume 450 POC PEEP 5 Radiography Diagnostic Testing: Radiology Impression Chest X-Ray 02/09/22 07:40 IMPRESSION: The tip of the endotracheal tube is at the origin of the right mainstem bronchus. This should be pulled back approximately 2 cm. The tip of the orogastric tube is in the distal portion of the stomach. Progressive bilateral airspace disease worse in the right hemithorax. Electronically Signed: Ken Peacock MD at 8:30 EST , Chest X-Ray 02/09/22 07:49 IMPRESSION: The tip of the endotracheal tube is at 2.7 cm proximal to the aniceto. Electronically Signed: Ken Peacock MD at 8:31 EST , Rhythm Strip Rhythm Strip: Sinus Tach Rate: 105 Ectopy: None Physical Exam Const General Appearance: intubated and patient mechanically ventilated HEENT normocephalic and head/scalp atraumatic Mouth: endotracheal tube in place and OG tube in place Eyes PERRL, EOMs intact bilaterally and conjunctivae normal Neck supple General: trachea midline Chest inspection of chest normal Resp Auscultation: diminished lung sounds; Negative for rales, rhonchi or wheezes Cardio S1 normal heart sound and S2 normal heart sound Rate: tachycardic GI normal to inspection, nondistended, normoactive bowel sounds Extremity General Extremity: edema bilateral lower extremity; Negative for clubbing Skin no rashes or lesions noted Neuro Sensorium / Orientation: sedated on vent Charges/Coding Procedures Hospitalists Procedures: [id number] Critial Care 1st Hr
[2022-02-10 06:35] LABS: Bedside Glucose 285 mg/dL (74-106)
[2022-02-10] MEDS: Ipratropium/Albuterol Sulfate 3 ML AMPUL.NEB INHALATION ×3 (06:46→19:06)
--- NOTE | 2022-02-10 07:21 | PN.HOSP_ITS ---
Subjective Subjective Patient seen remains on the vent. Diagnostic data reviewed 4 potassium of 3.1 and hemoglobin of 8.2 Objective Data Objective Data Vital Signs: Vital Signs Temp Pulse Resp BP Pulse Ox O2 Del Method O2 Flow Rate 98.6 F 102 H 12 95/70 96 Mechanical Ventilator 5 02/10/22 07:00 02/10/22 07:00 02/10/22 07:00 02/10/22 07:00 02/10/22 07:00 02/10/22 07:00 02/08/22 14:45 FiO2 60 02/10/22 07:00 Oxygen Flow Rate (L/min) 5 Oxygen Delivery Method Mechanical Ventilator Weight: 61.7 kg Body Mass Index (BMI) 23.8 Intake & Output: Intake and Output for Last 24 Hours 02/08/22 02/09/22 02/10/22 23:59 23:59 23:59 Intake Total 3282.17 / 3285.17 3948.82 / 3972.95 1281.98 / 1281.98 Output Total 2350 / 2350 4275 / 4275 1000 / 1000 Balance 932.17 / 935.17 -326.18 / -302.05 281.98 / 281.98 Lab / Micro Data Result Diagrams: 02/10/22 03:20 02/10/22 03:20 Labs: Laboratory Results - last 24 hr 02/09/22 03:12: Diff Path Review Reviewed 02/09/22 11:02: PT 17.0 H, INR 1.4, APTT 27.0 02/09/22 11:16: POC Glucose 122 H 02/09/22 16:11: POC Glucose 212 H 02/09/22 18:15: APTT 104.3 H* 02/09/22 20:59: POC Glucose 254 H 02/10/22 03:20: WBC 15.0 H, RBC 2.66 L, Hgb 8.2 L, Hct 26.5 L, MCV 99.6 H, MCH 30.8, MCHC 30.9 L, RDW Std Deviation 55.8 H, RDW Coeff of Bettina 15.2 H, Plt Count 151, MPV 9.9, Neut % (Auto) Not Reportable, Absolute Neuts (auto) 13.6 H, Absolute Lymphs (auto) 0.60 L, Total Counted 100, Neutrophils % (Manual) 86 H, Band Neutrophils % 5, Lymphocytes % (Manual) 4 L, Monocytes % (Manual) 1, Myelocytes % 4 H, Diff Path Review May foll, Platelet Estimate ADEQUATE, Anisocytosis 1+, Macrocytosis RARE 02/10/22 03:20: Sodium 138, Potassium 3.1 L, Chloride 105, Carbon Dioxide 26.0, Anion Gap 7, BUN 8, Creatinine 0.44 L, Estim Creat Clear Calc 97.47, Est GFR (MDRD) Af Amer 186, Est GFR (MDRD) Non-Af 154, BUN/Creatinine Ratio 18.3, Glucose 312 H, Calcium 7.9 L 02/10/22 03:20: APTT 56.7 H 02/10/22 06:05: POC Glucose 285 H Micro: Microbiology 02/09/22 07:52 Sputum, Induced/Lukens Gram Stain - Final 02/07/22 13:20 Urine, Catheterized Urine Culture - Final Klebsiella pneumoniae sp pneum 02/07/22 15:03 Mucosa - Nasopharyngeal Respiratory Panel (PCR) - Final 02/07/22 13:20 Urine Catheter - Garcia Legionella Antigen - Final 02/07/22 13:20 Urine Catheter - Garcia Streptococcus pneumoniae Antigen (M - Final 02/07/22 10:18 Interface Orders Influenza Types A,B Direct FA (ROSELIA) - Final ABG Data ABG results: ABG 02/09/22 08:47 Specimen Type ART Sample Site L Radial pH 7.40 Bicarbonate Actual 21.2 L Total CO2 22 Base Excess -4 L O2 Saturation 97 O2 % 65 ABG pCO2 34.7 L ABG pO2 88 Ryan Test Positive Respiration Rate 12 O2 Delivery Device Adult Vent Vent Mode AC Tidal Volume 450 POC PEEP 5 Radiography Diagnostic Testing: Radiology Impression Chest X-Ray 02/09/22 07:40 IMPRESSION: The tip of the endotracheal tube is at the origin of the right mainstem bronchus. This should be pulled back approximately 2 cm. The tip of the orogastric tube is in the distal portion of the stomach. Progressive bilateral airspace disease worse in the right hemithorax. Electronically Signed: Ken Peacock MD at 8:30 EST , Chest X-Ray 02/09/22 07:49 IMPRESSION: The tip of the endotracheal tube is at 2.7 cm proximal to the aniceto. Electronically Signed: Ken Peacock MD at 8:31 EST , Rhythm Strip Rhythm Strip: Sinus Tach Rate: 105 Ectopy: None Physical Exam Narrative GENERAL: On the vent, opens eyes to name HEENT: Atraumatic; normocephalic EYES; Anicteric, Normal Conjunctiva NECK; supple, normal thyroid, RESPIRATORY: Diminished to auscultation CARDIOVASCULAR: Regular S1 S2, GI: soft, normoactive bowel sounds, : No Renal angle tenderness; EXTREMITIES: Edema involving both upper and lower extremities MUSCULOSKELETAL: no muscle wasting NEURO: Patient on the vent SKIN: No Rash Assessment & Plan Assessment/Plan (1) Sepsis: (2) Hypoxia: (3) Pneumonia: PLAN: Plan Patient is a 66-year-old lady with history 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 Sepsis secondary to suspected pneumonia with MDR's ? Evidence of sepsis WBC count greater than 12,000, respiratory rate greater than 20, heart rate greater than 90 and evidence of end organ failure?hypoxia requiring BiPAP. Patient has been admitted to the intensive care unit managemen t protocol with IV fluid resuscitation, broad-spectrum antibiotic therapy. Consult placed to pulmonary/critical care Case discussed with Dr. Cho 02/08/2022; patient WBC count remains elevated cultures still pending. Patient's urine for Legionella antigen and strep pneumonia antigen both negative ? 02/10/2022 patient respiratory cultures negative however urine cultures came back positive for Klebsiella 2. Acute hypoxic respiratory failure ? As evidenced by patient being tachypneic at rest and significantly hypoxic saturating 71% on room air prior to being placed on BiPAP. Patient acute h ypoxic respite failure secondary to suspected pneumonia with MDR ? 02/08/2022 patient was weaned off BiPAP currently on supplemental oxygen 3 L -02/09/2022 patient became delirious during the evening of 02/08/2022. Was started on her clonazepam to prevent her from going into withdrawal started on P recedex. Her clinical condition apparently continues to worsen with patient becoming hypotensive did receive IV fluids. Patient oxygen saturation were sent on the morning of 02/09/2022 resulting in patient being intubated ? 02/10/2022 patient remains on the vent with FiO2 of 60% on assist control mode. Vent management deferred to pulmonary medicine 3. Acute cystitis ? Urine culture came back positive for Klebsiella patient on appropriate antibiotic therapy 4. Diabetes mellitus type II -patient's oral hypoglycemics held. Placed on long acting insulin, Accu-Cheks a.c. and at bedtime and covered with sliding scale insulin ? 02/08/2022 patient evening complicated by hypoglycemia. Patient long-acting insulin discontinued patient started on D5W with Accu-Cheks every 4 ordered 5. Severe hypokalemia ? 02/08/2022 additional potassium given repeat labs ordered for later on in the day ? 02/09/2022. Patient still has persistent hypokalemia despite aggressive treatment. Additional potassium given 6.? Anemia - Secondary to chronic disorder monitoring H&H and transfuse if patient becomes symptomatic or hemoglobin falls below? 7 ? 02/08/2022; further drop in patient hemoglobin level we will continue with daily H&H ? 02/10/2022 further drop in patient hemoglobin level. Hemoglobin down to 8.2 we will continue with daily H&H monitoring 7. History of lung CA ? With mets to the brain.? Has received chemo and radiation.? Patient follows up with oncology plan is for patient to continue with care.? Currently on Keppra and dexamethasone did continue 8. GERD ? On PPI 9. ? Depression with anxiety ? on fluoxetine and bupropion. Held on admission in view of patient's significant encephalopathy 10. Recent admission for COVID pneumonitis ? Patient presented with hypoxia has persistent infiltrate. Currently being treated as a case of suspected pneumonia with MDR 11. Recent DVT involving the left lower extremity ? Patient is on Eliquis ? 02/10/2022 Eliquis was held patient started on heparin drip Charges/Coding Visit Charges Inpatient E&M: 29946 [facility] Hosp L3
[2022-02-10] MEDS: Vancomycin IV 1,000 MG/200 ML BAG 200 MG IV ×2 (08:09→21:48)
[2022-02-10] MEDS: Polyethylene Glycol 3350 17 GM PACKET GT (09:20)
[2022-02-10] MEDS: Folic Acid 1 MG Tablet 0.5 MG GT (09:20)
[2022-02-10] MEDS: Oxybutynin 5 MG Tablet GT (09:20)
[2022-02-10] MEDS: dexAMETHasone 4 MG Tablet 2 MG GT ×2 (09:21→22:04)
[2022-02-10] MEDS: Menthol/Lanolin/Calamine/Znox 113 GM Tube 1 APPLIC TOPICAL ×4 (09:21→21:55)
[2022-02-10] MEDS: Cholecalciferol (VIT D3) 25 MCG TABLET (1,000 UNITS) 125 MCG GT (09:21)
[2022-02-10] MEDS: Potassium Chloride Oral Tablet 20 MEQ GT ×2 (09:22→17:03)
[2022-02-10] MEDS: Vital AF 1.2 Cal Liquid 1,000 ML 45 ML GT (09:22)
[2022-02-10 10:41] LABS: Partial Thromboplast Time 65.5 Seconds (24.1-36.2)
[2022-02-10 11:55] LABS: Bedside Glucose 238 mg/dL (74-106)
[2022-02-10 14:21] LABS: Pathologist Review Reviewed
[2022-02-10 17:30] LABS: Bedside Glucose 248 mg/dL (74-106)
[2022-02-10 20:52] LABS: Vancomycin, Trough Level 15.3 ug/mL (5.0-15.0)
[2022-02-10] MEDS: Chlorhexidine 15 ML PO (22:02)
[2022-02-10] MEDS: 0.9% Saline Lock 10 ML Syringe IV (22:03)
[2022-02-10 23:30] LABS: Bedside Glucose 286 mg/dL (74-106)
[2022-02-10] MEDS: Acetaminophen 650 MG/20 ML UDC GT (23:39)
[2022-02-11] VITALS (38 sets, daily range): BP systolic 83–106; BP diastolic 57–90; PULSE 50–140; RESP 12–32; TEMP 37.7–38.9; O2SAT 87–97
[2022-02-11] MEDS: Ipratropium/Albuterol Sulfate 3 ML AMPUL.NEB INHALATION (00:32)
--- NOTE | 2022-02-11 01:11 | PCM.RX.CS ---
Consult Pharmacy has been consulted to manage selected antiobiotic: Vancomycin Type of Consult: Follow-up Labs: Sodium 138 mmol/L (136-145) 02/10/22 03:20 Potassium 3.1 mmol/L (3.5-5.1) L 02/10/22 03:20 Chloride 105 mmol/L (98-107) 02/10/22 03:20 Carbon Dioxide 26.0 mmol/L (21.0-32.0) 02/10/22 03:20 Anion Gap 7 (5-15) 02/10/22 03:20 BUN 8 mg/dL (7-18) 02/10/22 03:20 Creatinine 0.44 mg/dL (0.55-1.02) L 02/10/22 03:20 Est GFR (MDRD) Af Amer 186 mL/min (>60) 02/10/22 03:20 Est GFR (MDRD) Non-Af 154 mL/min (>60) 02/10/22 03:20 BUN/Creatinine Ratio 18.3 RATIO (10-20) 02/10/22 03:20 Glucose 312 mg/dL (74-106) H 02/10/22 03:20 Vancomycin Trough 15.3 ug/mL (5.0-15.0) H 02/10/22 20:00 Microbiology: Microbiology 02/09/22 07:45 Urine Catheter - Garcia Urine Culture - Preliminary Culture exhibits no growth. 02/09/22 07:52 Sputum, Induced/Lukens Gram Stain - Final 02/09/22 07:52 Sputum, Induced/Lukens Respiratory Culture - Preliminary Gram negative rina 02/07/22 10:00 Blood Culture (Wb) - Left Wrist Blood Culture - Preliminary No growth in 48 hours. 02/07/22 10:08 Blood Culture (Wb) - Anticubital Left Blood Culture - Preliminary No growth in 48 hours. 02/07/22 13:20 Urine, Catheterized Urine Culture - Final Klebsiella pneumoniae sp pneum 02/07/22 15:03 Mucosa - Nasopharyngeal Respiratory Panel (PCR) - Final 02/07/22 13:20 Urine Catheter - Garcia Legionella Antigen - Final 02/07/22 13:20 Urine Catheter - Garcia Streptococcus pneumoniae Antigen (M - Final 02/07/22 10:18 Interface Orders Influenza Types A,B Direct FA (ROSELIA) - Final Goal Trough: 15-20 mcg/mL Pharmacy Plan for Drug Dosing: Pharmacy Service will continue to monitor and adjust dosing as required. TROUGH 15.3 @ 11 HRS, NO CHANGES FOLLOW UP TROUGH IN 2 DAYS Follow-Up Labs: Trough Vancomycin Labs to be done on [date and time ordered]: 02/12 @ 1930
[2022-02-11 04:11] LABS: Hematocrit 24.2 % (37-47); Hemoglobin 7.3 g/dL (12.0-15.0); Mean Corp Hgb Conc 30.2 g/dL (32-36); Mean Corpuscular Hgb 30.5 pg (27.0-32.0); Mean Corpuscular Volume 101.3 fL (81-99); Mean Platelet Vol. 10.4 fl (6.2-12.0); POSITIVE COUNT YES; POSITIVE DIFFERENTIAL YES; POSITIVE MORPHOLOGY YES; Platelet Count 146 K/mm3 (150-450); RBC Distribution Width CV 15.3 % (11.6-14.6); RBC Distribution Width SD 56.5 fl (35.1-43.9); Red Blood Count 2.39 M/mm3 (4.2-5.4); White Blood Count 11.6 K/mm3 (4.4-11.0)
[2022-02-11 04:14] LABS: Anion Gap 3 (5-15); BUN 11 mg/dL (7-18); BUN/Creat Ratio 29.5 RATIO (10-20); Calcium,Total 8.5 mg/dL (8.5-10.1); Chloride 107 mmol/L (98-107); Creatinine, Serum 0.37 mg/dL (0.55-1.02); Differential Indicated MANUAL DIFF; EST Glomerular Filtration Rate 185 mL/min (>60); Est Glom Filt Rate - Afr Amer 224 mL/min (>60); Estimated Creatinine Clearance 115.91 ml/min; Glucose 250 mg/dL (74-106); Potassium 4.5 mmol/L (3.5-5.1); Sodium Level 139 mmol/L (136-145)
[2022-02-11 04:29] LABS: Lymphocyte 3 % (19-41); Metamyelocyte 4 % (0-1); Monocyte 2 % (0-10); Neutrophil-Band 1 % (0-5); Neutrophil-Segmented 90 % (47-70); Total Cells Counted 100 (MANUAL DIFF)
[2022-02-11 04:30] LABS: Neutrophil # 10.97 X10^3/uL (2.7-7.7)
[2022-02-11 04:31] LABS: Absolute Lymphocyte Count 0.35 X10^3/uL (0.83-4.51); Lymphocyte # 0.35 X10^3/ul (0.83-4.51)
[2022-02-11 04:32] LABS: Platelet Estimate ADEQUATE (ADEQ); Red Cell Morphology NORM C+C NORMAL (NORM C&C)
[2022-02-11] MEDS: Insulin Lispro 100 UNIT/ML INSULN.PEN SC ×4 (05:11→23:19)
[2022-02-11] MEDS: HEPARIN/D5w 25,000 UNITS 25,000 UNITS/250 ML IV.SOLN. 5 UNITS CONT INF (05:20)
[2022-02-11 05:21] LABS: Bedside Glucose 227 mg/dL (74-106)
[2022-02-11] MEDS: Nystatin/Triamcin Cream Tube 1 APPLIC TOPICAL ×3 (05:22→21:06)
[2022-02-11 05:24] LABS: Partial Thromboplast Time 44.8 Seconds (24.1-36.2)
[2022-02-11] MEDS: Vital AF 1.2 Cal Liquid 1,000 ML 45 ML GT (05:30)
[2022-02-11] MEDS: Heparin Injection (Vial) 5,000 UNIT/ML VIAL IV ×3 (05:53→22:30)
--- NOTE | 2022-02-11 06:40 | RAD_ITS ---
STUDY: X-RAY CHEST REASON FOR EXAM: Female, 66 years old. Increase Oxygen need TECHNIQUE: AP portable. 6:34 AM COMPARISON: 02/09/2022. FINDINGS: LINES/DEVICES: Tip of the endotracheal tube is 2 cm above the aniceto. NG tube tip in the stomach. New PICC from left brachial approach tip in the region of the SVC/right atrial junction. LUNGS: Lower lung volumes. Alveolar infiltrates throughout the lungs not significantly changed. No pneumothorax. MEDIASTINUM: Unremarkable. CARDIAC SILHOUETTE: Not enlarged. BONES AND SOFT TISSUES: No acute abnormalities. RAD/Chest 1 View (Portable) IMPRESSION: 1. New PICC as described. 2. No significant change in the bilateral airspace disease. Electronically Signed: Meenu Conti MD at 7:14 EST ,
--- NOTE | 2022-02-11 06:50 | PCM.PN.INT ---
Assessment & Plan Assessment/Plan (1) Sepsis: PLAN: Plan RECOMMENDATIONS: 1. Continue assist-control mode mechanical ventilation and wean FiO2/PEEP for saturations greater than 90%. 2. Continue broad-spectrum antimicrobials. 3. Continue heparin infusion. Resume Eliquis at discharge. 4. Attempt diuresis today. 5. Continue Precedex and fentanyl for sedation. 6. Continue tube feeds as tolerated. 7. Discontinue DuoNebs and transition to scheduled Atrovent aerosols. 8. Start scheduled bowel regimen. 9. Continue appropriate GI prophylaxis. 10. Obtain follow-up chest x-ray and ABG. IMPRESSIONS: 1. Acute hypoxemic respiratory failure The patient decompensated from a respiratory perspective on February 09 following an aspiration event the day prior. Accordingly, the patient was intubated. Her chest imaging did demonstrated progressive interstitial infiltrates. Therefore, the patient's antimicrobials have been broadened. She will be continued on assist control mode of mechanical ventilation. FiO2 and PEEP will be weaned as tolerated to maintain saturations at or above 90%. Tube feeds can be continued for nutritional support. We will attempt gentle diuresis today as tolerated by hemodynamics and renal function. 2. Septic shock Improved. The patient presented with sepsis due to suspected bacterial pneumonia and E. coli cystitis with acute sepsis related organ dysfunction as evidenced by acute respiratory failure requiring invasive mechanical ventilatory support. The patient was just admitted to the hospital with COVID-19 pneumonia. Her chest imaging demonstrates persistent bilateral pulmonary infiltrates, which could be the sequelae of her prior COVID infection versus a superimposed bacterial pneumonia. Urine culture was positive for E. coli. Plan to continue antimicrobials as ordered. The patient has been weaned from Levophed at this time. 3. Recent COVID-19 pneumonitis/lower extremity DVT Continue supportive measures as noted above. Continue weight-based heparin infusion for now. Eliquis can be resumed at discharge. 4. History of metastatic non-small cell lung cancer The patient has apparently completed radiation and systemic chemotherapy treatment. Recommend continuing Keppra per home regimen along with outpatient oncology follow-up. 5. Diabetes mellitus/depression/anxiety/GERD Complicates care, management, recovery and prognosis.? Continue sliding scale insulin coverage and PPI therapy as ordered. TIME: 33 minutes of critical care time, inclusive of procedures, was spent addressing the patient's acute hypoxemic respiratory failure, sepsis, review of all data and collaboration with the care team. Subjective Subjective The patient was seen and examined at the bedside this morning. Events from the last 24 hours have been reviewed. The patient currently has a low-grade fever along with borderline hemodynamics. Nevertheless, she has been weaned from vasopressor support. The patient remains on assist control mode of mechanical ventilation with an FiO2 requirement of 80%. She is currently sedated on fentanyl and Precedex. She has been tolerant of tube feeds. According to nursing report, each time she is administered an aerosol treatment she developed reflexive tachycardia. Hemoglobin is down to 7.3 g/dL. The patient is currently documented to be overall net +7 L for the hospitalization. Objective Data Objective Data The patient's most recent lab work, culture data and imaging studies have all been personally reviewed. Preliminary urine culture dated February 07 was positive for gram-negative rina, lactose components engineer. Strep and urine Legionella antigens were negative. Respiratory viral panel was negative. Vital Signs: Vital Signs Temp Pulse Resp BP Pulse Ox O2 Del Method O2 Flow Rate 100.4 F H 101 H 14 94/69 93 Mechanical Ventilator 5 02/11/22 06:00 02/11/22 06:00 02/11/22 06:00 02/11/22 06:00 02/11/22 06:00 02/11/22 06:00 02/08/22 14:45 FiO2 80 02/11/22 06:00 Oxygen Flow Rate (L/min) 5 Oxygen Delivery Method Mechanical Ventilator Weight: 138 lb 14.259 oz Body Mass Index (BMI) 23.8 Intake & Output: Intake and Output for Last 24 Hours 02/09/22 02/10/22 02/11/22 23:59 23:59 23:59 Intake Total 3948.82 / 3972.95 5431.24 / 5440.74 1145.05 / 1145.05 Output Total 4275 / 4275 2550 / 2550 280 / 280 Balance -326.18 / -302.05 2881.24 / 2890.74 865.05 / 865.05 Lab / Micro Data Attestation: I reviewed the patient's lab results. Result Diagrams: 02/11/22 03:50 02/11/22 03:50 Labs: Laboratory Results - last 24 hr 02/10/22 03:20: Absolute Lymphs (auto) 0.60 L, Diff Path Review Reviewed 02/10/22 10:10: APTT 65.5 H 02/10/22 11:11: POC Glucose 238 H 02/10/22 17:07: POC Glucose 248 H 02/10/22 20:00: Vancomycin Trough 15.3 H 02/10/22 23:06: POC Glucose 286 H 02/11/22 03:50: APTT 44.8 H 02/11/22 03:50: WBC 11.6 H, RBC 2.39 L, Hgb 7.3 L, Hct 24.2 L, MCV 101.3 H, MCH 30.5, MCHC 30.2 L, RDW Std Deviation 56.5 H, RDW Coeff of Bettina 15.3 H, Plt Count 146 L, MPV 10.4, Neut % (Auto) Not Reportable, Absolute Neuts (auto) 11.0 H, Absolute Lymphs (auto) 0.35 L, Total Counted 100, Neutrophils % (Manual) 90 H, Band Neutrophils % 1, Lymphocytes % (Manual) 3 L, Monocytes % (Manual) 2, Metamyelocytes % 4 H, Diff Path Review May foll, Platelet Estimate ADEQUATE, RBC Morphology NORM C+C 02/11/22 03:50: Sodium 139, Potassium 4.5, Chloride 107, Carbon Dioxide 29.0, Anion Gap 3 L, BUN 11, Creatinine 0.37 L, Estim Creat Clear Calc 115.91, Est GFR (MDRD) Af Amer 224, Est GFR (MDRD) Non-Af 185, BUN/Creatinine Ratio 29.5 H, Glucose 250 H, Calcium 8.5 02/11/22 05:03: POC Glucose 227 H Micro: Microbiology 02/09/22 07:45 Urine Catheter - Garcia Urine Culture - Preliminary Culture exhibits no growth. 02/09/22 07:52 Sputum, Induced/Lukens Gram Stain - Final 02/09/22 07:52 Sputum, Induced/Lukens Respiratory Culture - Preliminary Gram negative rina 02/07/22 10:00 Blood Culture (Wb) - Left Wrist Blood Culture - Preliminary No growth in 48 hours. 02/07/22 10:08 Blood Culture (Wb) - Anticubital Left Blood Culture - Preliminary No growth in 48 hours. 02/07/22 13:20 Urine, Catheterized Urine Culture - Final Klebsiella pneumoniae sp pneum 02/07/22 15:03 Mucosa - Nasopharyngeal Respiratory Panel (PCR) - Final 02/07/22 13:20 Urine Catheter - Garcia Legionella Antigen - Final 02/07/22 13:20 Urine Catheter - Garcia Streptococcus pneumoniae Antigen (M - Final 02/07/22 10:18 Interface Orders Influenza Types A,B Direct FA (ROSELIA) - Final ABG Data ABG results: ABG 02/09/22 08:47 Specimen Type ART Sample Site L Radial pH 7.40 Bicarbonate Actual 21.2 L Total CO2 22 Base Excess -4 L O2 Saturation 97 O2 % 65 ABG pCO2 34.7 L ABG pO2 88 Ryan Test Positive Respiration Rate 12 O2 Delivery Device Adult Vent Vent Mode AC Tidal Volume 450 POC PEEP 5 Radiography Diagnostic Testing: Radiology Impression Chest X-Ray 02/09/22 07:40 IMPRESSION: The tip of the endotracheal tube is at the origin of the right mainstem bronchus. This should be pulled back approximately 2 cm. The tip of the orogastric tube is in the distal portion of the stomach. Progressive bilateral airspace disease worse in the right hemithorax. Electronically Signed: Ken Peacock MD at 8:30 EST , Chest X-Ray 02/09/22 07:49 IMPRESSION: The tip of the endotracheal tube is at 2.7 cm proximal to the aniceto. Electronically Signed: Ken Peacock MD at 8:31 EST , Rhythm Strip Rhythm Strip: Sinus Tach Rate: 105 Ectopy: None Physical Exam Const General Appearance: intubated and patient mechanically ventilated HEENT normocephalic and head/scalp atraumatic Mouth: endotracheal tube in place and OG tube in place Eyes PERRL, EOMs intact bilaterally and conjunctivae normal Neck supple General: trachea midline Chest inspection of chest normal Resp Auscultation: wheezes and diminished lung sounds; Negative for rales or rhonchi Cardio S1 normal heart sound and S2 normal heart sound Rate: tachycardic GI normal to inspection, nondistended, normoactive bowel sounds Extremity General Extremity: edema bilateral lower extremity; Negative for clubbing Skin no rashes or lesions noted Neuro Sensorium / Orientation: sedated on vent Charges/Coding Procedures Hospitalists Procedures: 68902 Critial Care 1st Hr
[2022-02-11] MEDS: Ipratropium 0.5 MG/2.5 ML SOLUTION INHALATION ×5 (07:06→23:15)
--- NOTE | 2022-02-11 07:26 | PCM.PN.HOSP ---
Subjective Subjective Patient remains on the vent. Patient was on pressors since been weaned off. Patient hemoglobin continues to drop. Awake on the vent and follows simple commands. Sputum culture so far positive for gram-negative rods final identification and sensitivities pending Objective Data Objective Data Vital Signs: Vital Signs Temp Pulse Resp BP Pulse Ox O2 Del Method O2 Flow Rate 100.6 F H 101 H 16 93/67 94 Mechanical Ventilator 5 02/11/22 07:00 02/11/22 07:20 02/11/22 07:06 02/11/22 07:00 02/11/22 07:06 02/11/22 07:06 02/08/22 14:45 FiO2 80 02/11/22 07:06 Oxygen Flow Rate (L/min) 5 Oxygen Delivery Method Mechanical Ventilator Weight: 63 kg Body Mass Index (BMI) 23.8 Intake & Output: Intake and Output for Last 24 Hours 02/09/22 02/10/22 02/11/22 23:59 23:59 23:59 Intake Total 3948.82 / 3972.95 5431.24 / 5440.74 1154.85 / 1154.85 Output Total 4275 / 4275 2550 / 2550 280 / 280 Balance -326.18 / -302.05 2881.24 / 2890.74 874.85 / 874.85 Lab / Micro Data Result Diagrams: 02/11/22 03:50 02/11/22 03:50 Labs: Laboratory Results - last 24 hr 02/10/22 03:20: Diff Path Review Reviewed 02/10/22 10:10: APTT 65.5 H 02/10/22 11:11: POC Glucose 238 H 02/10/22 17:07: POC Glucose 248 H 02/10/22 20:00: Vancomycin Trough 15.3 H 02/10/22 23:06: POC Glucose 286 H 02/11/22 03:50: APTT 44.8 H 02/11/22 03:50: WBC 11.6 H, RBC 2.39 L, Hgb 7.3 L, Hct 24.2 L, MCV 101.3 H, MCH 30.5, MCHC 30.2 L, RDW Std Deviation 56.5 H, RDW Coeff of Bettina 15.3 H, Plt Count 146 L, MPV 10.4, Neut % (Auto) Not Reportable, Absolute Neuts (auto) 11.0 H, Absolute Lymphs (auto) 0.35 L, Total Counted 100, Neutrophils % (Manual) 90 H, Band Neutrophils % 1, Lymphocytes % (Manual) 3 L, Monocytes % (Manual) 2, Metamyelocytes % 4 H, Diff Path Review July, Platelet Estimate ADEQUATE, RBC Morphology NORM C+C 02/11/22 03:50: Sodium 139, Potassium 4.5, Chloride 107, Carbon Dioxide 29.0, Anion Gap 3 L, BUN 11, Creatinine 0.37 L, Estim Creat Clear Calc 115.91, Est GFR (MDRD) Af Amer 224, Est GFR (MDRD) Non-Af 185, BUN/Creatinine Ratio 29.5 H, Glucose 250 H, Calcium 8.5 02/11/22 05:03: POC Glucose 227 H Micro: Microbiology 02/09/22 07:45 Urine Catheter - Garcia Urine Culture - Preliminary Culture exhibits no growth. 02/09/22 07:52 Sputum, Induced/Lukens Gram Stain - Final 02/09/22 07:52 Sputum, Induced/Lukens Respiratory Culture - Preliminary Gram negative rina 02/07/22 10:00 Blood Culture (Wb) - Left Wrist Blood Culture - Preliminary No growth in 48 hours. 02/07/22 10:08 Blood Culture (Wb) - Anticubital Left Blood Culture - Preliminary No growth in 48 hours. 02/07/22 13:20 Urine, Catheterized Urine Culture - Final Klebsiella pneumoniae sp pneum 02/07/22 15:03 Mucosa - Nasopharyngeal Respiratory Panel (PCR) - Final 02/07/22 13:20 Urine Catheter - Garcia Legionella Antigen - Final 02/07/22 13:20 Urine Catheter - Garcia Streptococcus pneumoniae Antigen (M - Final 02/07/22 10:18 Interface Orders Influenza Types A,B Direct FA (ROSELIA) - Final Radiography Diagnostic Testing: Radiology Impression Chest X-Ray 02/11/22 06:40 IMPRESSION: 1. New PICC as described. 2. No significant change in the bilateral airspace disease. Electronically Signed: Meenu Conti MD at 7:14 EST , Rhythm Strip Rhythm Strip: Sinus Tach Rate: 105 Ectopy: None Physical Exam Narrative GENERAL: On the vent, opens eyes to name HEENT: Atraumatic; normocephalic EYES; Anicteric, Normal Conjunctiva NECK; supple, normal thyroid, RESPIRATORY: Diminished to auscultation CARDIOVASCULAR: Regular S1 S2, GI: soft, normoactive bowel sounds, : No Renal angle tenderness; EXTREMITIES: Edema involving both upper and lower extremities MUSCULOSKELETAL: no muscle wasting NEURO: Patient on the vent SKIN: No Rash Assessment & Plan Assessment/Plan (1) Sepsis: (2) Hypoxia: (3) Pneumonia: PLAN: Plan Patient is a 66-year-old lady with 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 Sepsis secondary to suspected pneumonia with MDR's ? Evidence of sepsis WBC count greater than 12,000, respiratory rate greater than 20, heart rate greater than 90 and evidence of end organ failure?hypoxia requiring BiPAP. Patient has been admitted to the intensive care unit management protocol with IV fluid resuscitation, broad-spectrum antibiotic therapy. Consult placed to pulmonary/critical care Case discussed with Dr. Cho 02/08/2022; patient WBC count remains elevated cultures still pending. Patient's urine for Legionella antigen and strep pneumonia antigen both negative ? 02/10/2022 patient respiratory cultures negative however urine cultures came back positive for Klebsiella -02/11/2022; Patient remains on the vent. Patient was on pressors since been weaned off. Patient hemoglobin continues to drop. Awake on the vent and follows simple commands. Sputum culture so far positive for gram-negative rods final identification and sensitivities pending 2. Acute hypoxic respiratory failure ? As evidenced by patient being tachypneic at rest and significantly hypoxic saturating 71% on room air prior to being placed on BiPAP. Patient acute hypoxic respite failure secondary to suspected pneumonia with MDR ? 02/08/2022 patient was weaned off BiPAP currently on supplemental oxygen 3 L -02/09/2022 patient became delirious during the evening of 02/08/2022. Was started on her clonazepam to prevent her from going into withdrawal started on Precedex. Her clinical condition apparently continues to worsen with patient becoming hypotensive did receive IV fluids. Patient oxygen saturation were sent on the morning of 02/09/2022 resulting in patient being intubated ? 02/10/2022 patient remains on the vent with FiO2 of 60% on assist control mode. Vent management deferred to pulmonary medicine ? 02/11/2022 remains on events on assist control mode with FiO2 of 80% 3. Acute cystitis ? Urine culture came back positive for Klebsiella patient on appropriate antibiotic therapy 4. Diabetes mellitus type II -patient's oral hypoglycemics held. Placed on long acting insulin, Accu-Cheks a.c. and at bedtime and covered with sliding scale insulin ? 02/08/2022 patient evening complicated by hypoglycemia. Patient long-acting insulin discontinued patient started on D5W with Accu-Cheks every 4 ordered 5. Severe hypokalemia ? 02/08/2022 additional potassium given repeat labs ordered for later on in the day ? 02/09/2022. Patient still has persistent hypokalemia despite aggressive treatment. Additional potassium given 6.? Anemia - Secondary to chronic disorder monitoring H&H and transfuse if patient becomes symptomatic or hemoglobin falls below? 7 ? 02/08/2022; further drop in patient hemoglobin level we will continue with daily H&H ? 02/10/2022 further drop in patient hemoglobin level. Hemoglobin down to 8.2 we will continue with daily H&H monitoring ? 02/11/2022 hemoglobin down to 7.3, plan is to transfuse if hemoglobin falls below 7 or patient becomes symptomatic 7. History of lung CA ? With mets to the brain.? Has received chemo and radiation.? Patient follows up with oncology plan is for patient to continue with care.? Currently on Keppra and dexamethasone did continue 8. GERD ? On PPI 9. ? Depression with anxiety ? on fluoxetine and bupropion. Held on admission in view of patient's significant encephalopathy 10. Recent admission for COVID pneumonitis ? Patient presented with hypoxia has persistent infiltrate. Currently being treated as a case of suspected pneumonia with MDR ? In 2021 patient sputum cultures so far positive for gram-negative rods final identification and sensitivities pending 11. Recent DVT involving the left lower extremity ? Patient is on Eliquis ? 02/10/2022 Eliquis was held patient started on heparin drip Charges/Coding Visit Charges Inpatient E&M: 98990 [facility] Hosp L3
[2022-02-11] MEDS: Furosemide 40 MG/4 ML Vial IV (07:34)
[2022-02-11] MEDS: Folic Acid 1 MG Tablet 0.5 MG GT (07:37)
[2022-02-11] MEDS: Potassium Chloride Oral Tablet 20 MEQ GT ×2 (07:37→16:52)
[2022-02-11 07:41] LABS: Blood Gas Specimen Type VEN; O2 Delivery Device Adult Vent; PEEP 5; RR 12; SITE R Radial; VBG BASE EXCESS 1 mmol/L (-1.0-3.5); VBG Bicarbonate 27 mmol/L (22-26); VBG PO2 34 mmHg (25-40); VBG SO2 61 % (50-70); VBG TCO2 28 mmol/L (23-33); VBG pCO2 49.3 mmHg (41-51); VBG pH 7.34 (7.32-7.42)
[2022-02-11] MEDS: Vancomycin IV 1,000 MG/200 ML BAG 200 MG IV (08:10)
[2022-02-11] MEDS: Senna/Docusate Sodium 1 Tablet 2 TABLET PO (08:31)
[2022-02-11] MEDS: Polyethylene Glycol 3350 17 GM PACKET GT (08:31)
[2022-02-11] MEDS: Cholecalciferol (VIT D3) 25 MCG TABLET (1,000 UNITS) 125 MCG GT (08:31)
[2022-02-11] MEDS: Oxybutynin 5 MG Tablet GT (08:32)
[2022-02-11] MEDS: Chlorhexidine 15 ML PO ×2 (08:38→21:04)
[2022-02-11] MEDS: Menthol/Lanolin/Calamine/Znox 113 GM Tube 1 APPLIC TOPICAL ×3 (09:19→21:06)
[2022-02-11] MEDS: dexAMETHasone 4 MG Tablet 2 MG GT ×2 (09:20→21:05)
[2022-02-11] MEDS: Insulin Glargine-YFGN 100 UNIT/ML Pen 10 UNIT SC (10:29)
--- NOTE | 2022-02-11 10:29 | CASEMGMT ---
Social Work Pt is here from [facility]. SW reviewed chart regarding POA. Last time pt was here, CHANDANA Colon had spoken w/family. She spoke w/pt's mother who did not want to be pt's decisionmaker and deferred to pt's siblings. There are no POA papers on the chart, so at this time any decisions that need made would need to be by both Beltran and Abigail together, pt's two siblings. SW called [facility], spoke w/Sima, she does not have updated POA papers on file. SW called pt's sister Abigail and explained the above. Abigail states they redid pt's POA papers, they are signed and notarized, and pt put Abigail as POA. SW asked Abigail to bring in the papers. Abigail states she is not feeling well today, will bring them in tomorrow. CHANDANA explained to Abigail that until the papers are on file, she and brother Beltran would make decisions together. Abigail states understanding, she states she, Beltran and pt's sister in law all make decisions together anyway. CHANDANA informed RN of the above. CHANDANA will continue to follow. HARLAN Torres
[2022-02-11 10:51] LABS: Bedside Glucose 197 mg/dL (74-106)
[2022-02-11] MEDS: Acetaminophen 650 MG/20 ML UDC GT (13:17)
[2022-02-11 14:29] LABS: Partial Thromboplast Time 43.3 Seconds (24.1-36.2)
[2022-02-11 14:43] LABS: Pathologist Review Reviewed
[2022-02-11 17:16] LABS: Bedside Glucose 156 mg/dL (74-106)
--- NOTE | 2022-02-11 18:18 | NURSING ---
Dentures taken home by sister in law Luna. She will notify other family members she has them.
[2022-02-11 22:17] LABS: Partial Thromboplast Time 50.9 Seconds (24.1-36.2)
[2022-02-11] MEDS: 0.9% Saline Lock 10 ML Syringe IV (22:30)
[2022-02-11 23:46] LABS: Bedside Glucose 173 mg/dL (74-106)
[2022-02-12] VITALS (36 sets, daily range): BP systolic 80–126; BP diastolic 60–86; PULSE 15–120; RESP 12–30; TEMP 38.1–40.1; O2SAT 86–100
[2022-02-12] MEDS: Acetaminophen 650 MG/20 ML UDC GT ×3 (01:15→20:55)
[2022-02-12] MEDS: Vital AF 1.2 Cal Liquid 1,000 ML 50 ML GT (02:09)
[2022-02-12] MEDS: Ipratropium 0.5 MG/2.5 ML SOLUTION INHALATION ×6 (03:21→23:10)
[2022-02-12 04:52] LABS: Partial Thromboplast Time 64.1 Seconds (24.1-36.2)
[2022-02-12] MEDS: 0.9% Saline Lock 10 ML Syringe IV (05:08)
[2022-02-12] MEDS: Insulin Lispro 100 UNIT/ML INSULN.PEN SC ×4 (05:09→22:54)
[2022-02-12] MEDS: Nystatin/Triamcin Cream Tube 1 APPLIC TOPICAL ×3 (05:09→20:53)
[2022-02-12] MEDS: TITRATION PARAMETER CHANGE 1 EACH IV (05:09)
[2022-02-12 05:31] LABS: Bedside Glucose 232 mg/dL (74-106)
[2022-02-12 06:09] LABS: Hematocrit 24.3 % (37-47); Hemoglobin 7.2 g/dL (12.0-15.0); Mean Corp Hgb Conc 29.6 g/dL (32-36); Mean Corpuscular Hgb 30.4 pg (27.0-32.0); Mean Corpuscular Volume 102.5 fL (81-99); Mean Platelet Vol. 10.5 fl (6.2-12.0); POSITIVE COUNT YES; POSITIVE MORPHOLOGY YES; Platelet Count 141 K/mm3 (150-450); RBC Distribution Width CV 15.2 % (11.6-14.6); RBC Distribution Width SD 56.6 fl (35.1-43.9); Red Blood Count 2.37 M/mm3 (4.2-5.4); White Blood Count 11.4 K/mm3 (4.4-11.0)
[2022-02-12 06:11] LABS: Differential Indicated MANUAL DIFF
--- NOTE | 2022-02-12 06:12 | PN.CC_ITS ---
Assessment & Plan Assessment/Plan (1) Sepsis: PLAN: Plan RECOMMENDATIONS: 1. Continue assist-control mode mechanical ventilation and wean FiO2/PEEP for saturations greater than 90%. 2. Continue broad-spectrum antimicrobials. 3. Continue heparin infusion. Resume Eliquis at discharge. 4. Start scheduled diuretics twice daily. 5. Continue Precedex and fentanyl for sedation. 6. Continue tube feeds as tolerated. 7. Continue scheduled Atrovent aerosols. 8. Continue appropriate GI prophylaxis. IMPRESSIONS: 1. Acute hypoxemic respiratory failure The patient decompensated from a respiratory perspective on February 09 follow ing an aspiration event the day prior. Accordingly, the patient was intubated. Her chest imaging did demonstrated progressive interstitial infiltrates. Therefore, the patient's antimicrobials have been broadened. She will be continued on assist control mode of mechanical ventilation. FiO2 and PEEP will be weaned as tolerated to maintain saturations at or above 90%. Tube feeds can be continued for nutritional support. In light of the patient's clinical and volume status, will start scheduled diuretics today. 2. Septic shock Improved. The patient presented with sepsis due to Klebsiella pneumonia and cystitis with acute sepsis related organ dysfunction as evidenced by acute respiratory failure requiring invasive mechanical ventilatory support. The patient was just admitted to the hospital with COVID-19 pneumonia. Her chest imaging demonstrates persistent bilateral pulmonary infiltrates, which could be the sequelae of her prior COVID infection with superimposed bacterial pneumonia. Plan to continue antimicrobials as ordered. The patient has been weaned from Levophed at this time. 3. Recent COVID-19 pneumonitis/lower extremity DVT Continue supportive measures as noted above. Continue weight-based heparin infusion for now. Eliquis can be resumed at discharge. 4. History of metastatic non-small cell lung cancer The patient has apparently completed radiation and systemic chemotherapy renetta tment. Recommend continuing Keppra per home regimen along with outpatient oncology follow-up. 5. Diabetes mellitus/depression/anxiety/GERD Complicates care, management, recovery and prognosis.? Continue sliding scale insulin coverage and PPI therapy as ordered. TIME: 32 minutes of critical care time, inclusive of procedures, was spent addressing the patient's acute hypoxemic respiratory failure, sepsis, review of all data and collaboration with the care team. Subjective Subjective The patient was seen and examined at the bedside this morning. Events from the last 24 hours have been reviewed. The patient is currently afebrile, hemodynamically stable and maintaining appropriate oxygen saturations on assist control mode of mechanical ventilation with an FiO2 requirement of 95%. The patient remains off of vasopressor support at the present time. She is curr ently documented to be overall net +7.2 L for the hospitalization. She remains on broad-spectrum antimicrobials. Hemoglobin is stable at 7.2 g/dL. Objective Data Objective Data The patient's most recent lab work, culture data and imaging studies have all been personally reviewed. Strep and urine Legionella antigens were negative. Respiratory viral panel was negative. Urine culture dated February 07 and sputum culture dated February 09 were both positive for Klebsiella pneumonia. Vital Signs: Vital Signs Temp Pulse Resp BP Pulse Ox O2 Del Method O2 Flow Rate 100.9 F H 88 13 80/60 L 94 Mechanical Ventilator 5 02/12/22 06:00 02/12/22 06:00 02/12/22 06:00 02/12/22 06:00 02/12/22 06:00 02/12/22 06:00 02/08/22 14:45 FiO2 95 02/12/22 06:00 Oxygen Flow Rate (L/min) 5 Oxygen Delivery Method Mechanical Ventilator Weight: 137 lb 12.623 oz Body Mass Index (BMI) 23.8 Intake & Output: Intake and Output for Last 24 Hours 02/10/22 02/11/22 02/12/22 23:59 23:59 23:59 Intake Total 5431.24 / 5440.74 3094.61 / 3465.41 809.29 / 809.29 Output Total 2550 / 2550 2630 / 2630 250 / 250 Balance 2881.24 / 2890.74 464.61 / 835.41 559.29 / 559.29 Lab / Micro Data Attestation: I reviewed the patient's lab results. Result Diagrams: 02/12/22 04:35 02/12/22 04:35 Labs: Laboratory Results - last 24 hr 02/11/22 03:50: Diff Path Review Reviewed 02/11/22 07:30: Blood Type O POSITIVE, Antibody Screen NEGATIVE 02/11/22 10:28: POC Glucose 197 H 02/11/22 14:11: APTT 43.3 H 02/11/22 16:52: POC Glucose 156 H 02/11/22 21:50: APTT 50.9 H 02/11/22 23:17: POC Glucose 173 H 02/12/22 04:34: APTT 64.1 H 02/12/22 04:35: WBC 11.4 H, RBC 2.37 L, Hgb 7.2 L, Hct 24.3 L, MCV 102.5 H, MCH 30.4, MCHC 29.6 L, RDW Std Deviation 56.6 H, RDW Coeff of Bettina 15.2 H, Plt Count 141 L, MPV 10.5, Neut % (Auto) Not Reportable 02/12/22 05:07: POC Glucose 232 H Micro: Microbiology 02/09/22 08:55 Blood Culture (Wb) - No Site/Description Given Blood Culture - Preliminary No growth in 48 hours. 02/09/22 08:40 Blood Culture (Wb) - Anticubital Left Blood Culture - Preliminary No growth in 48 hours. 02/09/22 07:45 Urine Catheter - Garcia Urine Culture - Final Culture exhibits no growth. 02/09/22 07:52 Sputum, Induced/Lukens Gram Stain - Final 02/09/22 07:52 Sputum, Induced/Lukens Respiratory Culture - Final Klebsiella pneumoniae sp pneum Presumptive C albicans 02/07/22 10:00 Blood Culture (Wb) - Left Wrist Blood Culture - Preliminary No growth in 48 hours. 02/07/22 10:08 Blood Culture (Wb) - Anticubital Left Blood Culture - Preliminary No growth in 48 hours. 02/07/22 13:20 Urine, Catheterized Urine Culture - Final Klebsiella pneumoniae sp pneum 02/07/22 15:03 Mucosa - Nasopharyngeal Respiratory Panel (PCR) - Final 02/07/22 13:20 Urine Catheter - Garcia Legionella Antigen - Final 02/07/22 13:20 Urine Catheter - Garcia Streptococcus pneumoniae Antigen (M - Final 02/07/22 10:18 Interface Orders Influenza Types A,B Direct FA (ROSELIA) - Final ABG Data ABG results: ABG 02/11/22 07:33 Specimen Type MERCEDES Sample Site R Radial VBG pH 7.34 VBG pO2 34 VBG HCO3 27 H VBG Total CO2 28 VBG O2 Sat (Calc) 61 VBG Base Excess 1 POC Mix VBG pCO2 Pt Tmp 49.3 Respiration Rate 12 O2 Delivery Device Adult Vent POC PEEP 5 Radiography Diagnostic Testing: Radiology Impression Chest X-Ray 02/11/22 06:40 IMPRESSION: 1. New PICC as described. 2. No significant change in the bilateral airspace disease. Electronically Signed: Meenu Conti MD at 7:14 EST , Rhythm Strip Rhythm Strip: Sinus Tach Rate: 105 Ectopy: None Physical Exam Const General Appearance: intubated and patient mechanically ventilated HEENT normocephalic and head/scalp atraumatic Mouth: endotracheal tube in place and OG tube in place Eyes PERRL, EOMs intact bilaterally and conjunctivae normal Neck supple General: trachea midline Chest inspection of chest normal Resp Auscultation: rales, wheezes and diminished lung sounds; Negative for rhonchi Cardio S1 normal heart sound and S2 normal heart sound Rate: tachycardic GI normal to inspection, nondistended, normoactive bowel sounds Extremity General Extremity: edema bilateral lower extremity; Negative for clubbing Skin no rashes or lesions noted Neuro Sensorium / Orientation: sedated on vent Charges/Coding Procedures Hospitalists Procedures: 08756 Critial Care 1st Hr
[2022-02-12 06:20] LABS: Anion Gap 5 (5-15); BUN 16 mg/dL (7-18); BUN/Creat Ratio 61.3 RATIO (10-20); Calcium,Total 7.9 mg/dL (8.5-10.1); Chloride 104 mmol/L (98-107); Creatinine, Serum 0.26 mg/dL (0.55-1.02); EST Glomerular Filtration Rate 279 mL/min (>60); Est Glom Filt Rate - Afr Amer 338 mL/min (>60); Estimated Creatinine Clearance 164.95 ml/min; Glucose 223 mg/dL (74-106); Potassium 4.5 mmol/L (3.5-5.1); Sodium Level 140 mmol/L (136-145)
[2022-02-12 06:34] LABS: Eosinophil 2 % (0-5); Lymphocyte 3 % (19-41); Metamyelocyte 4 % (0-1); Monocyte 2 % (0-10); Neutrophil-Band 4 % (0-5); Neutrophil-Segmented 85 % (47-70); Total Cells Counted 100 (MANUAL DIFF)
[2022-02-12 06:38] LABS: Absolute Neutrophil Count 10.6 X10^3/uL (2.0-7.7); Neutrophil # 10.63 X10^3/uL (2.7-7.7)
[2022-02-12 06:39] LABS: Absolute Lymphocyte Count 0.34 X10^3/uL (0.83-4.51); Lymphocyte # 0.34 X10^3/ul (0.83-4.51); Platelet Estimate ADEQUATE (ADEQ); Polychromasia RARE; Red Cell Morphology NORM C+C NORMAL (NORM C&C)
[2022-02-12 06:40] LABS: Anisocytosis 2+
[2022-02-12 06:41] LABS: Macrocytosis 1+; Microcytosis 1+
--- NOTE | 2022-02-12 07:57 | PN.HOSP_ITS ---
Subjective Subjective Seen remains on the vent with increasing FiO2 requirement currently at 95%. Hemoglobin continues to drop down to 7.2 Objective Data Objective Data Vital Signs: Vital Signs Temp Pulse Resp BP Pulse Ox O2 Del Method O2 Flow Rate 100.9 F H 88 2 L 80/60 L 96 Mechanical Ventilator 5 02/12/22 06:00 02/12/22 06:37 02/12/22 06:37 02/12/22 06:00 02/12/22 06:37 02/12/22 06:00 02/08/22 14:45 FiO2 95 02/12/22 06:37 Oxygen Flow Rate (L/min) 5 Oxygen Delivery Method Mechanical Ventilator Weight: 62.5 kg Body Mass Index (BMI) 23.8 Intake & Output: Intake and Output for Last 24 Hours 02/10/22 02/11/22 02/12/22 23:59 23:59 23:59 Intake Total 5431.24 / 5440.74 3094.61 / 3465.41 809.29 / 809.29 Output Total 2550 / 2550 2630 / 2630 250 / 250 Balance 2881.24 / 2890.74 464.61 / 835.41 559.29 / 559.29 Lab / Micro Data Result Diagrams: 02/12/22 04:35 02/12/22 04:35 Labs: Laboratory Results - last 24 hr 02/11/22 03:50: Diff Path Review Reviewed 02/11/22 07:30: Blood Type O POSITIVE, Antibody Screen NEGATIVE 02/11/22 10:28: POC Glucose 197 H 02/11/22 14:11: APTT 43.3 H 02/11/22 16:52: POC Glucose 156 H 02/11/22 21:50: APTT 50.9 H 02/11/22 23:17: POC Glucose 173 H 02/12/22 04:34: APTT 64.1 H 02/12/22 04:35: WBC 11.4 H, RBC 2.37 L, Hgb 7.2 L, Hct 24.3 L, MCV 102.5 H, MCH 30.4, MCHC 29.6 L, RDW Std Deviation 56.6 H, RDW Coeff of Bettina 15.2 H, Plt Count 141 L, MPV 10.5, Neut % (Auto) Not Reportable, Absolute Neuts (auto) 10.6 H, Absolute Lymphs (auto) 0.34 L, Total Counted 100, Neutrophils % (Manual) 85 H, Band Neutrophils % 4, Lymphocytes % (Manual) 3 L, Monocytes % (Manual) 2, Eosinophils % (Manual) 2, Metamyelocytes % 4 H, Diff Path Review May foll, Platelet Estimate ADEQUATE, RBC Morphology NORM C+C, Polychromasia RARE, Ani socytosis 2+, Microcytosis 1+, Macrocytosis 1+ 02/12/22 04:35: Sodium 140, Potassium 4.5, Chloride 104, Carbon Dioxide 31.0, Anion Gap 5, BUN 16, Creatinine 0.26 L, Estim Creat Clear Calc 164.95, Est GFR (MDRD) Af Amer 338, Est GFR (MDRD) Non-Af 279, BUN/Creatinine Ratio 61.3 H, Glucose 223 H, Calcium 7.9 L 02/12/22 05:07: POC Glucose 232 H Micro: Microbiology 02/09/22 08:55 Blood Culture (Wb) - No Site/Description Given Blood Culture - Preliminary No growth in 48 hours. 02/09/22 08:40 Blood Culture (Wb) - Anticubital Left Blood Culture - Preliminary No growth in 48 hours. 02/09/22 07:45 Urine Catheter - Garcia Urine Culture - Final Culture exhibits no growth. 02/09/22 07:52 Sputum, Induced/Lukens Gram Stain - Final 02/09/22 07:52 Sputum, Induced/Lukens Respiratory Culture - Final Klebsiella pneumoniae sp pneum Presumptive C albicans 02/07/22 10:00 Blood Culture (Wb) - Left Wrist Blood Culture - Preliminary No growth in 48 hours. 02/07/22 10:08 Blood Culture (Wb) - Anticubital Left Blood Culture - Preliminary No growth in 48 hours. 02/07/22 13:20 Urine, Catheterized Urine Culture - Final Klebsiella pneumoniae sp pneum 02/07/22 15:03 Mucosa - Nasopharyngeal Respiratory Panel (PCR) - Final 02/07/22 13:20 Urine Catheter - Garcia Legionella Antigen - Final 02/07/22 13:20 Urine Catheter - Garcia Streptococcus pneumoniae Antigen (M - Final 02/07/22 10:18 Interface Orders Influenza Types A,B Direct FA (ROSELIA) - Final Rhythm Strip Rhythm Strip: Sinus Tach Rate: 105 Ectopy: None Physical Exam Narrative GENERAL: On the vent, opens eyes to name HEENT: Atraumatic; normocephalic EYES; Anicteric, Normal Conjunctiva NECK; supple, normal thyroid, RESPIRATORY: Diminished to auscultation CARDIOVASCULAR: Regular S1 S2, GI: soft, normoactive bowel sounds, : No Renal angle tenderness; EXTREMITIES: Edema involving both upper and lower extremities MUSCULOSKELETAL: no muscle wasting NEURO: Patient on the vent SKIN: No Rash Assessment & Plan Assessment/Plan (1) Sepsis: (2) Hypoxia: (3) Pneumonia: PLAN: Plan Patient is a 66-year-old lady with history of lung CA with mets to the brain [facility] brought to the emergency department with hypoxia and hypotension 1. Sepsis secondary to suspected pneumonia with MDR's ? Evidence of sepsis WBC count greater than 12,000, respiratory rate greater than 20, heart rate greater than 90 and evidence of end organ failure?hypoxia requiring BiPAP. Patient has been admitted to the intensive care unit management protocol with IV fluid resuscitation, broad-spectrum antibiotic therapy. Consult placed to pulmonary/critical care Case discussed with Dr. Cho 02/08/2022; patient WBC count remains elevated cultures still pending. Patient's urine for Legionella antigen and strep pneumonia antigen both negative ? 02/10/2022 patient respiratory cultures negative however urine cultures came back positive for Klebsiella -02/11/2022; Patient remains on the vent. Patient was on pressors since been weaned off. Patient hemoglobin continues to drop. Awake on the vent and follows simple commands. Sputum culture so far positive for gram-negative rods final identification and sensitivities pending 02/12/2022; patient sputum cultures came back positive for Klebsiella pneumonia and small growth for presumptive Faby albicans. Patient remains on broad- spectrum antibiotic therapy and remains on the vent we will continue with current antibiotic therapy 2. Acute hypoxic respiratory failure ? As evidenced by patient being tachypneic at rest and significantly hypoxic saturating 71% on room air prior to being placed on BiPAP. Patient acute hypoxic respite failure secondary to suspected pneumonia with MDR ? 02/08/2022 patient was weaned off BiPAP currently on supplemental oxygen 3 L -02/09/2022 patient became delirious during the evening of 02/08/2022. Was started on her clonazepam to prevent her from going into withdrawal started on Precedex. Her clinical condition apparently continues to worsen with patient becoming hypotensive did receive IV fluids. Patient oxygen saturation were sent on the morning of 02/09/2022 resulting in patient being intubated ? 02/10/2022 patient remains on the vent with FiO2 of 60% on assist control mode. Vent management deferred to pulmonary medicine ? 02/11/2022 remains on events on assist control mode with FiO2 of 80% -02/12/2022; Seen remains on the vent with increasing FiO2 requirement currently at 95%. Patient overall prognosis remains guarded 3. Acute cystitis ? Urine culture came back positive for Klebsiella patient on appropriate antibiotic therapy 4. Diabetes mellitus type II -patient's oral hypoglycemics held. Placed on long acting insulin, Accu-Cheks a.c. and at bedtime and covered with sliding scale insulin ? 02/08/2022 patient evening complicated by hypoglycemia. Patient long-acting insulin discontinued patient started on D5W with Accu-Cheks every 4 ordered 5. Severe hypokalemia ? 02/08/2022 additional potassium given repeat labs ordered for later on in the day ? 02/09/2022. Patient still has persistent hypokalemia despite aggressive treatment. Additional potassium given 6.? Anemia - Secondary to chronic disorder monitoring H&H and transfuse if patient becomes symptomatic or hemoglobin falls below? 7 ? 02/08/2022; further drop in patient hemoglobin level we will continue with daily H&H ? 02/10/2022 further drop in patient hemoglobin level. Hemoglobin down to 8.2 we will continue with daily H&H monitoring ? 02/11/2022 hemoglobin down to 7.3, plan is to transfuse if hemoglobin falls below 7 or patient becomes symptomatic ? 02/12/2022 hemoglobin down to 7.2 7. History of lung CA ? With mets to the brain.? Has received chemo and radiation.? Patient follows up with oncology plan is for patient to continue with care.? Currently on Keppra and dexamethasone did continue 8. GERD ? On PPI 9. ? Depression with anxiety ? on fluoxetine and bupropion. Held on admission in view of patient's significant encephalopathy 10. Recent admission for COVID pneumonitis ? Patient presented with hypoxia has persistent infiltrate. Currently being treated as a case of suspected pneumonia with MDR ? In 2021 patient sputum cultures so far positive for gram-negative rods final identification and sensitivities pending 11. Recent DVT involving the left lower extremity ? Patient is on Eliquis ? 02/10/2022 Eliquis was held patient started on heparin drip Charges/Coding Visit Charges Inpatient E&M: 45766 Subs Hosp L3
[2022-02-12] MEDS: Insulin Glargine-YFGN 100 UNIT/ML Pen 10 UNIT SC (07:59)
[2022-02-12] MEDS: dexAMETHasone 4 MG Tablet 2 MG GT ×2 (08:00→20:55)
[2022-02-12] MEDS: Potassium Chloride Oral Tablet 20 MEQ GT ×2 (08:00→16:58)
[2022-02-12] MEDS: Cholecalciferol (VIT D3) 25 MCG TABLET (1,000 UNITS) 125 MCG GT (08:00)
[2022-02-12] MEDS: Folic Acid 1 MG Tablet 0.5 MG GT (08:01)
[2022-02-12] MEDS: Menthol/Lanolin/Calamine/Znox 113 GM Tube 1 APPLIC TOPICAL ×4 (08:02→20:53)
[2022-02-12] MEDS: Oxybutynin 5 MG Tablet GT (08:02)
[2022-02-12] MEDS: Furosemide 40 MG/4 ML Vial IV ×2 (08:03→17:49)
[2022-02-12] MEDS: Chlorhexidine 15 ML PO ×2 (08:21→20:54)
[2022-02-12] MEDS: CHLORHEXIDINE GLUC 2% CLOTH 1 EACH TOWELETTE TOPICAL ×2 (08:23→20:54)
[2022-02-12 11:25] LABS: Partial Thromboplast Time 71.2 Seconds (24.1-36.2)
[2022-02-12 11:30] LABS: Bedside Glucose 190 mg/dL (74-106)
[2022-02-12] MEDS: HEPARIN/D5w 25,000 UNITS 25,000 UNITS/250 ML IV.SOLN. 8 UNITS CONT INF (15:33)
[2022-02-12 23:06] LABS: Bedside Glucose 320 mg/dL (74-106)
[2022-02-13] VITALS (36 sets, daily range): BP systolic 82–112; BP diastolic 58–77; PULSE 63–125; RESP 12–25; TEMP 35.4–38.3; O2SAT 87–100
[2022-02-13] MEDS: Vital AF 1.2 Cal Liquid 1,000 ML 50 ML GT (01:37)
[2022-02-13] MEDS: Ipratropium 0.5 MG/2.5 ML SOLUTION INHALATION ×6 (03:49→23:05)
[2022-02-13 03:56] LABS: Hematocrit 24.1 % (37-47); Hemoglobin 7.5 g/dL (12.0-15.0); Mean Corp Hgb Conc 31.1 g/dL (32-36); Mean Corpuscular Hgb 31.6 pg (27.0-32.0); Mean Corpuscular Volume 101.7 fL (81-99); Mean Platelet Vol. 10.5 fl (6.2-12.0); POSITIVE COUNT YES; POSITIVE MORPHOLOGY YES; Platelet Count 110 K/mm3 (150-450); RBC Distribution Width CV 15.3 % (11.6-14.6); Red Blood Count 2.37 M/mm3 (4.2-5.4); White Blood Count 11.9 K/mm3 (4.4-11.0)
[2022-02-13 03:58] LABS: Differential Indicated MANUAL DIFF
[2022-02-13 04:01] LABS: ALB/GLOB Ratio 0.3 RATIO (0.9-2.4); AST(SGOT) 19 U/L (15-37); Alanine Aminotransfer ALT/SGPT 34 U/L (13-56); Albumin, Serum 1.2 g/dL (3.2-5.0); Alkaline Phosphatase 135 U/L (45-117); Anion Gap 4 (5-15); BUN 21 mg/dL (7-18); BUN/Creat Ratio 77.2 RATIO (10-20); Chloride 101 mmol/L (98-107); Creatinine, Serum 0.27 mg/dL (0.55-1.02); EST Glomerular Filtration Rate 266 mL/min (>60); Est Glom Filt Rate - Afr Amer 322 mL/min (>60); Estimated Creatinine Clearance 158.84 ml/min; Globulin 3.9 g/dL (2.2-4.2); Glucose 295 mg/dL (74-106); Potassium 3.6 mmol/L (3.5-5.1); Protein, Total 5.1 g/dL (6.4-8.2); Sodium Level 140 mmol/L (136-145)
[2022-02-13 04:06] LABS: Partial Thromboplast Time 127.2 Seconds (24.1-36.2)
[2022-02-13 04:38] LABS: Lymphocyte 4 % (19-41); Metamyelocyte 3 % (0-1); Monocyte 6 % (0-10); Myelocyte 1 % (0-0); Neutrophil-Band 2 % (0-5); Neutrophil-Segmented 82 % (47-70); Nucleated Red Bld Cells,Manual 2 % (0-5); Promyelocyte 2 % (0-0); Total Cells Counted 100 (MANUAL DIFF)
[2022-02-13 04:39] LABS: Absolute Lymphocyte Count 0.48 X10^3/uL (0.83-4.51); Absolute Neutrophil Count 10.7 X10^3/uL (2.0-7.7); Lymphocyte # 0.48 X10^3/ul (0.83-4.51); Neutrophil # 10.69 X10^3/uL (2.7-7.7)
[2022-02-13 04:40] LABS: Platelet Estimate SLT DEC (ADEQ)
[2022-02-13 04:41] LABS: Polychromasia RARE; Red Cell Morphology N CYTIC NORMAL (NORM C&C)
[2022-02-13] MEDS: Nystatin/Triamcin Cream Tube 1 APPLIC TOPICAL ×3 (05:24→20:47)
[2022-02-13] MEDS: Insulin Lispro 100 UNIT/ML INSULN.PEN SC ×3 (05:24→17:21)
[2022-02-13 05:36] LABS: Bedside Glucose 234 mg/dL (74-106)
--- NOTE | 2022-02-13 06:00 | RAD_ITS ---
EXAM: XR CHEST, 1 VIEW CLINICAL INDICATION: Hypoxia Hypoxia TECHNIQUE: Frontal view of the chest. This report was created using [employer] report generation technology. COMPARISON: 02/11/2022. FINDINGS: LUNGS AND PLEURAL SPACES: There is extensive interstitial and airspace infiltration, asymmetrically denser on the left. There is no definite interval change. No pneumothorax. No effusion. HEART: The heart is mildly enlarged. MEDIASTINUM: Central airways and mediastinal contour are unremarkable. BONES/JOINTS: Unremarkable. SOFT TISSUES: Unremarkable. VASCULATURE: There is atherosclerotic calcification of the aortic arch. TUBES, LINES AND DEVICES: The endotracheal tube (ETT) is in satisfactory position with tip 3.1 cm above the aniceto. There is a left-sided PICC line with its tip overlying the superior vena cava. RAD/Chest 1 View (Portable) IMPRESSION: 1. Tubes are in adequate position. 2. Bilateral pulmonary infiltrates, which are not significantly changed. 3. Mild cardiomegaly. Electronically Signed: Rory Hansen MD at 6:19 EST ,
--- NOTE | 2022-02-13 06:38 | PCM.PN.INT ---
Assessment & Plan Assessment/Plan (1) Sepsis: PLAN: Plan RECOMMENDATIONS: 1. Continue assist-control mode mechanical ventilation and wean FiO2/PEEP for saturations greater than 90%. 2. Continue broad-spectrum antimicrobials. 3. Continue heparin infusion. Resume Eliquis at discharge. 4. Continue scheduled diuretics as tolerated by hemodynamics and renal function. 5. Continue Precedex and fentanyl for sedation. 6. Continue tube feeds as tolerated. 7. Continue scheduled Atrovent aerosols and corticosteroids. 8. Continue appropriate GI prophylaxis. IMPRESSIONS: 1. Acute hypoxemic respiratory failure The patient decompensated from a respiratory perspective on February 09 following an aspiration event the day prior. Accordingly, the patient was intubated. Her chest imaging did demonstrated progressive interstitial infiltrates. Therefore, the patient's antimicrobials have been broadened. She will be continued on assist control mode of mechanical ventilation. FiO2 and PEEP will be weaned as tolerated to maintain saturations at or above 90%. Tube feeds can be continued for nutritional support. In light of the patient's clinical and volume status, will continue scheduled diuretics as tolerated. 2. Septic shock Improved. The patient presented with sepsis due to Klebsiella pneumonia and cystitis with acute sepsis related organ dysfunction as evidenced by acute respiratory failure requiring invasive mechanical ventilatory support. The patient was just admitted to the hospital with COVID-19 pneumonia. Her chest imaging demonstrates persistent bilateral pulmonary infiltrates, which could be the sequelae of her prior COVID infection with superimposed bacterial pneumonia. Plan to continue antimicrobials as ordered. The patient has been weaned from Levophed at this time. 3. Recent COVID-19 pneumonitis/lower extremity DVT Continue supportive measures as noted above. Continue weight-based heparin infusion for now. Eliquis can be resumed at discharge. 4. History of metastatic non-small cell lung cancer The patient has apparently completed radiation and systemic chemotherapy treatment. Recommend outpatient oncology follow-up. 5. Diabetes mellitus/depression/anxiety/GERD Complicates care, management, recovery and prognosis.? Continue sliding scale insulin coverage and PPI therapy as ordered. TIME: 34 minutes of critical care time, inclusive of procedures, was spent addressing the patient's acute hypoxemic respiratory failure, sepsis, review of all data and collaboration with the care team. Subjective Subjective The patient was seen and examined at the bedside this morning. Events from the last 24 hours have been reviewed. The patient is currently afebrile, hemodynamically stable and maintaining appropriate oxygen saturations on assist control mode mechanical ventilation with an FiO2 requirement of 90%. The patient is documented to be overall net +6.4 L for the hospitalization. Hemoglobin is stable this morning at 7.5 g/dL. Platelet count is low at 110,000. Creatinine is stable. Chest x-ray continues to demonstrate significant bilateral pulmonary infiltrates. Objective Data Objective Data The patient's most recent lab work, culture data and imaging studies have all been personally reviewed. Strep and urine Legionella antigens were negative. Respiratory viral panel was negative. Urine culture dated February 07 and sputum culture dated February 09 were both positive for Klebsiella pneumonia. Vital Signs: Vital Signs Temp Pulse Resp BP Pulse Ox O2 Del Method O2 Flow Rate 95.8 F L 81 12 83/64 L 87 Mechanical Ventilator 5 02/13/22 04:00 02/13/22 06:00 02/13/22 06:00 02/13/22 06:00 02/13/22 06:00 02/13/22 06:00 02/08/22 14:45 FiO2 90 02/13/22 06:00 Oxygen Flow Rate (L/min) 5 Oxygen Delivery Method Mechanical Ventilator Weight: 140 lb 3.424 oz Body Mass Index (BMI) 23.8 Intake & Output: Intake and Output for Last 24 Hours 02/11/22 02/12/22 02/13/22 23:59 23:59 23:59 Intake Total 3094.61 / 3465.41 2079.11 / 2232.91 1565.44 / 1565.44 Output Total 2630 / 2630 3100 / 3350 800 / 800 Balance 464.61 / 835.41 -1020.89 / -1117.09 765.44 / 765.44 Lab / Micro Data Attestation: I reviewed the patient's lab results. Result Diagrams: 02/13/22 03:35 02/13/22 03:35 Labs: Laboratory Results - last 24 hr 02/12/22 04:35: Absolute Neuts (auto) 10.6 H, Absolute Lymphs (auto) 0.34 L, Diff Path Review July, Platelet Estimate ADEQUATE, RBC Morphology NORM C+C, Polychromasia RARE, Anisocytosis 2+, Microcytosis 1+, Macrocytosis 1+ 02/12/22 11:00: APTT 71.2 H 02/12/22 11:04: POC Glucose 190 H 02/12/22 17:01: POC Glucose 320 H 02/12/22 21:20: Vancomycin Trough Cancelled 02/12/22 22:51: POC Glucose 234 H 02/13/22 03:35: WBC 11.9 H, RBC 2.37 L, Hgb 7.5 L, Hct 24.1 L, MCV 101.7 H, MCH 31.6, MCHC 31.1 L D, RDW Std Deviation 57.0 H, RDW Coeff of Bettina 15.3 H, Plt Count 110 L, MPV 10.5, Neut % (Auto) Not Reportable, Absolute Neuts (auto) 10.7 H, Absolute Lymphs (auto) 0.48 L, Total Counted 100, Neutrophils % (Manual) 82 H, Band Neutrophils % 2, Lymphocytes % (Manual) 4 L, Monocytes % (Manual) 6, Metamyelocytes % 3 H, Myelocytes % 1 H, Promyelocytes % 2 H, Nucleated RBCs/100 WBC 2, Diff Path Review July, Platelet Estimate SLT DEC, RBC Morphology N CYTIC, Polychromasia RARE 02/13/22 03:35: APTT 127.2 H* 02/13/22 03:35: Sodium 140, Potassium 3.6, Chloride 101, Carbon Dioxide 35.0 H, Anion Gap 4 L, BUN 21 H, Creatinine 0.27 L, Estim Creat Clear Calc 158.84, Est GFR (MDRD) Af Amer 322, Est GFR (MDRD) Non-Af 266, BUN/Creatinine Ratio 77.2 H, Glucose 295 H, Calcium 8.0 L, Total Bilirubin 0.20, AST 19, ALT 34, Alkaline Phosphatase 135 H, Total Protein 5.1 L, Albumin 1.2 L, Globulin 3.9, Albumin/Globulin Ratio 0.3 L Micro: Microbiology 02/07/22 10:08 Blood Culture (Wb) - Anticubital Left Blood Culture - Final No growth in 5 days. 02/07/22 10:00 Blood Culture (Wb) - Left Wrist Blood Culture - Final No growth in 5 days. 02/09/22 08:55 Blood Culture (Wb) - No Site/Description Given Blood Culture - Preliminary No growth in 48 hours. 02/09/22 08:40 Blood Culture (Wb) - Anticubital Left Blood Culture - Preliminary No growth in 48 hours. 02/09/22 07:45 Urine Catheter - Garcia Urine Culture - Final Culture exhibits no growth. 02/09/22 07:52 Sputum, Induced/Lukens Gram Stain - Final 02/09/22 07:52 Sputum, Induced/Lukens Respiratory Culture - Final Klebsiella pneumoniae sp pneum Presumptive C albicans 02/07/22 13:20 Urine, Catheterized Urine Culture - Final Klebsiella pneumoniae sp pneum 02/07/22 15:03 Mucosa - Nasopharyngeal Respiratory Panel (PCR) - Final 02/07/22 13:20 Urine Catheter - Garcia Legionella Antigen - Final 02/07/22 13:20 Urine Catheter - Garcia Streptococcus pneumoniae Antigen (M - Final 02/07/22 10:18 Interface Orders Influenza Types A,B Direct FA (ROSELIA) - Final ABG Data ABG results: ABG 02/11/22 07:33 Specimen Type MERCEDES Sample Site R Radial VBG pH 7.34 VBG pO2 34 VBG HCO3 27 H VBG Total CO2 28 VBG O2 Sat (Calc) 61 VBG Base Excess 1 POC Mix VBG pCO2 Pt Tmp 49.3 Respiration Rate 12 O2 Delivery Device Adult Vent POC PEEP 5 Radiography Diagnostic Testing: Radiology Impression Chest X-Ray 02/13/22 06:00 IMPRESSION: 1. Tubes are in adequate position. 2. Bilateral pulmonary infiltrates, which are not significantly changed. 3. Mild cardiomegaly. Electronically Signed: Rory Hansen MD at 6:19 EST Reading Location ID and State: [facility] / [place] , Service support , Rhythm Strip Rhythm Strip: Sinus Tach Rate: 105 Ectopy: None Physical Exam Const General Appearance: intubated and patient mechanically ventilated HEENT normocephalic and head/scalp atraumatic Mouth: endotracheal tube in place and OG tube in place Eyes PERRL, EOMs intact bilaterally and conjunctivae normal Neck supple General: trachea midline Chest inspection of chest normal Resp Auscultation: rales, wheezes and diminished lung sounds; Negative for rhonchi Cardio S1 normal heart sound and S2 normal heart sound Rate: tachycardic GI normal to inspection, nondistended, normoactive bowel sounds Extremity General Extremity: edema bilateral lower extremity; Negative for clubbing Skin no rashes or lesions noted Neuro Sensorium / Orientation: sedated on vent Charges/Coding Procedures Hospitalists Procedures: 51630 Critial Care 1st Hr
[2022-02-13] MEDS: TITRATION PARAMETER CHANGE 1 EACH IV (07:12)
--- NOTE | 2022-02-13 07:21 | PN.HOSP_ITS ---
Subjective Subjective Patient remains on the vent with increasing FiO2 currently up to 95%. Also has fever with temperature of 100.4 Objective Data Objective Data Vital Signs: Vital Signs Temp Pulse Resp BP Pulse Ox O2 Del Method O2 Flow Rate 95.8 F L 103 H 15 108/67 92 Mechanical Ventilator 5 02/13/22 04:00 02/13/22 07:15 02/13/22 07:15 02/13/22 07:00 02/13/22 07:15 02/13/22 07:00 02/08/22 14:45 FiO2 95 02/13/22 07:15 Oxygen Flow Rate (L/min) 5 Oxygen Delivery Method Mechanical Ventilator Weight: 63.6 kg Body Mass Index (BMI) 23.8 Intake & Output: Intake and Output for Last 24 Hours 02/11/22 02/12/22 02/13/22 23:59 23:59 23:59 Intake Total 3094.61 / 3465.41 2079.11 / 2232.91 1594.98 / 1594.98 Output Total 2630 / 2630 3100 / 3350 800 / 800 Balance 464.61 / 835.41 -1020.89 / -1117.09 794.98 / 794.98 Lab / Micro Data Result Diagrams: 02/13/22 03:35 02/13/22 03:35 Labs: Laboratory Results - last 24 hr 02/12/22 11:00: APTT 71.2 H 02/12/22 11:04: POC Glucose 190 H 02/12/22 17:01: POC Glucose 320 H 02/12/22 21:20: Vancomycin Trough Cancelled 02/12/22 22:51: POC Glucose 234 H 02/13/22 03:35: WBC 11.9 H, RBC 2.37 L, Hgb 7.5 L, Hct 24.1 L, MCV 101.7 H, MCH 31.6, MCHC 31.1 L D, RDW Std Deviation 57.0 H, RDW Coeff of Bettina 15.3 H, Plt Count 110 L, MPV 10.5, Neut % (Auto) Not Reportable, Absolute Neuts (auto) 10.7 H, Absolute Lymphs (auto) 0.48 L, Total Counted 100, Neutrophils % (Manual) 82 H , Band Neutrophils % 2, Lymphocytes % (Manual) 4 L, Monocytes % (Manual) 6, Metamyelocytes % 3 H, Myelocytes % 1 H, Promyelocytes % 2 H, Nucleated RBCs/100 WBC 2, Diff Path Review May foll, Platelet Estimate SLT DEC, RBC Morphology N CYTIC, Polychromasia RARE 02/13/22 03:35: APTT 127.2 H* 02/13/22 03:35: Sodium 140, Potassium 3.6, Chloride 101, Carbon Dioxide 35.0 H, Anion Gap 4 L, BUN 21 H, Creatinine 0.27 L, Estim Creat Clear Calc 158.84, Est GFR (MDRD) Af Amer 322, Est GFR (MDRD) Non-Af 266, BUN/Creatinine Ratio 77.2 H, Glucose 295 H, Calcium 8.0 L, Total Bilirubin 0.20, AST 19, ALT 34, Alkaline Phosphatase 135 H, Total Protein 5.1 L, Albumin 1.2 L, Globulin 3.9, Albumin/Globulin Ratio 0.3 L Micro: Microbiology 02/07/22 10:08 Blood Culture (Wb) - Anticubital Left Blood Culture - Final No growth in 5 days. 02/07/22 10:00 Blood Culture (Wb) - Left Wrist Blood Culture - Final No growth in 5 days. 02/09/22 08:55 Blood Culture (Wb) - No Site/Description Given Blood Culture - Preliminary No growth in 48 hours. 02/09/22 08:40 Blood Culture (Wb) - Anticubital Left Blood Culture - Preliminary No growth in 48 hours. 02/09/22 07:45 Urine Catheter - Garcia Urine Culture - Final Culture exhibits no growth. 02/09/22 07:52 Sputum, Induced/Lukens Gram Stain - Final 02/09/22 07:52 Sputum, Induced/Lukens Respiratory Culture - Final Klebsiella pneumoniae sp pneum Presumptive C albicans 02/07/22 13:20 Urine, Catheterized Urine Culture - Final Klebsiella pneumoniae sp pneum 02/07/22 15:03 Mucosa - Nasopharyngeal Respiratory Panel (PCR) - Final 02/07/22 13:20 Urine Catheter - Garcia Legionella Antigen - Final 02/07/22 13:20 Urine Catheter - Garcia Streptococcus pneumoniae Antigen (M - Final 02/07/22 10:18 Interface Orders Influenza Types A,B Direct FA (ROSELIA) - Final Radiography Diagnostic Testing: Radiology Impression Chest X-Ray 02/13/22 06:00 IMPRESSION: 1. Tubes are in adequate position. 2. Bilateral pulmonary infiltrates, which are not significantly changed. 3. Mild cardiomegaly. Electronically Signed: Rory Hansen MD at 6:19 EST Reading Location ID and State: [facility] / [place] , Service support , Rhythm Strip Rhythm Strip: Sinus Tach Rate: 105 Ectopy: None Physical Exam Narrative GENERAL: Sedated on the vent HEENT: Atraumatic; normocephalic EYES; Anicteric, Normal Conjunctiva NECK; supple, normal thyroid, RESPIRATORY: Diminished to auscultation CARDIOVASCULAR: Regular S1 S2, GI: soft, normoactive bowel sounds, : No Renal angle tenderness; EXTREMITIES: Edema involving both upper and lower extremities MUSCULOSKELETAL: no muscle wasting NEURO: Patient on the vent SKIN: No Rash Assessment & Plan Assessment/Plan (1) Sepsis: (2) Hypoxia: (3) Pneumonia: PLAN: Plan Patient is a 66-year-old lady with history 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 Sepsis secondary to suspected pneumonia with MDR's ? Evidence of sepsis WBC count greater than 12,000, respiratory rate greater than 20, heart rate greater than 90 and evidence of end organ failure?hypoxia requiring BiPAP. Patient has been admitted to the intensive care unit management protocol with IV fluid resuscitation, broad-spectrum antibiotic therapy. Consult placed to pulmonary/critical care Case discussed with Dr. Cho 02/08/2022; patient WBC count remains elevated cultures still pending. Patient's urine for Legionella antigen and strep pneumonia antigen both negative ? 02/10/2022 patient respiratory cultures negative however urine cultures came back positive for Klebsiella -02/11/2022; Patient remains on the vent. Patient was on pressors since been weaned off. Patient hemoglobin continues to drop. Awake on the vent and follows simple commands. Sputum culture so far positive for gram-negative rods final identification and sensitivities pending 02/12/2022; patient sputum cultures came back positive for Klebsiella pneumonia and small growth for presumptive Faby albicans. Patient remains on broad- spectrum antibiotic therapy and remains on the vent we will continue with current antibiotic therapy ? 02/13/2022; Patient remains on broad-spectrum antibiotic therapy still continues to spike fevers 2. Acute hypoxic respiratory failure ? As evidenced by patient being tachypneic at rest and significantly hypoxic saturating 71% on room air prior to being placed on BiPAP. Patient acute hypoxic respite failure secondary to suspected pneumonia with MDR ? 02/08/2022 patient was weaned off BiPAP currently on supplemental oxygen 3 L -02/09/2022 patient became delirious during the evening of 02/08/2022. Was star neva on her clonazepam to prevent her from going into withdrawal started on Precedex. Her clinical condition apparently continues to worsen with patient becoming hypotensive did receive IV fluids. Patient oxygen saturation were sent on the morning of 02/09/2022 resulting in patient being intubated ? 02/10/2022 patient remains on the vent with FiO2 of 60% on assist control mode. Vent management deferred to pulmonary medicine ? 02/11/2022 remains on events on assist control mode with FiO2 of 80% -02/12/2022; Seen remains on the vent with increasing FiO2 requirement currently at 95%. Patient overall prognosis remains guarded -02/13/2022. Patient FiO2 requirement continues to increase 3. Acute cystitis ? Urine culture came back positive for Klebsiella patient on appropriate antibiotic therapy 4. Diabetes mellitus type II -patient's oral hypoglycemics held. Placed on long acting insulin, Accu-Cheks a.c. and at bedtime and covered with sliding scale insulin ? 02/08/2022 patient evening complicated by hypoglycemia. Patient long-acting insulin discontinued patient started on D5W with Accu-Cheks every 4 ordered 5. Severe hypokalemia ? 02/08/2022 additional potassium given repeat labs ordered for later on in the day ? 02/09/2022. Patient still has persistent hypokalemia despite aggressive treatment. Additional potassium given 6.? Anemia - Secondary to chronic disorder monitoring H&H and transfuse if patient becomes symptomatic or hemoglobin falls below? 7 ? 02/08/2022; further drop in patient hemoglobin level we will continue with daily H&H ? 02/10/2022 further drop in patient hemoglobin level. Hemoglobin down to 8.2 we will continue with daily H&H monitoring ? 02/11/2022 hemoglobin down to 7.3, plan is to transfuse if hemoglobin falls below 7 or patient becomes symptomatic ? 02/12/2022 hemoglobin down to 7.2 7. History of lung CA ? With mets to the brain.? Has received chemo and radiation.? Patient follows up with oncology plan is for patient to continue with care.? Currently on Keppra and dexamethasone did continue 8. GERD ? On PPI 9. ? Depression with anxiety ? on fluoxetine and bupropion. Held on admission in view of patient's significant encephalopathy 10. Recent admission for COVID pneumonitis ? Patient presented with hypoxia has persistent infiltrate. Currently being treated as a case of suspected pneumonia with MDR ? In 2021 patient sputum cultures so far positive for gram-negative rods final identification and sensitivities pending 11. Recent DVT involving the left lower extremity ? Patient is on Eliquis ? 02/10/2022 Eliquis was held patient started on heparin drip Charges/Coding Visit Charges Inpatient E&M: 23716 Subs Hosp L3
[2022-02-13] MEDS: Cholecalciferol (VIT D3) 25 MCG TABLET (1,000 UNITS) 125 MCG GT (07:46)
[2022-02-13] MEDS: Folic Acid 1 MG Tablet 0.5 MG GT (07:46)
[2022-02-13] MEDS: Oxybutynin 5 MG Tablet GT (07:47)
[2022-02-13] MEDS: Menthol/Lanolin/Calamine/Znox 113 GM Tube 1 APPLIC TOPICAL ×4 (07:47→20:46)
[2022-02-13] MEDS: Potassium Chloride Oral Tablet 20 MEQ GT ×2 (07:47→16:13)
[2022-02-13] MEDS: Chlorhexidine 15 ML PO ×2 (07:47→20:45)
[2022-02-13] MEDS: Furosemide 40 MG/4 ML Vial IV ×2 (09:11→17:22)
[2022-02-13] MEDS: Insulin Glargine-YFGN 100 UNIT/ML Pen 10 UNIT SC (10:58)
[2022-02-13] MEDS: Magnesium Sulfate 4gm/100mL 4 GM/100 ML IV.SOLN. IV (11:17)
[2022-02-13 11:21] LABS: Bedside Glucose 215 mg/dL (74-106)
[2022-02-13 14:10] LABS: Partial Thromboplast Time 43.3 Seconds (24.1-36.2)
[2022-02-13] MEDS: Heparin Injection (Vial) 5,000 UNIT/ML VIAL IV ×2 (14:15→22:36)
[2022-02-13 17:45] LABS: Bedside Glucose 292 mg/dL (74-106)
[2022-02-13 17:50] LABS: Bedside Glucose 293 mg/dL (74-106)
[2022-02-13] MEDS: 0.9% Saline Lock 10 ML Syringe IV (20:47)
[2022-02-13 21:33] LABS: Partial Thromboplast Time 54.9 Seconds (24.1-36.2)
[2022-02-14] VITALS (43 sets, daily range): BP systolic 94–154; BP diastolic 60–99; PULSE 63–86; RESP 12–27; TEMP 36.6–37.6; O2SAT 88–100
[2022-02-14] MEDS: Vital AF 1.2 Cal Liquid 1,000 ML 50 ML GT ×2 (00:51→20:51)
[2022-02-14] MEDS: Insulin Lispro 100 UNIT/ML INSULN.PEN SC ×4 (00:51→17:09)
[2022-02-14 01:20] LABS: Bedside Glucose 311 mg/dL (74-106)
[2022-02-14] MEDS: Nystatin/Triamcin Cream Tube 1 APPLIC TOPICAL ×3 (03:31→20:58)
[2022-02-14] MEDS: Ipratropium 0.5 MG/2.5 ML SOLUTION INHALATION ×6 (03:31→22:27)
[2022-02-14] MEDS: CHLORHEXIDINE GLUC 2% CLOTH 1 EACH TOWELETTE TOPICAL (03:31)
[2022-02-14] MEDS: HEPARIN/D5w 25,000 UNITS 25,000 UNITS/250 ML IV.SOLN. 7 UNITS CONT INF (05:04)
[2022-02-14 05:05] LABS: Hematocrit 22.7 % (37-47); Hemoglobin 6.9 g/dL (12.0-15.0); Mean Corp Hgb Conc 30.4 g/dL (32-36); Mean Corpuscular Hgb 30.9 pg (27.0-32.0); Mean Corpuscular Volume 101.8 fL (81-99); Mean Platelet Vol. 10.9 fl (6.2-12.0); POSITIVE COUNT YES; POSITIVE MORPHOLOGY YES; Platelet Count 121 K/mm3 (150-450); RBC Distribution Width SD 56.2 fl (35.1-43.9); Red Blood Count 2.23 M/mm3 (4.2-5.4); White Blood Count 14.1 K/mm3 (4.4-11.0)
[2022-02-14 05:07] LABS: Differential Indicated MANUAL DIFF
[2022-02-14 05:29] LABS: ALB/GLOB Ratio 0.4 RATIO (0.9-2.4); AST(SGOT) 16 U/L (15-37); Alanine Aminotransfer ALT/SGPT 29 U/L (13-56); Albumin, Serum 1.3 g/dL (3.2-5.0); Alkaline Phosphatase 156 U/L (45-117); Anion Gap 5 (5-15); BUN 22 mg/dL (7-18); BUN/Creat Ratio 71.4 RATIO (10-20); Calcium,Total 7.9 mg/dL (8.5-10.1); Chloride 98 mmol/L (98-107); Creatinine, Serum 0.31 mg/dL (0.55-1.02); EST Glomerular Filtration Rate 231 mL/min (>60); Est Glom Filt Rate - Afr Amer 279 mL/min (>60); Estimated Creatinine Clearance 138.35 ml/min; Globulin 3.7 g/dL (2.2-4.2); Glucose 365 mg/dL (74-106); Potassium 3.4 mmol/L (3.5-5.1); Sodium Level 141 mmol/L (136-145)
[2022-02-14 05:42] LABS: Partial Thromboplast Time 55.7 Seconds (24.1-36.2)
[2022-02-14] MEDS: 0.9% Saline Lock 10 ML Syringe IV ×2 (06:36→06:39)
[2022-02-14] MEDS: Furosemide 40 MG/4 ML Vial IV ×3 (06:36→20:58)
[2022-02-14 06:41] LABS: Anisocytosis 1+; Macrocytosis 1+; Platelet Estimate SLT DEC (ADEQ)
[2022-02-14 06:44] LABS: Absolute Lymphocyte Count 0.84 X10^3/uL (0.83-4.51); Absolute Neutrophil Count 12.2 X10^3/uL (2.0-7.7); Lymphocyte 6 % (19-41); Metamyelocyte 2 % (0-1); Monocyte 1 % (0-10); Myelocyte 4 % (0-0); Neutrophil-Band 12 % (0-5); Neutrophil-Segmented 75 % (47-70); Nucleated Red Bld Cells,Manual 1 % (0-5); Total Cells Counted 101 (MANUAL DIFF)
[2022-02-14] MEDS: Potassium Chloride Oral Soln 20 MEQ/15 ML UDC 40 MEQ PO (06:48)
--- NOTE | 2022-02-14 07:25 | PN.CC_ITS ---
Assessment & Plan Assessment/Plan (1) Sepsis: PLAN: Plan RECOMMENDATIONS: 1. Continue assist-control mode mechanical ventilation and wean FiO2/PEEP for saturations greater than 90%. Increase PEEP 2. Continue broad-spectrum antimicrobials. 3. Continue heparin infusion. Resume Eliquis at discharge. 4. Continue scheduled diuretics as tolerated by hemodynamics and renal func tion. 5. Continue Precedex and fentanyl for sedation. 6. Continue tube feeds as tolerated. Challenge with increased diuretics 7. Continue scheduled Atrovent aerosols and corticosteroids. 8. Continue appropriate GI prophylaxis. 9. Obtain stool guaiac. Transfuse packed red blood cells IMPRESSIONS: 1. Acute hypoxemic respiratory failure secondary to Klebsiella pneumonia The patient decompensated from a respiratory perspective on February 09 following an aspiration event the day prior. Accordingly, the patient was intubated. Her chest imaging did demonstrated progressive interstitial infiltrates, left greater than right. Therefore, the patient's antimicrobials have been broadened. She will be continued on assist control mode of mechanical ventilation. FiO2 and PEEP will be weaned as tolerated to maintain saturations at or above 90%. Tube feeds can be continued for nutritional support. We will increase diuretic therapy given high FiO2 requirements. Patient did grow Klebsiella pneumonia 2. Septic shock Improved. The patient presented with sepsis due to Klebsiella pneumonia and cystitis with acute sepsis related organ dysfunction as evidenced by acute respiratory failure requiring invasive mechanical ventilatory support. The patient was just admitted to the hospital with COVID-19 pneumonia. Her chest imaging demonstrates persistent bilateral pulmonary infiltrates, which could be the sequelae of her prior COVID infection with superimposed bacterial pneumonia. Plan to continue antimicrobials as ordered. The patient has been weaned from Levophed at this time. 3. Recent COVID-19 pneumonitis/lower extremity DVT Continue supportive measures as noted above. Continue weight-based heparin infusion for now given instability. Eliquis can be resumed at discharge. 4. History of metastatic non-small cell lung cancer The patient has apparently completed radiation and systemic chemotherapy treatment. Recommend outpatient oncology follow-up. 5. Diabetes mellitus/depression/anxiety/GERD Complicates care, management, recovery and prognosis.? Continue sliding scale insulin coverage and PPI therapy as ordered. 6. Anemia Unclear etiology. Patient has had drifting down of the hemoglobin through the hospitalization and appears pale today. Patient is significantly volume overloaded clinically and may have an element of hemodilution. Will increase L asix and obtain guaiac of the stool. Blood will be transfused. Patient did have significant steroid exposure associated with her recent COVID-19, so cannot exclude an element of gastritis versus ulcer formation. TIME: 40 minutes of critical care time, inclusive of procedures, was spent addressing the patient's acute hypoxemic respiratory failure, sepsis, review of all data and collaboration with the care team. Subjective Subjective No obvious GI bleeding has been noted, but hemoglobin was down this morning. Patient remains on Precedex and fentanyl with high FiO2 requirements. Patient is positive almost 7 L over the course of the hospitalization despite Lasix therapy. Objective Data Objective Data Vital Signs: Vital Signs Temp Pulse Resp BP Pulse Ox O2 Del Method O2 Flow Rate 36.8 C 84 17 108/76 89 Mechanical Ventilator 2 02/14/22 07:00 02/14/22 07:00 02/14/22 07:00 02/14/22 07:00 02/14/22 07:00 02/14/22 07:00 02/14/22 06:00 FiO2 80 02/14/22 07:00 Oxygen Flow Rate (L/min) 2 Oxygen Delivery Method Mechanical Ventilator Weight: 62 kg Body Mass Index (BMI) 23.8 Intake & Output: Intake and Output for Last 24 Hours 02/12/22 02/13/22 02/14/22 23:59 23:59 23:59 Intake Total 2079.11 / 2232.91 3730.82 / 3903.25 864.60 / 864.60 Output Total 3100 / 3350 3125 / 3325 550 / 550 Balance -1020.89 / -1117.09 605.82 / 578.25 314.60 / 314.60 Lab / Micro Data Attestation: I reviewed the patient's lab results. Result Diagrams: 02/14/22 04:50 02/14/22 04:50 Labs: Laboratory Results - last 24 hr 02/13/22 05:22: POC Glucose 293 H 02/13/22 10:57: POC Glucose 215 H 02/13/22 13:00: APTT 43.3 H 02/13/22 13:41: APTT Cancelled 02/13/22 17:20: POC Glucose 292 H 02/13/22 21:00: APTT 54.9 H 02/14/22 00:50: POC Glucose 311 H 02/14/22 04:50: APTT 55.7 H 02/14/22 04:50: WBC 14.1 H, RBC 2.23 L, Hgb 6.9 L, Hct 22.7 L, MCV 101.8 H, MCH 30.9, MCHC 30.4 L, RDW Std Deviation 56.2 H, RDW Coeff of Bettina 15.0 H, Plt Count 121 L, MPV 10.9, Neut % (Auto) Not Reportable, Absolute Neuts (auto) 12.2 H, Absolute Lymphs (auto) 0.84, Total Counted 101, Neutrophils % (Manual) 75 H, Band Neutrophils % 12 H, Lymphocytes % (Manual) 6 L, Monocytes % (Manual) 1, Metamyelocytes % 2 H, Myelocytes % 4 H, Nucleated RBCs/100 WBC 1, Diff Path Review July, Platelet Estimate SLT DEC, Anisocytosis 1+, Macrocytosis 1+ 02/14/22 04:50: Sodium 141, Potassium 3.4 L, Chloride 98, Carbon Dioxide 38.0 H, Anion Gap 5, BUN 22 H, Creatinine 0.31 L, Estim Creat Clear Calc 138.35, Est GFR (MDRD) Af Amer 279, Est GFR (MDRD) Non-Af 231, BUN/Creatinine Ratio 71.4 H, Glucose 365 H, Calcium 7.9 L, Total Bilirubin 0.10 L, AST 16, ALT 29, Alkaline Phosphatase 156 H, Total Protein 5.0 L, Albumin 1.3 L, Globulin 3.7, Albumin/Globulin Ratio 0.4 L Micro: Microbiology 02/13/22 07:08 Mucosa - Nose - Final 02/07/22 10:08 Blood Culture (Wb) - Anticubital Left Blood Culture - Final No growth in 5 days. 02/07/22 10:00 Blood Culture (Wb) - Left Wrist Blood Culture - Final No growth in 5 days. 02/09/22 08:55 Blood Culture (Wb) - No Site/Description Given Blood Culture - Preliminary No growth in 48 hours. 02/09/22 08:40 Blood Culture (Wb) - Anticubital Left Blood Culture - Preliminary No growth in 48 hours. 02/09/22 07:45 Urine Catheter - Garcia Urine Culture - Final Culture exhibits no growth. 02/09/22 07:52 Sputum, Induced/Lukens Gram Stain - Final 02/09/22 07:52 Sputum, Induced/Lukens Respiratory Culture - Final Klebsiella pneumoniae sp pneum Presumptive C albicans 02/07/22 13:20 Urine, Catheterized Urine Culture - Final Klebsiella pneumoniae sp pneum 02/07/22 15:03 Mucosa - Nasopharyngeal Respiratory Panel (PCR) - Final 02/07/22 13:20 Urine Catheter - Garcia Legionella Antigen - Final 02/07/22 13:20 Urine Catheter - Garcia Streptococcus pneumoniae Antigen (M - Final 02/07/22 10:18 Interface Orders Influenza Types A,B Direct FA (ROSELIA) - Final ABG Data ABG results: VBG was completed previously on the vent given inability to get ABG. This showed adequate control of acidosis. Rhythm Strip Rhythm Strip: Sinus Rhythm Rate: 78 Ectopy: None Physical Exam Const Constitutional Narrative: Currently intubated and mechanically ventilated. Appears pale. General Appearance: intubated and patient mechanically ventilated HEENT normocephalic, head/scalp atraumatic and moist oral mucous membranes Eyes PERRL, EOMs intact bilaterally and conjunctivae normal Neck supple General: trachea midline Chest Chest Narrative: Increased AP diameter. Resp Auscultation: rales, wheezes and diminished lung sounds; Negative for rhonchi Cardio regular rate, regular rhythm, S1 normal heart sound, S2 normal heart sound, no murmurs, no rub and no gallops GI normal to inspection, nondistended, normoactive bowel sounds Extremity General Extremity: edema bilateral lower extremity; Negative for clubbing Skin no rashes or lesions noted Neuro moves all extremities Sensorium / Orientation: sedated on vent Psych Mood & Affect: flat affect Charges/Coding Procedures Hospitalists Procedures: [id number] Critial Care 1st Hr
--- NOTE | 2022-02-14 07:29 | PN.HOSP_ITS ---
Subjective Subjective Follow-up on acute hypoxic respiratory failure/septic shock: Patient was seen and examined. Remains intubated, on mechanical ventilator. Remains on Precedex and fentanyl. Oxygen requirements are have slightly wor sening; currently on PEEP of 10, FiO2 80% Objective Data Objective Data Vital Signs: Vital Signs Temp Pulse Resp BP Pulse Ox O2 Del Method O2 Flow Rate 98.3 F 84 17 108/76 89 Mechanical Ventilator 2 02/14/22 07:00 02/14/22 07:00 02/14/22 07:00 02/14/22 07:00 02/14/22 07:00 02/14/22 07:00 02/14/22 06:00 FiO2 80 02/14/22 07:00 Oxygen Flow Rate (L/min) 2 Oxygen Delivery Method Mechanical Ventilator Weight: 62 kg Body Mass Index (BMI) 23.8 Intake & Output: Intake and Output for Last 24 Hours 02/12/22 02/13/22 02/14/22 23:59 23:59 23:59 Intake Total 2079.11 / 2232.91 3730.82 / 3903.25 864.60 / 864.60 Output Total 3100 / 3350 3125 / 3325 550 / 550 Balance -1020.89 / -1117.09 605.82 / 578.25 314.60 / 314.60 Lab / Micro Data Result Diagrams: 02/14/22 04:50 02/14/22 04:50 Labs: Laboratory Results - last 24 hr 02/13/22 05:22: POC Glucose 293 H 02/13/22 10:57: POC Glucose 215 H 02/13/22 13:00: APTT 43.3 H 02/13/22 13:41: APTT Cancelled 02/13/22 17:20: POC Glucose 292 H 02/13/22 21:00: APTT 54.9 H 02/14/22 00:50: POC Glucose 311 H 02/14/22 04:50: APTT 55.7 H 02/14/22 04:50: WBC 14.1 H, RBC 2.23 L, Hgb 6.9 L, Hct 22.7 L, MCV 101.8 H, MCH 30.9, MCHC 30.4 L, RDW Std Deviation 56.2 H, RDW Coeff of Bettina 15.0 H, Plt Count 121 L, MPV 10.9, Neut % (Auto) Not Reportable, Absolute Neuts (auto) 12.2 H, Absolute Lymphs (auto) 0.84, Total Counted 101, Neutrophils % (Manual) 75 H, Band Neutrophils % 12 H, Lymphocytes % (Manual) 6 L, Monocytes % (Manual) 1, Metamyelocytes % 2 H, Myelocytes % 4 H, Nucleated RBCs/100 WBC 1, Diff Path Review July, Platelet Estimate SLT DEC, Anisocytosis 1+, Macrocytosis 1+ 02/14/22 04:50: Sodium 141, Potassium 3.4 L, Chloride 98, Carbon Dioxide 38.0 H, Anion Gap 5, BUN 22 H, Creatinine 0.31 L, Estim Creat Clear Calc 138.35, Est GFR (MDRD) Af Amer 279, Est GFR (MDRD) Non-Af 231, BUN/Creatinine Ratio 71.4 H, Glucose 365 H, Calcium 7.9 L, Total Bilirubin 0.10 L, AST 16, ALT 29, Alkaline Phosphatase 156 H, Total Protein 5.0 L, Albumin 1.3 L, Globulin 3.7, Albumin/Globulin Ratio 0.4 L Micro: Microbiology 02/13/22 07:08 Mucosa - Nose - Final 02/07/22 10:08 Blood Culture (Wb) - Anticubital Left Blood Culture - Final No growth in 5 days. 02/07/22 10:00 Blood Culture (Wb) - Left Wrist Blood Culture - Final No growth in 5 days. 02/09/22 08:55 Blood Culture (Wb) - No Site/Description Given Blood Culture - Preliminary No growth in 48 hours. 02/09/22 08:40 Blood Culture (Wb) - Anticubital Left Blood Culture - Preliminary No growth in 48 hours. 02/09/22 07:45 Urine Catheter - Garcia Urine Culture - Final Culture exhibits no growth. 02/09/22 07:52 Sputum, Induced/Lukens Gram Stain - Final 02/09/22 07:52 Sputum, Induced/Lukens Respiratory Culture - Final Klebsiella pneumoniae sp pneum Presumptive C albicans 02/07/22 13:20 Urine, Catheterized Urine Culture - Final Klebsiella pneumoniae sp pneum 02/07/22 15:03 Mucosa - Nasopharyngeal Respiratory Panel (PCR) - Final 02/07/22 13:20 Urine Catheter - Garcia Legionella Antigen - Final 02/07/22 13:20 Urine Catheter - Garcia Streptococcus pneumoniae Antigen (M - Final 02/07/22 10:18 Interface Orders Influenza Types A,B Direct FA (ROSELIA) - Final Rhythm Strip Rhythm Strip: Sinus Tach Rate: 105 Ectopy: None Physical Exam Narrative Physical exam: General: Sedated, intubated, mechanical ventilator HEENT: Atraumatic, ET and OG tube in situ Oral: Moist Mucosa Neck: Supple Lungs: Diminished to auscultation Cardiovascular: HS I+II, regular, no murmurs Abdomen: Bowel Sounds Present, Soft, Non Tender Extremities: No edema Skin: No rashes, No breakdown Neurological: Grossly intact Psych/Mental Status: Appropriate Assessment & Plan Assessment/Plan (1) Sepsis: (2) Hypoxia: (3) Pneumonia: PLAN: Plan 1. Septic shock secondary to acute Klebsiella pneumoniae pneumonia/Klebsiella pneumoniae UTI Urine and sputum cultures growing Klebsiella pneumoniae, pansensitive Continue on IV ceftriaxone 2. Acute hypoxic respiratory failure secondary to acute Klebsiella pneumonia/aspiration pneumonia Patient remains intubated; patient with recent admission for COVID pneumonitis Continue mechanical ventilator, look out tower fire watcher following 3. Anemia, likely acute on chronic blood loss secondary to acute GI bleed, FOBT is positive, hemoglobin 6.9, 2 units of packed RBC transfusion plan Will continue to trend 4. Hypokalemia, replaced, will also check magnesium level, recheck in a.m. 5. Recent DVT of the left lower extremity, off Eliquis for now, continue on heparin drip 6. Diabetes mellitus type II, blood sugars fairly uncontrolled, patient with episode of hypoglycemia earlier on your visit6. We will increase Lantus to 25 units nightly as well as increase to high-dose insulin sliding scale 7. Lung CA with mets to the brain, status post chemotherapy and radiation therapy Continue on Keppra and Solu-Medrol 8. History of GERD/depression and anxiety Continue on PPI, fluoxetine and bupropion 9. DVT prophylaxis?on heparin drip Charges/Coding Visit Charges Inpatient E&M: 40475 [facility] Hosp L3
[2022-02-14] MEDS: Folic Acid 1 MG Tablet 0.5 MG GT (07:42)
[2022-02-14] MEDS: Potassium Chloride Oral Tablet 20 MEQ GT ×2 (07:42→16:55)
[2022-02-14] MEDS: Oxybutynin 5 MG Tablet GT (07:43)
[2022-02-14] MEDS: Cholecalciferol (VIT D3) 25 MCG TABLET (1,000 UNITS) 125 MCG GT (07:43)
[2022-02-14] MEDS: Chlorhexidine 15 ML PO ×2 (09:29→20:57)
[2022-02-14] MEDS: Menthol/Lanolin/Calamine/Znox 113 GM Tube 1 APPLIC TOPICAL ×4 (09:31→20:58)
[2022-02-14 10:14] LABS: Partial Thromboplast Time 47.7 Seconds (24.1-36.2)
--- NOTE | 2022-02-14 10:15 | RAD_ITS ---
EXAM: XR CHEST, 1 VIEW CLINICAL INDICATION: ET tube placement TECHNIQUE: Frontal view of the chest. This report was created using [employer] report generation technology. COMPARISON: XR Chest dated 02/13/2022 FINDINGS: LUNGS AND PLEURAL SPACES: Diffuse air space opacification of the lungs unchanged from prior exam. No pneumothorax. No effusion. HEART: Normal heart size. MEDIASTINUM: No mediastinal or hilar mass. BONES/JOINTS: No acute abnormality. SOFT TISSUES: Normal. TUBES, LINES AND DEVICES: The endotracheal tube (ETT) is in satisfactory position with tip 3.5 cm above the aniceto. Left peripherally inserted central catheter (PICC) tip in the proximal superior vena cava. Enteric tube tip in the stomach. RAD/Chest 1 View (Portable) IMPRESSION: 1. Satisfactory intubation. 2. Persistent bilateral pneumonia. Electronically Signed: Rafael Patel MD at 10:40 EST ,
[2022-02-14] MEDS: Heparin Injection (Vial) 5,000 UNIT/ML VIAL IV (10:34)
[2022-02-14] MEDS: Ceftriaxone 1 GM/50 ML BAG IV (10:35)
[2022-02-14 10:49] LABS: Magnesium 2.4 mg/dL (1.6-2.6)
[2022-02-14] MEDS: Insulin Glargine-YFGN 100 UNIT/ML Pen 20 UNIT SC (11:00)
[2022-02-14] MEDS: Dexmedetomidine 1,000 mcg in 0.9% NS 240 mL 23.3 MCG CONT INF ×2 (11:00→21:44)
--- NOTE | 2022-02-14 11:24 | CASEMGMT ---
Addendum entered by Nancy Shields 02/14/22 16:19: Social Work CHNADANA received call from pt's daughter in law Luna Langley who states she and her would be able to attend a family meeting tomorrow (02/15) at 2pm and states she will update Abigial of time of meeting. Physician and bedside nurse updated on time of meeting. CORY Hunt Addendum entered by Nancy Shields 02/14/22 11:34: Return call from pt sister Abigail. She states pt brother works multimedia educational specialist and would be unable to come to a family meeting. Abigail states she will call her sister in law to see if you would be able to come. Abigail to call this SW back with time for family meeting. CORY Hunt Original Note: Social Work SW attended ICU rounds. Pt is currently on ventilator. Family meeting may be valuable to discuss pt's care with both pt sister Abigail and brother Beltran. CHANDANA placed call to Beltran and left NAA requesting return call. CHANDANA placed phone call to Abigail who states she does not have time to talk and will call this SW back. CHANDANA will continue to attempt to set family meeting. CORY Moya
[2022-02-14 11:25] LABS: Bedside Glucose 336 mg/dL (74-106)
[2022-02-14 17:30] LABS: Bedside Glucose 351 mg/dL (74-106)
[2022-02-14 18:26] LABS: Partial Thromboplast Time 59.1 Seconds (24.1-36.2)
[2022-02-15] VITALS (36 sets, daily range): BP systolic 99–153; BP diastolic 72–96; PULSE 63–124; RESP 12–34; TEMP 37–37.6; O2SAT 88–111
[2022-02-15] MEDS: Insulin Lispro 100 UNIT/ML INSULN.PEN SC ×4 (00:16→18:03)
[2022-02-15 00:46] LABS: Bedside Glucose 320 mg/dL (74-106)
[2022-02-15 01:06] LABS: Partial Thromboplast Time 48.1 Seconds (24.1-36.2)
[2022-02-15] MEDS: Heparin Injection (Vial) 5,000 UNIT/ML VIAL IV (01:12)
[2022-02-15] MEDS: Ipratropium 0.5 MG/2.5 ML SOLUTION INHALATION ×6 (03:06→22:25)
--- NOTE | 2022-02-15 03:19 | CPS ---
Pt. awake and having a hard time staying relaxed and comfortable at this time. Breath sounds improved after breathing tx.
[2022-02-15] MEDS: Propofol 10MG/Ml 1,000 MG/100 ML Bottle 3.7 MG CONT INF (04:07)
[2022-02-15 05:37] LABS: Mean Corpuscular Hgb 31.5 pg (27.0-32.0); Mean Corpuscular Volume 101.4 fL (81-99); Mean Platelet Vol. 11.1 fl (6.2-12.0); POSITIVE COUNT YES; POSITIVE MORPHOLOGY YES; Platelet Count 118 K/mm3 (150-450); RBC Distribution Width CV 14.8 % (11.6-14.6); RBC Distribution Width SD 54.1 fl (35.1-43.9); Red Blood Count 2.86 M/mm3 (4.2-5.4); White Blood Count 17.2 K/mm3 (4.4-11.0)
[2022-02-15 05:42] LABS: Differential Indicated MANUAL DIFF
[2022-02-15] MEDS: Furosemide 40 MG/4 ML Vial IV ×3 (05:47→20:59)
[2022-02-15] MEDS: Nystatin/Triamcin Cream Tube 1 APPLIC TOPICAL ×3 (05:48→20:56)
[2022-02-15 06:01] LABS: ALB/GLOB Ratio 0.4 RATIO (0.9-2.4); AST(SGOT) 21 U/L (15-37); Alanine Aminotransfer ALT/SGPT 31 U/L (13-56); Albumin, Serum 1.6 g/dL (3.2-5.0); Alkaline Phosphatase 167 U/L (45-117); Anion Gap 3 (5-15); BUN 29 mg/dL (7-18); BUN/Creat Ratio 86.3 RATIO (10-20); Calcium,Total 8.5 mg/dL (8.5-10.1); Chloride 99 mmol/L (98-107); Creatinine, Serum 0.34 mg/dL (0.55-1.02); EST Glomerular Filtration Rate 209 mL/min (>60); Est Glom Filt Rate - Afr Amer 252 mL/min (>60); Estimated Creatinine Clearance 126.14 ml/min; Globulin 3.9 g/dL (2.2-4.2); Glucose 353 mg/dL (74-106); Potassium 4.2 mmol/L (3.5-5.1); Protein, Total 5.5 g/dL (6.4-8.2); Sodium Level 140 mmol/L (136-145)
[2022-02-15 06:07] LABS: Lymphocyte 3 % (19-41); Metamyelocyte 2 % (0-1); Monocyte 3 % (0-10); Myelocyte 4 % (0-0); Neutrophil-Band 10 % (0-5); Neutrophil-Segmented 78 % (47-70); Nucleated Red Bld Cells,Manual 2 % (0-5); Total Cells Counted 100 (MANUAL DIFF)
[2022-02-15 06:08] LABS: Absolute Neutrophil Count 15.1 X10^3/uL (2.0-7.7); Neutrophil # 15.09 X10^3/uL (2.7-7.7); Platelet Estimate SLT DEC (ADEQ); Red Cell Morphology NORM C+C NORMAL (NORM C&C)
[2022-02-15 06:09] LABS: Absolute Lymphocyte Count 0.51 X10^3/uL (0.83-4.51); CPK Total, Creatine Kinase 19 U/L (26-192); Lymphocyte # 0.51 X10^3/ul (0.83-4.51); Triglycerides 321 mg/dL
[2022-02-15 06:16] LABS: Bedside Glucose 309 mg/dL (74-106)
[2022-02-15 07:18] LABS: Partial Thromboplast Time 74.7 Seconds (24.1-36.2)
--- NOTE | 2022-02-15 07:33 | PN.CC_ITS ---
Assessment & Plan Assessment/Plan (1) Sepsis: PLAN: Plan RECOMMENDATIONS: 1. Continue assist-control mode mechanical ventilation and wean FiO2/PEEP for saturations greater than 90%. Possibly wean PEEP 2. Continue broad-spectrum antimicrobials. 3. Continue heparin infusion. Resume Eliquis at discharge. 4. Continue scheduled diuretics as tolerated by hemodynamics and renal function. 5. Transition from Precedex to propofol. Continue fentanyl 6. Continue tube feeds as tolerated. Increase basal insulin 7. Continue scheduled Atrovent aerosols and corticosteroids. 8. Continue appropriate GI prophylaxis. 9. Family meeting at 2 PM IMPRESSIONS: 1. Acute hypoxemic respiratory failure secondary to Klebsiella pneumonia The patient decompensated from a respiratory perspective on February 09 following an aspiration event the day prior. Accordingly, the patient was intubated. Her chest imaging did demonstrated progressive interstitial infiltrates, left greater than right. Therefore, the patient's antimicrobials have been broadened. She will be continued on assist control mode of mechanical ventilation. FiO2 and PEEP will be weaned as tolerated to maintain saturations at or above 90%. Tube feeds can be continued for nutritional support. We will continue increased diuretic therapy given high FiO2 requirements. Patient appears to have responded well. Patient did grow Klebsiella pneumonia on initial sputum culture. 2. Septic shock Improved. The patient presented with sepsis due to Klebsiella pneumonia and cystitis with acute sepsis related organ dysfunction as evidenced by acute respiratory failure requiring invasive mechanical ventilatory support. The p atient was just admitted to the hospital with COVID-19 pneumonia. Her chest imaging demonstrates persistent bilateral pulmonary infiltrates, which could be the sequelae of her prior COVID infection with superimposed bacterial pneumonia. Plan to continue antimicrobials as ordered. Patient off of Levophed at this time. 3. Recent COVID-19 pneumonitis/lower extremity DVT Continue supportive measures as noted above. Continue weight-based heparin infusion for now given instability. Eliquis can be resumed at discharge. 4. History of metastatic non-small cell lung cancer The patient has apparently completed radiation and systemic chemotherapy treatment. Recommend outpatient oncology follow-up. Family meeting scheduled for 2 PM today to discuss goals of therapy. 5. Diabetes mellitus/depression/anxiety/GERD Complicates care, management, recovery and prognosis.? Continue sliding scale insulin coverage and PPI therapy as ordered. 6. Anemia Unclear etiology. Patient has had drifting down of the hemoglobin through the hospitalization and appeared pale yesterday. Patient is significantly volume overloaded clinically and may have an element of hemodilution. Stool g uaiac was positive. Blood will be transfused. Patient did have significant steroid exposure associated with her recent COVID-19, so cannot exclude an element of gastritis versus ulcer formation. PPI was increased yesterday to twice daily empirically Addendum 3:35 PM: Extensive conversation with the patient's sisters and [id number] about her current status. They understand that she is very sick, but states that she wants to live. Extensive conversation about patient's prognosis, especially in light of metastatic brain cancer. Family is very clear that they want to continue to be aggressive from a medical standpoint at this time. Patient's f jenn understands that a decision on tracheostomy will likely be necessary in the next 4 to 7 days. Total discussion time of over 40 minutes. Patient's CODE STATUS was verified is full code at this time TIME: 77 minutes of critical care time, inclusive of procedures, was spent addressing the patient's acute hypoxemic respiratory failure, sepsis, review of all data and collaboration with the care team. Subjective Subjective Patient with significant agitation overnight requiring initiation of propofol. Patient remains on maxed out Precedex and fentanyl. Patient tolerating tube feeds. Minimal secretions have been noted Objective Data Objective Data Vital Signs: Vital Signs Temp Pulse Resp BP Pulse Ox O2 Del Method O2 Flow Rate 37.3 C H 65 12 99/74 91 Mechanical Ventilator 2 02/15/22 07:00 02/15/22 07:01 02/15/22 07:01 02/15/22 07:00 02/15/22 07:01 02/15/22 07:00 02/14/22 06:00 FiO2 60 02/15/22 07:00 Oxygen Flow Rate (L/min) 2 Oxygen Delivery Method Mechanical Ventilator Weight: 64.2 kg Body Mass Index (BMI) 23.8 Intake & Output: Intake and Output for Last 24 Hours 02/13/22 02/14/22 02/15/22 23:59 23:59 23:59 Intake Total 3730.82 / 3903.25 3777.93 / 3821.23 411.21 / 411.21 Output Total 3125 / 3325 2775 / 3025 955 / 955 Balance 605.82 / 578.25 1002.93 / 796.23 -543.79 / -543.79 Lab / Micro Data Attestation: I reviewed the patient's lab results. Result Diagrams: 02/15/22 05:25 02/15/22 05:25 Labs: Laboratory Results - last 24 hr 02/14/22 04:50: Magnesium 2.4 02/14/22 09:43: APTT 47.7 H 02/14/22 09:43: Blood Type O POSITIVE, Antibody Screen NEGATIVE, Crossmatch See Detail 02/14/22 10:59: POC Glucose 336 H 02/14/22 17:08: POC Glucose 351 H 02/14/22 18:03: APTT 59.1 H 02/15/22 00:12: POC Glucose 320 H 02/15/22 00:35: APTT 48.1 H 02/15/22 05:25: WBC 17.2 H, RBC 2.86 L, Hgb 9.0 L, Hct 29.0 L, MCV 101.4 H, MCH 31.5, MCHC 31.0 L, RDW Std Deviation 54.1 H, RDW Coeff of Bettina 14.8 H, Plt Count 118 L, MPV 11.1, Neut % (Auto) Not Reportable, Absolute Neuts (auto) 15.1 H, Absolute Lymphs (auto) 0.51 L, Total Counted 100, Neutrophils % (Manual) 78 H, Band Neutrophils % 10 H, Lymphocytes % (Manual) 3 L, Monocytes % (Manual) 3, Metamyelocytes % 2 H, Myelocytes % 4 H, Nucleated RBCs/100 WBC 2, Diff Path Review July, Platelet Estimate SLT DEC, RBC Morphology NORM C+C 02/15/22 05:25: Sodium 140, Potassium 4.2, Chloride 99, Carbon Dioxide 38.0 H, Anion Gap 3 L, BUN 29 H, Creatinine 0.34 L, Estim Creat Clear Calc 126.14, Est GFR (MDRD) Af Amer 252, Est GFR (MDRD) Non-Af 209, BUN/Creatinine Ratio 86.3 H, Glucose 353 H, Calcium 8.5, Total Bilirubin 0.20, AST 21, ALT 31, Alkaline Phosphatase 167 H, Total Protein 5.5 L, Albumin 1.6 L, Globulin 3.9, Albumin/Globulin Ratio 0.4 L 02/15/22 05:25: Total Creatine Kinase 19 L, Triglycerides 321 H 02/15/22 05:46: POC Glucose 309 H 02/15/22 06:55: APTT 74.7 H Micro: Microbiology 02/09/22 08:40 Blood Culture (Wb) - Anticubital Left Blood Culture - Final No growth in 5 days. 02/09/22 08:55 Blood Culture (Wb) - No Site/Description Given Blood Culture - Final No growth in 5 days. 02/14/22 06:50 Stool Stool Occult Blood (ROSELIA) - Final Occult Blood Positive 02/13/22 07:08 Mucosa - Nose - Final 02/07/22 10:08 Blood Culture (Wb) - Anticubital Left Blood Culture - Final No growth in 5 days. 02/07/22 10:00 Blood Culture (Wb) - Left Wrist Blood Culture - Final No growth in 5 days. 02/09/22 07:45 Urine Catheter - Garcia Urine Culture - Final Culture exhibits no growth. 02/09/22 07:52 Sputum, Induced/Lukens Gram Stain - Final 02/09/22 07:52 Sputum, Induced/Lukens Respiratory Culture - Final Klebsiella pneumoniae sp pneum Presumptive C albicans 02/07/22 13:20 Urine, Catheterized Urine Culture - Final Klebsiella pneumoniae sp pneum 02/07/22 15:03 Mucosa - Nasopharyngeal Respiratory Panel (PCR) - Final 02/07/22 13:20 Urine Catheter - Garcia Legionella Antigen - Final 02/07/22 13:20 Urine Catheter - Garcia Streptococcus pneumoniae Antigen (M - Final 02/07/22 10:18 Interface Orders Influenza Types A,B Direct FA (ROSELIA) - Final Radiography Diagnostic Testing: Radiology Impression Chest X-Ray 02/14/22 10:15 IMPRESSION: 1. Satisfactory intubation. 2. Persistent bilateral pneumonia. Electronically Signed: Rafael Patel MD at 10:40 EST , Rhythm Strip Rhythm Strip: Sinus Rhythm Rate: 68 Ectopy: None Physical Exam Const Constitutional Narrative: Currently intubated and mechanically ventilated. Appears less pale. General Appearance: intubated and patient mechanically ventilated HEENT normocephalic, head/scalp atraumatic and moist oral mucous membranes Eyes PERRL, EOMs intact bilaterally and conjunctivae normal Neck supple General: trachea midline Chest Chest Narrative: Increased AP diameter. Resp Auscultation: rales, wheezes and diminished lung sounds; Negative for rhonchi Cardio regular rate, regular rhythm, S1 normal heart sound, S2 normal heart sound, no murmurs, no rub and no gallops GI normal to inspection, nondistended, normoactive bowel sounds Extremity General Extremity: edema bilateral lower extremity; Negative for clubbing Skin no rashes or lesions noted Neuro moves all extremities and no focal motor deficits Sensorium / Orientation: sedated on vent Psych Mood & Affect: flat affect Charges/Coding Procedures Hospitalists Procedures: 21161 Critial Care 1st Hr Multi Select Codes Hospitalists' Procedures Procedures: 60965 Critial Care Addl 30 Min
[2022-02-15] MEDS: Folic Acid 1 MG Tablet 0.5 MG GT (08:51)
[2022-02-15] MEDS: Potassium Chloride Oral Tablet 20 MEQ GT ×2 (08:51→17:24)
[2022-02-15] MEDS: 0.9% Saline Lock 10 ML Syringe IV (09:49)
[2022-02-15] MEDS: CHLORHEXIDINE GLUC 2% CLOTH 1 EACH TOWELETTE TOPICAL (10:15)
[2022-02-15] MEDS: Chlorhexidine 15 ML PO ×2 (10:55→21:12)
[2022-02-15] MEDS: Senna/Docusate Sodium 1 Tablet 2 TABLET PO (10:55)
[2022-02-15] MEDS: Oxybutynin 5 MG Tablet GT (10:55)
[2022-02-15] MEDS: Ceftriaxone 1 GM/50 ML BAG IV (10:55)
[2022-02-15] MEDS: Menthol/Lanolin/Calamine/Znox 113 GM Tube 1 APPLIC TOPICAL ×4 (10:56→20:56)
[2022-02-15] MEDS: Cholecalciferol (VIT D3) 25 MCG TABLET (1,000 UNITS) 125 MCG GT (11:04)
[2022-02-15] MEDS: Insulin Glargine-YFGN 100 UNIT/ML Pen 30 UNIT SC ×2 (11:14→21:11)
[2022-02-15 11:40] LABS: Bedside Glucose 303 mg/dL (74-106)
[2022-02-15 13:44] LABS: Partial Thromboplast Time 70.9 Seconds (24.1-36.2)
[2022-02-15] MEDS: HEPARIN/D5w 25,000 UNITS 25,000 UNITS/250 ML IV.SOLN. 9 UNITS CONT INF (14:06)
--- NOTE | 2022-02-15 14:22 | PN.HOSP_ITS ---
Subjective Subjective Follow-up on acute hypoxic respiratory failure/septic shock: Patient was seen and examined. She continues to have a lot of diarrhea to the fecal management system. Her oxygen requirement have worsened slightly. She remains intubated, on mechanical ventilator.?Remains on Precedex and fentanyl. Objective Data Objective Data Vital Signs: Vital Signs Temp Pulse Resp BP Pulse Ox O2 Del Method O2 Flow Rate 98.6 F 81 18 116/79 90 Mechanical Ventilator 2 02/15/22 12:00 02/15/22 12:00 02/15/22 12:00 02/15/22 12:00 02/15/22 12:00 02/15/22 12:00 02/14/22 06:00 FiO2 65 02/15/22 12:00 Oxygen Flow Rate (L/min) 2 Oxygen Delivery Method Mechanical Ventilator Weight: 64.2 kg Body Mass Index (BMI) 23.8 Intake & Output: Intake and Output for Last 24 Hours 02/13/22 02/14/22 02/15/22 23:59 23:59 23:59 Intake Total 3730.82 / 3903.25 3777.93 / 3821.23 958.72 / 958.72 Output Total 3125 / 3325 2775 / 3025 1655 / 1655 Balance 605.82 / 578.25 1002.93 / 796.23 -696.28 / -696.28 Lab / Micro Data Result Diagrams: 02/15/22 05:25 02/15/22 05:25 Labs: Laboratory Results - last 24 hr 02/14/22 17:08: POC Glucose 351 H 02/14/22 18:03: APTT 59.1 H 02/15/22 00:12: POC Glucose 320 H 02/15/22 00:35: APTT 48.1 H 02/15/22 05:25: WBC 17.2 H, RBC 2.86 L, Hgb 9.0 L, Hct 29.0 L, MCV 101.4 H, MCH 31.5, MCHC 31.0 L, RDW Std Deviation 54.1 H, RDW Coeff of Bettina 14.8 H, Plt Count 118 L, MPV 11.1, Neut % (Auto) Not Reportable, Absolute Neuts (auto) 15.1 H, Absolute Lymphs (auto) 0.51 L, Total Counted 100, Neutrophils % (Manual) 78 H, Band Neutrophils % 10 H, Lymphocytes % (Manual) 3 L, Monocytes % (Manual) 3, Metamyelocytes % 2 H, Myelocytes % 4 H, Nucleated RBCs/100 WBC 2, Diff Path Review May foll, Platelet Estimate SLT DEC, RBC Morphology NORM C+C 02/15/22 05:25: Sodium 140, Potassium 4.2, Chloride 99, Carbon Dioxide 38.0 H, Anion Gap 3 L, BUN 29 H, Creatinine 0.34 L, Estim Creat Clear Calc 126.14, Est GFR (MDRD) Af Amer 252, Est GFR (MDRD) Non-Af 209, BUN/Creatinine Ratio 86.3 H, Glucose 353 H, Calcium 8.5, Total Bilirubin 0.20, AST 21, ALT 31, Alkaline Phosphatase 167 H, Total Protein 5.5 L, Albumin 1.6 L, Globulin 3.9, Albumin/Globulin Ratio 0.4 L 02/15/22 05:25: Total Creatine Kinase 19 L, Triglycerides 321 H 02/15/22 05:46: POC Glucose 309 H 02/15/22 06:55: APTT 74.7 H 02/15/22 11:12: POC Glucose 303 H 02/15/22 13:25: APTT 70.9 H Micro: Microbiology 02/09/22 08:40 Blood Culture (Wb) - Anticubital Left Blood Culture - Final No growth in 5 days. 02/09/22 08:55 Blood Culture (Wb) - No Site/Description Given Blood Culture - Final No growth in 5 days. 02/14/22 06:50 Stool Stool Occult Blood (ROSELIA) - Final Occult Blood Positive 02/13/22 07:08 Mucosa - Nose - Final 02/07/22 10:08 Blood Culture (Wb) - Anticubital Left Blood Culture - Final No growth in 5 days. 02/07/22 10:00 Blood Culture (Wb) - Left Wrist Blood Culture - Final No growth in 5 days. 02/09/22 07:45 Urine Catheter - Garcia Urine Culture - Final Culture exhibits no growth. 02/09/22 07:52 Sputum, Induced/Lukens Gram Stain - Final 02/09/22 07:52 Sputum, Induced/Lukens Respiratory Culture - Final Klebsiella pneumoniae sp pneum Presumptive C albicans 02/07/22 13:20 Urine, Catheterized Urine Culture - Final Klebsiella pneumoniae sp pneum 02/07/22 15:03 Mucosa - Nasopharyngeal Respiratory Panel (PCR) - Final 02/07/22 13:20 Urine Catheter - Garcia Legionella Antigen - Final 02/07/22 13:20 Urine Catheter - Garcia Streptococcus pneumoniae Antigen (M - Final 02/07/22 10:18 Interface Orders Influenza Types A,B Direct FA (ROSELIA) - Final Rhythm Strip Rhythm Strip: Sinus Rhythm Rate: 68 Ectopy: None Physical Exam Narrative Physical exam: General: Sedated, intubated, mechanical ventilator HEENT: Atraumatic, ET and OG tube in situ Oral: Moist Mucosa Neck: Supple Lungs: Diminished to auscultation Cardiovascular: HS I+II, regular, no murmurs Abdomen: Bowel Sounds Present, Soft, Non Tender Extremities: No edema Skin: No rashes, No breakdown Neurological: Grossly intact Psych/Mental Status: Appropriate Assessment & Plan Assessment/Plan (1) Sepsis: (2) Hypoxia: (3) Pneumonia: PLAN: Plan 1. Septic shock secondary to acute Klebsiella pneumoniae pneumonia/Klebsiella pneumoniae UTI Urine and sputum cultures growing Klebsiella pneumoniae, pansensitive Continue on IV ceftriaxone 2. Acute hypoxic respiratory failure secondary to acute Klebsiella pneumonia/aspiration pneumonia Patient remains intubated; patient with recent admission for COVID pneumonitis Continue mechanical ventilator, computer laboratory technician following 3. Anemia, likely acute on chronic blood loss secondary to acute GI bleed, FOBT is positive, hemoglobin 9.0, s/p 2 units of packed RBC transfusion Will continue to trend 4. Hypokalemia, replaced, recheck in a.m. 5. Acute diarrhea, s/p fecal management system placement Will check c. diff, enteric panel If negative, will give imodium prn 6. Recent DVT of the left lower extremity, off Eliquis for now, Continue on heparin drip 6. Diabetes mellitus type II, blood sugars fairly uncontrolled, Patient with episode of hypoglycemia earlier on your visit. Continue on increased Lantus of 30 units QHS as well as increase to high-dose insulin sliding scale 7. Lung CA with mets to the brain, status post chemotherapy and radiation therapy Continue on Keppra and Solu-Medrol 8. History of GERD/depression and anxiety Continue on PPI, fluoxetine and bupropion 9. DVT prophylaxis?on heparin drip Charges/Coding Visit Charges Inpatient E&M: 04047 Subs Hosp L3
[2022-02-15] MEDS: Propofol 10MG/Ml 1,000 MG/100 ML Bottle 13 MG CONT INF (15:04)
--- NOTE | 2022-02-15 16:42 | NURSING ---
Unable to chart further on precedex titration. Precedex weaned off and completely shut off at 1200.
[2022-02-15 17:55] LABS: Bedside Glucose 321 mg/dL (74-106)
[2022-02-15] MEDS: Dexmedetomidine 1,000 mcg in 0.9% NS 240 mL 7.8 MCG CONT INF (19:45)
[2022-02-15] MEDS: Propofol 10MG/Ml 1,000 MG/100 ML Bottle 18.6 MG CONT INF (21:00)
[2022-02-16] VITALS (37 sets, daily range): BP systolic 85–164; BP diastolic 58–108; PULSE 65–126; RESP 11–21; TEMP 37–37.8; O2SAT 88–97
[2022-02-16] MEDS: Insulin Lispro 100 UNIT/ML INSULN.PEN SC ×5 (00:41→23:28)
[2022-02-16 01:26] LABS: Bedside Glucose 357 mg/dL (74-106)
[2022-02-16] MEDS: Propofol 10MG/Ml 1,000 MG/100 ML Bottle 18.6 MG CONT INF (02:04)
[2022-02-16] MEDS: Ipratropium 0.5 MG/2.5 ML SOLUTION INHALATION ×5 (02:05→23:03)
[2022-02-16 04:13] LABS: Differential Indicated MANUAL DIFF; Hematocrit 26.5 % (37-47); Hemoglobin 8.3 g/dL (12.0-15.0); Mean Corp Hgb Conc 31.3 g/dL (32-36); Mean Corpuscular Hgb 31.3 pg (27.0-32.0); Mean Platelet Vol. 11.2 fl (6.2-12.0); POSITIVE COUNT YES; POSITIVE MORPHOLOGY YES; Platelet Count 102 K/mm3 (150-450); RBC Distribution Width CV 14.9 % (11.6-14.6); RBC Distribution Width SD 54.4 fl (35.1-43.9); Red Blood Count 2.65 M/mm3 (4.2-5.4)
[2022-02-16 04:28] LABS: ALB/GLOB Ratio 0.5 RATIO (0.9-2.4); AST(SGOT) 17 U/L (15-37); Alanine Aminotransfer ALT/SGPT 30 U/L (13-56); Albumin, Serum 1.6 g/dL (3.2-5.0); Alkaline Phosphatase 132 U/L (45-117); Anion Gap 3 (5-15); BUN 24 mg/dL (7-18); BUN/Creat Ratio 64.2 RATIO (10-20); Calcium,Total 8.4 mg/dL (8.5-10.1); Chloride 96 mmol/L (98-107); Creatinine, Serum 0.37 mg/dL (0.55-1.02); EST Glomerular Filtration Rate 184 mL/min (>60); Est Glom Filt Rate - Afr Amer 223 mL/min (>60); Estimated Creatinine Clearance 115.91 ml/min; Globulin 3.4 g/dL (2.2-4.2); Glucose 308 mg/dL (74-106); Potassium 4.2 mmol/L (3.5-5.1); Sodium Level 138 mmol/L (136-145)
[2022-02-16 05:01] LABS: Neutrophil-Segmented 88 % (47-70); Total Cells Counted 100 (MANUAL DIFF)
[2022-02-16 05:02] LABS: Lymphocyte 3 % (19-41); Metamyelocyte 1 % (0-1); Monocyte 1 % (0-10); Myelocyte 2 % (0-0); Neutrophil-Band 5 % (0-5); Nucleated Red Bld Cells,Manual 2 % (0-5); Platelet Estimate SLT DEC (ADEQ)
[2022-02-16 05:03] LABS: Absolute Lymphocyte Count 0.45 X10^3/uL (0.83-4.51); Anisocytosis 1+; Hypochromasia RARE; Lymphocyte # 0.45 X10^3/ul (0.83-4.51); Macrocytosis RARE; Microcytosis 1+; Neutrophil # 13.99 X10^3/uL (2.7-7.7); Polychromasia RARE
[2022-02-16] MEDS: Furosemide 40 MG/4 ML Vial IV (05:20)
[2022-02-16] MEDS: Nystatin/Triamcin Cream Tube 1 APPLIC TOPICAL ×3 (05:20→21:38)
[2022-02-16] MEDS: Vital AF 1.2 Cal Liquid 1,000 ML 50 ML GT (05:21)
[2022-02-16] MEDS: Propofol 10MG/Ml 1,000 MG/100 ML Bottle 14.9 MG CONT INF ×3 (07:18→18:41)
[2022-02-16] MEDS: CHLORHEXIDINE GLUC 2% CLOTH 1 EACH TOWELETTE TOPICAL (07:19)
--- NOTE | 2022-02-16 07:31 | PCM.PN.HOSP ---
Subjective Subjective Follow-up on acute hypoxic respiratory failure/septic shock: Patient was seen and examined. She remains unchanged on the mechanical ventilator. Her diarrhea is less. Abdomen looks slightly distended. KUB is unremarkable for ileus or bowel obstruction. Objective Data Objective Data Vital Signs: Vital Signs Temp Pulse Resp BP Pulse Ox O2 Del Method O2 Flow Rate 98.8 F 67 12 103/72 95 Mechanical Ventilator 2 02/16/22 07:00 02/16/22 07:00 02/16/22 07:00 02/16/22 07:00 02/16/22 07:00 02/16/22 07:00 02/14/22 06:00 FiO2 55 02/16/22 07:00 Oxygen Flow Rate (L/min) 2 Oxygen Delivery Method Mechanical Ventilator Weight: 65 kg Body Mass Index (BMI) 23.8 Intake & Output: Intake and Output for Last 24 Hours 02/14/22 02/15/22 02/16/22 23:59 23:59 23:59 Intake Total 3777.93 / 3821.23 2715.46 / 2761.86 343.18 / 343.18 Output Total 2775 / 3025 2865 / 2865 850 / 850 Balance 1002.93 / 796.23 -149.54 / -103.14 -506.82 / -506.82 Lab / Micro Data Result Diagrams: 02/16/22 04:00 02/16/22 04:00 Labs: Laboratory Results - last 24 hr 02/15/22 11:12: POC Glucose 303 H 02/15/22 13:25: APTT 70.9 H 02/15/22 17:36: POC Glucose 321 H 02/16/22 00:39: POC Glucose 357 H 02/16/22 04:00: WBC 15.0 H, RBC 2.65 L, Hgb 8.3 L, Hct 26.5 L, MCV 100.0 H, MCH 31.3, MCHC 31.3 L, RDW Std Deviation 54.4 H, RDW Coeff of Bettina 14.9 H, Plt Count 102 L, MPV 11.2, Neut % (Auto) Not Reportable, Absolute Neuts (auto) 14.0 H, Absolute Lymphs (auto) 0.45 L, Total Counted 100, Neutrophils % (Manual) 88 H, Band Neutrophils % 5, Lymphocytes % (Manual) 3 L, Monocytes % (Manual) 1, Metamyelocytes % 1, Myelocytes % 2 H, Nucleated RBCs/100 WBC 2, Diff Path Review May foll, Platelet Estimate SLT DEC, Polychromasia RARE, Hypochromasia RARE, Anisocytosis 1+, Microcytosis 1+, Macrocytosis RARE 02/16/22 04:00: Sodium 138, Potassium 4.2, Chloride 96 L, Carbon Dioxide 39.0 H, Anion Gap 3 L, BUN 24 H, Creatinine 0.37 L, Estim Creat Clear Calc 115.91, Est GFR (MDRD) Af Amer 223, Est GFR (MDRD) Non-Af 184, BUN/Creatinine Ratio 64.2 H, Glucose 308 H, Calcium 8.4 L, Total Bilirubin 0.20, AST 17, ALT 30, Alkaline Phosphatase 132 H, Total Protein 5.0 L, Albumin 1.6 L, Globulin 3.4, Albumin/Globulin Ratio 0.5 L 02/16/22 04:00: APTT 77.0 H Micro: Microbiology 02/15/22 16:15 Stool C. difficile DNA Amplification - Final 02/09/22 08:40 Blood Culture (Wb) - Anticubital Left Blood Culture - Final No growth in 5 days. 02/09/22 08:55 Blood Culture (Wb) - No Site/Description Given Blood Culture - Final No growth in 5 days. 02/14/22 06:50 Stool Stool Occult Blood (ROSELIA) - Final Occult Blood Positive 02/13/22 07:08 Mucosa - Nose - Final 02/07/22 10:08 Blood Culture (Wb) - Anticubital Left Blood Culture - Final No growth in 5 days. 02/07/22 10:00 Blood Culture (Wb) - Left Wrist Blood Culture - Final No growth in 5 days. 02/09/22 07:45 Urine Catheter - Garcia Urine Culture - Final Culture exhibits no growth. 02/09/22 07:52 Sputum, Induced/Lukens Gram Stain - Final 02/09/22 07:52 Sputum, Induced/Lukens Respiratory Culture - Final Klebsiella pneumoniae sp pneum Presumptive C albicans 02/07/22 13:20 Urine, Catheterized Urine Culture - Final Klebsiella pneumoniae sp pneum 02/07/22 15:03 Mucosa - Nasopharyngeal Respiratory Panel (PCR) - Final 02/07/22 13:20 Urine Catheter - Garcia Legionella Antigen - Final 02/07/22 13:20 Urine Catheter - Garcia Streptococcus pneumoniae Antigen (M - Final 02/07/22 10:18 Interface Orders Influenza Types A,B Direct FA (ROSELIA) - Final Rhythm Strip Rhythm Strip: Sinus Rhythm Rate: 68 Ectopy: None Physical Exam Narrative Physical exam: General: Sedated, intubated, mechanical ventilator HEENT: Atraumatic, ET and OG tube in situ Oral: Moist Mucosa Neck: Supple Lungs: Diminished to auscultation Cardiovascular: HS I+II, regular, no murmurs Abdomen: Bowel Sounds Present, Soft, Non Tender, Fecal management system in situ Extremities: No edema Skin: No rashes, No breakdown Neurological: Grossly intact Psych/Mental Status: Appropriate Assessment & Plan Assessment/Plan (1) Sepsis: (2) Hypoxia: (3) Pneumonia: PLAN: Plan 1. Septic shock secondary to acute Klebsiella pneumoniae pneumonia/Klebsiella pneumoniae UTI Urine and sputum cultures growing Klebsiella pneumoniae, pansensitive Blood cultures are negative x5 days Continue on IV ceftriaxone (day 8). 2. Acute hypoxic respiratory failure secondary to acute Klebsiella pneumonia/aspiration pneumonia Patient remains intubated; patient with recent admission for COVID pneumonitis Continue mechanical ventilator, turf and grounds supervisor following 3. Anemia, likely acute on chronic blood loss secondary to acute GI bleed, FOBT is positive, hemoglobin 8.3, s/p 2 units of packed RBC transfusion Will continue to trend 4. Hypokalemia, replaced, recheck in a.m. 5. Acute diarrhea, s/p fecal management system placement, improving Acute C. diff. ruled out 6. Recent DVT of the left lower extremity, off Eliquis for now, Continue on heparin drip 7. Diabetes mellitus type II, blood sugars fairly uncontrolled, Patient with episode of hypoglycemia earlier on your visit. Continue on increased Lantus of 40 units BID as well as high-dose insulin sliding scale 8. 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 History of GERD/depression and anxiety Continue on PPI, fluoxetine and bupropion 10. DVT prophylaxis?on heparin drip Charges/Coding Visit Charges Inpatient E&M: 88111 Subs Hosp L3
[2022-02-16] MEDS: Furosemide 500 MG in Empty Viaflex 50 mL 1 EACH CONT INF (07:32)
--- NOTE | 2022-02-16 08:05 | PCM.PN.INT ---
Assessment & Plan Assessment/Plan (1) Sepsis: PLAN: Plan RECOMMENDATIONS: 1. Continue assist-control mode mechanical ventilation and wean FiO2/PEEP for saturations greater than 90%. Possibly wean PEEP 2. Plan to continue antibiotics to complete 10 days 3. Continue heparin infusion. Resume Eliquis at discharge. 4. Transition to a Lasix drip as tolerated by hemodynamics and renal function. 5. Transition from Precedex to propofol. Continue fentanyl 6. Continue tube feeds as tolerated. Increase basal insulin 7. Continue scheduled Atrovent aerosols and corticosteroids. 8. Continue appropriate GI prophylaxis. 9. Readdress CODE STATUS if trach required IMPRESSIONS: 1. Acute hypoxemic respiratory failure secondary to Klebsiella pneumonia The patient decompensated from a respiratory perspective on February 09 following an aspiration event the day prior. Accordingly, the patient was intubated. Her chest imaging did demonstrated progressive interstitial infiltrates, left greater than right. Patient should complete at least 10 days of antibiotics. She will be continued on assist control mode of mechanical ventilation. FiO2 and PEEP will be weaned as tolerated to maintain saturations at or above 90%. Tube feeds can be continued for nutritional support. Diuresis relatively unsuccessful despite every 8 treatment. Will transition to a Lasix drip. Patient appears to have responded well. Patient did grow Klebsiella pneumonia on initial sputum culture. 2. Septic shock Improved. The patient presented with sepsis due to Klebsiella pneumonia and cystitis with acute sepsis related organ dysfunction as evidenced by acute respiratory failure requiring invasive mechanical ventilatory support. The patient was just admitted to the hospital with COVID-19 pneumonia. Her chest imaging demonstrates persistent bilateral pulmonary infiltrates, which could be the sequelae of her prior COVID infection with superimposed bacterial pneumonia. Plan to continue antimicrobials as ordered. Patient off of Levophed at this time. 3. Recent COVID-19 pneumonitis/lower extremity DVT Continue supportive measures as noted above. Continue weight-based heparin infusion for now given instability. Eliquis can be resumed at discharge. 4. History of metastatic non-small cell lung cancer The patient has apparently completed radiation and systemic chemotherapy treatment. Recommend outpatient oncology follow-up. Family meeting scheduled for 2 PM today to discuss goals of therapy. 5. Diabetes mellitus/depression/anxiety/GERD Complicates care, management, recovery and prognosis.? Continue sliding scale insulin coverage and PPI therapy as ordered. 6. Anemia Unclear etiology. Patient has had drifting down of the hemoglobin through the hospitalization and appeared pale yesterday. Patient is significantly volume overloaded clinically and may have an element of hemodilution. Stool guaiac was positive. Blood will be transfused. Patient appears to have stabilized after initiation of twice daily PPI TIME: 33 minutes of critical care time, inclusive of procedures, was spent addressing the patient's acute hypoxemic respiratory failure, sepsis, review of all data and collaboration with the care team. Subjective Subjective Patient did okay overnight from a hemodynamic standpoint. Patient did have episodes of agitation leading to vent dyssynchrony and increased FiO2 requirements. Precedex was reinitiated and oxygen requirements have improved. Patient is not following commands at this time. Patient is tolerating tube feeds. Objective Data Objective Data Vital Signs: Vital Signs Temp Pulse Resp BP Pulse Ox O2 Del Method O2 Flow Rate 37.1 C 86 13 103/72 95 Mechanical Ventilator 2 02/16/22 07:00 02/16/22 07:33 02/16/22 07:33 02/16/22 07:00 02/16/22 07:00 02/16/22 07:00 02/14/22 06:00 FiO2 55 02/16/22 07:00 Oxygen Flow Rate (L/min) 2 Oxygen Delivery Method Mechanical Ventilator Weight: 65 kg Body Mass Index (BMI) 23.8 Intake & Output: Intake and Output for Last 24 Hours 02/14/22 02/15/22 02/16/22 23:59 23:59 23:59 Intake Total 3777.93 / 3821.23 2715.46 / 2761.86 343.18 / 343.18 Output Total 2775 / 3025 2865 / 2865 850 / 850 Balance 1002.93 / 796.23 -149.54 / -103.14 -506.82 / -506.82 Lab / Micro Data Attestation: I reviewed the patient's lab results. Result Diagrams: 02/16/22 04:00 02/16/22 04:00 Labs: Laboratory Results - last 24 hr 02/15/22 11:12: POC Glucose 303 H 02/15/22 13:25: APTT 70.9 H 02/15/22 17:36: POC Glucose 321 H 02/16/22 00:39: POC Glucose 357 H 02/16/22 04:00: WBC 15.0 H, RBC 2.65 L, Hgb 8.3 L, Hct 26.5 L, MCV 100.0 H, MCH 31.3, MCHC 31.3 L, RDW Std Deviation 54.4 H, RDW Coeff of Bettina 14.9 H, Plt Count 102 L, MPV 11.2, Neut % (Auto) Not Reportable, Absolute Neuts (auto) 14.0 H, Absolute Lymphs (auto) 0.45 L, Total Counted 100, Neutrophils % (Manual) 88 H, Band Neutrophils % 5, Lymphocytes % (Manual) 3 L, Monocytes % (Manual) 1, Metamyelocytes % 1, Myelocytes % 2 H, Nucleated RBCs/100 WBC 2, Diff Path Review July foll, Platelet Estimate SLT DEC, Polychromasia RARE, Hypochromasia RARE, Anisocytosis 1+, Microcytosis 1+, Macrocytosis RARE 02/16/22 04:00: Sodium 138, Potassium 4.2, Chloride 96 L, Carbon Dioxide 39.0 H, Anion Gap 3 L, BUN 24 H, Creatinine 0.37 L, Estim Creat Clear Calc 115.91, Est GFR (MDRD) Af Amer 223, Est GFR (MDRD) Non-Af 184, BUN/Creatinine Ratio 64.2 H, Glucose 308 H, Calcium 8.4 L, Total Bilirubin 0.20, AST 17, ALT 30, Alkaline Phosphatase 132 H, Total Protein 5.0 L, Albumin 1.6 L, Globulin 3.4, Albumin/Globulin Ratio 0.5 L 02/16/22 04:00: APTT 77.0 H Micro: Microbiology 02/15/22 16:15 Stool C. difficile DNA Amplification - Final 02/09/22 08:40 Blood Culture (Wb) - Anticubital Left Blood Culture - Final No growth in 5 days. 02/09/22 08:55 Blood Culture (Wb) - No Site/Description Given Blood Culture - Final No growth in 5 days. 02/14/22 06:50 Stool Stool Occult Blood (ROSELIA) - Final Occult Blood Positive 02/13/22 07:08 Mucosa - Nose - Final 02/07/22 10:08 Blood Culture (Wb) - Anticubital Left Blood Culture - Final No growth in 5 days. 02/07/22 10:00 Blood Culture (Wb) - Left Wrist Blood Culture - Final No growth in 5 days. 02/09/22 07:45 Urine Catheter - Garcia Urine Culture - Final Culture exhibits no growth. 02/09/22 07:52 Sputum, Induced/Lukens Gram Stain - Final 02/09/22 07:52 Sputum, Induced/Lukens Respiratory Culture - Final Klebsiella pneumoniae sp pneum Presumptive C albicans 02/07/22 13:20 Urine, Catheterized Urine Culture - Final Klebsiella pneumoniae sp pneum 02/07/22 15:03 Mucosa - Nasopharyngeal Respiratory Panel (PCR) - Final 02/07/22 13:20 Urine Catheter - Garcia Legionella Antigen - Final 02/07/22 13:20 Urine Catheter - Garcia Streptococcus pneumoniae Antigen (M - Final 02/07/22 10:18 Interface Orders Influenza Types A,B Direct FA (ROSELIA) - Final Rhythm Strip Rhythm Strip: Sinus Rhythm Rate: 68 Ectopy: None Physical Exam Const alert and no apparent distress Constitutional Narrative: Currently intubated and mechanically ventilated. Agitated with any stimulus. General Appearance: cooperative, intubated and patient mechanically ventilated Orientation / Consciousness: confused and disoriented HEENT normocephalic, head/scalp atraumatic and moist oral mucous membranes Eyes PERRL, EOMs intact bilaterally and conjunctivae normal Neck supple General: trachea midline Chest inspection of chest normal Chest Narrative: Increased AP diameter. Resp Resp Narrative: Bilateral scattered rhonchi noted. Overall good vent synchrony at this time Auscultation: rales, wheezes and diminished lung sounds; Negative for rhonchi Cardio regular rate, regular rhythm, S1 normal heart sound, S2 normal heart sound, no murmurs, no rub and no gallops GI normal to inspection, nondistended, normoactive bowel sounds Extremity no clubbing, cyanosis or edema General Extremity: edema bilateral lower extremity; Negative for clubbing Skin no rashes or lesions noted Neuro moves all extremities and no focal motor deficits Sensorium / Orientation: sedated on vent Psych Mood & Affect: labile affect and flat affect Charges/Coding Procedures Hospitalists Procedures: 07832 Critial Care 1st Hr
[2022-02-16] MEDS: Folic Acid 1 MG Tablet 0.5 MG GT (08:26)
[2022-02-16] MEDS: Oxybutynin 5 MG Tablet GT (08:26)
[2022-02-16] MEDS: Senna/Docusate Sodium 1 Tablet 2 TABLET PO (08:26)
[2022-02-16] MEDS: Potassium Chloride Oral Tablet 20 MEQ GT ×2 (08:26→16:27)
[2022-02-16] MEDS: Cholecalciferol (VIT D3) 25 MCG TABLET (1,000 UNITS) 125 MCG GT (08:27)
[2022-02-16 08:56] LABS: Pathologist Review Reviewed
[2022-02-16 08:56] LABS: Pathologist Review Reviewed
[2022-02-16 09:05] LABS: Pathologist Review Reviewed
[2022-02-16 09:39] LABS: Pathologist Review Reviewed
[2022-02-16] MEDS: Menthol/Lanolin/Calamine/Znox 113 GM Tube 1 APPLIC TOPICAL ×4 (10:18→21:38)
[2022-02-16] MEDS: Ceftriaxone 1 GM/50 ML BAG IV (10:18)
[2022-02-16] MEDS: Chlorhexidine 15 ML PO ×2 (10:28→21:37)
[2022-02-16] MEDS: Insulin Glargine-YFGN 100 UNIT/ML Pen 40 UNIT SC ×2 (10:38→21:39)
[2022-02-16 10:56] LABS: Bedside Glucose 298 mg/dL (74-106)
--- NOTE | 2022-02-16 12:35 | RAD_ITS ---
HISTORY: checking for ileus. TECHNIQUE: XR Abdomen 1 View. COMPARISON: None. FINDINGS: BOWEL GAS PATTERN: Nasogastric tube tip in the right upper quadrant in the region of the distal stomach. No dilated bowel loops identified. FREE AIR: Not assessed on supine view. OTHER: Interstitial opacities in the lung bases. Garcia catheter and rectal tube noted in the pelvis. RAD/Abdomen Single View (Portable) IMPRESSION: Non-obstructive bowel gas pattern. Electronically Signed: Unique Onofre MD at 13:03 EST ,
[2022-02-16 13:17] LABS: Pathologist Review Reviewed
[2022-02-16] MEDS: 0.9% Saline Lock 10 ML Syringe IV (18:39)
[2022-02-16] MEDS: HEPARIN/D5w 25,000 UNITS 25,000 UNITS/250 ML IV.SOLN. 9 UNITS CONT INF (18:42)
[2022-02-16 18:50] LABS: Bedside Glucose 340 mg/dL (74-106)
[2022-02-16 19:00] LABS: Bedside Glucose 293 mg/dL (74-106)
[2022-02-16 22:05] LABS: Bedside Glucose 190 mg/dL (74-106)
[2022-02-16] MEDS: Polyethylene Glycol 3350 17 GM PACKET GT (23:34)
[2022-02-16 23:55] LABS: Bedside Glucose 201 mg/dL (74-106)
[2022-02-17] VITALS (34 sets, daily range): BP systolic 103–158; BP diastolic 69–110; PULSE 97–153; RESP 10–22; TEMP 37.3–38.2; O2SAT 87–936
[2022-02-17] MEDS: Propofol 10MG/Ml 1,000 MG/100 ML Bottle 16.7 MG CONT INF ×3 (00:31→21:56)
--- NOTE | 2022-02-17 00:41 | EKG12_ITS ---
Test Reason : S. SANDRO Blood Pressure : / mmHG Vent. Rate : 124 BPM Atrial Rate : 124 BPM P-R Int : 124 ms QRS Dur : 074 ms QT Int : 308 ms P-R-T Axes : 047 054 043 degrees QTc Int : 442 ms Sinus tachycardia Nonspecific ST abnormality Abnormal ECG When compared with ECG of 07-FEB-2022 10:27, ST now depressed in Anterior leads Confirmed by LEONID MCCRARY, WILLY ([id number]), scientific publications editor ZOË MCGRATH ([id number]) on 02/21/2022 11:37:27 AM Referred By: Confirmed By:WILLY JAQUEZ MD
--- NOTE | 2022-02-17 00:41 | EKG12_ITS ---
Test Reason : S. SANDRO Blood Pressure : / mmHG Vent. Rate : 126 BPM Atrial Rate : 126 BPM P-R Int : 142 ms QRS Dur : 076 ms QT Int : 312 ms P-R-T Axes : 049 053 042 degrees QTc Int : 451 ms Sinus tachycardia with Premature atrial complexes Nonspecific ST abnormality Abnormal ECG When compared with ECG of 17-FEB-2022 00:41, MANUAL COMPARISON REQUIRED, DATA IS UNCONFIRMED Confirmed by LEONID MCCRARY, WILLY ([id number]), editor magazine [employer] MCGRATH ([id number]) on 02/21/2022 11:37:37 AM Referred By: Confirmed By:WILLY JAQUEZ MD
[2022-02-17] MEDS: Vital AF 1.2 Cal Liquid 1,000 ML 50 ML GT ×2 (01:21→21:22)
[2022-02-17] MEDS: Ipratropium 0.5 MG/2.5 ML SOLUTION INHALATION ×6 (02:37→22:47)
[2022-02-17 04:07] LABS: Hematocrit 31.1 % (37-47); Mean Corp Hgb Conc 32.2 g/dL (32-36); Mean Corpuscular Hgb 32.7 pg (27.0-32.0); Mean Corpuscular Volume 101.6 fL (81-99); Mean Platelet Vol. 11.6 fl (6.2-12.0); NRBC Flagged by Analyzer 0.7 % (0-5); POSITIVE DIFFERENTIAL YES; Platelet Count 123 K/mm3 (150-450); RBC Distribution Width CV 15.4 % (11.6-14.6); Red Blood Count 3.06 M/mm3 (4.2-5.4); White Blood Count 24.5 K/mm3 (4.4-11.0)
[2022-02-17 04:10] LABS: Differential Indicated SCAN CRITERIA MET
[2022-02-17 04:28] LABS: ALB/GLOB Ratio 0.5 RATIO (0.9-2.4); AST(SGOT) 44 U/L (15-37); Alanine Aminotransfer ALT/SGPT 50 U/L (13-56); Alkaline Phosphatase 160 U/L (45-117); Anion Gap 5 (5-15); BUN 27 mg/dL (7-18); BUN/Creat Ratio 64.1 RATIO (10-20); Calcium,Total 8.8 mg/dL (8.5-10.1); Chloride 89 mmol/L (98-107); Creatinine, Serum 0.42 mg/dL (0.55-1.02); EST Glomerular Filtration Rate 161 mL/min (>60); Est Glom Filt Rate - Afr Amer 195 mL/min (>60); Estimated Creatinine Clearance 102.11 ml/min; Glucose 334 mg/dL (74-106); Potassium 3.9 mmol/L (3.5-5.1); Sodium Level 136 mmol/L (136-145)
[2022-02-17] MEDS: Propofol 10MG/Ml 1,000 MG/100 ML Bottle 18.6 MG CONT INF (05:00)
[2022-02-17 05:03] LABS: Lymphocyte 2 % (19-41); Metamyelocyte 2 % (0-1); Monocyte 2 % (0-10); Myelocyte 2 % (0-0); Neutrophil-Band 6 % (0-5); Neutrophil-Segmented 85 % (47-70); Promyelocyte 1 % (0-0); Scan Smear per Review Criteria MANUAL DIFF; Total Cells Counted 100 (MANUAL DIFF)
[2022-02-17 05:04] LABS: Anisocytosis 1+; Platelet Estimate SLT DEC (ADEQ)
[2022-02-17 05:05] LABS: Macrocytosis RARE; Microcytosis RARE; Polychromasia RARE
[2022-02-17 05:06] LABS: Absolute Lymphocyte Count 0.49 X10^3/uL (0.83-4.51); Absolute Neutrophil Count 22.3 X10^3/uL (2.0-7.7); Lymphocyte # 0.49 X10^3/ul (0.83-4.51); Neutrophil # 22.27 X10^3/uL (2.7-7.7)
[2022-02-17] MEDS: Insulin Lispro 100 UNIT/ML INSULN.PEN SC ×4 (05:26→23:01)
[2022-02-17] MEDS: Nystatin/Triamcin Cream Tube 1 APPLIC TOPICAL ×3 (05:29→21:26)
[2022-02-17 06:01] LABS: Bedside Glucose 345 mg/dL (74-106)
--- NOTE | 2022-02-17 07:05 | PCM.PN.INT ---
Assessment & Plan Assessment/Plan (1) Sepsis: PLAN: Plan RECOMMENDATIONS: 1. Continue assist-control mode mechanical ventilation and wean FiO2/PEEP for saturations greater than 90%. Possibly wean PEEP 2. Plan to continue antibiotics to complete 10 days (stop date added) 3. Continue heparin infusion. Resume Eliquis at discharge. 4. Continue Lasix drip as tolerated by hemodynamics and renal function. 5. Attempt to use propofol only for sedation. Continue fentanyl 6. Continue tube feeds as tolerated. Increase basal insulin. Wean steroids 7. Continue scheduled Atrovent aerosols and corticosteroids. 8. Continue appropriate GI prophylaxis. 9. Readdress CODE STATUS if trach required IMPRESSIONS: 1. Acute hypoxemic respiratory failure secondary to Klebsiella pneumonia The patient decompensated from a respiratory perspective on February 09 following an aspiration event the day prior. Accordingly, the patient was intubated. Her chest imaging did demonstrated progressive interstitial infiltrates, left greater than right. Patient should complete at least 10 days of antibiotics. She will be continued on assist control mode of mechanical ventilation. FiO2 and PEEP will be weaned as tolerated to maintain saturations at or above 90%. Tube feeds can be continued for nutritional support. Diuresis achieved using Lasix drip. Clinical suspicion for a significant amount of fluid overload adding to oxygenation issues. Patient appears to have responded well. Patient did grow Klebsiella pneumonia on initial sputum culture. Will wean steroids 2. Septic shock Resolved. The patient presented with sepsis due to Klebsiella pneumonia and cystitis with acute sepsis related organ dysfunction as evidenced by acute respiratory failure requiring invasive mechanical ventilatory support. The patient was just admitted to the hospital with COVID-19 pneumonia. Her chest imaging demonstrates persistent bilateral pulmonary infiltrates, which could be the sequelae of her prior COVID infection with superimposed bacterial pneumonia. Plan to continue antimicrobials as ordered. Patient off of Levophed at this time. 3. Recent COVID-19 pneumonitis/lower extremity DVT Continue supportive measures as noted above. Continue weight-based heparin infusion for now given instability. Eliquis can be resumed at discharge. 4. History of metastatic non-small cell lung cancer The patient has apparently completed radiation and systemic chemotherapy treatment. Recommend outpatient oncology follow-up. Family meeting scheduled for 2 PM today to discuss goals of therapy. 5. Diabetes mellitus/depression/anxiety/GERD Complicates care, management, recovery and prognosis.? Continue sliding scale insulin coverage and PPI therapy as ordered. 6. Anemia Unclear etiology. Patient has had drifting down of the hemoglobin through the hospitalization and appeared pale yesterday. Patient is significantly volume overloaded clinically and may have an element of hemodilution. Stool guaiac was positive. Blood will be transfused. Patient appears to have stabilized after initiation of twice daily PPI TIME: 34 minutes of critical care time, inclusive of procedures, was spent addressing the patient's acute hypoxemic respiratory failure, sepsis, review of all data and collaboration with the care team. Subjective Subjective Patient did okay overnight. Patient continues to have intermittent periods of agitation. Patient has tolerated tube feeds overnight, but residuals have been slightly elevated. Objective Data Objective Data Vital Signs: Vital Signs Temp Pulse Resp BP Pulse Ox O2 Del Method O2 Flow Rate 37.9 C H 113 H 14 151/106 H 93 Mechanical Ventilator 2 02/17/22 07:00 02/17/22 07:00 02/17/22 07:00 02/17/22 07:00 02/17/22 07:00 02/17/22 07:00 02/14/22 06:00 FiO2 65 02/17/22 07:00 Oxygen Flow Rate (L/min) 2 Oxygen Delivery Method Mechanical Ventilator Weight: 64.8 kg Body Mass Index (BMI) 23.8 Intake & Output: Intake and Output for Last 24 Hours 02/15/22 02/16/22 02/17/22 23:59 23:59 23:59 Intake Total 2715.46 / 2761.86 1893.12 / 2003.02 1500.09 / 1500.09 Output Total 2865 / 2865 3075 / 3475 1850 / 1850 Balance -149.54 / -103.14 -1181.88 / -1471.98 -349.91 / -349.91 Lab / Micro Data Attestation: I reviewed the patient's lab results. Result Diagrams: 02/17/22 03:50 02/17/22 03:50 Labs: Laboratory Results - last 24 hr 02/12/22 04:35: Diff Path Review Reviewed 02/13/22 03:35: Diff Path Review Reviewed 02/14/22 04:50: Diff Path Review Reviewed 02/15/22 05:25: Diff Path Review Reviewed 02/16/22 04:00: Diff Path Review Reviewed 02/16/22 06:39: POC Glucose 298 H 02/16/22 10:37: POC Glucose 340 H 02/16/22 18:33: POC Glucose 293 H 02/16/22 21:42: POC Glucose 190 H 02/16/22 23:27: POC Glucose 201 H 02/17/22 03:50: WBC 24.5 H, RBC 3.06 L, Hgb 10.0 L, Hct 31.1 L, MCV 101.6 H, MCH 32.7 H, MCHC 32.2, RDW Std Deviation 56.0 H, RDW Coeff of Bettina 15.4 H, Plt Count 123 L, MPV 11.6, Immature Gran % (Auto) PODIATRIC MEDICINE DOCTOR, Neut % (Auto) PODIATRIC MEDICINE DOCTOR, Lymph % (Auto) PODIATRIC MEDICINE DOCTOR, [place] % (Auto) PODIATRIC MEDICINE DOCTOR, Eos % (Auto) PODIATRIC MEDICINE DOCTOR, Baso % (Auto) PODIATRIC MEDICINE DOCTOR, Absolute Neuts (auto) 22.3 H, Absolute Lymphs (auto) 0.49 L, Total Counted 100, Neutrophils % (Manual) 85 H, Band Neutrophils % 6 H, Lymphocytes % (Manual) 2 L, Monocytes % (Manual) 2, Metamyelocytes % 2 H, Myelocytes % 2 H, Promyelocytes % 1 H, Nucleated RBC % 0.7, Diff Path Review May foll, Platelet Estimate SLT DEC, Polychromasia RARE, Anisocytosis 1+, Microcytosis RARE, Macrocytosis RARE 02/17/22 03:50: Sodium 136, Potassium 3.9, Chloride 89 L, Carbon Dioxide 42.0 H, Anion Gap 5, BUN 27 H, Creatinine 0.42 L, Estim Creat Clear Calc 102.11, Est GFR (MDRD) Af Amer 195, Est GFR (MDRD) Non-Af 161, BUN/Creatinine Ratio 64.1 H, Glucose 334 H, Calcium 8.8, Total Bilirubin 0.30, AST 44 H, ALT 50, Alkaline Phosphatase 160 H, Total Protein 6.0 L, Albumin 2.0 L, Globulin 4.0, Albumin/Globulin Ratio 0.5 L 02/17/22 03:55: APTT 83.0 H 02/17/22 05:13: POC Glucose 345 H Micro: Microbiology 02/15/22 16:15 Stool C. difficile DNA Amplification - Final 02/09/22 08:40 Blood Culture (Wb) - Anticubital Left Blood Culture - Final No growth in 5 days. 02/09/22 08:55 Blood Culture (Wb) - No Site/Description Given Blood Culture - Final No growth in 5 days. 02/14/22 06:50 Stool Stool Occult Blood (ROSELIA) - Final Occult Blood Positive 02/13/22 07:08 Mucosa - Nose - Final 02/07/22 10:08 Blood Culture (Wb) - Anticubital Left Blood Culture - Final No growth in 5 days. 02/07/22 10:00 Blood Culture (Wb) - Left Wrist Blood Culture - Final No growth in 5 days. 02/09/22 07:45 Urine Catheter - Garcia Urine Culture - Final Culture exhibits no growth. 02/09/22 07:52 Sputum, Induced/Lukens Gram Stain - Final 02/09/22 07:52 Sputum, Induced/Lukens Respiratory Culture - Final Klebsiella pneumoniae sp pneum Presumptive C albicans 02/07/22 13:20 Urine, Catheterized Urine Culture - Final Klebsiella pneumoniae sp pneum 02/07/22 15:03 Mucosa - Nasopharyngeal Respiratory Panel (PCR) - Final 02/07/22 13:20 Urine Catheter - Garcia Legionella Antigen - Final 02/07/22 13:20 Urine Catheter - Garcia Streptococcus pneumoniae Antigen (M - Final 02/07/22 10:18 Interface Orders Influenza Types A,B Direct FA (ROSELIA) - Final Radiography Diagnostic Testing: Radiology Impression KUB X-Ray 02/16/22 12:35 IMPRESSION: Non-obstructive bowel gas pattern. Electronically Signed: Unique Onofre MD at 13:03 EST Reading Location ID and State: [facility] / [place] Tel , Service support , Rhythm Strip Rhythm Strip: Sinus Rhythm Rate: 68 Ectopy: None Physical Exam Const no apparent distress Constitutional Narrative: Currently intubated and mechanically ventilated. Agitated with any stimulus. General Appearance: cooperative, intubated and patient mechanically ventilated Orientation / Consciousness: confused and disoriented HEENT normocephalic, head/scalp atraumatic and moist oral mucous membranes Eyes PERRL, EOMs intact bilaterally and conjunctivae normal Neck supple General: trachea midline Chest inspection of chest normal Chest Narrative: Increased AP diameter. Resp Resp Narrative: Bilateral scattered rhonchi noted. Overall good vent synchrony at this time Auscultation: rales, wheezes and diminished lung sounds; Negative for rhonchi Cardio regular rate, regular rhythm, S1 normal heart sound, S2 normal heart sound, no murmurs, no rub and no gallops Rate: tachycardic GI normal to inspection, nondistended, normoactive bowel sounds Extremity no clubbing, cyanosis or edema General Extremity: edema bilateral lower extremity; Negative for clubbing Skin no rashes or lesions noted Neuro moves all extremities and no focal motor deficits Sensorium / Orientation: sedated on vent Psych Mood & Affect: anxious and labile affect Charges/Coding Procedures Hospitalists Procedures: [id number] Critial Care 1st Hr
[2022-02-17] MEDS: Furosemide 500 MG in Empty Viaflex 50 mL 1 EACH CONT INF (08:20)
[2022-02-17] MEDS: Propofol 10MG/Ml 1,000 MG/100 ML Bottle 14.9 MG CONT INF (10:06)
[2022-02-17] MEDS: Folic Acid 1 MG Tablet 0.5 MG GT (10:39)
[2022-02-17] MEDS: Potassium Chloride Oral Tablet 20 MEQ GT ×2 (10:40→17:23)
[2022-02-17] MEDS: Oxybutynin 5 MG Tablet GT (10:41)
[2022-02-17] MEDS: Chlorhexidine 15 ML PO ×2 (10:41→21:25)
[2022-02-17] MEDS: Cholecalciferol (VIT D3) 25 MCG TABLET (1,000 UNITS) 125 MCG GT (10:42)
[2022-02-17] MEDS: Senna/Docusate Sodium 1 Tablet 2 TABLET PO (10:42)
[2022-02-17] MEDS: Insulin Glargine-YFGN 100 UNIT/ML Pen 45 UNIT SC ×2 (10:51→23:00)
[2022-02-17] MEDS: Ceftriaxone 1 GM/50 ML BAG IV (10:55)
--- NOTE | 2022-02-17 10:56 | PN.HOSP_ITS ---
Subjective Subjective Follow-up on acute hypoxic respiratory failure/septic shock: Patient was seen and examined. She was started on Lasix drip. She has had good urine output. No more diarrhea. Fecal management system removed. Objective Data Objective Data Vital Signs: Vital Signs Temp Pulse Resp BP Pulse Ox O2 Del Method O2 Flow Rate 100.2 F H 113 H 14 151/106 H 93 Mechanical Ventilator 2 02/17/22 07:00 02/17/22 07:00 02/17/22 07:00 02/17/22 07:00 02/17/22 07:00 02/17/22 07:00 02/14/22 06:00 FiO2 65 02/17/22 07:00 Oxygen Flow Rate (L/min) 2 Oxygen Delivery Method Mechanical Ventilator Weight: 64.8 kg Body Mass Index (BMI) 23.8 Intake & Output: Intake and Output for Last 24 Hours 02/15/22 02/16/22 02/17/22 23:59 23:59 23:59 Intake Total 2715.46 / 2761.86 1893.12 / 2002. 1679.51 / 1679.51 Output Total 2865 / 2865 3075 / 3475 1850 / 1850 Balance -149.54 / -103.14 -1181.88 / -1471.98 -170.49 / -170.49 Lab / Micro Data Result Diagrams: 02/17/22 03:50 02/17/22 03:50 Labs: Laboratory Results - last 24 hr 02/16/22 04:00: Diff Path Review Reviewed 02/16/22 06:39: POC Glucose 298 H 02/16/22 10:37: POC Glucose 340 H 02/16/22 18:33: POC Glucose 293 H 02/16/22 21:42: POC Glucose 190 H 02/16/22 23:27: POC Glucose 201 H 02/17/22 03:50: WBC 24.5 H, RBC 3.06 L, Hgb 10.0 L, Hct 31.1 L, MCV 101.6 H, MCH 32.7 H, MCHC 32.2, RDW Std Deviation 56.0 H, RDW Coeff of Bettina 15.4 H, Plt Count 123 L, MPV 11.6, Immature Gran % (Auto) [employer]OSPHORIC [employer]ID SUPERVISOR, Neut % (Auto) PHOSPHORIC ACID SUPERVISOR, Lymph % (Auto) PHOSPHORIC ACID SUPERVISOR, Kern % (Auto) PHOSPHORIC ACID SUPERVISOR, Eos % (Auto) PHOSPHORIC ACID SUPERVISOR, Baso % (Auto) PHOSPHORIC ACID SUPERVISOR, Absolute Neuts (auto) 22.3 H, Absolute Lymphs (auto) 0.49 L, Total Counted 100, Neutrophils % (Manual) 85 H , Band Neutrophils % 6 H, Lymphocytes % (Manual) 2 L, Monocytes % (Manual) 2, Metamyelocytes % 2 H, Myelocytes % 2 H, Promyelocytes % 1 H, Nucleated RBC % 0.7, Diff Path Review May foll, Platelet Estimate SLT DEC, Polychromasia RARE, Anisocytosis 1+, Microcytosis RARE, Macrocytosis RARE 02/17/22 03:50: Sodium 136, Potassium 3.9, Chloride 89 L, Carbon Dioxide 42.0 H, Anion Gap 5, BUN 27 H, Creatinine 0.42 L, Estim Creat Clear Calc 102.11, Est GFR (MDRD) Af Amer 195, Est GFR (MDRD) Non-Af 161, BUN/Creatinine Ratio 64.1 H, Glucose 334 H, Calcium 8.8, Total Bilirubin 0.30, AST 44 H, ALT 50, Alkaline Phosphatase 160 H, Total Protein 6.0 L, Albumin 2.0 L, Globulin 4.0, Albumin/Globulin Ratio 0.5 L 02/17/22 03:55: APTT 83.0 H 02/17/22 05:13: POC Glucose 345 H Micro: Microbiology 02/15/22 16:15 Stool C. difficile DNA Amplification - Final 02/09/22 08:40 Blood Culture (Wb) - Anticubital Left Blood Culture - Final No growth in 5 days. 02/09/22 08:55 Blood Culture (Wb) - No Site/Description Given Blood Culture - Final No growth in 5 days. 02/14/22 06:50 Stool Stool Occult Blood (ROSELIA) - Final Occult Blood Positive 02/13/22 07:08 Mucosa - Nose - Final 02/07/22 10:08 Blood Culture (Wb) - Anticubital Left Blood Culture - Final No growth in 5 days. 02/07/22 10:00 Blood Culture (Wb) - Left Wrist Blood Culture - Final No growth in 5 days. 02/09/22 07:45 Urine Catheter - Garcia Urine Culture - Final Culture exhibits no growth. 02/09/22 07:52 Sputum, Induced/Lukens Gram Stain - Final 02/09/22 07:52 Sputum, Induced/Lukens Respiratory Culture - Final Klebsiella pneumoniae sp pneum Presumptive C albicans 02/07/22 13:20 Urine, Catheterized Urine Culture - Final Klebsiella pneumoniae sp pneum 02/07/22 15:03 Mucosa - Nasopharyngeal Respiratory Panel (PCR) - Final 02/07/22 13:20 Urine Catheter - Garcia Legionella Antigen - Final 02/07/22 13:20 Urine Catheter - Garcia Streptococcus pneumoniae Antigen (M - Final 02/07/22 10:18 Interface Orders Influenza Types A,B Direct FA (ROSELIA) - Final Radiography Diagnostic Testing: Radiology Impression KUB X-Ray 02/16/22 12:35 IMPRESSION: Non-obstructive bowel gas pattern. Electronically Signed: Unique Onofre MD at 13:03 EST , Rhythm Strip Rhythm Strip: Sinus Rhythm Rate: 68 Ectopy: None Assessment & Plan Assessment/Plan (1) Sepsis: (2) Hypoxia: (3) Pneumonia: PLAN: Plan 1. Septic shock secondary to acute Klebsiella pneumoniae pneumonia/Klebsiella pneumoniae UTI Urine and sputum cultures growing Klebsiella pneumoniae, pansensitive Blood cultures are negative x5 days Continue on IV ceftriaxone (day 9). 2. 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 Anemia, likely acute on chronic blood loss secondary to acute GI bleed, FOBT is positive, hemoglobin 10.0, s/p 2 units of packed RBC transfusion Will continue to trend 4. Hypokalemia, resolved 5. Acute diarrhea, s/p fecal management system placement, improving Acute C. diff. ruled out 6. Recent DVT of the left lower extremity, off Eliquis for now, Continue on heparin drip 7. Diabetes mellitus type II, blood sugars fairly uncontrolled, Patient with episode of hypoglycemia earlier on your visit. Continue on increased Lantus of 45 units BID as well as high-dose insulin sliding scale 8. 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 History of GERD/depression and anxiety Continue on PPI, fluoxetine and bupropion 10. DVT prophylaxis?on heparin drip Charges/Coding Visit Charges Inpatient E&M: 66591 Subs Hosp L3
[2022-02-17 11:15] LABS: Bedside Glucose 342 mg/dL (74-106)
[2022-02-17 12:09] LABS: Partial Thromboplast Time 53.3 Seconds (24.1-36.2)
[2022-02-17] MEDS: Metoclopramide 10 MG/2 ML Vial 5 MG IV ×3 (12:45→23:01)
[2022-02-17] MEDS: Menthol/Lanolin/Calamine/Znox 113 GM Tube 1 APPLIC TOPICAL ×2 (13:33→21:26)
[2022-02-17] MEDS: Metoprolol Tartrate 25 MG Tablet PO ×2 (15:55→21:45)
[2022-02-17] MEDS: TITRATION PARAMETER CHANGE 1 EACH IV (15:55)
[2022-02-17 17:55] LABS: Bedside Glucose 318 mg/dL (74-106)
[2022-02-17 19:37] LABS: Partial Thromboplast Time 53.7 Seconds (24.1-36.2)
[2022-02-17] MEDS: Heparin Injection (Vial) 5,000 UNIT/ML VIAL IV (20:21)
[2022-02-17] MEDS: 0.9% Saline Lock 10 ML Syringe IV (21:27)
[2022-02-17] MEDS: HEPARIN/D5w 25,000 UNITS 25,000 UNITS/250 ML IV.SOLN. 9 UNITS CONT INF (23:04)
[2022-02-17 23:26] LABS: Bedside Glucose 344 mg/dL (74-106)
[2022-02-18] VITALS (38 sets, daily range): BP systolic 108–131; BP diastolic 69–89; PULSE 70–141; RESP 10–18; TEMP 37.7–38.9; O2SAT 88–98
[2022-02-18] MEDS: Propofol 10MG/Ml 1,000 MG/100 ML Bottle 18.6 MG CONT INF (02:22)
[2022-02-18 02:36] LABS: Hematocrit 29.1 % (37-47); Hemoglobin 9.1 g/dL (12.0-15.0); Mean Corp Hgb Conc 31.3 g/dL (32-36); Mean Corpuscular Hgb 31.8 pg (27.0-32.0); Mean Corpuscular Volume 101.7 fL (81-99); Mean Platelet Vol. 12.1 fl (6.2-12.0); POSITIVE COUNT YES; POSITIVE DIFFERENTIAL YES; POSITIVE MORPHOLOGY YES; Platelet Count 128 K/mm3 (150-450); RBC Distribution Width CV 15.5 % (11.6-14.6); RBC Distribution Width SD 56.6 fl (35.1-43.9); Red Blood Count 2.86 M/mm3 (4.2-5.4); White Blood Count 23.3 K/mm3 (4.4-11.0)
[2022-02-18 02:40] LABS: Differential Indicated MANUAL DIFF
[2022-02-18 02:47] LABS: Partial Thromboplast Time 54.1 Seconds (24.1-36.2)
[2022-02-18 02:54] LABS: Anion Gap 4 (5-15); BUN 29 mg/dL (7-18); BUN/Creat Ratio 68.7 RATIO (10-20); Calcium,Total 8.8 mg/dL (8.5-10.1); Chloride 90 mmol/L (98-107); Creatinine, Serum 0.42 mg/dL (0.55-1.02); EST Glomerular Filtration Rate 160 mL/min (>60); Est Glom Filt Rate - Afr Amer 194 mL/min (>60); Estimated Creatinine Clearance 102.11 ml/min; Glucose 379 mg/dL (74-106); Lymphocyte 1 % (19-41); Metamyelocyte 2 % (0-1); Monocyte 1 % (0-10); Myelocyte 1 % (0-0); Neutrophil-Band 1 % (0-5); Neutrophil-Segmented 94 % (47-70); Potassium 4.3 mmol/L (3.5-5.1); Sodium Level 137 mmol/L (136-145); Total Cells Counted 100 (MANUAL DIFF)
[2022-02-18 02:55] LABS: Absolute Lymphocyte Count 0.22 X10^3/uL (0.83-4.51); Absolute Neutrophil Count 22.8 X10^3/uL (2.0-7.7); Lymphocyte # 0.22 X10^3/ul (0.83-4.51); Neutrophil # 22.83 X10^3/uL (2.7-7.7)
[2022-02-18 02:56] LABS: Platelet Estimate SLT DEC (ADEQ)
[2022-02-18 02:58] LABS: Basophilic Stippling RARE; Polychromasia 1+
[2022-02-18] MEDS: Heparin Injection (Vial) 5,000 UNIT/ML VIAL IV (03:34)
[2022-02-18] MEDS: Ipratropium 0.5 MG/2.5 ML SOLUTION INHALATION ×6 (03:49→22:52)
[2022-02-18] MEDS: Insulin Lispro 100 UNIT/ML INSULN.PEN SC ×4 (05:24→23:19)
[2022-02-18] MEDS: 0.9% Saline Lock 10 ML Syringe IV (05:24)
[2022-02-18] MEDS: Metoclopramide 10 MG/2 ML Vial 5 MG IV ×4 (05:24→23:19)
[2022-02-18] MEDS: CHLORHEXIDINE GLUC 2% CLOTH 1 EACH TOWELETTE TOPICAL (05:25)
[2022-02-18] MEDS: Nystatin/Triamcin Cream Tube 1 APPLIC TOPICAL ×3 (05:25→21:21)
[2022-02-18 05:51] LABS: Bedside Glucose 312 mg/dL (74-106)
[2022-02-18] MEDS: TITRATION PARAMETER CHANGE 1 EACH IV (06:26)
[2022-02-18] MEDS: Propofol 10MG/Ml 1,000 MG/100 ML Bottle 19.1 MG CONT INF ×3 (07:20→17:43)
--- NOTE | 2022-02-18 07:27 | PCM.PN.HOSP ---
Subjective Subjective Follow-up on acute hypoxic respiratory failure/septic shock: Patient was seen and examined.?Patient remains about the same. She is more tachycardic, noted in the later part of yesterday. Started on metoprolol 25 mg twice daily yesterday. Remains on Lasix drip. Objective Data Objective Data Vital Signs: Vital Signs Temp Pulse Resp BP Pulse Ox O2 Del Method O2 Flow Rate 99.8 F H 112 H 12 117/81 H 89 Mechanical Ventilator 2 02/18/22 05:00 02/18/22 07:09 02/18/22 07:09 02/18/22 07:00 02/18/22 07:09 02/18/22 07:00 02/14/22 06:00 FiO2 60 02/18/22 07:00 Oxygen Flow Rate (L/min) 2 Oxygen Delivery Method Mechanical Ventilator Weight: 63.7 kg Body Mass Index (BMI) 23.8 Intake & Output: Intake and Output for Last 24 Hours 02/16/22 02/17/22 02/18/22 23:59 23:59 23:59 Intake Total 1893.12 / 2002. 4506.94 / 4689.61 645.05 / 645.05 Output Total 3075 / 3475 4800 / 4800 700 / 700 Balance -1181.88 / -1471.98 -293.06 / -110.39 -54.95 / -54.95 Lab / Micro Data Result Diagrams: 02/18/22 02:25 02/18/22 02:25 Labs: Laboratory Results - last 24 hr 02/17/22 10:48: POC Glucose 342 H 02/17/22 11:55: APTT 53.3 H 02/17/22 17:12: POC Glucose 318 H 02/17/22 19:00: APTT 53.7 H 02/17/22 23:00: POC Glucose 344 H 02/18/22 02:25: APTT 54.1 H 02/18/22 02:25: WBC 23.3 H, RBC 2.86 L, Hgb 9.1 L, Hct 29.1 L, MCV 101.7 H, MCH 31.8, MCHC 31.3 L, RDW Std Deviation 56.6 H, RDW Coeff of Bettina 15.5 H, Plt Count 128 L, MPV 12.1 H, Neut % (Auto) Not Reportable, Absolute Neuts (auto) 22.8 H, Absolute Lymphs (auto) 0.22 L, Total Counted 100, Neutrophils % (Manual) 94 H, Band Neutrophils % 1, Lymphocytes % (Manual) 1 L, Monocytes % (Manual) 1, Metamyelocytes % 2 H, Myelocytes % 1 H, Diff Path Review May foll, Platelet Estimate SLT DEC, Polychromasia 1+, Basophilic Stippling RARE 02/18/22 02:25: Sodium 137, Potassium 4.3, Chloride 90 L, Carbon Dioxide 43.0 H, Anion Gap 4 L, BUN 29 H, Creatinine 0.42 L, Estim Creat Clear Calc 102.11, Est GFR (MDRD) Af Amer 194, Est GFR (MDRD) Non-Af 160, BUN/Creatinine Ratio 68.7 H, Glucose 379 H, Calcium 8.8 02/18/22 05:23: POC Glucose 312 H Micro: Microbiology 02/15/22 16:15 Stool C. difficile DNA Amplification - Final 02/09/22 08:40 Blood Culture (Wb) - Anticubital Left Blood Culture - Final No growth in 5 days. 02/09/22 08:55 Blood Culture (Wb) - No Site/Description Given Blood Culture - Final No growth in 5 days. 02/14/22 06:50 Stool Stool Occult Blood (ROSELIA) - Final Occult Blood Positive 02/13/22 07:08 Mucosa - Nose - Final 02/07/22 10:08 Blood Culture (Wb) - Anticubital Left Blood Culture - Final No growth in 5 days. 02/07/22 10:00 Blood Culture (Wb) - Left Wrist Blood Culture - Final No growth in 5 days. 02/09/22 07:45 Urine Catheter - Garcia Urine Culture - Final Culture exhibits no growth. 02/09/22 07:52 Sputum, Induced/Lukens Gram Stain - Final 02/09/22 07:52 Sputum, Induced/Lukens Respiratory Culture - Final Klebsiella pneumoniae sp pneum Presumptive C albicans 02/07/22 13:20 Urine, Catheterized Urine Culture - Final Klebsiella pneumoniae sp pneum 02/07/22 15:03 Mucosa - Nasopharyngeal Respiratory Panel (PCR) - Final 02/07/22 13:20 Urine Catheter - Garcia Legionella Antigen - Final 02/07/22 13:20 Urine Catheter - Garcia Streptococcus pneumoniae Antigen (M - Final 02/07/22 10:18 Interface Orders Influenza Types A,B Direct FA (ROSELIA) - Final Rhythm Strip Rhythm Strip: Sinus Rhythm Rate: 68 Ectopy: None Physical Exam Narrative Physical exam: General: Sedated, intubated, mechanical ventilator HEENT: Atraumatic, ET and OG tube in situ Oral: Moist Mucosa Neck: Supple Lungs: Diminished to auscultation Cardiovascular: HS I+II, regular, no murmurs Abdomen: Abdomen appears bloated, Bowel Sounds Present, Soft, Non Tender Extremities: No edema Skin: No rashes, No breakdown Neurological: Grossly intact Psych/Mental Status: Appropriate Assessment & Plan Assessment/Plan (1) Sepsis: (2) Hypoxia: (3) Pneumonia: PLAN: Plan 1. Septic shock secondary to Acute Klebsiella pneumoniae pneumonia/Klebsiella pneumoniae UTI Urine and sputum cultures growing Klebsiella pneumoniae, pansensitive Blood cultures are negative x5 days Continue on IV ceftriaxone 2. 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 Anemia, likely acute on chronic blood loss secondary to acute GI bleed, FOBT is positive, hemoglobin 10.0, s/p 2 units of packed RBC transfusion Will continue to trend 4. Hypokalemia, resolved 5. Acute diarrhea, s/p fecal management system placement, improving Acute C. diff. ruled out 6. Recent DVT of the left lower extremity, off Eliquis for now, Continue on heparin drip 7. Diabetes mellitus type II, blood sugars fairly uncontrolled, Patient with episode of hypoglycemia earlier on your visit. Continue on increased Lantus of 50 units BID as well as high-dose insulin sliding scale 8. 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 History of GERD/depression and anxiety Continue on PPI, fluoxetine and bupropion 10. DVT prophylaxis?on heparin drip Charges/Coding Visit Charges Inpatient E&M: 21284 Subs Hosp L3
--- NOTE | 2022-02-18 07:59 | PCM.PN.INT ---
Assessment & Plan Assessment/Plan (1) Sepsis: PLAN: Plan RECOMMENDATIONS: 1. Continue assist-control mode mechanical ventilation and wean FiO2/PEEP for saturations greater than 90%. Possibly wean PEEP 2. Plan to continue antibiotics to complete 10 days (stop date added) 3. Continue heparin infusion. Resume Eliquis at discharge. 4. Continue Lasix drip as tolerated by hemodynamics and renal function. 5. Attempt to use propofol only for sedation. Continue fentanyl. Add Seroquel 6. Continue tube feeds as tolerated. Increase basal insulin. Wean steroids 7. Continue scheduled Atrovent aerosols and corticosteroids. 8. Continue appropriate GI prophylaxis. 9. Readdress CODE STATUS if trach required IMPRESSIONS: 1. Acute hypoxemic respiratory failure secondary to Klebsiella pneumonia The patient decompensated from a respiratory perspective on February 09 following an aspiration event the day prior. Accordingly, the patient was intubated. Her chest imaging did demonstrated progressive interstitial infiltrates, left greater than right. Patient should complete at least 10 days of antibiotics. She will be continued on assist control mode of mechanical ventilation. FiO2 and PEEP will be weaned as tolerated to maintain saturations at or above 90%. Tube feeds can be continued for nutritional support. Diuresis achieved using Lasix drip. Clinical suspicion for a significant amount of fluid overload adding to oxygenation issues. Patient appears to have responded well. Patient did grow Klebsiella pneumonia on initial sputum culture. Will wean steroids. Clinical suspicion that lung cancer will take patient if trach and PEG 2. Septic shock Resolved. The patient presented with sepsis due to Klebsiella pneumonia and cystitis with acute sepsis related organ dysfunction as evidenced by acute respiratory failure requiring invasive mechanical ventilatory support. The patient was just admitted to the hospital with COVID-19 pneumonia. Her chest imaging demonstrates persistent bilateral pulmonary infiltrates, which could be the sequelae of her prior COVID infection with superimposed bacterial pneumonia. Plan to continue antimicrobials as ordered. Patient off of Levophed at this time. 3. Recent COVID-19 pneumonitis/lower extremity DVT Continue supportive measures as noted above. Continue weight-based heparin infusion for now given instability. Eliquis can be resumed at discharge. 4. History of metastatic non-small cell lung cancer The patient has apparently completed radiation and systemic chemotherapy treatment. Recommend outpatient oncology follow-up. Likely reassess goals of therapy with family on Monday once medically optimized with diuresis 5. Diabetes mellitus/depression/anxiety/GERD Complicates care, management, recovery and prognosis.? Continue sliding scale insulin coverage and PPI therapy as ordered. 6. Anemia Unclear etiology. Patient has had drifting down of the hemoglobin through the hospitalization and appeared pale yesterday. Patient is significantly volume overloaded clinically and may have an element of hemodilution. Stool guaiac was positive. Blood was transfused. Patient appears to have stabilized after initiation of twice daily PPI TIME: 32 minutes of critical care time, inclusive of procedures, was spent addressing the patient's acute hypoxemic respiratory failure, sepsis, review of all data and collaboration with the care team. Subjective Subjective Patient did okay overnight. No acute issues were reported. Patient did have her Lasix drip decreased overnight. Nursing continues to report intermittent agitation. Objective Data Objective Data Vital Signs: Vital Signs Temp Pulse Resp BP Pulse Ox O2 Del Method O2 Flow Rate 37.7 C H 116 H 12 117/81 H 89 Mechanical Ventilator 2 02/18/22 05:00 02/18/22 07:30 02/18/22 07:09 02/18/22 07:00 02/18/22 07:09 02/18/22 07:32 02/14/22 06:00 FiO2 60 02/18/22 07:32 Oxygen Flow Rate (L/min) 2 Oxygen Delivery Method Mechanical Ventilator Weight: 63.7 kg Body Mass Index (BMI) 23.8 Intake & Output: Intake and Output for Last 24 Hours 02/16/22 02/17/22 02/18/22 23:59 23:59 23:59 Intake Total 1893.12 / 2002.02 4506.94 / 4689.61 720.05 / 720.05 Output Total 3075 / 3475 4800 / 4800 700 / 700 Balance -1181.88 / -1471.98 -293.06 / -110.39 20.05 / 20.05 Lab / Micro Data Attestation: I reviewed the patient's lab results. Result Diagrams: 02/18/22 02:25 02/18/22 02:25 Labs: Laboratory Results - last 24 hr 02/17/22 10:48: POC Glucose 342 H 02/17/22 11:55: APTT 53.3 H 02/17/22 17:12: POC Glucose 318 H 02/17/22 19:00: APTT 53.7 H 02/17/22 23:00: POC Glucose 344 H 02/18/22 02:25: APTT 54.1 H 02/18/22 02:25: WBC 23.3 H, RBC 2.86 L, Hgb 9.1 L, Hct 29.1 L, MCV 101.7 H, MCH 31.8, MCHC 31.3 L, RDW Std Deviation 56.6 H, RDW Coeff of Bettina 15.5 H, Plt Count 128 L, MPV 12.1 H, Neut % (Auto) Not Reportable, Absolute Neuts (auto) 22.8 H, Absolute Lymphs (auto) 0.22 L, Total Counted 100, Neutrophils % (Manual) 94 H, Band Neutrophils % 1, Lymphocytes % (Manual) 1 L, Monocytes % (Manual) 1, Metamyelocytes % 2 H, Myelocytes % 1 H, Diff Path Review July, Platelet Estimate SLT DEC, Polychromasia 1+, Basophilic Stippling RARE 02/18/22 02:25: Sodium 137, Potassium 4.3, Chloride 90 L, Carbon Dioxide 43.0 H, Anion Gap 4 L, BUN 29 H, Creatinine 0.42 L, Estim Creat Clear Calc 102.11, Est GFR (MDRD) Af Amer 194, Est GFR (MDRD) Non-Af 160, BUN/Creatinine Ratio 68.7 H, Glucose 379 H, Calcium 8.8 02/18/22 05:23: POC Glucose 312 H Micro: Microbiology 02/15/22 16:15 Stool C. difficile DNA Amplification - Final 02/09/22 08:40 Blood Culture (Wb) - Anticubital Left Blood Culture - Final No growth in 5 days. 02/09/22 08:55 Blood Culture (Wb) - No Site/Description Given Blood Culture - Final No growth in 5 days. 02/14/22 06:50 Stool Stool Occult Blood (ROSELIA) - Final Occult Blood Positive 02/13/22 07:08 Mucosa - Nose - Final 02/07/22 10:08 Blood Culture (Wb) - Anticubital Left Blood Culture - Final No growth in 5 days. 02/07/22 10:00 Blood Culture (Wb) - Left Wrist Blood Culture - Final No growth in 5 days. 02/09/22 07:45 Urine Catheter - Garcia Urine Culture - Final Culture exhibits no growth. 02/09/22 07:52 Sputum, Induced/Lukens Gram Stain - Final 02/09/22 07:52 Sputum, Induced/Lukens Respiratory Culture - Final Klebsiella pneumoniae sp pneum Presumptive C albicans 02/07/22 13:20 Urine, Catheterized Urine Culture - Final Klebsiella pneumoniae sp pneum 02/07/22 15:03 Mucosa - Nasopharyngeal Respiratory Panel (PCR) - Final 02/07/22 13:20 Urine Catheter - Garcia Legionella Antigen - Final 02/07/22 13:20 Urine Catheter - Garcia Streptococcus pneumoniae Antigen (M - Final 02/07/22 10:18 Interface Orders Influenza Types A,B Direct FA (ROSELIA) - Final Rhythm Strip Rhythm Strip: Sinus Rhythm Rate: 68 Ectopy: None Physical Exam Const no apparent distress Constitutional Narrative: Currently intubated and mechanically ventilated. Agitated with any stimulus. General Appearance: intubated and patient mechanically ventilated Orientation / Consciousness: confused and disoriented HEENT normocephalic, head/scalp atraumatic and moist oral mucous membranes Eyes PERRL, EOMs intact bilaterally and conjunctivae normal Neck supple General: trachea midline Chest Chest Narrative: Increased AP diameter. Resp Resp Narrative: Bilateral scattered rhonchi noted. Overall good vent synchrony at this time Auscultation: rales, wheezes and diminished lung sounds; Negative for rhonchi Cardio regular rhythm, S1 normal heart sound, S2 normal heart sound, no murmurs, no rub and no gallops Rate: tachycardic GI normal to inspection, nondistended, normoactive bowel sounds Extremity General Extremity: edema bilateral lower extremity; Negative for clubbing Skin no rashes or lesions noted Neuro moves all extremities and no focal motor deficits Sensorium / Orientation: sedated on vent Psych Mood & Affect: labile affect Charges/Coding Procedures Hospitalists Procedures: 56482 Critial Care 1st Hr
[2022-02-18] MEDS: Oxybutynin 5 MG Tablet GT (08:33)
[2022-02-18] MEDS: Potassium Chloride Oral Tablet 20 MEQ GT ×2 (08:33→17:07)
[2022-02-18] MEDS: Metoprolol Tartrate 25 MG Tablet PO ×2 (08:33→21:21)
[2022-02-18] MEDS: Cholecalciferol (VIT D3) 25 MCG TABLET (1,000 UNITS) 125 MCG GT (08:33)
[2022-02-18] MEDS: Menthol/Lanolin/Calamine/Znox 113 GM Tube 1 APPLIC TOPICAL ×4 (08:34→21:21)
[2022-02-18] MEDS: Folic Acid 1 MG Tablet 0.5 MG GT (08:34)
[2022-02-18] MEDS: Insulin Glargine-YFGN 100 UNIT/ML Pen 50 UNIT SC ×2 (08:35→23:19)
[2022-02-18] MEDS: Chlorhexidine 15 ML PO ×2 (08:45→21:21)
[2022-02-18] MEDS: Ceftriaxone 1 GM/50 ML BAG IV (09:14)
[2022-02-18] MEDS: QUEtiapine 25 MG Tablet 50 MG PO ×2 (10:04→21:22)
[2022-02-18] MEDS: Senna/Docusate Sodium 1 Tablet 2 TABLET PO (10:04)
[2022-02-18 10:25] LABS: Partial Thromboplast Time 74.8 Seconds (24.1-36.2)
[2022-02-18 12:20] LABS: Bedside Glucose 309 mg/dL (74-106)
[2022-02-18 13:27] LABS: Pathologist Review Reviewed
[2022-02-18 13:31] LABS: Pathologist Review Reviewed
[2022-02-18 17:28] LABS: Partial Thromboplast Time 64.6 Seconds (24.1-36.2)
[2022-02-18 17:40] LABS: Bedside Glucose 212 mg/dL (74-106)
[2022-02-18] MEDS: Vital AF 1.2 Cal Liquid 1,000 ML 50 ML GT (17:52)
[2022-02-18] MEDS: Acetaminophen 650 MG/20 ML UDC GT (21:57)
[2022-02-18] MEDS: HEPARIN/D5w 25,000 UNITS 25,000 UNITS/250 ML IV.SOLN. 10 UNITS CONT INF (22:41)
[2022-02-18] MEDS: Propofol 10MG/Ml 1,000 MG/100 ML Bottle 15.3 MG CONT INF (23:19)
[2022-02-18 23:45] LABS: Bedside Glucose 214 mg/dL (74-106)
[2022-02-19] VITALS (39 sets, daily range): BP systolic 93–147; BP diastolic 51–103; PULSE 95–150; RESP 12–24; TEMP 38.4–39.1; O2SAT 90–96
[2022-02-19] MEDS: 0.9% Saline Lock 10 ML Syringe IV ×2 (04:44→20:52)
[2022-02-19 04:51] LABS: Hematocrit 25.8 % (37-47); Hemoglobin 7.7 g/dL (12.0-15.0); Mean Corp Hgb Conc 29.8 g/dL (32-36); Mean Corpuscular Hgb 30.9 pg (27.0-32.0); Mean Corpuscular Volume 103.6 fL (81-99); Mean Platelet Vol. 11.8 fl (6.2-12.0); POSITIVE COUNT YES; POSITIVE MORPHOLOGY YES; Platelet Count 129 K/mm3 (150-450); RBC Distribution Width CV 15.6 % (11.6-14.6); RBC Distribution Width SD 57.7 fl (35.1-43.9); Red Blood Count 2.49 M/mm3 (4.2-5.4); White Blood Count 22.4 K/mm3 (4.4-11.0)
[2022-02-19 05:02] LABS: Partial Thromboplast Time 72.8 Seconds (24.1-36.2)
[2022-02-19 05:13] LABS: BUN 42 mg/dL (7-18); BUN/Creat Ratio 96.1 RATIO (10-20); Calcium,Total 7.9 mg/dL (8.5-10.1); Carbon Dioxide > 45.0 mmol/L (21.0-32.0); Chloride 91 mmol/L (98-107); Creatinine, Serum 0.44 mg/dL (0.55-1.02); EST Glomerular Filtration Rate 154 mL/min (>60); Est Glom Filt Rate - Afr Amer 186 mL/min (>60); Estimated Creatinine Clearance 97.47 ml/min; Glucose 310 mg/dL (74-106); Potassium 4.7 mmol/L (3.5-5.1); Sodium Level 137 mmol/L (136-145)
[2022-02-19] MEDS: Insulin Lispro 100 UNIT/ML INSULN.PEN SC ×3 (05:22→17:31)
[2022-02-19] MEDS: Metoclopramide 10 MG/2 ML Vial 5 MG IV ×3 (05:22→17:33)
[2022-02-19] MEDS: Nystatin/Triamcin Cream Tube 1 APPLIC TOPICAL ×3 (05:22→20:51)
[2022-02-19 05:25] LABS: Differential Indicated MANUAL DIFF
[2022-02-19 05:28] LABS: Eosinophil 1 % (0-5); Lymphocyte 5 % (19-41); Metamyelocyte 3 % (0-1); Monocyte 1 % (0-10); Myelocyte 5 % (0-0); Neutrophil-Band 5 % (0-5); Neutrophil-Segmented 80 % (47-70); Platelet Estimate ADEQUATE (ADEQ); Total Cells Counted 100 (MANUAL DIFF)
[2022-02-19 05:29] LABS: Absolute Neutrophil Count 19.1 X10^3/uL (2.0-7.7); Anisocytosis 1+; Hypochromasia 1+; Macrocytosis RARE; Microcytosis RARE; Neutrophil # 19.06 X10^3/uL (2.7-7.7); Polychromasia RARE
[2022-02-19 05:30] LABS: Absolute Lymphocyte Count 1.12 X10^3/uL (0.83-4.51); Lymphocyte # 1.12 X10^3/ul (0.83-4.51)
[2022-02-19 05:46] LABS: Bedside Glucose 317 mg/dL (74-106)
[2022-02-19] MEDS: CHLORHEXIDINE GLUC 2% CLOTH 1 EACH TOWELETTE TOPICAL (06:24)
[2022-02-19] MEDS: TITRATION PARAMETER CHANGE 1 EACH IV (06:24)
[2022-02-19] MEDS: Propofol 10MG/Ml 1,000 MG/100 ML Bottle 9.5 MG CONT INF (06:34)
[2022-02-19] MEDS: Ipratropium 0.5 MG/2.5 ML SOLUTION INHALATION ×6 (07:12→22:30)
--- NOTE | 2022-02-19 07:46 | PN.CC_ITS ---
Assessment & Plan Assessment/Plan (1) Sepsis: PLAN: Plan RECOMMENDATIONS: 1. Continue assist-control mode mechanical ventilation and wean FiO2/PEEP for saturations greater than 90%. Possibly wean PEEP 2. Plan to continue antibiotics to complete 10 days (stop date added) 3. Continue heparin infusion. Resume Eliquis at discharge. 4. Continue Lasix drip as tolerated by hemodynamics and renal function. 5. Attempt to use propofol only for sedation. Continue fentanyl. Add Seroquel 6. Continue tube feeds as tolerated. Increase basal insulin. Wean steroids 7. Continue scheduled Atrovent aerosols and corticosteroids. 8. Continue appropriate GI prophylaxis. 9. Readdress CODE STATUS after Monday meeting IMPRESSIONS: 1. Acute hypoxemic respiratory failure secondary to Klebsiella pneumonia The patient decompensated from a respiratory perspective on February 09 following an aspiration event the day prior. Accordingly, the patient was intubated. Her chest imaging did demonstrated progressive interstitial infiltrates, left greater than right. Patient should complete at least 10 days of antibiotics. She will be continued on assist control mode of mechanical ventilation. FiO2 and PEEP will be weaned as tolerated to maintain saturations at or above 90%. Tube feeds can be continued for nutritional support. Diuresis marginally treating using Lasix drip. Will increase dosage. Clinical suspicion for a significant amount of fluid overload adding to oxygenation issues. Patient appears to have responded well. Patient did grow Klebsiella pneumonia on initial sputum culture. Clinical suspicion that lung cancer will take patient if trach and PEG 2. Septic shock Resolved. The patient presented with sepsis due to Klebsiella pneumonia and cystitis with acute sepsis related organ dysfunction as evidenced by acute respiratory failure requiring invasive mechanical ventilatory support. The patient was just admitted to the hospital with COVID-19 pneumonia. Her chest imaging demonstrates persistent bilateral pulmonary infiltrates, which could be the sequelae of her prior COVID infection with superimposed bacterial pneumonia. Plan to continue antimicrobials as ordered. Patient off of Levophed at this time. Unclear if repeat fever secondary to addition of Seroquel 3. Recent COVID-19 pneumonitis/lower extremity DVT Continue supportive measures as noted above. Continue weight-based heparin infusion for now given instability. Eliquis can be resumed at discharge. 4. History of metastatic non-small cell lung cancer The patient has apparently completed radiation and systemic chemotherapy t reatment. Recommend outpatient oncology follow-up. Likely reassess goals of therapy with family on Monday after attempting medical optimization with diuresis 5. Diabetes mellitus/depression/anxiety/GERD Complicates care, management, recovery and prognosis.? Continue sliding scale insulin coverage and PPI therapy as ordered. 6. Anemia Stable. Unclear initial etiology. Patient has had drifting down of the hemoglobin through the hospitalization and appeared pale yesterday. Patient is significantly volume overloaded clinically and may have an element of hemodilution. Stool guaiac was positive. Blood was transfused. Patient hever ears to have stabilized after initiation of twice daily PPI TIME: 32 Minutes of critical care time, inclusive of procedures, was spent addressing the patient's acute hypoxemic respiratory failure, sepsis, review of all data and collaboration with the care team. Subjective Subjective Patient did okay overnight, but did have significant fever and tachycardia. Patient had an episode of vent dyssynchrony leading to increased FiO2 requirements and tachycardia. Attempts at diuresis have been marginally effective. Objective Data Objective Data Vital Signs: Vital Signs Temp Pulse Resp BP Pulse Ox O2 Del Method O2 Flow Rate 38.5 C H 130 H 13 131/88 H 93 Mechanical Ventilator 2 02/19/22 07:00 02/19/22 07:00 02/19/22 07:00 02/19/22 07:00 02/19/22 07:00 02/19/22 07:00 02/14/22 06:00 FiO2 80 02/19/22 07:00 Oxygen Flow Rate (L/min) 2 Oxygen Delivery Method Mechanical Ventilator Weight: 63.5 kg Body Mass Index (BMI) 23.8 Intake & Output: Intake and Output for Last 24 Hours 02/17/22 02/18/22 02/19/22 23:59 23:59 23:59 Intake Total 4506.94 / 4689.61 3111.41 / 3466.70 1043.02 / 1043.02 Output Total 4800 / 4800 2135 / 2385 700 / 700 Balance -293.06 / -110.39 976.41 / 1081.70 343.02 / 343.02 Lab / Micro Data Attestation: I reviewed the patient's lab results. Result Diagrams: 02/19/22 04:40 02/19/22 04:40 Labs: Laboratory Results - last 24 hr 02/17/22 03:50: Diff Path Review Reviewed 02/18/22 02:25: Diff Path Review Reviewed 02/18/22 10:00: APTT 74.8 H 02/18/22 11:54: POC Glucose 309 H 02/18/22 17:05: APTT 64.6 H 02/18/22 17:12: POC Glucose 212 H 02/18/22 23:18: POC Glucose 214 H 02/19/22 04:40: WBC 22.4 H, RBC 2.49 L, Hgb 7.7 L, Hct 25.8 L, MCV 103.6 H, MCH 30.9, MCHC 29.8 L, RDW Std Deviation 57.7 H, RDW Coeff of Bettina 15.6 H, Plt Count 129 L, MPV 11.8, Neut % (Auto) Not Reportable, Absolute Neuts (auto) 19.1 H, Absolute Lymphs (auto) 1.12, Total Counted 100, Neutrophils % (Manual) 80 H, Band Neutrophils % 5, Lymphocytes % (Manual) 5 L, Monocytes % (Manual) 1, Eosinophils % (Manual) 1, Metamyelocytes % 3 H, Myelocytes % 5 H, Diff Path Review May foll, Platelet Estimate ADEQUATE, Polychromasia RARE, Hypochromasia 1+, Anisocytosis 1+, Microcytosis RARE, Macrocytosis RARE 02/19/22 04:40: APTT 72.8 H 02/19/22 04:40: Sodium 137, Potassium 4.7, Chloride 91 L, Carbon Dioxide > 45.0 H*, Anion Gap TNP, BUN 42 H, Creatinine 0.44 L, Estim Creat Clear Calc 97.47, Est GFR (MDRD) Af Amer 186, Est GFR (MDRD) Non-Af 154, BUN/Creatinine Ratio 96.1 H, Glucose 310 H, Calcium 7.9 L 02/19/22 05:21: POC Glucose 317 H Micro: Microbiology 02/15/22 16:15 Stool C. difficile DNA Amplification - Final 02/09/22 08:40 Blood Culture (Wb) - Anticubital Left Blood Culture - Final No growth in 5 days. 02/09/22 08:55 Blood Culture (Wb) - No Site/Description Given Blood Culture - Final No growth in 5 days. 02/14/22 06:50 Stool Stool Occult Blood (ROSELIA) - Final Occult Blood Positive 02/13/22 07:08 Mucosa - Nose - Final 02/07/22 10:08 Blood Culture (Wb) - Anticubital Left Blood Culture - Final No growth in 5 days. 02/07/22 10:00 Blood Culture (Wb) - Left Wrist Blood Culture - Final No growth in 5 days. 02/09/22 07:45 Urine Catheter - Garcia Urine Culture - Final Culture exhibits no growth. 02/09/22 07:52 Sputum, Induced/Lukens Gram Stain - Final 02/09/22 07:52 Sputum, Induced/Lukens Respiratory Culture - Final Klebsiella pneumoniae sp pneum Presumptive C albicans 02/07/22 13:20 Urine, Catheterized Urine Culture - Final Klebsiella pneumoniae sp pneum 02/07/22 15:03 Mucosa - Nasopharyngeal Respiratory Panel (PCR) - Final 02/07/22 13:20 Urine Catheter - Garcia Legionella Antigen - Final 02/07/22 13:20 Urine Catheter - Garcia Streptococcus pneumoniae Antigen (M - Final 02/07/22 10:18 Interface Orders Influenza Types A,B Direct FA (ROSELIA) - Final Rhythm Strip Rhythm Strip: A-fib Rate: 131 Ectopy: None Physical Exam Const no apparent distress Constitutional Narrative: Currently intubated and mechanically ventilated. Agitated with any stimulus. Not following commands General Appearance: intubated and patient mechanically ventilated Orientation / Consciousness: confused and disoriented HEENT normocephalic, head/scalp atraumatic and moist oral mucous membranes Eyes PERRL, EOMs intact bilaterally and conjunctivae normal Neck supple General: trachea midline Chest Chest Narrative: Increased AP diameter. Resp Resp Narrative: Bilateral scattered rhonchi noted. Overall good vent synchrony at this time Auscultation: rales, wheezes and diminished lung sounds; Negative for rhonchi Cardio S1 normal heart sound, S2 normal heart sound, no murmurs, no rub and no gallops Rate: tachycardic Rhythm: abnormal rhythm irregularly irregular GI normal to inspection, nondistended, normoactive bowel sounds Extremity General Extremity: edema bilateral lower extremity; Negative for clubbing Skin no rashes or lesions noted Neuro moves all extremities and no focal motor deficits Sensorium / Orientation: sedated on vent Psych Mood & Affect: labile affect Charges/Coding Procedures Hospitalists Procedures: 08924 Critial Care 1st Hr
--- NOTE | 2022-02-19 08:44 | PN.HOSP_ITS ---
Subjective Subjective Follow-up on acute hypoxic respiratory failure/septic shock: Patient was seen and examined.? Patient remains tachycardic. Metoprolol increased 200 mg p.o. twice daily. Oxygen requirements have not improved despite good diuresis with Lasix drip Objective Data Objective Data Vital Signs: Vital Signs Temp Pulse Resp BP Pulse Ox O2 Del Method O2 Flow Rate 101.6 F H 138 H 14 134/96 H 92 Mechanical Ventilator 2 02/19/22 08:00 02/19/22 08:00 02/19/22 08:00 02/19/22 08:00 02/19/22 08:00 02/19/22 08:00 02/14/22 06:00 FiO2 80 02/19/22 08:00 Oxygen Flow Rate (L/min) 2 Oxygen Delivery Method Mechanical Ventilator Weight: 63.5 kg Body Mass Index (BMI) 23.8 Intake & Output: Intake and Output for Last 24 Hours 02/17/22 02/18/22 02/19/22 23:59 23:59 23:59 Intake Total 4506.94 / 4689.61 3111.41 / 3466.70 1101.70 / 1101.70 Output Total 4800 / 4800 2135 / 2385 800 / 800 Balance -293.06 / -110.39 976.41 / 1081.70 301.70 / 301.70 Lab / Micro Data Result Diagrams: 02/19/22 04:40 02/19/22 04:40 Labs: Laboratory Results - last 24 hr 02/17/22 03:50: Diff Path Review Reviewed 02/18/22 02:25: Diff Path Review Reviewed 02/18/22 10:00: APTT 74.8 H 02/18/22 11:54: POC Glucose 309 H 02/18/22 17:05: APTT 64.6 H 02/18/22 17:12: POC Glucose 212 H 02/18/22 23:18: POC Glucose 214 H 02/19/22 04:40: WBC 22.4 H, RBC 2.49 L, Hgb 7.7 L, Hct 25.8 L, MCV 103.6 H, MCH 30.9, MCHC 29.8 L, RDW Std Deviation 57.7 H, RDW Coeff of Bettina 15.6 H, Plt Count 129 L, MPV 11.8, Neut % (Auto) Not Reportable, Absolute Neuts (auto) 19.1 H, Absolute Lymphs (auto) 1.12, Total Counted 100, Neutrophils % (Manual) 80 H, Band Neutrophils % 5, Lymphocytes % (Manual) 5 L, Monocytes % (Manual) 1, Eosinophils % (Manual) 1, Metamyelocytes % 3 H, Myelocytes % 5 H, Diff Path Review May foll, Platelet Estimate ADEQUATE, Polychromasia RARE, Hypochromasia 1+, Anisocytosis 1+, Microcytosis RARE, Macrocytosis RARE 02/19/22 04:40: APTT 72.8 H 02/19/22 04:40: Sodium 137, Potassium 4.7, Chloride 91 L, Carbon Dioxide > 45.0 H*, Anion Gap TNP, BUN 42 H, Creatinine 0.44 L, Estim Creat Clear Calc 97.47, Est GFR (MDRD) Af Amer 186, Est GFR (MDRD) Non-Af 154, BUN/Creatinine Ratio 96.1 H, Glucose 310 H, Calcium 7.9 L 02/19/22 05:21: POC Glucose 317 H Micro: Microbiology 02/15/22 16:15 Stool C. difficile DNA Amplification - Final 02/09/22 08:40 Blood Culture (Wb) - Anticubital Left Blood Culture - Final No growth in 5 days. 02/09/22 08:55 Blood Culture (Wb) - No Site/Description Given Blood Culture - Final No growth in 5 days. 02/14/22 06:50 Stool Stool Occult Blood (ROSELIA) - Final Occult Blood Positive 02/13/22 07:08 Mucosa - Nose - Final 02/07/22 10:08 Blood Culture (Wb) - Anticubital Left Blood Culture - Final No growth in 5 days. 02/07/22 10:00 Blood Culture (Wb) - Left Wrist Blood Culture - Final No growth in 5 days. 02/09/22 07:45 Urine Catheter - Garcia Urine Culture - Final Culture exhibits no growth. 02/09/22 07:52 Sputum, Induced/Lukens Gram Stain - Final 02/09/22 07:52 Sputum, Induced/Lukens Respiratory Culture - Final Klebsiella pneumoniae sp pneum Presumptive C albicans 02/07/22 13:20 Urine, Catheterized Urine Culture - Final Klebsiella pneumoniae sp pneum 02/07/22 15:03 Mucosa - Nasopharyngeal Respiratory Panel (PCR) - Final 02/07/22 13:20 Urine Catheter - Garcia Legionella Antigen - Final 02/07/22 13:20 Urine Catheter - Garcia Streptococcus pneumoniae Antigen (M - Final 02/07/22 10:18 Interface Orders Influenza Types A,B Direct FA (ROSELIA) - Final Rhythm Strip Rhythm Strip: A-fib Rate: 131 Ectopy: None Physical Exam Narrative Physical exam: General: Sedated, intubated, mechanical ventilator HEENT: Atraumatic, ET and OG tube in situ Oral: Moist Mucosa Neck: Supple Lungs: Diminished to auscultation Cardiovascular: HS I+II, regular, no murmurs Abdomen: Abdomen appears bloated, Bowel Sounds Present, Soft, Non Tender Extremities: Bilateral leg edema +1 Skin: No rashes, No breakdown Neurological: Grossly intact Psych/Mental Status: Appropriate Assessment & Plan Assessment/Plan (1) Sepsis: (2) Hypoxia: (3) Pneumonia: PLAN: Plan 1. Septic shock secondary to Acute Klebsiella pneumoniae pneumonia/Klebsiella pneumoniae UTI Urine and sputum cultures growing Klebsiella pneumoniae, pansensitive Blood cultures are negative x5 days Continue on IV ceftriaxone 2. Acute hypoxic respiratory failure secondary to acute Klebsiella pneumonia/aspiration pneumonia Patient remains intubated; Continue mechanical ventilator, profiling machine set up operator following 3. Anemia, likely acute on chronic blood loss secondary to acute GI bleed, FOBT is positive, hemoglobin 7.7, s/p 2 units of packed RBC transfusion Continue IV PPI BID, trend anemia 4. Hypokalemia, resolved 5. Acute diarrhea, s/p fecal management system placement, resolved Acute C. diff. ruled out 6. Recent DVT of the left lower extremity, off Eliquis for now, Continue on heparin drip 7. Diabetes mellitus type II, blood sugars fairly uncontrolled, Patient with episode of hypoglycemia earlier on your visit. Continue on increased Lantus of 50 units BID as well as high-dose insulin sliding scale 8. 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 History of GERD/depression and anxiety Continue on PPI, fluoxetine and bupropion 10. DVT prophylaxis?on heparin drip Charges/Coding Visit Charges Inpatient E&M: 68825 Subs Hosp L3
[2022-02-19] MEDS: Acetaminophen 650 MG/20 ML UDC GT ×3 (08:54→20:52)
[2022-02-19] MEDS: Chlorhexidine 15 ML PO ×2 (10:11→20:52)
[2022-02-19] MEDS: Cholecalciferol (VIT D3) 25 MCG TABLET (1,000 UNITS) 125 MCG GT (10:12)
[2022-02-19] MEDS: Oxybutynin 5 MG Tablet GT (10:12)
[2022-02-19] MEDS: Folic Acid 1 MG Tablet 0.5 MG GT (10:13)
[2022-02-19] MEDS: Potassium Chloride Oral Tablet 20 MEQ GT ×2 (10:13→15:52)
[2022-02-19] MEDS: Menthol/Lanolin/Calamine/Znox 113 GM Tube 1 APPLIC TOPICAL ×4 (10:13→23:27)
[2022-02-19] MEDS: Senna/Docusate Sodium 1 Tablet 2 TABLET PO (10:15)
[2022-02-19] MEDS: Metoprolol Tartrate 100 MG Tablet PO ×2 (10:16→20:54)
[2022-02-19] MEDS: QUEtiapine 25 MG Tablet 50 MG PO ×2 (11:03→20:50)
--- NOTE | 2022-02-19 11:48 | CASEMGMT ---
Addendum entered by Ros Tavarez 02/19/22 13:24: CHANDANA updated MULE [employer] Radha about this contact. Ros BRANNON Original Note: CHANDANA Note CHANDANA called patient's POAAbigail and inquired about a family meeting on Monday. Abigail said that a Monday meeting was not possible as their was a in the family, a cousin, so they will be attending an out of state . Abigail agreed to call this senior underwriter back with day and time that the family could meet with patient's MD, Dr. Gould. CHANDANA provided phone number. Plan: Follow up with CHILANGO Hayes regarding family meeting Ros BRANNON
[2022-02-19] MEDS: Insulin Glargine-YFGN 100 UNIT/ML Pen 50 UNIT SC ×2 (12:09→20:51)
[2022-02-19 12:56] LABS: Bedside Glucose 281 mg/dL (74-106)
[2022-02-19] MEDS: Ceftriaxone 1 GM/50 ML BAG IV (13:14)
[2022-02-19] MEDS: Propofol 10MG/Ml 1,000 MG/100 ML Bottle 1.9 MG CONT INF (15:28)
[2022-02-19] MEDS: Vital AF 1.2 Cal Liquid 1,000 ML 50 ML GT (15:46)
[2022-02-19] MEDS: Furosemide 500 MG in Empty Viaflex 50 mL 1 EACH CONT INF (17:27)
[2022-02-19 18:00] LABS: Bedside Glucose 325 mg/dL (74-106)
[2022-02-19 21:36] LABS: Bedside Glucose 341 mg/dL (74-106)
[2022-02-19] MEDS: HEPARIN/D5w 25,000 UNITS 25,000 UNITS/250 ML IV.SOLN. 10 UNITS CONT INF (23:28)
[2022-02-20] VITALS (44 sets, daily range): BP systolic 91–120; BP diastolic 58–94; PULSE 98–127; RESP 12–18; TEMP 37.8–38.3; O2SAT 90–97
[2022-02-20] MEDS: Insulin Lispro 100 UNIT/ML INSULN.PEN SC ×4 (00:12→17:45)
[2022-02-20] MEDS: Metoclopramide 10 MG/2 ML Vial 5 MG IV ×4 (00:12→17:30)
[2022-02-20 00:45] LABS: Bedside Glucose 240 mg/dL (74-106)
[2022-02-20] MEDS: Ipratropium 0.5 MG/2.5 ML SOLUTION INHALATION ×6 (03:18→23:50)
[2022-02-20] MEDS: CHLORHEXIDINE GLUC 2% CLOTH 1 EACH TOWELETTE TOPICAL (04:04)
[2022-02-20] MEDS: Nystatin/Triamcin Cream Tube 1 APPLIC TOPICAL ×3 (05:19→21:09)
[2022-02-20 05:22] LABS: Hematocrit 23.8 % (37-47); Hemoglobin 7.3 g/dL (12.0-15.0); Mean Corp Hgb Conc 30.7 g/dL (32-36); Mean Corpuscular Hgb 31.6 pg (27.0-32.0); Mean Platelet Vol. 12.1 fl (6.2-12.0); POSITIVE COUNT YES; POSITIVE MORPHOLOGY YES; Platelet Count 136 K/mm3 (150-450); RBC Distribution Width CV 15.8 % (11.6-14.6); RBC Distribution Width SD 58.5 fl (35.1-43.9); Red Blood Count 2.31 M/mm3 (4.2-5.4)
[2022-02-20 05:26] LABS: Differential Indicated MANUAL DIFF
[2022-02-20] MEDS: Propofol 10MG/Ml 1,000 MG/100 ML Bottle 5.7 MG CONT INF (05:30)
[2022-02-20 05:35] LABS: Partial Thromboplast Time 88.7 Seconds (24.1-36.2)
[2022-02-20 05:39] LABS: ALB/GLOB Ratio 0.4 RATIO (0.9-2.4); AST(SGOT) 36 U/L (15-37); Alanine Aminotransfer ALT/SGPT 66 U/L (13-56); Albumin, Serum 1.6 g/dL (3.2-5.0); Alkaline Phosphatase 161 U/L (45-117); Anion Gap 3 (5-15); BUN 48 mg/dL (7-18); BUN/Creat Ratio 96.2 RATIO (10-20); Calcium,Total 8.2 mg/dL (8.5-10.1); Chloride 88 mmol/L (98-107); EST Glomerular Filtration Rate 132 mL/min (>60); Est Glom Filt Rate - Afr Amer 160 mL/min (>60); Estimated Creatinine Clearance 85.77 ml/min; Glucose 372 mg/dL (74-106); Potassium 3.9 mmol/L (3.5-5.1); Protein, Total 5.6 g/dL (6.4-8.2); Sodium Level 135 mmol/L (136-145)
[2022-02-20 05:51] LABS: Bedside Glucose 320 mg/dL (74-106)
[2022-02-20] MEDS: TITRATION PARAMETER CHANGE 1 EACH IV (05:55)
[2022-02-20 06:34] LABS: Total Cells Counted 100 (MANUAL DIFF)
[2022-02-20 06:36] LABS: Lymphocyte 5 % (19-41); Metamyelocyte 7 % (0-1); Monocyte 1 % (0-10); Myelocyte 2 % (0-0); Neutrophil-Band 7 % (0-5); Neutrophil-Segmented 78 % (47-70); Platelet Estimate SLT DEC (ADEQ)
[2022-02-20 06:37] LABS: Absolute Neutrophil Count 17.9 X10^3/uL (2.0-7.7); Neutrophil # 17.86 X10^3/uL (2.7-7.7); Polychromasia RARE
[2022-02-20 06:38] LABS: Absolute Lymphocyte Count 1.05 X10^3/uL (0.83-4.51); Lymphocyte # 1.05 X10^3/ul (0.83-4.51)
--- NOTE | 2022-02-20 07:05 | PN.CC_ITS ---
Assessment & Plan Assessment/Plan (1) Sepsis: PLAN: Plan RECOMMENDATIONS: 1. Continue assist-control mode mechanical ventilation and wean FiO2/PEEP for saturations greater than 90%. Possibly wean PEEP 2. Completed antibiotic course. Monitor clinically 3. Continue heparin infusion. Resume Eliquis at discharge. 4. Continue Lasix drip as tolerated by hemodynamics and renal function. 5. Attempt to use propofol only for sedation. Continue fentanyl. Add Seroquel 6. Continue tube feeds as tolerated. Continue basal insulin. Continue steroids 7. Continue scheduled Atrovent aerosols and corticosteroids. 8. Continue appropriate GI prophylaxis. 9. Readdress CODE STATUS after Monday meeting IMPRESSIONS: 1. Acute hypoxemic respiratory failure secondary to Klebsiella pneumonia The patient decompensated from a respiratory perspective on February 09 following an aspiration event the day prior. Accordingly, the patient was intubated. Her chest imaging did demonstrated progressive interstitial infiltra shahab, left greater than right. Patient should complete at least 10 days of antibiotics. She will be continued on assist control mode of mechanical ventilation. FiO2 and PEEP will be weaned as tolerated to maintain saturations at or above 90%. Tube feeds can be continued for nutritional support. Patient with appropriate diuresis on Lasix drip. Will continue dosage. Clinical suspicion for a significant amount of fluid overload adding to oxygenation issues. Fluid likely the only reversible process and current oxygenation status. Patient appears to have responded well. Patient did grow Klebsiella pneumonia on initial sputum culture. Clinical suspicion that lung cancer will take patient if trach and PEG 2. Septic shock Resolved. The patient presented with sepsis due to Klebsiella pneumonia and cystitis with acute sepsis related organ dysfunction as evidenced by acute respiratory failure requiring invasive mechanical ventilatory support. The patient was just admitted to the hospital with COVID-19 pneumonia. Her chest imaging demonstrates persistent bilateral pulmonary infiltrates, which could be the sequelae of her prior COVID infection with superimposed bacterial pneumonia. Plan to continue antimicrobials as ordered. Patient off of Levophed at this time. Unclear if repeat fever secondary to addition of Seroquel 3. Recent COVID-19 pneumonitis/lower extremity DVT Continue supportive measures as noted above. Continue weight-based heparin infusion for now given instability. Eliquis can be resumed at disch arge. 4. History of metastatic non-small cell lung cancer The patient has apparently completed radiation and systemic chemotherapy treatment. Recommend outpatient oncology follow-up. Likely reassess goals of therapy with family on Monday after attempting medical optimization with diuresis 5. Diabetes mellitus/depression/anxiety/GERD Complicates care, management, recovery and prognosis.? Continue sliding scale insulin coverage and PPI therapy as ordered. 6. Anemia Stable. Unclear initial etiology. Patient has had drifting down of the hemoglobin through the hospitalization and appeared pale yesterday. Patient is significantly volume overloaded clinically and may have an element of hemodilution. Stool guaiac was positive. Blood was transfused. Patient appears to have stabilized after initiation of twice daily PPI TIME: 33 Minutes of critical care time, inclusive of procedures, was spent addressing the patient's acute hypoxemic respiratory failure, sepsis, review of all data and collaboration with the care team. Subjective Subjective Patient did okay overnight from a hemodynamic standpoint. Patient did have some episodes of dyssynchrony leading to elevated FiO2 requirements. Patient did have a fever overnight. Patient has been diuresing well. Patient will open her eyes to voice, but not following commands. Patient did have some transient hypotension after Lopressor, but responded to decreases in sedation. Objective Data Objective Data Vital Signs: Vital Signs Temp Pulse Resp BP Pulse Ox O2 Del Method O2 Flow Rate 37.9 C H 103 H 12 106/73 93 Mechanical Ventilator 2 02/20/22 05:00 02/20/22 05:00 02/20/22 05:00 02/20/22 05:00 02/20/22 05:00 02/20/22 05:00 02/14/22 06:00 FiO2 75 02/20/22 05:00 Oxygen Flow Rate (L/min) 2 Oxygen Delivery Method Mechanical Ventilator Weight: 63 kg Body Mass Index (BMI) 23.8 Intake & Output: Intake and Output for Last 24 Hours 02/18/22 02/19/22 02/20/22 23:59 23:59 23:59 Intake Total 3111.41 / 3466.70 2476.96 / 2639.81 696.64 / 696.64 Output Total 2135 / 2385 3320 / 3410 795 / 795 Balance 976.41 / 1081.70 -843.04 / -770.19 -98.36 / -98.36 Lab / Micro Data Attestation: I reviewed the patient's lab results. Result Diagrams: 02/20/22 05:10 02/20/22 05:10 Labs: Laboratory Results - last 24 hr 02/19/22 12:02: POC Glucose 281 H 02/19/22 17:31: POC Glucose 325 H 02/19/22 21:00: POC Glucose 341 H 02/20/22 00:11: POC Glucose 240 H 02/20/22 05:10: APTT 88.7 H 02/20/22 05:10: WBC 21.0 H, RBC 2.31 L, Hgb 7.3 L, Hct 23.8 L, MCV 103.0 H, MCH 31.6, MCHC 30.7 L, RDW Std Deviation 58.5 H, RDW Coeff of Bettina 15.8 H, Plt Count 136 L, MPV 12.1 H, Neut % (Auto) Not Reportable, Absolute Neuts (auto) 17.9 H, Absolute Lymphs (auto) 1.05, Total Counted 100, Neutrophils % (Manual) 78 H, Band Neutrophils % 7 H, Lymphocytes % (Manual) 5 L, Monocytes % (Manual) 1, Metamyelocytes % 7 H, Myelocytes % 2 H, Diff Path Review May foll, Platelet Estimate SLT DEC, Polychromasia RARE 02/20/22 05:10: Sodium 135 L, Potassium 3.9, Chloride 88 L, Carbon Dioxide 44.0 H, Anion Gap 3 L, BUN 48 H, Creatinine 0.50 L, Estim Creat Clear Calc 85.77, Est GFR (MDRD) Af Amer 160, Est GFR (MDRD) Non-Af 132, BUN/Creatinine Ratio 96.2 H, Glucose 372 H, Calcium 8.2 L, Total Bilirubin 0.30, AST 36, ALT 66 H, Alkaline P hosphatase 161 H, Total Protein 5.6 L, Albumin 1.6 L, Globulin 4.0, Albumin/Globulin Ratio 0.4 L 02/20/22 05:18: POC Glucose 320 H Micro: Microbiology 02/15/22 16:15 Stool C. difficile DNA Amplification - Final 02/09/22 08:40 Blood Culture (Wb) - Anticubital Left Blood Culture - Final No growth in 5 days. 02/09/22 08:55 Blood Culture (Wb) - No Site/Description Given Blood Culture - Final No growth in 5 days. 02/14/22 06:50 Stool Stool Occult Blood (ROSELIA) - Final Occult Blood Positive 02/13/22 07:08 Mucosa - Nose - Final 02/07/22 10:08 Blood Culture (Wb) - Anticubital Left Blood Culture - Final No growth in 5 days. 02/07/22 10:00 Blood Culture (Wb) - Left Wrist Blood Culture - Final No growth in 5 days. 02/09/22 07:45 Urine Catheter - Garcia Urine Culture - Final Culture exhibits no growth. 02/09/22 07:52 Sputum, Induced/Lukens Gram Stain - Final 02/09/22 07:52 Sputum, Induced/Lukens Respiratory Culture - Final Klebsiella pneumoniae sp pneum Presumptive C albicans 02/07/22 13:20 Urine, Catheterized Urine Culture - Final Klebsiella pneumoniae sp pneum 02/07/22 15:03 Mucosa - Nasopharyngeal Respiratory Panel (PCR) - Final 02/07/22 13:20 Urine Catheter - Garcia Legionella Antigen - Final 02/07/22 13:20 Urine Catheter - Garcia Streptococcus pneumoniae Antigen (M - Final 02/07/22 10:18 Interface Orders Influenza Types A,B Direct FA (ROSELIA) - Final Rhythm Strip Rhythm Strip: A-fib Rate: 109 Ectopy: None Physical Exam Const alert and no apparent distress Constitutional Narrative: Currently intubated and mechanically ventilated. Agitated with any stimulus. Not following commands General Appearance: cooperative, intubated and patient mechanically ventilated Orientation / Consciousness: confused and disoriented HEENT normocephalic, head/scalp atraumatic and moist oral mucous membranes Eyes PERRL, EOMs intact bilaterally and conjunctivae normal Neck supple General: trachea midline Chest inspection of chest normal Chest Narrative: Increased AP diameter. Resp Resp Narrative: Bilateral scattered rhonchi noted. Overall good vent synchrony at this time Auscultation: rales and diminished lung sounds; Negative for rhonchi Cardio S1 normal heart sound, S2 normal heart sound, no murmurs, no rub and no gallops Rate: tachycardic Rhythm: abnormal rhythm irregularly irregular GI normal to inspection, nondistended, normoactive bowel sounds Extremity no clubbing, cyanosis or edema General Extremity: edema bilateral lower extremity; Negative for clubbing Skin no rashes or lesions noted Neuro moves all extremities and no focal motor deficits Sensorium / Orientation: sedated on vent Psych Mood & Affect: anxious, labile affect and flat affect Charges/Coding Procedures Hospitalists Procedures: [id number] Critial Care 1st Hr
--- NOTE | 2022-02-20 08:23 | PN.HOSP_ITS ---
Subjective Subjective Follow-up on acute hypoxic respiratory failure/septic shock: Patient was seen and examined.? Patient remains tachycardic, febrile. Oxygen requirement slightly decreased from FiO2 80% to 70%, PEEP is still 12. Urine output has been significant with Lasix drip. Objective Data Objective Data Vital Signs: Vital Signs Temp Pulse Resp BP Pulse Ox O2 Del Method O2 Flow Rate 100.0 F H 118 H 16 108/81 H 91 Mechanical Ventilator 2 02/20/22 08:00 02/20/22 08:00 02/20/22 08:00 02/20/22 08:00 02/20/22 08:00 02/20/22 08:00 02/14/22 06:00 FiO2 70 02/20/22 08:00 Oxygen Flow Rate (L/min) 2 Oxygen Delivery Method Mechanical Ventilator Weight: 63 kg Body Mass Index (BMI) 23.8 Intake & Output: Intake and Output for Last 24 Hours 02/18/22 02/19/22 02/20/22 23:59 23:59 23:59 Intake Total 3111.41 / 3466.70 2476.96 / 2639.81 751.26 / 751.26 Output Total 2135 / 2385 3320 / 3410 1205 / 1205 Balance 976.41 / 1081.70 -843.04 / -770.19 -453.74 / -453.74 Lab / Micro Data Result Diagrams: 02/20/22 05:10 02/20/22 05:10 Labs: Laboratory Results - last 24 hr 02/19/22 12:02: POC Glucose 281 H 02/19/22 17:31: POC Glucose 325 H 02/19/22 21:00: POC Glucose 341 H 02/20/22 00:11: POC Glucose 240 H 02/20/22 05:10: APTT 88.7 H 02/20/22 05:10: WBC 21.0 H, RBC 2.31 L, Hgb 7.3 L, Hct 23.8 L, MCV 103.0 H, MCH 31.6, MCHC 30.7 L, RDW Std Deviation 58.5 H, RDW Coeff of Bettina 15.8 H, Plt Count 136 L, MPV 12.1 H, Neut % (Auto) Not Reportable, Absolute Neuts (auto) 17.9 H, Absolute Lymphs (auto) 1.05, Total Counted 100, Neutrophils % (Manual) 78 H, Band Neutrophils % 7 H, Lymphocytes % (Manual) 5 L, Monocytes % (Manual) 1, Met amyelocytes % 7 H, Myelocytes % 2 H, Diff Path Review May foll, Platelet Estimate SLT DEC, Polychromasia RARE 02/20/22 05:10: Sodium 135 L, Potassium 3.9, Chloride 88 L, Carbon Dioxide 44.0 H, Anion Gap 3 L, BUN 48 H, Creatinine 0.50 L, Estim Creat Clear Calc 85.77, Est GFR (MDRD) Af Amer 160, Est GFR (MDRD) Non-Af 132, BUN/Creatinine Ratio 96.2 H, Glucose 372 H, Calcium 8.2 L, Total Bilirubin 0.30, AST 36, ALT 66 H, Alkaline Phosphatase 161 H, Total Protein 5.6 L, Albumin 1.6 L, Globulin 4.0, Albumin/Globulin Ratio 0.4 L 02/20/22 05:18: POC Glucose 320 H Micro: Microbiology 02/15/22 16:15 Stool C. difficile DNA Amplification - Final 02/09/22 08:40 Blood Culture (Wb) - Anticubital Left Blood Culture - Final No growth in 5 days. 02/09/22 08:55 Blood Culture (Wb) - No Site/Description Given Blood Culture - Final No growth in 5 days. 02/14/22 06:50 Stool Stool Occult Blood (ROSELIA) - Final Occult Blood Positive 02/13/22 07:08 Mucosa - Nose - Final 02/07/22 10:08 Blood Culture (Wb) - Anticubital Left Blood Culture - Final No growth in 5 days. 02/07/22 10:00 Blood Culture (Wb) - Left Wrist Blood Culture - Final No growth in 5 days. 02/09/22 07:45 Urine Catheter - Garcia Urine Culture - Final Culture exhibits no growth. 02/09/22 07:52 Sputum, Induced/Lukens Gram Stain - Final 02/09/22 07:52 Sputum, Induced/Lukens Respiratory Culture - Final Klebsiella pneumoniae sp pneum Presumptive C albicans 02/07/22 13:20 Urine, Catheterized Urine Culture - Final Klebsiella pneumoniae sp pneum 02/07/22 15:03 Mucosa - Nasopharyngeal Respiratory Panel (PCR) - Final 02/07/22 13:20 Urine Catheter - Garcia Legionella Antigen - Final 02/07/22 13:20 Urine Catheter - Garcia Streptococcus pneumoniae Antigen (M - Final 02/07/22 10:18 Interface Orders Influenza Types A,B Direct FA (ROSELIA) - Final Rhythm Strip Rhythm Strip: A-fib Rate: 109 Ectopy: None Physical Exam Narrative Physical exam: General: Sedated, intubated, mechanical ventilator HEENT: Atraumatic, ET and OG tube in situ Oral: Moist Mucosa Neck: Supple Lungs: Diminished to auscultation Cardiovascular: HS I+II, regular, no murmurs Abdomen: Abdomen appears bloated, Bowel Sounds Present, Soft, Non Tender Extremities: Bilateral leg edema +1 Skin: No rashes, No breakdown Neurological: Grossly intact Psych/Mental Status: Appropriate Assessment & Plan Assessment/Plan (1) Sepsis: (2) Hypoxia: (3) Pneumonia: PLAN: Plan Summary: 66 y/o female with past medical history of metastatic lung CA with mets to the brain, [facility]dc resident, who was admitted with hypoxia -oxygen sats 71% on 5 L of oxygen and hypotension. 02/07/22 -patient admitted to the ICU with respiratory failure/hypotension, on Bipap 02/08/22 -Initially was weaned off BiPAP to 3 L of oxygen, later became delirious, restarted on her home clonazepam, Precedex added, was hypotensive, received IV fluids 02/09/22 -patient was intubated and since been on the mechanical ventilator. 1.Septic shock secondary to Acute Klebsiella pneumoniae pneumonia/Klebsiella pneumoniae UTI Urine and sputum cultures growing Klebsiella pneumoniae, pansensitive Blood cultures are negative x5 days Completed 10 days of IV antibiotics Patient with persistent fever, will recheck sputum and blood cultures again 2.Acute hypoxic respiratory failure secondary to acute Klebsiella pneumonia/aspiration pneumonia Patient remains intubated; oxygen requirements have not improved much, remains on PEEP of 12, FiO2 70% Patient appears fluid overloaded, has been on Lasix drip with not much improvement Continue mechanical ventilator, mortician supplies sales representative following 3.Anemia, likely acute on chronic blood loss secondary to acute GI bleed, FOBT is positive, hemoglobin 7.3, s/p 2 units of packed RBC transfusion Continue IV PPI BID, will transfuse for hemoglobin less than 7 Trend blood work 4. Hypokalemia, resolved 5. Acute diarrhea, acute C. difficile ruled out, s/p fecal management system placement, resolved 6. Recent DVT of the left lower extremity, off Eliquis for now, Continue on heparin drip 7. Diabetes mellitus type II, blood sugars fairly uncontrolled secondary to steroids Continue on increased Lantus of 50 units BID as well as high-dose insulin sliding scale 8. Lung CA with mets to the brain, status post chemotherapy and radiation therapy Continue on Keppra and Solu-Medrol BID 9.Depression/anxiety, continue on Seroquel 10. DVT prophylaxis?on heparin drip Charges/Coding Visit Charges Inpatient E&M: 76800 Subs Hosp L3
[2022-02-20] MEDS: Chlorhexidine 15 ML PO ×2 (09:56→21:08)
[2022-02-20] MEDS: Cholecalciferol (VIT D3) 25 MCG TABLET (1,000 UNITS) 125 MCG GT (09:57)
[2022-02-20] MEDS: Folic Acid 1 MG Tablet 0.5 MG GT (09:58)
[2022-02-20] MEDS: Metoprolol Tartrate 25 MG Tablet 75 MG PO ×2 (09:59→21:08)
[2022-02-20] MEDS: QUEtiapine 25 MG Tablet 50 MG PO ×2 (10:00→21:08)
[2022-02-20] MEDS: Potassium Chloride Oral Tablet 20 MEQ GT ×2 (10:00→17:30)
[2022-02-20] MEDS: Senna/Docusate Sodium 1 Tablet 2 TABLET PO (10:00)
[2022-02-20] MEDS: Menthol/Lanolin/Calamine/Znox 113 GM Tube 1 APPLIC TOPICAL ×4 (10:00→21:09)
[2022-02-20] MEDS: Vital AF 1.2 Cal Liquid 1,000 ML 50 ML GT (10:28)
[2022-02-20] MEDS: Insulin Glargine-YFGN 100 UNIT/ML Pen 50 UNIT SC ×2 (12:00→21:16)
[2022-02-20 12:35] LABS: Bedside Glucose 268 mg/dL (74-106)
[2022-02-20 12:55] LABS: Partial Thromboplast Time 64.7 Seconds (24.1-36.2)
[2022-02-20] MEDS: Propofol 10MG/Ml 1,000 MG/100 ML Bottle 7.6 MG CONT INF (14:30)
[2022-02-20] MEDS: Furosemide 500 MG in Empty Viaflex 50 mL 1 EACH CONT INF (16:50)
[2022-02-20 18:10] LABS: Bedside Glucose 296 mg/dL (74-106)
[2022-02-20 18:59] LABS: Partial Thromboplast Time 62.6 Seconds (24.1-36.2)
[2022-02-20] MEDS: Acetaminophen 650 MG/20 ML UDC GT (21:19)
[2022-02-20 21:50] LABS: Bedside Glucose 269 mg/dL (74-106)
[2022-02-21] VITALS (37 sets, daily range): BP systolic 74–147; BP diastolic 41–95; PULSE 86–141; RESP 12–24; TEMP 37.4–38.4; O2SAT 90–98
[2022-02-21] MEDS: Propofol 10MG/Ml 1,000 MG/100 ML Bottle 9.5 MG CONT INF (00:11)
[2022-02-21] MEDS: Metoclopramide 10 MG/2 ML Vial 5 MG IV ×4 (00:11→17:08)
[2022-02-21] MEDS: Insulin Lispro 100 UNIT/ML INSULN.PEN SC ×3 (00:23→10:57)
[2022-02-21] MEDS: HEPARIN/D5w 25,000 UNITS 25,000 UNITS/250 ML IV.SOLN. 9 UNITS CONT INF (00:23)
[2022-02-21 00:47] LABS: Bedside Glucose 248 mg/dL (74-106)
[2022-02-21 03:17] LABS: Hematocrit 23.5 % (37-47); Hemoglobin 7.1 g/dL (12.0-15.0); Mean Corp Hgb Conc 30.2 g/dL (32-36); Mean Corpuscular Hgb 31.7 pg (27.0-32.0); Mean Corpuscular Volume 104.9 fL (81-99); Mean Platelet Vol. 12.2 fl (6.2-12.0); POSITIVE COUNT YES; POSITIVE MORPHOLOGY YES; Platelet Count 145 K/mm3 (150-450); RBC Distribution Width SD 59.7 fl (35.1-43.9); Red Blood Count 2.24 M/mm3 (4.2-5.4); White Blood Count 19.6 K/mm3 (4.4-11.0)
[2022-02-21 03:18] LABS: Differential Indicated MANUAL DIFF
[2022-02-21 03:32] LABS: Partial Thromboplast Time 64.7 Seconds (24.1-36.2)
[2022-02-21 03:34] LABS: ALB/GLOB Ratio 0.4 RATIO (0.9-2.4); AST(SGOT) 34 U/L (15-37); Alanine Aminotransfer ALT/SGPT 56 U/L (13-56); Albumin, Serum 1.6 g/dL (3.2-5.0); Alkaline Phosphatase 156 U/L (45-117); Anion Gap 2 (5-15); BUN 56 mg/dL (7-18); BUN/Creat Ratio 104.9 RATIO (10-20); Chloride 90 mmol/L (98-107); Creatinine, Serum 0.53 mg/dL (0.55-1.02); EST Glomerular Filtration Rate 122 mL/min (>60); Est Glom Filt Rate - Afr Amer 148 mL/min (>60); Estimated Creatinine Clearance 80.92 ml/min; Globulin 4.1 g/dL (2.2-4.2); Glucose 355 mg/dL (74-106); Potassium 4.8 mmol/L (3.5-5.1); Protein, Total 5.7 g/dL (6.4-8.2); Sodium Level 134 mmol/L (136-145)
[2022-02-21] MEDS: Ipratropium 0.5 MG/2.5 ML SOLUTION INHALATION ×6 (03:35→23:18)
[2022-02-21] MEDS: Nystatin/Triamcin Cream Tube 1 APPLIC TOPICAL ×3 (03:42→20:59)
[2022-02-21] MEDS: CHLORHEXIDINE GLUC 2% CLOTH 1 EACH TOWELETTE TOPICAL (03:42)
[2022-02-21 03:48] LABS: Anisocytosis 1+; Macrocytosis 1+; Platelet Estimate SLT DEC (ADEQ)
[2022-02-21 03:51] LABS: Absolute Lymphocyte Count 1.96 X10^3/uL (0.83-4.51); Neutrophil-Band 9 % (0-5); Neutrophil-Segmented 73 % (47-70); Total Cells Counted 101 (MANUAL DIFF)
[2022-02-21 03:52] LABS: Lymphocyte 10 % (19-41); Metamyelocyte 1 % (0-1); Monocyte 3 % (0-10); Myelocyte 3 % (0-0); Nucleated Red Bld Cells,Manual 1 % (0-5); Promyelocyte 1 % (0-0)
[2022-02-21] MEDS: 0.9% Saline Lock 10 ML Syringe IV (05:51)
[2022-02-21] MEDS: TITRATION PARAMETER CHANGE 1 EACH IV (05:52)
[2022-02-21 06:15] LABS: Bedside Glucose 352 mg/dL (74-106)
--- NOTE | 2022-02-21 06:50 | PN.CC_ITS ---
Assessment & Plan Assessment/Plan (1) Sepsis: PLAN: Plan RECOMMENDATIONS: 1. Continue assist-control mode mechanical ventilation and wean FiO2/PEEP for saturations greater than 90%. Possibly wean PEEP 2. Completed antibiotic course. Monitor clinically 3. Continue heparin infusion. Resume Eliquis at discharge. 4. Continue Lasix drip as tolerated by hemodynamics and renal function. Goal of -1 to 2 L/day 5. Attempt to use propofol only for sedation. Continue fentanyl. Continue Seroquel 6. Continue tube feeds as tolerated. Continue basal insulin. Continue steroids 7. Continue scheduled Atrovent aerosols and corticosteroids. 8. Continue appropriate GI prophylaxis. 9. Readdress CODE STATUS after Monday meeting IMPRESSIONS: 1. Acute hypoxemic respiratory failure secondary to Klebsiella pneumonia The patient decompensated from a respiratory perspective on February 09 following an aspiration event the day prior. Accordingly, the patient was intubated. Her chest imaging did demonstrated progressive interstitial infiltrates, left greater than right. Patient should complete at least 10 days of antibiotics. She will be continued on assist control mode of mechanical ventilation. FiO2 and PEEP will be weaned as tolerated to maintain saturations at or above 90%. Tube feeds can be continued for nutritional support. Patient with appropriate diuresis on Lasix drip. Will continue dosage. Clinical suspicion for a significant amount of fluid overload adding to oxygenation issues. Fluid likely the only reversible process and current oxygenation status. Patient appears to have responded well. Patient did grow Klebsiella pneumonia on initial sputum culture, but this has been treated. Patient with little clinical improvement despite diuresis and treatment of Klebsiella. Anticipate fibrotic phase of ARDS. Patient will likely need to have comfort measures versus trach and PEG, extubation with no reintubation will likely not be an option given oxygen requirements. 2. Septic shock Resolved. The patient presented with sepsis due to Klebsiella pneumonia and cystitis with acute sepsis related organ dysfunction as evidenced by acute respiratory failure requiring invasive mechanical ventilatory support. The patient was just admitted to the hospital with COVID-19 pneumonia. Her chest imaging demonstrates persistent bilateral pulmonary infiltrates, which could be the sequelae of her prior COVID infection with superimposed bacterial pneumonia. Plan to continue antimicrobials as ordered. Patient off of Levophed at this time. Unclear if repeat fever secondary to addition of Seroquel 3. Recent COVID-19 pneumonitis/lower extremity DVT Continue supportive measures as noted above. Continue weight-based heparin infusion for now given instability. Eliquis can be resumed at discharge. 4. History of metastatic non-small cell lung cancer The patient has apparently completed radiation and systemic chemotherapy treatment. Recommend outpatient oncology follow-up. Likely reassess goals of therapy with family on Monday after attempting medical optimization with diuresis 5. Diabetes mellitus/depression/anxiety/GERD Complicates care, management, recovery and prognosis.? Continue sliding scale insulin coverage and PPI therapy as ordered. 6. Anemia Stable. Unclear initial etiology. Patient has had drifting down of the hemoglobin through the hospitalization and appeared pale yesterday. Patient is significantly volume overloaded clinically and may have an element of hemodilution. Stool guaiac was positive. Blood was transfused. Patient appears to have stabilized after initiation of twice daily PPI TIME: 35 Minutes of critical care time, inclusive of procedures, was spent addressing the patient's acute hypoxemic respiratory failure, sepsis, review of all data and collaboration with the care team. Subjective Subjective Patient did okay overnight from a hemodynamic standpoint. Patient continues to have spinal reflexes and does open her eyes to voice. Attempts at weaning FiO2 have been unsuccessful despite appropriate diuresis. Patient continues to tolerate her tube feeds. Family is requesting family meeting be completed on February 22. Objective Data Objective Data Attempt to wean FiO2 unsuccessful at the bedside Vital Signs: Vital Signs Temp Pulse Resp BP Pulse Ox O2 Del Method O2 Flow Rate 38.4 C H 107 H 12 104/69 91 Mechanical Ventilator 2 02/21/22 04:00 02/21/22 06:00 02/21/22 06:00 02/21/22 06:00 02/21/22 06:00 02/21/22 06:00 02/14/22 06:00 FiO2 70 02/21/22 06:00 Oxygen Flow Rate (L/min) 2 Oxygen Delivery Method Mechanical Ventilator Weight: 62.8 kg Body Mass Index (BMI) 23.8 Intake & Output: Intake and Output for Last 24 Hours 02/19/22 02/20/22 02/21/22 23:59 23:59 23:59 Intake Total 2476.96 / 2639.81 2771.98 / 2868.98 343.18 / 343.18 Output Total 3320 / 3410 2625 / 2700 570 / 570 Balance -843.04 / -770.19 146.98 / 168.98 -226.82 / -226.82 Lab / Micro Data Attestation: I reviewed the patient's lab results. Result Diagrams: 02/21/22 03:10 02/21/22 03:10 Labs: Laboratory Results - last 24 hr 02/20/22 11:57: POC Glucose 268 H 02/20/22 12:30: APTT 64.7 H 02/20/22 17:42: POC Glucose 296 H 02/20/22 18:35: APTT 62.6 H 02/20/22 21:14: POC Glucose 269 H 02/21/22 00:21: POC Glucose 248 H 02/21/22 03:10: WBC 19.6 H, RBC 2.24 L, Hgb 7.1 L, Hct 23.5 L, MCV 104.9 H, MCH 31.7, MCHC 30.2 L, RDW Std Deviation 59.7 H, RDW Coeff of Bettina 16.0 H, Plt Count 145 L, MPV 12.2 H, Neut % (Auto) Not Reportable, Absolute Neuts (auto) 16.0 H, Absolute Lymphs (auto) 1.96, Total Counted 101, Neutrophils % (Manual) 73 H, Band Neutrophils % 9 H, Lymphocytes % (Manual) 10 L, Monocytes % (Manual) 3, Metamyelocytes % 1, Myelocytes % 3 H, Promyelocytes % 1 H, Nucleated RBCs/100 WBC 1, Diff Path Review July, Platelet Estimate SLT DEC, Anisocytosis 1+, Macrocytosis 1+ 02/21/22 03:10: Sodium 134 L, Potassium 4.8, Chloride 90 L, Carbon Dioxide 42.0 H, Anion Gap 2 L, BUN 56 H, Creatinine 0.53 L, Estim Creat Clear Calc 80.92, Est GFR (MDRD) Af Amer 148, Est GFR (MDRD) Non-Af 122, BUN/Creatinine Ratio 104.9 H, Glucose 355 H, Calcium 8.0 L, Total Bilirubin 0.30, AST 34, ALT 56, Alkaline Phosphatase 156 H, Total Protein 5.7 L, Albumin 1.6 L, Globulin 4.1, Albumin/Globulin Ratio 0.4 L 02/21/22 03:10: APTT 64.7 H 02/21/22 05:49: POC Glucose 352 H Micro: Microbiology 02/20/22 11:35 Sputum, Induced/Lukens Gram Stain - Final 02/15/22 16:15 Stool C. difficile DNA Amplification - Final 02/09/22 08:40 Blood Culture (Wb) - Anticubital Left Blood Culture - Final No growth in 5 days. 02/09/22 08:55 Blood Culture (Wb) - No Site/Description Given Blood Culture - Final No growth in 5 days. 02/14/22 06:50 Stool Stool Occult Blood (ROSELIA) - Final Occult Blood Positive 02/13/22 07:08 Mucosa - Nose - Final 02/07/22 10:08 Blood Culture (Wb) - Anticubital Left Blood Culture - Final No growth in 5 days. 02/07/22 10:00 Blood Culture (Wb) - Left Wrist Blood Culture - Final No growth in 5 days. 02/09/22 07:45 Urine Catheter - Garcia Urine Culture - Final Culture exhibits no growth. 02/09/22 07:52 Sputum, Induced/Lukens Gram Stain - Final 02/09/22 07:52 Sputum, Induced/Lukens Respiratory Culture - Final Klebsiella pneumoniae sp pneum Presumptive C albicans 02/07/22 13:20 Urine, Catheterized Urine Culture - Final Klebsiella pneumoniae sp pneum 02/07/22 15:03 Mucosa - Nasopharyngeal Respiratory Panel (PCR) - Final 02/07/22 13:20 Urine Catheter - Garcia Legionella Antigen - Final 02/07/22 13:20 Urine Catheter - Garcia Streptococcus pneumoniae Antigen (M - Final 02/07/22 10:18 Interface Orders Influenza Types A,B Direct FA ([facility]) - Final Rhythm Strip Rhythm Strip: Sinus Rhythm Rate: 92 Ectopy: None Physical Exam Const no apparent distress Constitutional Narrative: Currently intubated and mechanically ventilated. Agitated with any stimulus. Not following commands General Appearance: intubated and patient mechanically ventilated Orientation / Consciousness: confused and disoriented HEENT normocephalic, head/scalp atraumatic and moist oral mucous membranes Eyes PERRL, EOMs intact bilaterally and conjunctivae normal Neck supple General: trachea midline Chest inspection of chest normal Chest Narrative: Increased AP diameter. Resp Resp Narrative: Bilateral scattered rhonchi noted. Overall good vent synchrony at this time Auscultation: rales and diminished lung sounds; Negative for rhonchi Cardio S1 normal heart sound, S2 normal heart sound, no murmurs, no rub and no gallops Rate: tachycardic Rhythm: abnormal rhythm irregularly irregular GI normal to inspection, nondistended, normoactive bowel sounds Extremity no clubbing, cyanosis or edema General Extremity: edema bilateral lower extremity; Negative for clubbing Skin no rashes or lesions noted Neuro moves all extremities and no focal motor deficits Sensorium / Orientation: sedated on vent Psych Mood & Affect: anxious, labile affect and flat affect Charges/Coding Procedures Hospitalists Procedures: 98965 Critial Care 1st Hr
[2022-02-21] MEDS: Vital AF 1.2 Cal Liquid 1,000 ML 50 ML GT (07:18)
--- NOTE | 2022-02-21 07:29 | PCM.PN.HOSP ---
Subjective Subjective Follow-up for acute hypoxic respiratory failure due to Klebsiella pneumoniae Patient is still intubated since February 09. Patient is still having persistent fever. Objective Data Objective Data Vital Signs: Vital Signs Temp Pulse Resp BP Pulse Ox O2 Del Method O2 Flow Rate 101.1 F H 126 H 14 109/80 94 Mechanical Ventilator 2 02/21/22 04:00 02/21/22 07:27 02/21/22 07:13 02/21/22 07:00 02/21/22 07:13 02/21/22 07:00 02/14/22 06:00 FiO2 70 02/21/22 07:00 Oxygen Flow Rate (L/min) 2 Oxygen Delivery Method Mechanical Ventilator Weight: 138 lb 7.205 oz Body Mass Index (BMI) 23.8 Intake & Output: Intake and Output for Last 24 Hours 02/19/22 02/20/22 02/21/22 23:59 23:59 23:59 Intake Total 2476.96 / 2639.81 2771.98 / 2868.98 1358.18 / 1358.18 Output Total 3320 / 3410 2625 / 2700 670 / 670 Balance -843.04 / -770.19 146.98 / 168.98 688.18 / 688.18 Lab / Micro Data Result Diagrams: 02/21/22 03:10 02/21/22 03:10 Labs: Laboratory Results - last 24 hr 02/20/22 11:57: POC Glucose 268 H 02/20/22 12:30: APTT 64.7 H 02/20/22 17:42: POC Glucose 296 H 02/20/22 18:35: APTT 62.6 H 02/20/22 21:14: POC Glucose 269 H 02/21/22 00:21: POC Glucose 248 H 02/21/22 03:10: WBC 19.6 H, RBC 2.24 L, Hgb 7.1 L, Hct 23.5 L, MCV 104.9 H, MCH 31.7, MCHC 30.2 L, RDW Std Deviation 59.7 H, RDW Coeff of Bettina 16.0 H, Plt Count 145 L, MPV 12.2 H, Neut % (Auto) Not Reportable, Absolute Neuts (auto) 16.0 H, Absolute Lymphs (auto) 1.96, Total Counted 101, Neutrophils % (Manual) 73 H, Band Neutrophils % 9 H, Lymphocytes % (Manual) 10 L, Monocytes % (Manual) 3, Metamyelocytes % 1, Myelocytes % 3 H, Promyelocytes % 1 H, Nucleated RBCs/100 WBC 1, Diff Path Review May foll, Platelet Estimate SLT DEC, Anisocytosis 1+, Macrocytosis 1+ 02/21/22 03:10: Sodium 134 L, Potassium 4.8, Chloride 90 L, Carbon Dioxide 42.0 H, Anion Gap 2 L, BUN 56 H, Creatinine 0.53 L, Estim Creat Clear Calc 80.92, Est GFR (MDRD) Af Amer 148, Est GFR (MDRD) Non-Af 122, BUN/Creatinine Ratio 104.9 H, Glucose 355 H, Calcium 8.0 L, Total Bilirubin 0.30, AST 34, ALT 56, Alkaline Phosphatase 156 H, Total Protein 5.7 L, Albumin 1.6 L, Globulin 4.1, Albumin/Globulin Ratio 0.4 L 02/21/22 03:10: APTT 64.7 H 02/21/22 05:49: POC Glucose 352 H Micro: Microbiology 02/20/22 11:35 Sputum, Induced/Lukens Gram Stain - Final 02/15/22 16:15 Stool C. difficile DNA Amplification - Final 02/09/22 08:40 Blood Culture (Wb) - Anticubital Left Blood Culture - Final No growth in 5 days. 02/09/22 08:55 Blood Culture (Wb) - No Site/Description Given Blood Culture - Final No growth in 5 days. 02/14/22 06:50 Stool Stool Occult Blood (ROSELIA) - Final Occult Blood Positive 02/13/22 07:08 Mucosa - Nose - Final 02/07/22 10:08 Blood Culture (Wb) - Anticubital Left Blood Culture - Final No growth in 5 days. 02/07/22 10:00 Blood Culture (Wb) - Left Wrist Blood Culture - Final No growth in 5 days. 02/09/22 07:45 Urine Catheter - Garcia Urine Culture - Final Culture exhibits no growth. 02/09/22 07:52 Sputum, Induced/Lukens Gram Stain - Final 02/09/22 07:52 Sputum, Induced/Lukens Respiratory Culture - Final Klebsiella pneumoniae sp pneum Presumptive C albicans 02/07/22 13:20 Urine, Catheterized Urine Culture - Final Klebsiella pneumoniae sp pneum 02/07/22 15:03 Mucosa - Nasopharyngeal Respiratory Panel (PCR) - Final 02/07/22 13:20 Urine Catheter - Garcia Legionella Antigen - Final 02/07/22 13:20 Urine Catheter - Garcia Streptococcus pneumoniae Antigen (M - Final 02/07/22 10:18 Interface Orders Influenza Types A,B Direct FA (ROSELIA) - Final Rhythm Strip Rhythm Strip: Sinus Rhythm Rate: 92 Ectopy: None Physical Exam Narrative Physical exam General: On sedatives. Intubated unconscious. HEENT: Atraumatic, PERRLA, EOMI, Normocephalic Oral: ET and OG tube. Neck: Supple, No JVD, Negative Carotid Bruits Lungs: Air entry equal in bilateral lungs. No crepitation/rhonchi Cardiovascular: Sinus rhythm on phone triage specialist, Normal S1, Normal S2, No murmurs Abdomen: Bowel Sounds sluggish, soft, Non Tender, Non-Distended : Garcia catheter, clear urine. No renal angle tenderness. No suprapubic tenderness. Extremities: Bilateral edema, Capillary Refill Less than 3 Seconds Skin: No rashes, No breakdown Musculoskeletal: No Tenderness to Palpation of Joints or Extremities Neurological: Sedated, detailed neuro exam unobtainable Psych/Mental Status: Sedated. Assessment & Plan Assessment/Plan (1) Sepsis: (2) Hypoxia: (3) Pneumonia: PLAN: Plan 66 y/o female with past medical history of metastatic lung CA with mets to the brain, longterm resident, who was admitted with hypoxia -oxygen sats 71% on 5 L of oxygen and hypotension. Patient was intubated on 02/09/2022 following aspiration event day prior. 02/21: Patient on 70% FiO2 12 PEEP, tidal volume 400, respiratory rate 12. Chest x-ray shows progressive interstitial infiltrates, left greater than right. Patient is still on high FiO2 and PEEP with possibility of possible ARDS. Family discussion tomorrow regarding their extubation with no reintubation or trach and PEG decision. 1.Septic shock secondary to Acute Klebsiella pneumoniae pneumonia/Klebsiella pneumoniae UTI Urine and sputum cultures growing Klebsiella pneumoniae, pansensitive Blood cultures are negative x5 days Completed 10 days of IV antibiotics 02/21: Patient with fever T-max 101.1 Fahrenheit. Blood culture and sputum culture was reordered on 02/20. Preliminary blood culture shows gram-positive cocci in clusters. A sputum culture prelim and does not show organism or cells. Poor prognosis. 2.Acute hypoxic respiratory failure secondary to acute Klebsiella pneumonia/aspiration pneumonia Patient remains intubated; oxygen requirements have not improved much, remains on PEEP of 12, FiO2 70% Patient appears fluid overloaded, has been on Lasix drip with not much improvement Continue mechanical ventilator, sewer and cutter finger buff material following 3.Anemia, likely acute on chronic blood loss secondary to acute GI bleed, FOBT is positive, hemoglobin 7.3, s/p 2 units of packed RBC transfusion Continue IV PPI BID, will transfuse for hemoglobin less than 7 02/21: Hemoglobin 7.1. 4. Hypokalemia, resolved 5. Acute diarrhea, acute C. difficile ruled out, s/p fecal management system placement, resolved 6. Recent DVT of the left lower extremity, off Eliquis for now, Continue on heparin drip 7. Diabetes mellitus type II, blood sugars fairly uncontrolled secondary to steroids Continue on increased Lantus of 50 units BID as well as high-dose insulin sliding scale 8. Lung CA with mets to the brain, status post chemotherapy and radiation therapy Continue on Keppra and Solu-Medrol BID 9.Depression/anxiety, continue on Seroquel 10. DVT prophylaxis?on heparin drip Microbiology Past 72 Hours 02/20/22 11:35 Sputum, Induced/Lukens Gram Stain - Final 02/20/22 11:35 Sputum, Induced/Lukens Respiratory Culture - Preliminary 02/20/22 09:40 Blood Culture (Wb) - Right Wrist Blood Culture - Preliminary Laboratory Results 02/19/22 04:40: Diff Path Review Reviewed 02/20/22 05:10: Diff Path Review Reviewed 02/20/22 17:42: POC Glucose 296 H 02/20/22 18:35: APTT 62.6 H 02/20/22 21:14: POC Glucose 269 H 02/21/22 00:21: POC Glucose 248 H 02/21/22 03:10: WBC 19.6 H, RBC 2.24 L, Hgb 7.1 L, Hct 23.5 L, MCV 104.9 H, MCH 31.7, MCHC 30.2 L, RDW Std Deviation 59.7 H, RDW Coeff of Bettina 16.0 H, Plt Count 145 L, MPV 12.2 H, Neut % (Auto) Not Reportable, Absolute Neuts (auto) 16.0 H, Absolute Lymphs (auto) 1.96, Total Counted 101, Neutrophils % (Manual) 73 H, Band Neutrophils % 9 H, Lymphocytes % (Manual) 10 L, Monocytes % (Manual) 3, Metamyelocytes % 1, Myelocytes % 3 H, Promyelocytes % 1 H, Nucleated RBCs/100 WBC 1, Diff Path Review Reviewed, Platelet Estimate SLT DEC, Anisocytosis 1+, Macrocytosis 1+ 02/21/22 03:10: Sodium 134 L, Potassium 4.8, Chloride 90 L, Carbon Dioxide 42.0 H, Anion Gap 2 L, BUN 56 H, Creatinine 0.53 L, Estim Creat Clear Calc 80.92, Est GFR (MDRD) Af Amer 148, Est GFR (MDRD) Non-Af 122, BUN/Creatinine Ratio 104.9 H, Glucose 355 H, Calcium 8.0 L, Total Bilirubin 0.30, AST 34, ALT 56, Alkaline Phosphatase 156 H, Total Protein 5.7 L, Albumin 1.6 L, Globulin 4.1, Albumin/Globulin Ratio 0.4 L 02/21/22 03:10: APTT 64.7 H 02/21/22 05:49: POC Glucose 352 H 02/21/22 10:56: POC Glucose 281 H Charges/Coding Visit Charges Inpatient E&M: 40748 Subs Hosp L3
[2022-02-21] MEDS: Potassium Chloride Oral Tablet 20 MEQ GT ×2 (08:15→17:08)
[2022-02-21] MEDS: Folic Acid 1 MG Tablet 0.5 MG GT (08:15)
[2022-02-21] MEDS: Metoprolol Tartrate 25 MG Tablet 75 MG PO ×2 (08:15→21:00)
[2022-02-21] MEDS: Chlorhexidine 15 ML PO ×2 (08:15→20:59)
[2022-02-21] MEDS: Senna/Docusate Sodium 1 Tablet 2 TABLET PO (08:16)
[2022-02-21] MEDS: Cholecalciferol (VIT D3) 25 MCG TABLET (1,000 UNITS) 125 MCG GT (08:17)
[2022-02-21] MEDS: QUEtiapine 25 MG Tablet 50 MG PO ×2 (08:17→21:00)
[2022-02-21] MEDS: Propofol 10MG/Ml 1,000 MG/100 ML Bottle 7.5 MG CONT INF ×2 (08:28→21:25)
[2022-02-21] MEDS: Menthol/Lanolin/Calamine/Znox 113 GM Tube 1 APPLIC TOPICAL ×4 (09:07→20:58)
--- NOTE | 2022-02-21 09:54 | CASEMGMT ---
CHANDANA called patient's brother Beltran to schedule a family meeting. There was no answer so CHANDANA left a voice mail requesting a return call. CHANDANA will also try and reach patient's sister. Darlene JEAN
[2022-02-21] MEDS: Insulin Glargine-YFGN 100 UNIT/ML Pen 55 UNIT SC (10:57)
[2022-02-21 11:20] LABS: Bedside Glucose 281 mg/dL (74-106)
--- NOTE | 2022-02-21 11:54 | CASEMGMT ---
CHANDANA called Abigail, patient's sister. CHANDANA asked if there was a time that the family can come in to meet with the physician. Abigail said she thought her sister in law spoke with Ros on Monday. [place] said she will call her brother and sister in law to find out and call CHANDANA back. Darlene Fisher COMPUTER EDUCATION TEACHER TED
--- NOTE | 2022-02-21 12:00 | CASEMGMT ---
CHANDANA just received a phone call from Luna, patient's sister in law. She said they can all come in tomorrow anytime in the afternoon. CHANDANA said 2p and she was in agreement with this for everyone. CHANDANA called ICU and notified ALBERTO Stevenson and she said she would notify Dr Gould. Plan: Family meeting tomorrow 02-22 at 1400 Darlene JEAN
[2022-02-21 12:59] LABS: Pathologist Review Reviewed
[2022-02-21 13:02] LABS: Pathologist Review Reviewed
[2022-02-21 13:04] LABS: Pathologist Review Reviewed
[2022-02-21] MEDS: Furosemide 500 MG in Empty Viaflex 50 mL 1 EACH CONT INF (15:57)
[2022-02-21 17:30] LABS: Bedside Glucose 116 mg/dL (74-106)
[2022-02-21] MEDS: Acetaminophen 650 MG/20 ML UDC GT (20:55)
[2022-02-21] MEDS: Dextrose 50%-Water 25 GM/50 ML DISP.SYRIN IV (22:29)
[2022-02-21] MEDS: Vital AF 1.2 Cal Liquid 1,000 ML 15 ML GT (22:48)
[2022-02-21 23:16] LABS: Base Excess 14 mmol/L (-2 to +2); Bicarbonate 37.9 mmol/L (22-26); Blood Gas Specimen Type ART; FI02 70; Mode AC; O2 Delivery Device Adult Vent; PEEP 12; PO2 80 mmHG (75-100); RR 12; SITE L Radial; SO2 96 % (95-99); Total Carbon Dioxide 40 mmol/L; Vt 400; pCO2 56.8 mmHg (35-45); pH 7.43 (7.35-7.45)
[2022-02-21 23:26] LABS: Bedside Glucose 181 mg/dL (74-106)
[2022-02-21 23:26] LABS: Bedside Glucose 34 mg/dL (74-106)
[2022-02-22] VITALS (32 sets, daily range): BP systolic 91–138; BP diastolic 53–95; PULSE 93–145; RESP 12–26; TEMP 3.3–39.1; O2SAT 14–100
[2022-02-22] MEDS: Metoclopramide 10 MG/2 ML Vial 5 MG IV ×3 (00:33→11:21)
[2022-02-22] MEDS: Dextrose 50%-Water 25 GM/50 ML DISP.SYRIN IV (00:36)
[2022-02-22] MEDS: Acetaminophen 650 MG/20 ML UDC GT ×3 (00:42→08:30)
[2022-02-22] MEDS: HEPARIN/D5w 25,000 UNITS 25,000 UNITS/250 ML IV.SOLN. 9 UNITS CONT INF (00:44)
[2022-02-22 01:06] LABS: Bedside Glucose 69 mg/dL (74-106)
[2022-02-22] MEDS: Ipratropium 0.5 MG/2.5 ML SOLUTION INHALATION ×3 (02:32→11:02)
[2022-02-22 03:46] LABS: Hemoglobin 7.4 g/dL (12.0-15.0); Mean Corp Hgb Conc 30.8 g/dL (32-36); Mean Corpuscular Hgb 31.1 pg (27.0-32.0); Mean Corpuscular Volume 100.8 fL (81-99); Mean Platelet Vol. 12.1 fl (6.2-12.0); POSITIVE COUNT YES; POSITIVE MORPHOLOGY YES; Platelet Count 156 K/mm3 (150-450); RBC Distribution Width SD 57.1 fl (35.1-43.9); Red Blood Count 2.38 M/mm3 (4.2-5.4); White Blood Count 21.4 K/mm3 (4.4-11.0)
[2022-02-22 03:48] LABS: Anisocytosis 1+; Differential Indicated MANUAL DIFF; Macrocytosis RARE
[2022-02-22 03:49] LABS: Platelet Estimate ADEQUATE (ADEQ)
[2022-02-22 03:54] LABS: Partial Thromboplast Time 47.4 Seconds (24.1-36.2)
[2022-02-22 03:59] LABS: Absolute Neutrophil Count 16.2 X10^3/uL (2.0-7.7)
[2022-02-22 04:00] LABS: Absolute Lymphocyte Count 2.78 X10^3/uL (0.83-4.51); Atypical Lymphocyte 1+ %; Lymphocyte 13 % (19-41); Metamyelocyte 3 % (0-1); Monocyte 4 % (0-10); Myelocyte 4 % (0-0); Neutrophil-Band 11 % (0-5); Neutrophil-Segmented 65 % (47-70); Nucleated Red Bld Cells,Manual 2 % (0-5); Total Cells Counted 102 (MANUAL DIFF)
[2022-02-22 04:07] LABS: ALB/GLOB Ratio 0.4 RATIO (0.9-2.4); AST(SGOT) 44 U/L (15-37); Alanine Aminotransfer ALT/SGPT 51 U/L (13-56); Albumin, Serum 1.8 g/dL (3.2-5.0); Alkaline Phosphatase 129 U/L (45-117); Anion Gap 6 (5-15); BUN 50 mg/dL (7-18); BUN/Creat Ratio 104.2 RATIO (10-20); Calcium,Total 8.6 mg/dL (8.5-10.1); Chloride 90 mmol/L (98-107); Creatinine, Serum 0.48 mg/dL (0.55-1.02); EST Glomerular Filtration Rate 138 mL/min (>60); Est Glom Filt Rate - Afr Amer 167 mL/min (>60); Estimated Creatinine Clearance 89.35 ml/min; Globulin 4.3 g/dL (2.2-4.2); Glucose 156 mg/dL (74-106); Potassium 4.1 mmol/L (3.5-5.1); Protein, Total 6.1 g/dL (6.4-8.2); Sodium Level 138 mmol/L (136-145)
[2022-02-22] MEDS: Heparin Injection (Vial) 5,000 UNIT/ML VIAL IV (04:23)
[2022-02-22 05:11] LABS: CPK Total, Creatine Kinase 41 U/L (26-192); Triglycerides 379 mg/dL
[2022-02-22] MEDS: Insulin Lispro 100 UNIT/ML INSULN.PEN SC (05:26)
[2022-02-22] MEDS: Nystatin/Triamcin Cream Tube 1 APPLIC TOPICAL ×2 (05:29→14:11)
--- NOTE | 2022-02-22 06:52 | PN.CC_ITS ---
Assessment & Plan Assessment/Plan (1) Sepsis: PLAN: Plan RECOMMENDATIONS: 1. Continue assist-control mode mechanical ventilation and wean FiO2/PEEP for saturations greater than 90%. Possibly wean PEEP 2. Completed antibiotic course. Monitor clinically 3. Continue heparin infusion. Resume Eliquis at discharge. 4. Continue Lasix drip as tolerated by hemodynamics and renal function. Goal of -1 to 2 L/day 5. Attempt to use propofol only for sedation. Continue fentanyl. Continue Seroquel 6. Hold tube feeds and basal insulin. Continue steroids 7. Continue scheduled Atrovent aerosols and corticosteroids. 8. Continue appropriate GI prophylaxis. 9. Await outcome of family meeting at 2 PM today IMPRESSIONS: 1. Acute hypoxemic respiratory failure secondary to Klebsiella pneumonia The patient decompensated from a respiratory perspective on February 09 following an aspiration event the day prior. Accordingly, the patient was intubated. Her chest imaging did demonstrated progressive interstitial in filtrates, left greater than right. Patient should complete at least 10 days of antibiotics. She will be continued on assist control mode of mechanical ventilation. FiO2 and PEEP will be weaned as tolerated to maintain saturations at or above 90%. Tube feeds can be continued for nutritional support. Patient with appropriate diuresis on Lasix drip. Will continue current dosage. Clinical suspicion for a significant amount of fluid overload as a component of oxygenation issues. Fluid likely the only reversible process and current oxygenation status. Patient did grow Klebsiella pneumonia on initial sputum culture, but this has been treated. Patient with little clinical improvement despite diuresis and treatment of Klebsiella. Anticipate fibrotic phase of ARDS. Patient is at 14 days of intubation. Patient will likely need to have comfort measures versus trach and PEG, extubation with no reintubation will likely not be an option given oxygen requirements. 2. Septic shock Resolved. The patient presented with sepsis due to Klebsiella pneumonia and cystitis with acute sepsis related organ dysfunction as evidenced by acute respiratory failure requiring invasive mechanical ventilatory support. The patient was just admitted to the hospital with COVID-19 pneumonia. Her chest imaging demonstrates persistent bilateral pulmonary infiltrates, which could be the sequelae of her prior COVID infection with superimposed bacterial pneumonia. Plan to continue antimicrobials as ordered. Patient off of Levophed at this time. Unclear if repeat fever secondary to addition of Seroquel 3. Recent COVID-19 pneumonitis/lower extremity DVT Continue supportive measures as noted above. Continue weight-based heparin infusion for now given instability. Eliquis can be resumed at discharge. 4. History of metastatic non-small cell lung cancer The patient has apparently completed radiation and systemic chemotherapy treatment. Recommend outpatient oncology follow-up. Likely reassess goals of therapy with family on Monday after attempting medical optimization with diuresis 5. Diabetes mellitus/depression/anxiety/GERD Complicates care, management, recovery and prognosis.? Continue sliding scale insulin coverage and PPI therapy as ordered. 6. Anemia Stable. Unclear initial etiology. Patient has had drifting down of the hemoglobin through the hospitalization and appeared pale yesterday. Patient is significantly volume overloaded clinically and may have an element of hemodilution. Stool guaiac was positive. Blood was transfused. Patient appears to have stabilized after initiation of twice daily PPI Addendum 2:30 PM: Met with family for approximately 20 minutes to discuss patient's current status. They understand the poor prognosis and wish for the suffering to stop. Family had several questions about the process and how things would be moving forward. They stated they do have a couple family members they would like to see the patient before moving forward with extubation. Family is requesting extubation with supportive symptoms. Family is aware that patient will likely pass quickly without the help of the ventilator. Additional conversation with the nursing staff about therapy moving forward. We will finish with the remaining Lasix, but this will not be continued. Patient will be made a DNR Comfort Care arrest at this time with plans of comfort care only later tonight or tomorrow. TIME: 65 Minutes of critical care time, inclusive of procedures, was spent addressing the patient's acute hypoxemic respiratory failure, sepsis, review of all data and collaboration with the care team. Subjective Subjective Patient did okay through the day yesterday. Overnight, patient became hypotensive and febrile. Blood sugars were low. Patient was placed on tube feeds with resolution of hypotension and hypoglycemia. Patient has had some tachycardia this morning. Patient will attempt to localize to voice, but not following commands or opening eyes Objective Data Objective Data Vital Signs: Vital Signs Temp Pulse Resp BP Pulse Ox O2 Del Method O2 Flow Rate 38.6 C H 132 H 25 H 91/79 94 Mechanical Ventilator 2 02/22/22 06:00 02/22/22 06:00 02/22/22 06:00 02/22/22 06:00 02/22/22 06:00 02/22/22 06:00 02/14/22 06:00 FiO2 65 02/22/22 06:00 Oxygen Flow Rate (L/min) 2 Oxygen Delivery Method Mechanical Ventilator Weight: 62 kg Body Mass Index (BMI) 23.8 Intake & Output: Intake and Output for Last 24 Hours 02/20/22 02/21/22 02/22/22 23:59 23:59 23:59 Intake Total 2771.98 / 2868.98 2245.03 / 2258.83 385.48 / 385.48 Output Total 2625 / 2700 3445 / 3545 925 / 925 Balance 146.98 / 168.98 -1199.97 / -1286.17 -539.52 / -539.52 Lab / Micro Data Attestation: I reviewed the patient's lab results. Result Diagrams: 02/22/22 03:35 02/22/22 03:35 Labs: Laboratory Results - last 24 hr 02/19/22 04:40: Diff Path Review Reviewed 02/20/22 05:10: Diff Path Review Reviewed 02/21/22 03:10: Diff Path Review Reviewed 02/21/22 10:56: POC Glucose 281 H 02/21/22 17:10: POC Glucose 116 H 02/21/22 22:26: POC Glucose 34 L* 02/21/22 22:55: POC Glucose 181 H 02/22/22 00:28: POC Glucose 69 L 02/22/22 03:15: Total Creatine Kinase 41, Triglycerides 379 H 02/22/22 03:35: WBC 21.4 H, RBC 2.38 L, Hgb 7.4 L, Hct 24.0 L, MCV 100.8 H, MCH 31.1, MCHC 30.8 L, RDW Std Deviation 57.1 H, RDW Coeff of Bettina 16.0 H, Plt Count 156, MPV 12.1 H, Neut % (Auto) Not Reportable, Absolute Neuts (auto) 16.2 H, Absolute Lymphs (auto) 2.78, Total Counted 102, Neutrophils % (Manual) 65, Band Neutrophils % 11 H, Lymphocytes % (Manual) 13 L, Monocytes % (Manual) 4, Metamyelocytes % 3 H, Myelocytes % 4 H, Nucleated RBCs/100 WBC 2, Diff Path Review May foll, Atypical Lymphocytes 1+, Platelet Estimate ADEQUATE, Anisocytosis 1+, Macrocytosis RARE 11/29/22 03:35: Sodium 138, Potassium 4.1, Chloride 90 L, Carbon Dioxide 42.0 H, Anion Gap 6, BUN 50 H, Creatinine 0.48 L, Estim Creat Clear Calc 89.35, Est GFR (MDRD) Af Amer 167, Est GFR (MDRD) Non-Af 138, BUN/Creatinine Ratio 104.2 H, Glucose 156 H, Calcium 8.6, Total Bilirubin 0.40, AST 44 H, ALT 51, Alkaline Phosphatase 129 H, Total Protein 6.1 L, Albumin 1.8 L, Globulin 4.3 H, Albumin/ Globulin Ratio 0.4 L 02/22/22 03:35: APTT 47.4 H Micro: Microbiology 02/20/22 11:35 Sputum, Induced/Lukens Gram Stain - Final 02/20/22 11:35 Sputum, Induced/Lukens Respiratory Culture - Preliminary 02/20/22 09:40 Blood Culture (Wb) - Right Wrist Blood Culture - Preliminary 02/15/22 16:15 Stool C. difficile DNA Amplification - Final 02/09/22 08:40 Blood Culture (Wb) - Anticubital Left Blood Culture - Final No growth in 5 days. 02/09/22 08:55 Blood Culture (Wb) - No Site/Description Given Blood Culture - Final No growth in 5 days. 02/14/22 06:50 Stool Stool Occult Blood (ROSELIA) - Final Occult Blood Positive 02/13/22 07:08 Mucosa - Nose - Final 02/07/22 10:08 Blood Culture (Wb) - Anticubital Left Blood Culture - Final No growth in 5 days. 02/07/22 10:00 Blood Culture (Wb) - Left Wrist Blood Culture - Final No growth in 5 days. 02/09/22 07:45 Urine Catheter - Garcia Urine Culture - Final Culture exhibits no growth. 02/09/22 07:52 Sputum, Induced/Lukens Gram Stain - Final 02/09/22 07:52 Sputum, Induced/Lukens Respiratory Culture - Final Klebsiella pneumoniae sp pneum Presumptive C albicans 02/07/22 13:20 Urine, Catheterized Urine Culture - Final Klebsiella pneumoniae sp pneum 02/07/22 15:03 Mucosa - Nasopharyngeal Respiratory Panel (PCR) - Final 02/07/22 13:20 Urine Catheter - Garcia Legionella Antigen - Final 02/07/22 13:20 Urine Catheter - Garcia Streptococcus pneumoniae Antigen (M - Final 02/07/22 10:18 Interface Orders Influenza Types A,B Direct FA (ROSELIA) - Final ABG Data ABG results: ABG 02/21/22 23:06 Specimen Type ART Sample Site L Radial pH 7.43 Bicarbonate Actual 37.9 H Total CO2 40 Base Excess 14 H O2 Saturation 96 O2 % 70 ABG pCO2 56.8 H ABG pO2 80 Ryan Test N/A Respiration Rate 12 O2 Delivery Device Adult Vent Vent Mode AC Tidal Volume 400 POC PEEP 12 Attestation: I personally reviewed and interpreted this ABG as follows: (Compensated respiratory acidosis with increased AA gradient) Rhythm Strip Rhythm Strip: Sinus Tach Rate: 135 Ectopy: None Physical Exam Const no apparent distress Constitutional Narrative: Currently intubated and mechanically ventilated. Agitated with any stimulus. Not following commands. Is moving her head more often attempting to localize voice General Appearance: intubated and patient mechanically ventilated Orientation / Consciousness: confused and disoriented HEENT normocephalic, head/scalp atraumatic and moist oral mucous membranes Eyes PERRL, EOMs intact bilaterally and conjunctivae normal Eyes Narrative: Fights eye examination Neck supple General: trachea midline Chest inspection of chest normal Chest Narrative: Increased AP diameter. Resp Resp Narrative: Overall good vent synchrony at this time Auscultation: diminished lung sounds; Negative for rales, rhonchi or wheezes Cardio S1 normal heart sound, S2 normal heart sound, no murmurs, no rub and no gallops Rate: tachycardic GI normal to inspection, nondistended, normoactive bowel sounds Extremity no clubbing, cyanosis or edema Extremity Narrative: Cool lower extremities. Upper extremity weeping is improved. General Extremity: edema bilateral lower extremity; Negative for clubbing Skin no rashes or lesions noted Neuro moves all extremities and no focal motor deficits Sensorium / Orientation: sedated on vent Psych Mood & Affect: labile affect and flat affect Charges/Coding Procedures Hospitalists Procedures: 36141 Critial Care 1st Hr
[2022-02-22] MEDS: CHLORHEXIDINE GLUC 2% CLOTH 1 EACH TOWELETTE TOPICAL (07:47)
[2022-02-22] MEDS: Propofol 10MG/Ml 1,000 MG/100 ML Bottle 9.3 MG CONT INF ×2 (07:47→16:14)
[2022-02-22] MEDS: Metoprolol Tartrate 25 MG Tablet 75 MG PO (08:30)
[2022-02-22] MEDS: QUEtiapine 25 MG Tablet 50 MG PO (08:31)
[2022-02-22] MEDS: Senna/Docusate Sodium 1 Tablet 2 TABLET PO (08:31)
[2022-02-22] MEDS: Potassium Chloride Oral Tablet 20 MEQ GT (08:32)
[2022-02-22] MEDS: Folic Acid 1 MG Tablet 0.5 MG GT (08:32)
[2022-02-22] MEDS: Cholecalciferol (VIT D3) 25 MCG TABLET (1,000 UNITS) 125 MCG GT (08:33)
[2022-02-22] MEDS: Menthol/Lanolin/Calamine/Znox 113 GM Tube 1 APPLIC TOPICAL ×2 (08:33→14:11)
[2022-02-22] MEDS: Chlorhexidine 15 ML PO (08:37)
[2022-02-22 10:44] LABS: Partial Thromboplast Time 58.5 Seconds (24.1-36.2)
[2022-02-22 11:16] LABS: Pathologist Review Reviewed
[2022-02-22] MEDS: 0.9% Saline Lock 10 ML Syringe IV ×2 (11:21→18:19)
--- NOTE | 2022-02-22 11:42 | PN.HOSP_ITS ---
Subjective Subjective Follow-up for acute hypoxic respiratory failure. Still on vent. Family meeting at 2 PM. On IV heparin drip. Off Levophed drip. Continue to have fever Objective Data Objective Data Vital Signs: Vital Signs Temp Pulse Resp BP Pulse Ox O2 Del Method O2 Flow Rate 101.7 F H 101 H 13 115/74 95 Mechanical Ventilator 2 02/22/22 10:00 02/22/22 11:29 02/22/22 11:03 02/22/22 11:00 02/22/22 11:03 02/22/22 11:00 02/14/22 06:00 FiO2 65 02/22/22 11:00 Oxygen Flow Rate (L/min) 2 Oxygen Delivery Method Mechanical Ventilator Weight: 136 lb 10.986 oz Body Mass Index (BMI) 23.8 Intake & Output: Intake and Output for Last 24 Hours 02/20/22 02/21/22 02/22/22 23:59 23:59 23:59 Intake Total 2771.98 / 2868.98 2245.03 / 2258.83 804.85 / 804.85 Output Total 2625 / 2700 3445 / 3545 1520 / 1520 Balance 146.98 / 168.98 -1199.97 / -1286.17 -715.15 / -715.15 Lab / Micro Data Result Diagrams: 02/22/22 03:35 02/22/22 03:35 Labs: Laboratory Results - last 24 hr 02/19/22 04:40: Diff Path Review Reviewed 02/20/22 05:10: Diff Path Review Reviewed 02/21/22 03:10: Diff Path Review Reviewed 02/21/22 17:10: POC Glucose 116 H 02/21/22 22:26: POC Glucose 34 L* 02/21/22 22:55: POC Glucose 181 H 02/22/22 00:28: POC Glucose 69 L 02/22/22 03:15: Total Creatine Kinase 41, Triglycerides 379 H 02/22/22 03:35: WBC 21.4 H, RBC 2.38 L, Hgb 7.4 L, Hct 24.0 L, MCV 100.8 H, MCH 31.1, MCHC 30.8 L, RDW Std Deviation 57.1 H, RDW Coeff of Bettina 16.0 H, Plt Count 156, MPV 12.1 H, Neut % (Auto) Not Reportable, Absolute Neuts (auto) 16.2 H, Absolute Lymphs (auto) 2.78, Total Counted 102, Neutrophils % (Manual) 65, Band Neutrophils % 11 H, Lymphocytes % (Manual) 13 L, Monocytes % (Manual) 4, Metamyelocytes % 3 H, Myelocytes % 4 H, Nucleated RBCs/100 WBC 2, Diff Path Review Reviewed, Atypical Lymphocytes 1+, Platelet Estimate ADEQUATE, Anisocytosis 1+, Macrocytosis RARE 02/22/22 03:35: Sodium 138, Potassium 4.1, Chloride 90 L, Carbon Dioxide 42.0 H, Anion Gap 6, BUN 50 H, Creatinine 0.48 L, Estim Creat Clear Calc 89.35, Est GFR (MDRD) Af Amer 167, Est GFR (MDRD) Non-Af 138, BUN/Creatinine Ratio 104.2 H, Glucose 156 H, Calcium 8.6, Total Bilirubin 0.40, AST 44 H, ALT 51, Alkaline Phosphatase 129 H, Total Protein 6.1 L, Albumin 1.8 L, Globulin 4.3 H, Albumin/Globulin Ratio 0.4 L 02/22/22 03:35: APTT 47.4 H 02/22/22 10:25: APTT 58.5 H Micro: Microbiology 02/20/22 11:35 Sputum, Induced/Lukens Gram Stain - Final 02/20/22 11:35 Sputum, Induced/Lukens Respiratory Culture - Preliminary Presumptive C albicans Possible Fungus 02/20/22 09:40 Blood Culture (Wb) - Right Wrist Blood Culture - Preliminary Coag Negative Staph 02/15/22 16:15 Stool C. difficile DNA Amplification - Final 02/09/22 08:40 Blood Culture (Wb) - Anticubital Left Blood Culture - Final No growth in 5 days. 02/09/22 08:55 Blood Culture (Wb) - No Site/Description Given Blood Culture - Final No growth in 5 days. 02/14/22 06:50 Stool Stool Occult Blood (ROSELIA) - Final Occult Blood Positive 02/13/22 07:08 Mucosa - Nose - Final 02/07/22 10:08 Blood Culture (Wb) - Anticubital Left Blood Culture - Final No growth in 5 days. 02/07/22 10:00 Blood Culture (Wb) - Left Wrist Blood Culture - Final No growth in 5 days. 02/09/22 07:45 Urine Catheter - Garcia Urine Culture - Final Culture exhibits no growth. 02/09/22 07:52 Sputum, Induced/Lukens Gram Stain - Final 02/09/22 07:52 Sputum, Induced/Lukens Respiratory Culture - Final Klebsiella pneumoniae sp pneum Presumptive C albicans 02/07/22 13:20 Urine, Catheterized Urine Culture - Final Klebsiella pneumoniae sp pneum 02/07/22 15:03 Mucosa - Nasopharyngeal Respiratory Panel (PCR) - Final 02/07/22 13:20 Urine Catheter - Garcia Legionella Antigen - Final 02/07/22 13:20 Urine Catheter - Garcia Streptococcus pneumoniae Antigen (M - Final 02/07/22 10:18 Interface Orders Influenza Types A,B Direct FA (ROSELIA) - Final ABG Data ABG results: ABG 02/21/22 23:06 Specimen Type ART Sample Site L Radial pH 7.43 Bicarbonate Actual 37.9 H Total CO2 40 Base Excess 14 H O2 Saturation 96 O2 % 70 ABG pCO2 56.8 H ABG pO2 80 Ryan Test N/A Respiration Rate 12 O2 Delivery Device Adult Vent Vent Mode AC Tidal Volume 400 POC PEEP 12 Rhythm Strip Rhythm Strip: Sinus Tach Rate: 135 Ectopy: None Physical Exam Narrative Physical exam General: On sedatives. Intubated unconscious. HEENT: Atraumatic, PERRLA, EOMI, Normocephalic Oral: ET and OG tube. Neck: Supple, No JVD, Negative Carotid Bruits Lungs: Air entry equal in bilateral lungs. No crepitation/rhonchi Cardiovascular: Sinus rhythm on teletypesetter monitor, Normal S1, Normal S2, No murmurs Abdomen: Bowel Sounds sluggish, soft, Non Tender, Non-Distended : Garcia catheter, clear urine. No renal angle tenderness. No suprapubic tenderness. Extremities: Bilateral edema, Capillary Refill Less than 3 Seconds Skin: No rashes, No breakdown Musculoskeletal: No Tenderness to Palpation of Joints or Extremities Neurological: Sedated, detailed neuro exam unobtainable Psych/Mental Status: Sedated. Assessment & Plan Assessment/Plan (1) Sepsis: (2) Hypoxia: (3) Pneumonia: PLAN: Plan 66 y/o female with past medical history of metastatic lung CA with mets to the brain, retirement resident, who was admitted with hypoxia -oxygen sats 71% on 5 L of oxygen and hypotension. Patient was intubated on 02/09/2022 following aspiration event day prior. 02/21: Patient on 70% FiO2 12 PEEP, tidal volume 400, respiratory rate 12. Chest x-ray shows progressive interstitial infiltrates, left greater than right. Patient is still on high FiO2 and PEEP with possibility of possible ARDS. Family discussion tomorrow regarding their extubation with no reintubation or trach and PEG decision. 1.Septic shock secondary to Acute Klebsiella pneumoniae pneumonia/Klebsiella pneumoniae UTI Urine and sputum cultures growing Klebsiella pneumoniae, pansensitive Blood cultures are negative x5 days Completed 10 days of IV antibiotics 02/21: Patient with fever T-max 101.1 Fahrenheit. Blood culture and sputum culture was reordered on 02/20. Preliminary blood culture shows gram-positive cocci in clusters. A sputum culture prelim and does not show organism or cells. Poor prognosis. 02/22: Continues to have fever T-max 102.3 Fahrenheit. Leukocytosis 21,000 with left shift sputum culture shows presumptive, 1+. Preliminary blood culture, anaerobic bottle coagulase-negative staph. Vancomycin 1 g dose ordered. Discussed with biomedical equipment technician. 2.Acute hypoxic respiratory failure secondary to acute Klebsiella pneumonia/aspiration pneumonia Patient remains intubated; oxygen requirements have not improved much, remains on PEEP of 12, FiO2 70% Patient appears fluid overloaded, has been on Lasix drip with not much improveme nt Continue mechanical ventilator, biomedical equipment technician following 02/22: Patient on 65% FiO2, PEEP 12. Family meeting at 2 PM today to decide about trach and PEG or de-escalation of life support. 3.Anemia, likely acute on chronic blood loss secondary to acute GI bleed, FOBT is positive, hemoglobin 7.3, s/p 2 units of packed RBC transfusion Continue IV PPI BID, will transfuse for hemoglobin less than 7 02/21: Hemoglobin 7.1. 02/22: Hemoglobin 7.4 4. Hypokalemia, resolved 5. Acute diarrhea, acute C. difficile ruled out, s/p fecal management system placement, resolved 6. Recent DVT of the left lower extremity, off Eliquis for now, Continue on heparin drip 7. Diabetes mellitus type II, blood sugars fairly uncontrolled secondary to steroids Continue on increased Lantus of 50 units BID as well as high-dose insulin sliding scale 8. Lung CA with mets to the brain, status post chemotherapy and radiation therapy Continue on Keppra and Solu-Medrol BID 9.Depression/anxiety, continue on Seroquel 10. DVT prophylaxis?on heparin drip Microbiology Past 72 Hours 02/20/22 11:35 Sputum, Induced/Lukens Gram Stain - Final 02/20/22 11:35 Sputum, Induced/Lukens Respiratory Culture - Preliminary Presumptive C 1+. Possible Fungus 02/20/22 09:40 Blood Culture (Wb) - Right Wrist Blood Culture - Preliminary Coag Negative Staph Laboratory Results 02/19/22 04:40: Diff Path Review Reviewed 02/20/22 05:10: Diff Path Review Reviewed 02/21/22 03:10: Diff Path Review Reviewed 02/21/22 17:10: POC Glucose 116 H 02/21/22 22:26: POC Glucose 34 L* 02/21/22 22:55: POC Glucose 181 H 02/21/22 23:06: Specimen Type ART, Sample Site L Radial, pH 7.43, Bicarbonate Actual 37.9 H, Total CO2 40, Base Excess 14 H, O2 Saturation 96, O2 % 70, ABG pCO2 56.8 H, ABG pO2 80, Ryan Test N/A, Respiration Rate 12, O2 Delivery Device Adult Vent, Vent Mode AC, Tidal Volume 400, POC PEEP 12 02/22/22 00:28: POC Glucose 69 L 02/22/22 03:15: Total Creatine Kinase 41, Triglycerides 379 H 02/22/22 03:35: WBC 21.4 H, RBC 2.38 L, Hgb 7.4 L, Hct 24.0 L, MCV 100.8 H, MCH 31.1, MCHC 30.8 L, RDW Std Deviation 57.1 H, RDW Coeff of Bettina 16.0 H, Plt Count 156, MPV 12.1 H, Neut % (Auto) Not Reportable, Absolute Neuts (auto) 16.2 H, Absolute Lymphs (auto) 2.78, Total Counted 102, Neutrophils % (Manual) 65, Band Neutrophils % 11 H, Lymphocytes % (Manual) 13 L, Monocytes % (Manual) 4, Metamyelocytes % 3 H, Myelocytes % 4 H, Nucleated RBCs/100 WBC 2, Diff Path Review Reviewed, Atypical Lymphocytes 1+, Platelet Estimate ADEQUATE, Anisocytosis 1+, Macrocytosis RARE 02/22/22 03:35: Sodium 138, Potassium 4.1, Chloride 90 L, Carbon Dioxide 42.0 H, Anion Gap 6, BUN 50 H, Creatinine 0.48 L, Estim Creat Clear Calc 89.35, Est GFR (MDRD) Af Amer 167, Est GFR (MDRD) Non-Af 138, BUN/Creatinine Ratio 104.2 H, Glucose 156 H, Calcium 8.6, Total Bilirubin 0.40, AST 44 H, ALT 51, Alkaline Phosphatase 129 H, Total Protein 6.1 L, Albumin 1.8 L, Globulin 4.3 H, Albumin/Globulin Ratio 0.4 L 02/22/22 03:35: APTT 47.4 H 02/22/22 10:25: APTT 58.5 H Charges/Coding Visit Charges Inpatient E&M: 18741 Subs Hosp L3
[2022-02-22 12:14] LABS: Bedside Glucose 147 mg/dL (74-106)
[2022-02-22 12:14] LABS: Bedside Glucose 191 mg/dL (74-106)
[2022-02-22 12:14] LABS: Bedside Glucose 128 mg/dL (74-106)
[2022-02-22 12:14] LABS: Bedside Glucose 95 mg/dL (74-106)
[2022-02-22] MEDS: Vancomycin IV 1,000 MG/200 ML BAG 200 MG IV (12:46)
--- NOTE | 2022-02-22 14:35 | CASEMGMT ---
This SW and CHANDANA Head participated in a family meeting with patient's family to discuss goals of care. Family has chosen to withdrawal care. Family was going to talk and discuss when they would like to withdrawal care. SW will offer support if family chooses to withdrawal care while SW here. Darlene Fisher ELECTRICAL CHECKOUT MECHANIC TED
[2022-02-22] MEDS: LORazepam 2 MG/ML Syringe IV (18:00)
[2022-02-22] MEDS: Morphine 2 MG/ML Syringe IV ×2 (18:02→18:19)
[2022-02-22] MEDS: Atropine Sulfate 1% 2 ml Bottle 4 DRP PO (18:04)
--- NOTE | 2022-02-22 18:07 | CPS ---
Terminally extubated without difficulty, placed on 2lpm NC.
--- NOTE | 2022-02-22 20:14 | NURSING ---
Pt at 1944. 2 nurses verification completed with Lorie Crain RN. Dr. Calhoun notified.
--- NOTE | 2022-02-22 20:54 | PCM.PN.BLA ---
Progress Note Notified by nursing team that patient passed at 1745. Attending MD to write Summary.
--- NOTE | 2022-02-23 11:58 | PCM.DEATH ---
Preliminary Cause of Preliminary Cause of Preliminary Cause of : Acute hypoxic respiratory failure secondary to acute Klebsiella pneumonia and aspiration pneumonia. Septic shock Date of Admission: 02/07/22 Date of : 02/22/22 Principle Diagnosis Problem List: Active and Suspected Problems (Updated 02/13/22 @ 00:02 by Background Daemon) Sepsis (Acute) Hypoxia (Acute) Pneumonia (Acute) Acute respiratory failure with hypoxia (Acute) Pneumonia due to COVID-19 virus (Acute) Hospital Course This is 66 y/o female with past medical history of metastatic lung CA with mets to the brain, senior care resident, who was admitted with hypoxia -oxygen sats 71% on 5 L of oxygen and hypotension. Patient was intubated on 02/09/2022 following aspiration event day prior.? 02/21: Patient on 70% FiO2 12 PEEP, tidal volume 400, respiratory rate 12.? Chest x-ray shows progressive interstitial infiltrates, left greater than right.? Patient is still on high FiO2 and PEEP with possibility of possible ARDS.? Family discussion tomorrow regarding their extubation with no reintubation or trach and PEG decision. 1.Septic shock secondary to Acute Klebsiella pneumoniae pneumonia/Klebsiella pneumoniae UTI Urine and sputum cultures growing Klebsiella pneumoniae, pansensitive Blood cultures are negative x5 days Completed 10 days of IV antibiotics 02/21: Patient with? fever T-max 101.1 Fahrenheit.? Blood culture and sputum culture was reordered on 02/20.? Preliminary blood culture shows gram-positive cocci in clusters.? A sputum culture prelim and does not show organism or cells.? Poor prognosis. 02/22: Continues to have fever T-max 102.3 Fahrenheit.??Leukocytosis 21,000 with left shift sputum culture shows presumptive, 1+.? Preliminary blood culture, anaerobic bottle coagulase-negative staph.? Vancomycin 1 g dose ordered.? Discussed with tube filler. 02/22: There was family meeting about 2 PM on 02/22 and was decided terminal extubation. Eventually patient , at 1945 hrs. on 02/22/2022. Patient already completed antibiotic and was given 1 dose of vancomycin as mentioned above. 2.Acute hypoxic respiratory failure secondary to acute Klebsiella pneumonia/aspiration pneumonia Patient remains intubated; oxygen requirements have not improved much, remains on PEEP of 12, FiO2 70% Patient appears fluid overloaded, has been on Lasix drip with not much improvement Continue mechanical ventilator, tube filler following 02/22: Patient on 65% FiO2, PEEP 12.? Family meeting at 2 PM today to decide about trach and PEG or de-escalation of life support. 3.Anemia, likely acute on chronic blood loss secondary to acute GI bleed, FOBT is positive, hemoglobin 7.3, s/p 2 units of packed RBC transfusion Continue IV PPI BID, will transfuse for hemoglobin less than 7 02/21: Hemoglobin 7.1. 02/22: Hemoglobin 7.4 4. Hypokalemia, resolved 5. Acute diarrhea, acute C. difficile ruled out, s/p fecal management system placement, resolved 6. Recent DVT of the left lower extremity, off Eliquis for now, Continue on heparin drip 7. Diabetes mellitus type II, blood sugars fairly uncontrolled secondary to steroids Continue on increased Lantus of 50 units BID as well as high-dose insulin sliding scale 8. Lung CA with mets to the brain, status post chemotherapy and radiation therapy Continue on Keppra and Solu-Medrol BID 9.Depression/anxiety, continue on Seroquel 10. DVT prophylaxis?on heparin drip Patient was made DNR CC, terminal extubation after family meeting at 2 PM. Patient peacefully, at 4 1945 hrs. on 02/22/2022 Visit Charges Inpatient E&M: [id number] Disch Hosp
== END 2022-02-22 22:37 | DRG 870 ==
LOC: ED 11:43 → ICU 13:45
PROVIDERS: Family Medicine; Internal Medicine; Internal Medicine Critical Care Medicine; Admitting Provider Internal Medicine; Emergency Provider Emergency Medicine; PCP Family Medicine; Visit Provider Internal Medicine
DX: A41.59 Other Gram-negative sepsis (principal); J80 Acute respiratory distress syndrome; J69.0 Pneumonitis due to inhalation of food and vomit; G92.8 Other toxic encephalopathy; R65.21 Severe sepsis with septic shock; U07.1 COVID-19; J15.0 Pneumonia due to Klebsiella pneumoniae; J44.0 Chronic obstructive pulmonary disease with (acute) lower respiratory infection; C79.9 Secondary malignant neoplasm of unspecified site; C34.90 Malignant neoplasm of unspecified part of unspecified bronchus or lung; C79.31 Secondary malignant neoplasm of brain; D62 Acute posthemorrhagic anemia; K92.2 Gastrointestinal hemorrhage, unspecified; N30.00 Acute cystitis without hematuria; E11.649 Type 2 diabetes mellitus with hypoglycemia without coma; I11.0 Hypertensive heart disease with heart failure; I50.9 Heart failure, unspecified; E11.9 Type 2 diabetes mellitus without complications; J44.9 Chronic obstructive pulmonary disease, unspecified; K21.9 Gastro-esophageal reflux disease without esophagitis; F41.8 Other specified anxiety disorders; E87.6 Hypokalemia; B96.20 Unspecified Escherichia coli [E. coli] as the cause of diseases classified elsewhere; Z51.5 Encounter for palliative care; Z87.891 Personal history of nicotine dependence; Z92.3 Personal history of irradiation; Z66 Do not resuscitate; Z79.52 Long term (current) use of systemic steroids; Z79.2 Long term (current) use of antibiotics; Z92.21 Personal history of antineoplastic chemotherapy; Z86.718 Personal history of other venous thrombosis and embolism
CPT/HCPCS: 31500; 31720; 36415; 36569; 36600; 70450; 71045; 74018; 80048; 80053; 80076; 80202; 81001; 82274; 82550; 82803; 82947; 82962; 83605; 83735; 84100; 84478; 84484; 85025; 85610; 85730; 86644; 86850; 86900; 86901; 86920; 86922; 87040; 87070; 87077; 87086; 87088; 87107; 87186; 87205; 87449; 87493; 87632; 87633; 87641; 87804; 93005; 94002; 94003; 94640; 94762; 97162; 97802; 97803; 99251; 99285; 99406; J7030; J7040; J7050; P9016; A4216; G0463; J1940; J3010